=== PATIENT | male | born 1945 | race Caucasian/White ===

== ENCOUNTER 2019-10-12 13:04 | Outpatient (CLI) | payer OTHER, SELFPAY ==
--- NOTE | 2019-10-12 13:30 | USCV_ITS ---
Gary Nichols Age: 73 Gender: M : 1945 Exam Date: 10/12/2019 13:23 Ordering Phys: Arie Garcia MD ([email or web address]) Technologist: Chemo Farfan [place] [facility] [place]: KNOWN CAROTID DISEASE FOR SURVEILLANCE Risk Factors: Previous Vascular Surgery: Right Brachial BP: / Left Brachial BP: / Right Left Velocity (cm/s) Spectral Plaque Velocity (cm/s) Spectral Plaque Syst/Diast Broadening Syst/Diast Broadening 108.10/16.50 Prox CCA 76.50 / 13.40 79.40/ 19.80 Mid CCA 79.00 / 18.20 58.50/ 11.80 Distal CCA 63.50 / 17.30 87.10/ 27.60 Prox ICA 59.20 / 17.70 87.60/ 28.90 Mid ICA 104.90/ 30.30 97.20/ 22.80 Distal ICA 88.70 / 25.60 93.70 ECA 130.60 1.10 ICA/CCA 1.33 Antegrade Vertebral Antegrade 67.30/ 16.50 cm/s 50.40/ 14.50 cm/s Tri Subclavian Bi 116.9 110.2 0 0 FINDINGS Comparison:. 08/19/14. No significant elevation of systolic or diastolic velocities. Mixture of calcified and noncalcified plaque in the bifurcations. CONCLUSIONS No change seen from prior study. Bilateral ICA stenosis less than 50%. Dr. Skye Denton DO (Electronically Signed) Final Date: 12 October 2019 16:16 S
== END 2019-10-12 13:05 | disposition home or self-care (01) ==
LOC: US 13:05
PROVIDERS: PCP Family Medicine; Visit Provider Internal Medicine Cardiovascular Disease
DX: I65.23 Occlusion and stenosis of bilateral carotid arteries (principal)
CPT/HCPCS: 93880

== ENCOUNTER → 2021-07-31 09:33 | Outpatient (BNVA) | payer MEDICARE, SELFPAY | PROVIDERS: PCP Family Medicine; Visit Provider Surgery | DX: R13.10 Dysphagia, unspecified (principal) | CPT/HCPCS: 99202 ==

== ENCOUNTER 2021-08-04 07:29 | Day surgery (SDC) | payer MEDICARE, SELFPAY ==
[2021-08-01 12:29] VITALS: BMI 31.5
[2021-08-04 08:38] VITALS: BP 122/69; PULSE 55; RESP 18; TEMP 36.1; O2SAT 97
[2021-08-04] MEDS: sodium chloride 0.9% 1,000 ML 30 ML IV (08:46)
--- NOTE | 2021-08-04 09:22 | ANES.PREANE2 ---
Pre-Anesthetic Assessment Height/Weight: Height 1.78 m Weight 99.79 kg Temp Pulse Resp BP Pulse Ox 97.0 F L 55 L 18 122/69 97 08/04/21 08:38 08/04/21 08:38 08/04/21 08:38 08/04/21 08:38 08/04/21 08:38 Preop Diagnosis: dysphagia Operation Date: 08/04/21 09:30 Proposed Procedures p EGD 68026,R10.13(Not Applicable) - Maldonado Morris DO Familial anesthetic complications: none Was Beta Alyx taken within 24 hours: Yes Was Clonidine taken within 24 hours: N/A Last intake: Intake Last Liquid Date 08/03/21 Last Liquid Time 21:30 Last Solid Date 08/03/21 Last Solid Time 21:30 Social No alcohol and No tobacco Exam alert, oriented x 3, clear to auscultation bilaterally and regular rate & rhythm Airway Submandibular: Other (Recessed chin, less < 2 finger breadths ) Cervical ROM: Other (Limited extension) Mallampati: Class III Comments: Comments: Missing teeth Pulmonary Chronic Obstructive Pulmonary Disease and Sleep Apnea CV/HEM Coronary Artery Disease (s/p stents ), Hypertension, Myocardial Infarction and Peripheral Vascular Disease b/l carotid stenosis METS = 4 Chronic Renal Insufficiency Hepatic None reported GI Gastroesophageal Reflux Disease dysphagia Metabolic Patient states his thyroid is enlarging causing difficulty with sleeping denies thyroid disease denies hyper hypo thyorid, Graves, myesthenia gravis diagnosis Thyroid symmetric in size, no goiter appreciated Musc/skel None reported Neuropsych None reported denies stroke or seizure Anesthetic Plan ASA status: 3 (75 year old former smoker w/ COPD, CAD s/p stenting, and carotid stenosis ) Anesthesia: Anesthesia Evaluation, General and MAC Other: I discussed with the patient risks, goals, and benefits of MAC and general anesthesia. We discussed spectrum of MAC anesthesia including conversion to general as well as possibility of recall of intraoperative stimuli including discomfort/pain. Patient agrees to proceed with MAC. Risk of > 500 ml blood loss (7ml/kg in children): No Medications/Allergies Home Medications Medication Instructions Recorded Confirmed Last Taken Type alprazolam 0.5 mg tablet 0.5 mg PO TID PRN 08/10/19 08/04/21 08/03/21 History aripiprazole 5 mg tablet (Abilify) 5 mg PO DAILY 08/10/19 08/04/21 08/04/21 History aspirin 81 mg tablet,delayed 81 mg PO DAILY 08/10/19 08/04/21 08/03/21 History release (Aspir-) atenolol 100 mg tablet 100 mg PO DAILY 08/10/19 08/04/21 08/04/21 History bupropion HCl 100 mg tablet 100 mg PO TID 08/10/19 08/04/21 08/04/21 History glipizide 5 mg tablet 2.5 mg PO BID tab 08/10/19 08/04/21 08/03/21 History ropinirole 0.25 mg tablet 0.25 mg PO DAILY 08/10/19 08/04/21 08/03/21 History tamsulosin 0.4 mg capsule (Flomax) 0.4 mg PO DAILY 08/10/19 08/04/21 08/03/21 History zolpidem 5 mg tablet 5 mg PO .HS tab 08/10/19 08/04/21 08/03/21 History amlodipine 5 mg tablet 5 mg PO DAILY 90 Days #90 tab 09/25/19 08/04/21 08/04/21 Rx atorvastatin 40 mg tablet 40 mg PO DAILY #90 tab 09/07/20 08/04/21 08/03/21 Rx doxazosin 4 mg tablet 4 mg PO .1/2 tab daily tab 07/31/21 08/04/21 08/03/21 History fluticasone propionate 50 1 spray INTRANASAL ONCE PRN g 07/31/21 08/04/21 08/03/21 History mcg/actuation nasal spray,suspension (Children's Flonase Allergy Relief) lisinopril 2.5 mg tablet 2.5 mg PO ONCE tab 07/31/21 08/04/21 08/04/21 History multivitamin 1 tab PO DAILY 07/31/21 08/04/21 08/03/21 History omega-3 fatty acids [Fish Oil] 1 cap PO DAILY 07/31/21 08/04/21 08/03/21 History Allergies Allergy/AdvReac Type Severity Reaction Status Date / Time No Known Allergies Allergy Verified 08/04/21 08:35 Current Medications Generic Name Dose Route Start Last Admin Trade Name Freq PRN Reason Stop Dose Admin Sodium Chloride 1,000 mls @ 30 mls/hr 08/04/21 08:30 08/04/21 08:46 Sodium Chloride 0.9% IV 08/05/21 08:29 30 mls/hr .Q24H EVELYN Administration PFSH Anesthesia Medical History ASHD (arteriosclerotic heart disease) Carotid stenosis, bilateral CKD (chronic kidney disease) COPD (chronic obstructive pulmonary disease) Dyslipidemia Hypertension Myocardial infarction JAKOB (obstructive sleep apnea) Surgical History S/P PTCA (percutaneous transluminal coronary angioplasty) Family History Mother , AGE 51 CAD (coronary artery disease) Myocardial infarction Social History Smoking and tobacco status: former smoker Quit status (tobacco): has quit using tobacco Alcohol intake: never Data Anesthesia Cardiac Studies: No Data to Display
--- NOTE | 2021-08-04 11:10 | W.PM.OPSUD ---
Surgery/Procedure H&P Update DATE OF PROCEDURE: August 04, 2021 DATE H&P PERFORMED: 07/31/21 CHANGES TO PREVIOUS DOCUMENTATION: none PREOP DIAGNOSIS: dysphagia PLANNED PROCEDURE: Operation Date: 08/04/21 09:30 Proposed Procedures p EGD 05979,R10.13(Not Applicable) - Maldonado Morris DO
[2021-08-04 11:33] VITALS: BP 130/60; PULSE 60; RESP 14; TEMP 36.2; O2SAT 95
[2021-08-04 11:42] VITALS: BP 103/60; PULSE 59; RESP 16; O2SAT 96
[2021-08-04 11:53] VITALS: BP 108/54; PULSE 54; RESP 16; O2SAT 96
--- NOTE | 2021-08-04 14:46 | ANE.PACU2 ---
Inpatient post-anesthesia follow up: Airway intact: Yes Vital signs: Temperature 97.1 F Pulse Rate 54 Respiratory Rate 16 Blood Pressure 108/54 Pulse Oximetry 96 Oxygen Delivery Me thod Room Air Oxygen Flow Rate 10 Fraction of Inspir ed Oxygen Hydration adequate: Yes Nausea and vomiting: Yes Pain level: 1 Mental status: Baseline
== END 2021-08-04 12:00 | disposition home or self-care (01) ==
PROVIDERS: PCP Family Medicine; Visit Provider Surgery
PROC: 0DJ08ZZ Inspection of Upper Intestinal Tract, Via Natural or Artificial Opening Endoscopic (ICD-10-PCS; CPT 43235; principal; 2021-08-04 09:30)
DX: R10.13 Epigastric pain (principal); J44.9 Chronic obstructive pulmonary disease, unspecified; G47.30 Sleep apnea, unspecified; I25.10 Atherosclerotic heart disease of native coronary artery without angina pectoris; Z95.5 Presence of coronary angioplasty implant and graft; I10 Essential (primary) hypertension; I25.2 Old myocardial infarction; K21.9 Gastro-esophageal reflux disease without esophagitis; Z87.891 Personal history of nicotine dependence; E78.5 Hyperlipidemia, unspecified; G47.33 Obstructive sleep apnea (adult) (pediatric)
CPT/HCPCS: 43235; J2704; J7030

== ENCOUNTER 2022-01-05 12:37 | Outpatient (CLI) | payer OTHER, SELFPAY ==
--- NOTE | 2022-01-05 | USCV_ITS ---
Gary Nichols Age: 76 Gender: M : 1945 Exam Date: 01/05/2022 14:07 Ordering Phys: Rosaline Pablo MD Technologist: MICHELLE Exam Location: [facility] – [place] Indication: History of Smoker HISTORY: Diameter (cm) AP x Transverse x Length Velocity (cm/s) Waveform Prox Aorta: 2.36 x 2.39 x 66.50 Mid Aorta: 1.62 x 1.42 x 81.80 Distal Aorta: 1.60 x 1.18 x 117.80 Right Iliac Prox: 1.09 x 1.15 x 94.30 Left Iliac Prox: 1.03 x 1.06 x 94.30 Stent Prox Landing x x Aneurysmal Sac Max x x Lt Lat Sac Dim Rt Lat Sac Dim Stent Dist Landing x x Right Iliac Stent x x Left Iliac Stent x x Right Renal Art Left Renal Art FINDINGS: Comparison: none available. Ectatic abdominal aorta with evidence of atherosclerotic plaque noted. Doppler flow velocites noted throught the aorta and common iliac arteries. CONCLUSIONS No evidence of abdominal aortic or bilateral iliac aneurysm. Dr. Skye Denton DO (Electronically Signed) Final Date: 05 January 2022 14:27 S
== END 2022-01-05 12:38 | disposition home or self-care (01) ==
PROVIDERS: PCP Family Medicine; Visit Provider Family Medicine
DX: I77.811 Abdominal aortic ectasia (principal)
CPT/HCPCS: 76706

== ENCOUNTER → 2022-04-19 12:37 | Outpatient (BNVA) | payer OTHER, SELFPAY | PROVIDERS: PCP Family Medicine; Visit Provider Internal Medicine | DX: I25.10 Atherosclerotic heart disease of native coronary artery without angina pectoris (principal); I65.23 Occlusion and stenosis of bilateral carotid arteries; G47.33 Obstructive sleep apnea (adult) (pediatric); E78.5 Hyperlipidemia, unspecified; I12.9 Hypertensive chronic kidney disease with stage 1 through stage 4 chronic kidney disease, or unspecified chronic kidney disease; N18.9 Chronic kidney disease, unspecified; Z87.891 Personal history of nicotine dependence; I25.2 Old myocardial infarction | CPT/HCPCS: 99214 ==

== ENCOUNTER 2022-06-06 15:28 | Emergency (ER) | payer OTHER, SELFPAY ==
[2022-06-06] VITALS (29 sets, daily range): BP systolic 113–135; BP diastolic 55–64; PULSE 58–70; RESP 10–25; TEMP 36.8; O2SAT 92–97; BMI 32.3
--- NOTE | 2022-06-06 15:51 | ECG_ITS ---
[facility] Test Date: 2022-06-06 Pat Name: Gary Nichols Department: Room: Gender: Male Conveyancer: : 1945 Requested By: Josué Ann Order Number: [id number] Jared MD: Boyd Loaiza M.D. Measurements Intervals [place] Rate: 63 P: 59 TX: 206 QRS: 5 QRSD: 114 T: 46 QT: 389 QTc: 398 Interpretive Statements SINUS RHYTHM MODERATE INTRAVENTRICULAR CONDUCTION DELAY [110+ ms QRS DURATION] No previous ECG available for comparison Electronically Signed On 06-06-2022 23:54:34 CDT by Boyd Loaiza M.D. [email or web address] - [email or web address]/[id number]
--- NOTE | 2022-06-06 16:50 | XRR_ITS ---
PROCEDURE INFORMATION: Exam: XR Chest Exam date and time: 06/06/2022 4:58 PM Age: 76 years old Clinical indication: Shortness of breath; Prior surgery; Surgery type: Stents; Additional info: SOB TECHNIQUE: Imaging protocol: Radiologic exam of the chest. Views: 1 view. COMPARISON: No relevant prior studies available. FINDINGS: Lungs: Lungs are clear bilaterally. Pleural spaces: No pleural effusion. No pneumothorax. Heart/Mediastinum: The cardiac silhouette is mildly enlarged. Mediastinal contours are unremarkable. Bones/joints: Unremarkable for age. XR/XR chest 1V portable [id number] IMPRESSION: 1. No acute cardiopulmonary process. 2. Incidental/nonacute findings are listed in the report.
[2022-06-06 17:42] LABS: Basophils # 0.1 10^3/uL (0.0-0.1); Eosinophils # 0.1 10^3/uL (0.0-0.8); Eosinophils % 1.6 %; Hematocrit 38.6 % (42.0-52.0); Hemoglobin 12.6 g/dL (11.7-16.6); Lymphocytes # 2.3 10^3/uL (0.8-4.8); Lymphocytes % 30.6 %; Mean Corpuscular HGB Conc 32.6 g/dL (30.0-36.0); Mean Corpuscular Hemoglobin 30.6 pg (28.0-34.0); Mean Corpuscular Volume 93.7 fl (80-94); Mean Platelet Volume 10.4 fL (7.4-10.4); Monocytes # 0.7 10^3/uL (0.2-0.9); Monocytes % 9.7 %; Neutrophils # 4.35 10^3/uL (1.8-7.7); Neutrophils % 56.8 %; Nucleated Red Blood Cells % 0 %; Platelet Count 160 10^3/cmm (130-400); Red Blood Count 4.12 10^6/uL (4.1-5.3); Red Cell Distribution Width 13.6 % (12.1-15.1); White Blood Count 7.7 10^3/uL (4.0-10.0)
[2022-06-06 18:09] LABS: Troponin(5th) Baseline 8 ng/L (0-15)
[2022-06-06 18:18] LABS: Alanine Aminotransferase 20 U/L (0-41); Albumin Level 4.2 g/dL (3.5-5.2); Alkaline Phosphatase 81 U/L (40-130); Anion Gap 14.2 (5-19); Aspartate Amino Transferase 23 U/L (0-40); Blood Urea Nitrogen 20 mg/dL (8-23); Calcium 8.3 mg/dL (8.5-10.5); Carbon Dioxide 26 mmol/L (22-29); Chloride 103 mmol/L (98-107); Globulin 2.8 g/dL (1.3-4.6); Glucose 76 mg/dL (65-115); NT Pro B Type Natriuretic Pept 470 pg/mL (0-125); Osmolality Calculated 289 mOsm/kg (285-295); Potassium 4.2 mmol/L (3.5-5.1); Sodium 139 mmol/L (136-145); Total Bilirubin 0.4 mg/dL (0.15-1.2)
--- NOTE | 2022-06-06 18:50 | ECG_ITS ---
[facility] Test Date: 2022-06-06 Pat Name: Gayr Nichols Department: Room: Gender: Male Drafter Detail: : 1945 Requested By: Ranjit Frausto Order Number: [id number] Coleman MD: Gwyn Mariano M.D. Measurements Intervals [place] Rate: 61 P: 59 NM: 202 QRS: 15 QRSD: 102 T: 49 QT: 400 QTc: 406 Interpretive Statements SINUS RHYTHM Compared to ECG 06/06/2022 15:57:12 Intraventricular conduction delay no longer present Electronically Signed On 06-07-2022 18:47:37 CDT by Gwyn Mariano M.D. [email or web address] hospitalCatherine's Health Centermemorial health system marietta memorial hospitalEfficient Drivetrains/store/OM/[id number]
[2022-06-06 19:55] LABS: Troponin 5 2HR 8.71 ng/L (0-15)
[2022-06-06 20:03] LABS: Troponin 5 2HR Delta 0.71 ABS# (0-10)
--- NOTE | 2022-06-06 21:04 | ED_ITS ---
HPI - SOB/Dyspnea General: Chief Complaint: Shortness of Breath/Dyspnea Stated Complaint: sob/rib pain Time Seen by Provider: 06/06/22 20:16 Source: patient and family Mode of arrival: ambulatory History of Present Illness: HPI Narrative: This patient was convinced by his spouse to present to the emergency part today because of concerns about feeling fatigue and shortness of breath with exertion. He states the symptoms been present for some time perhaps over a year. He states today his finally convinced him to come to the emergency department and be checked out. He denies any associated chest pain, leg swelling or other symptoms such as recent illness cough fever etc. He has had a prior SD many years ago with stents placed but has not had any ongoing chest pain since that episode perhaps 20 years ago. He does admit to approximately 40 pound weight gain over the past year or so which he relates to being lazy. He has had no recent illness. No personal history of thromboembolic events. He has not smoked for many many years and is faithful to all his usual prescribed medications. Onset (ago): year(s) Exacerbating factors: exertion Associated symptoms: Deny chest pain, extremity pain, fever(s), nausea, palpitations, polydipsia, polyuria or vomiting Review of Systems Const: Reports: change in weight (Weight gain); Denies: fever(s) or chills Eyes: Denies: change in vision ENMT: Denies: throat pain, odynophagia, nasal discharge or nasal congestion Card: Reports: dyspnea on exertion; Denies: chest pain, palpitations, irregular heart rhythm, edema or swelling of feet/ankles Resp: Reports: dyspnea; Denies: productive cough, non-productive cough or wheezing GI: Denies: nausea, vomiting or diarrhea : Denies: flank pain, difficulty urinating, dysuria or urinary frequency Musc: Denies: neck pain, back pain, extremity pain or extremity swelling Skin/Breast: Denies: rash Neuro: Denies: headache(s), numbness in extremities or weakness in extremities Endo: Denies: polyuria or polydipsia [facility] PFSH: Medical History ASHD (arteriosclerotic heart disease) Carotid stenosis, bilateral CKD (chronic kidney disease) COPD (chronic obstructive pulmonary disease) Dyslipidemia Hypertension Myocardial infarction JAKOB (obstructive sleep apnea) Surgical History S/P PTCA (percutaneous transluminal coronary angioplasty) Family History Mother , AGE 51 CAD (coronary artery disease) Myocardial infarction Social History Smoking and tobacco status: former smoker Quit status (tobacco): has quit using tobacco Alcohol intake: never Physical Exam Narrative: EXAM NARRATIVE: The patient is very pleasant alert talks in complete sentences without conversational dyspnea. Const: COMMON NORMALS: no acute distress, average body habitus and patient oriented x3 GENERAL APPEARANCE: cooperative and comfortable HENMT: COMMON NORMALS: normocephalic, moist oral mucous membranes and oropharynx normal HEAD & SCALP: normocephalic FACE & SINUS: normal facial exam Eye: COMMON NORMALS: Equal, round and reactive pupils present, EOMs intact bilaterally and conjunctivae normal CONJUNCTIVA: Yes conjunctivae normal PUPIL: Yes Equal, round and reactive pupils present Neck/C-Spine: COMMON NORMALS: full ROM, no lymphadenopathy, no JVD and No carotid bruits Chest: COMMONS NORMALS: normal inspection of the chest Resp: COMMON NORMALS: normal respiratory effort, No retractions, No use of accessory muscles and clear to auscultation bilaterally AUSCULTATION: clear to auscultation bilaterally Cardio: COMMON NORMALS: no JVD, regular rate, regular rhythm, No murmurs present (Cardio) and Peripheral pulses 2+ throughout RATE: regular rate RHYTHM: regular rhythm PERIPHERAL PULSES: Peripheral pulses 2+ throughout GI: COMMON NORMALS: Normal to inspection, nondistended, normoactive bowel sounds present, Soft to palpation, non-tender and no masses PALPATION: Yes Soft to palpation Back/Pelvis: COMMON NORMALS: thoracic and lumbar spine normal to inspection, no thoracic nor lumbar tenderness, thoraco-lumbar ROM normal and straight leg raise negative bilaterally Extremity: COMMON NORMALS: normal to inspection, full ROM, capillary refill normal, no joint enlargement, no clubbing, cyanosis or edema, no calf tenderness and no pedal edema Neuro: COMMON NORMALS: patient oriented x3, moves all extremities and no focal motor deficits CRANIAL NERVES: Yes CN normal except as noted Psych: COMMON NORMALS: mental status grossly normal Skin: COMMON NORMALS: no rashes or lesions noted and turgor normal GENERAL SKIN EXAM: no rashes or lesions noted and turgor normal Course Reevaluation(s): Reevaluation #1: Patient remains clinically stable. Revealed he does have some right paramedian tenderness with voluntary guarding. No evidence of hernia, mass or other obvious physical exam findings but he does have this abdominal tenderness which he states has been going on for couple months. It may be an incidental finding but while we are here we will go ahead and do a noncontrast CT scan to ensure that there is no obvious pathology. Time: 21:35 Vital Signs: Vital signs: Vital Signs Temperature 98.3 F 06/06/22 15:45 Pulse Rate 60 06/06/22 22:25 Respiratory Rate 22 H 06/06/22 22:25 Blood Pressure 126/58 06/06/22 22:25 Pulse Oximetry 96 06/06/22 22:25 Oxygen Delivery Me thod 06/06/22 20:00 MDM - SOB/Dyspnea Medical Decision Making This patient made his way to the emergency department today for evaluation of his symptoms of dyspnea on exertion that have been present approximately 1 year. The primary reason that he came today is because his decided that she wanted to talk him into being seen. He had no associated chest pain with the symptoms and there was no other associated symptoms with his exertional symptoms. He states they have been steady and reproducible over the past year with greater than normal activity. He does have a known history of coronary artery disease has had stents placed many years ago. At any provocative testing by his history for several years. Differential is rather broad for this presentation but likely represents stable angina however work-up ensued to ensure that there was no evidence of active ACS etc. at this time. Clinical exam did reveal some abdominal tenderness and right lower chest tenderness to palpation which seems to be isolated to his abdominal wall musculature and not deep within the abdomen. He had no associated abdominal symptoms to include diarrhea blood in his stools obstipation history of dysuria flank pain etc. EKG and serial bariatric biomarkers were very reassuring without any evidence of suggesting ACS at this time. Chest x-ray was unremarkable and a noncontrast CT was obtained which did not reveal any evidence of acute intra-abdominal pathology at this time. Given his stable symptoms and lack of any findings that suggest any acute condition at this time that require acute intervention patient is deemed to be stable for discharge. We have placed a consultation in for cardiology for provocative testing. He is a patient of cardiology clinic here so this should be easily facilitated. Also notable that he had a borderline TSH which I do not feel is related to his symptoms but certainly bears watching. He is being discharged in stable condition with return precautions. Medical Records I reviewed the patient's medical records. Review of past records and problems reveal he has a history of right kidney disease, COPD, obstructive sleep apnea as reviewed in his prior records. Lab Data I reviewed the patient's lab results. 06/06/22 17:35 06/06/22 17:35 Labs/Radiology: Radiology Impressions Chest X-Ray 06/06/22 16:50 IMPRESSION: 1. No acute cardiopulmonary process. 2. Incidental/nonacute findings are listed in the report. Abdomen/Pelvis CT 06/06/22 21:35 IMPRESSION: 1. Sigmoid diverticulosis. No evidence for diverticulitis. 2. Increased fecal content in the colon. 3. Incidental/nonacute findings are listed in the report. Laboratory Results WBC 7.7 10^3/uL (4.0-10.0) 06/06/22 17:35 RBC 4.12 10^6/uL (4.1-5.3) 06/06/22 17:35 Hgb 12.6 g/dL (11.7-16.6) 06/06/22 17:35 Hct 38.6 % (42.0-52.0) L 06/06/22 17:35 MCV 93.7 fl (80-94) 06/06/22 17:35 MCH 30.6 pg (28.0-34.0) 06/06/22 17:35 MCHC 32.6 g/dL (30.0-36.0) 06/06/22 17:35 RDW 13.6 % (12.1-15.1) 06/06/22 17:35 Plt Count 160 10^3/cmm (130-400) 06/06/22 17:35 MPV 10.4 fL (7.4-10.4) 06/06/22 17:35 Neut % (Auto) 56.8 % 06/06/22 17:35 Lymph % (Auto) 30.6 % 06/06/22 17:35 Pershing % (Auto) 9.7 % 06/06/22 17:35 Eos % (Auto) 1.6 % 06/06/22 17:35 Baso % (Auto) 1.0 % 06/06/22 17:35 Neut # (Auto) 4.35 10^3/uL (1.8-7.7) 06/06/22 17:35 Lymph # (Auto) 2.3 10^3/uL (0.8-4.8) 06/06/22 17:35 Pershing # (Auto) 0.7 10^3/uL (0.2-0.9) 06/06/22 17:35 Eos # (Auto) 0.1 10^3/uL (0.0-0.8) 06/06/22 17:35 Baso # (Auto) 0.1 10^3/uL (0.0-0.1) 06/06/22 17:35 Nucleated RBC % (auto) 0 % 06/06/22 17:35 Nucleated RBCs # 0.0 /100WBC 06/06/22 17:35 Sodium 139 mmol/L (136-145) 06/06/22 17:35 Potassium 4.2 mmol/L (3.5-5.1) 06/06/22 17:35 Chloride 103 mmol/L (98-107) 06/06/22 17:35 Carbon Dioxide 26 mmol/L (22-29) 06/06/22 17:35 Anion Gap 14.2 (5-19) 06/06/22 17:35 BUN 20 mg/dL (8-23) 06/06/22 17:35 Creatinine 1.7 mg/dL (0.7-1.2) H 06/06/22 17:35 GFR Calculation Not Reportable 06/06/22 17:35 Glucose 76 mg/dL (65-115) 06/06/22 17:35 Calculated Osmolality 289 mOsm/kg (285-295) 06/06/22 17:35 Calcium 8.3 mg/dL (8.5-10.5) L 06/06/22 17:35 Total Bilirubin 0.4 mg/dL (0.15-1.2) 06/06/22 17:35 AST 23 U/L (0-40) 06/06/22 17:35 ALT 20 U/L (0-41) 06/06/22 17:35 Alkaline Phosphatase 81 U/L (40-130) 06/06/22 17:35 Troponin T Baseline 8 ng/L (0-15) 06/06/22 17:35 Troponin T 120 Minute 8.71 ng/L (0-15) 06/06/22 19:22 Delta Troponin T 0.71 ABS# (0-10) 06/06/22 19:22 NT-Pro-B Natriuret Pep 470 pg/mL (0-125) H 06/06/22 17:35 Total Protein 7.0 g/dL (6.6-8.7) 06/06/22 17:35 Albumin 4.2 g/dL (3.5-5.2) 06/06/22 17:35 Globulin 2.8 g/dL (1.3-4.6) 06/06/22 17:35 TSH 5.83 uIU/mL (0.27-4.20) H 06/06/22 16:53 EKG Data EKG 1: I personally reviewed and interpreted this EKG as follows: Interpretation: Resting EKG contemporaneously reviewed by me reveals a normal sinus rhythm with a ventricular rate of 61 bpm. Normal MN interval, QRS duration, corrected QT interval. Normal axis. No acute ST-T wave changes noted at this time. Discharge Plan Discharge Patient Disposition: Home Clinical Impression: Coronary artery disease, MILLER (dyspnea on exertion) Condition: Stable Prescriptions: No Action amlodipine 5 mg tablet 5 mg PO DAILY 90 Days Qty: 90 3RF tamsulosin [Flomax] 0.4 mg capsule 0.4 mg PO DAILY zolpidem 5 mg tablet 5 mg PO .HS aripiprazole [Abilify] 5 mg tablet 5 mg PO DAILY ropinirole 0.25 mg tablet 0.25 mg PO DAILY atenolol 100 mg tablet 100 mg PO DAILY bupropion HCl 100 mg tablet 100 mg PO TID Rx Instructions: administer 6 hours apart glipizide 5 mg tablet 2.5 mg PO BID alprazolam 0.5 mg tablet 0.5 mg PO TID PRN (Reason: anxiety) aspirin [Aspir-81] 81 mg tablet,delayed release (DR/EC) 81 mg PO DAILY doxazosin 4 mg tablet 4 mg PO .1/2 tab daily lisinopril 2.5 mg tablet 2.5 mg PO ONCE multivitamin Tablet 1 tab PO DAILY omega-3 fatty acids [Fish Oil] 1 cap PO DAILY fluticasone propionate [Children's Flonase Allergy Rlf] 50 mcg/actuation spray,suspension 1 spray intranasal ONCE PRN (Reason: Allergy Symptoms) Rx Instructions: administer into each nostril atorvastatin 40 mg tablet 40 mg PO DAILY Qty: 90 3RF Discharge Orders: Discharge ED (Routine); Ordered 06/06/22 Ordered By: Josué Ann Referrals: Meliza Cantor DO [Primary Care Provider] - Discharge Diet: Usual diet Discharge Activity: Increase activity as tolerated Patient Instructions: Opioid Safety, Pain Management Activity Restrictions/Additional Instructions: As we discussed during your evaluation this evening we did not find any evidence of acute heart attack, other concerning findings at this time however additional evaluation needs to occur to determine the cause of your symptoms over the past year. You should continue all usual medications. We have placed a consult with case management to get a stress test arranged for you. Should you develop worsening of your symptoms, chest pain, or other concerning symptoms at any time return to this or the nearest emergency department for reevaluation. Coding Level of Care Code ED Day Light Relief Operator for Michael Hirsch
--- NOTE | 2022-06-06 21:35 | CTR_ITS ---
PROCEDURE INFORMATION: Exam: CT Abdomen And Pelvis Without Contrast Exam date and time: 06/06/2022 10:01 PM Age: 76 years old Clinical indication: Abdominal pain; Right; Prior surgery; Surgery type: Coronary angioplasty; Patient HX: C/O RT flank pain; Additional info: Right side and flank pain TECHNIQUE: Imaging protocol: Computed tomography of the abdomen and pelvis without contrast. Sagittal and coronal reformatted images were created and reviewed. Radiation optimization: All CT scans at this facility use at least one of these dose optimization techniques: automated exposure control; mA and/or kV adjustment per patient size (includes targeted exams where dose is matched to clinical indication); or iterative reconstruction. REPORTING DATA: Count of CT and Cardiac NM exams in prior 12 months: This patient has received 0 known CTs and 0 known cardiac nuclear medicine studies in the 12 months prior to the current study. COMPARISON: [place] [id number] 01/05/2022 2:07 PM RADIATION DOSE METRICS: Total DLP (mGy-cm): 855.42 FINDINGS: Lungs: Visualized lungs are clear. Pleural spaces: No pleural effusion. Heart: Visualized portions of the heart are mildly enlarged. Coronary arteries: Mild atherosclerotic calcification in the visualized coronary arteries. Liver: The liver is unremarkable. Gallbladder and bile ducts: The gallbladder is unremarkable. No biliary ductal dilatation. Pancreas: The pancreas is unremarkable. No pancreatic ductal dilatation. Spleen: The spleen is unremarkable. Adrenal glands: The right and left adrenal glands are unremarkable. Kidneys and ureters: The right and left kidneys are unremarkable. The right and left ureters are unremarkable. Stomach and bowel: Numerous diverticula in the sigmoid colon. No evidence for diverticulitis. Increased fecal content in the colon. No acute abnormality in the small bowel. No acute abnormality in the stomach. Appendix: The appendix is visualized and is unremarkable. No findings to suggest acute appendicitis. Intraperitoneal space: No free intraperitoneal air. No ascites. No loculated fluid collections to suggest an abscess. Vasculature: Moderate atherosclerotic changes in the visualized arteries. No evidence for aortic aneurysm. Lymph nodes: No lymphadenopathy. Urinary bladder: The bladder is unremarkable. Reproductive: The prostate gland is unremarkable. Bones/joints: Degenerative changes in the spine, sacroiliac joints, and hips. Mild spinal canal stenosis at L2-L3, L3-L4, and L4-L5. Multilevel foraminal stenosis of varying severity in the lumbar spine. Soft tissues: No acute abnormality in the extra-abdominal soft tissues. CT/CT abdomen pelvis wo con [id number] IMPRESSION: 1. Sigmoid diverticulosis. No evidence for diverticulitis. 2. Increased fecal content in the colon. 3. Incidental/nonacute findings are listed in the report.
[2022-06-06 21:43] LABS: Thyroid Stimulating Hormone 5.83 uIU/mL (0.27-4.20)
--- NOTE | 2022-06-08 11:04 | DCPLANNER ---
Addendum entered by Natividad Bonilla 06/22/22 10:57: Patient had a follow up appointment scheduled with heart care - patient did attend appointment Addendum entered by Natividad Bonilla 06/13/22 08:22: Patient has a follow up appointment scheduled for June at 11:00 with [facility]. 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 Patient has [employer] insurance, patient was referred to cardiology. Patients information will be printed and reviewed. Clinic will call patient with appointment information.
== END 2022-06-06 23:11 | disposition home or self-care (01) ==
PROVIDERS: Physician Assistant; Emergency Provider Emergency Medicine; PCP Family Medicine
DX: I25.10 Atherosclerotic heart disease of native coronary artery without angina pectoris (principal); R06.00 Dyspnea, unspecified; Z79.82 Long term (current) use of aspirin; Z79.84 Long term (current) use of oral hypoglycemic drugs; K57.30 Diverticulosis of large intestine without perforation or abscess without bleeding; I12.9 Hypertensive chronic kidney disease with stage 1 through stage 4 chronic kidney disease, or unspecified chronic kidney disease; N18.9 Chronic kidney disease, unspecified; J44.9 Chronic obstructive pulmonary disease, unspecified; E78.5 Hyperlipidemia, unspecified; I25.2 Old myocardial infarction; Z87.891 Personal history of nicotine dependence
CPT/HCPCS: 36415; 71045; 74176; 80048; 80053; 83880; 84443; 84484; 85025; 93005; 99285

== ENCOUNTER → 2022-06-21 10:01 | Outpatient (BNVA) | payer OTHER, SELFPAY | PROVIDERS: PCP Family Medicine; Visit Provider Nurse Practitioner Family | DX: I25.10 Atherosclerotic heart disease of native coronary artery without angina pectoris (principal); Z87.891 Personal history of nicotine dependence; I25.2 Old myocardial infarction; Z79.82 Long term (current) use of aspirin; I12.9 Hypertensive chronic kidney disease with stage 1 through stage 4 chronic kidney disease, or unspecified chronic kidney disease; N18.9 Chronic kidney disease, unspecified | CPT/HCPCS: 99214 ==

== ENCOUNTER 2022-07-20 09:51 | Outpatient (CLI) | payer OTHER, SELFPAY ==
[2022-07-20 09:59] VITALS: BMI 32.5
--- NOTE | 2022-07-20 10:01 | NMCV_ITS ---
NM sakshi perf SPECT r/s* [id number] Gary Nichols Age: 76 Gender: M : 1945 Exam Date: 07/20/2022 10:55 Ordering Phys: Rosalba Schafer Technologist: KAR Bill Exam Location: [facility] [place] Indications: ATHEROSCLEROTIC HEART DISEASE CORONARY ANGIOPLASTY STATUS STRESS TEST Please see separate stress test report in [facility] for full findings IMAGE PROTOCOL Rest/Stress 1 Exercise Day Radiopharmaceutical Dose (mCi) Administration Site Administered by Rest: Tc-99m 10.9 IV Yari Bridges SPECIAL LIBRARY LIBRARIAN Sestamibi Stress:Tc-99m 33.0 IV Yari Bridges, SPECIAL LIBRARY LIBRARIAN Sestamibi Rest: 20-Jul-2022 60 Discovery 630 Stress: 20-Jul-2022 15 Discovery 630 Radiopharmaceutical was injected at 85 % maximum heart rate. Images obtained in supine and prone position. SPECT RESULTS Technical Quality: Excellent Raw Data Analysis: Normal Image Corrections: No attenuation or motion correction applied Summed Stress Score: 2 Summed Rest Score: 10 Summed Difference Score: 1 PERFUSION FINDINGS Small area of moderately decreased tracer uptake was noted in the mid inferior wall region with a slight reversibility with the supine imaging. However the prone imaging, no significant reversibility was noted. FUNCTIONAL RESULTS (calculated via Gated SPECT) Stress Image LV EF (%): 75 Stress EDV (mL):77 TID: 0.59 Stress ESV (mL):19 FUNCTIONAL FINDINGS: Segmental wall motion analysis revealing no gross wall motion abnormalities IMPRESSIONS 1. Myocardial perfusion imaging revealing a small area of moderately decreased tracer uptake in the mid inferior wall region with a subtle area of reversibility suggesting myocardial scarring in the distribution of the right coronary artery with a very small area of ischemia. However in view of the inconsistency with the prone imaging, this could be artifactual. 2. Normal LV ejection fraction 75%. 3. LV wall motion analysis revealing no gross wall motion abnormalities. 4. Normal LV volume. No similar previous studies are available for comparison Dr Boyd Loaiza MD [facility] (Electronically Signed) Final Date: 20 Jul 2022 14:47 S
--- NOTE | 2022-07-20 10:01 | ECG_ITS ---
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 Interpretive Statements NAME OF STUDY: EXERCISE SESTAMIBI STRESS TEST INDICATION: Chest Pain, PROCEDURE: The baseline electrocardiogram showed normal sinus rhythm with normal ST-Ts. Minimal left axis deviation. At the baseline, the patient's blood pressure was 131/74 mm Hg with a heart rate of 78. The patient exercised for 4 minutes and 58 seconds on a standard Wale protocol. Patient attained a maximum heart rate of 127 beats per minute(86% of the maximum predicted heart rate) with a blood pressure at the peak exercise of 152/85 mm Hg. The EKG at the peak exercise revealed no significant changes. Patient did not have any chest pain or any significant arrhythmis with the exercise Sestamibi was injected 1 minute prior to the peak exercise During the recovery phase, there were no new changes. Blood pressure at the end of the recovery phase was 120/60 mm Hg with a heart rate of 91 per minute. CONCLUSION: 1. Normal EKG response to treadmill exercise 2. No exercise-induced chest pain or cardiac arrhythmia 3. Impaired exercise tolerance, attained a maximum of 7.0 METs 4. Sestamibi/Sestamibi perfusion results pending; see separate report. Electronically Signed On 07-27-2022 20:07:08 CDT by Boyd Loaiza M.D. [id number]
[2022-07-20 11:53] VITALS: BP 120/60; PULSE 91
== END 2022-07-20 09:52 | disposition home or self-care (01) ==
LOC: CDL 09:53
PROVIDERS: PCP Family Medicine; Visit Provider Nurse Practitioner Family
DX: R06.00 Dyspnea, unspecified (principal); R07.9 Chest pain, unspecified
CPT/HCPCS: 36415; 78452; 93017; A9500

== ENCOUNTER → 2022-08-30 12:21 | Outpatient (BNVA) | payer OTHER, SELFPAY | PROVIDERS: PCP Family Medicine; Visit Provider Internal Medicine | DX: I25.10 Atherosclerotic heart disease of native coronary artery without angina pectoris (principal); I65.23 Occlusion and stenosis of bilateral carotid arteries; J44.9 Chronic obstructive pulmonary disease, unspecified; I12.9 Hypertensive chronic kidney disease with stage 1 through stage 4 chronic kidney disease, or unspecified chronic kidney disease; N18.9 Chronic kidney disease, unspecified; G47.33 Obstructive sleep apnea (adult) (pediatric); E78.5 Hyperlipidemia, unspecified; I25.2 Old myocardial infarction; Z87.891 Personal history of nicotine dependence | CPT/HCPCS: 36415; 80048; 83880; 99214 ==

== ENCOUNTER 2022-09-14 12:31 | Outpatient (CLI) | payer OTHER, SELFPAY ==
[2022-09-14 13:46] LABS: Anion Gap 11.8 (5-19); Blood Urea Nitrogen 13 mg/dL (8-23); Calcium 8.5 mg/dL (8.5-10.5); Carbon Dioxide 25 mmol/L (22-29); Chloride 108 mmol/L (98-107); Glucose 78 mg/dL (65-115); NT Pro B Type Natriuretic Pept 415 pg/mL (0-125); Osmolality Calculated 291 mOsm/kg (285-295); Potassium 3.8 mmol/L (3.5-5.1); Sodium 141 mmol/L (136-145)
== END 2022-09-14 12:32 | disposition home or self-care (01) ==
LOC: LAB 12:34
PROVIDERS: PCP Family Medicine; Visit Provider Internal Medicine
DX: I12.9 Hypertensive chronic kidney disease with stage 1 through stage 4 chronic kidney disease, or unspecified chronic kidney disease (principal); N18.9 Chronic kidney disease, unspecified; J44.9 Chronic obstructive pulmonary disease, unspecified
CPT/HCPCS: 36415; 80048; 83880

== ENCOUNTER 2022-09-17 11:48 | Outpatient (CLI) | payer OTHER, SELFPAY ==
--- NOTE | 2022-09-17 12:45 | USCV_ITS ---
NicholsGary mendieta Age: 76 Gender: M : 1945 Exam Date: 09/17/2022 12:23 Ordering Phys: Gwyn Mariano M.D ([email or web address]) Technologist: Chemo Farfan [place] [facility] [place]ication: sob BP: 108 / 62 HR: 64 Rhythm: Sinus Technical Quality: Adequate MEASUREMENTS (Male / Female) Normal Values 2D ECHO LVOT Diameter 2.0 cm LV Ejection Fraction MOD 2C 63.5 % LV Ejection Fraction 2C AL 63.6 % LA Diameter 3.6 cm LA Width 3.4 cm LA Height 5.8 cm RA Width 3.5 cm RA Height 6.2 cm Aorta at Sinotubular Diameter 2.0 cm IVC Diameter 2.0 cm M-MODE Aortic Annulus Diameter 2.8 cm LA Ao Ratio MM 1.4 MV E Point Septal Separation 0.7 cm DOPPLER AV Peak Velocity 143.3 cm/s LVOT Peak Velocity 96.0 cm/s AV Area Cont Eq vti 2.8 cm squared AV Area Cont Eq pk 2.2 cm squared MV Peak Velocity 95.0 cm/s MV Area PHT 4.2 cm squared Mitral E to A Ratio 1.0 MV E' Velocity 42.5 cm/s Mitral E to MV E' Ratio 10.7 Mitral E to LV E' Lateral Ratio 10.0 Mitral E to LV E' Septal Ratio 11.6 TR Peak Velocity 357.3 cm/s TR Peak Gradient 51.1 mmHg TR Mean Velocity 280.8 cm/s TR Mean Gradient 33.8 mmHg TR Velocity Time Integral 100.1 cm Right Atrial Pressure 3.0 mmHg Pulmonary Artery Systolic Pressu 54.1 mmHg PV Peak Velocity 112.3 cm/s RV Acceleration Time 0.1 s RV Ejection Time 0.3 s RV AcT/ET 0.2 FINDINGS Left Ventricle Left ventricle is normal in size. LV systolic function is normal with EF of 60 to 65%. No regional wall motion abnormalities are seen. Grade 1 diastolic dysfunction Right Ventricle Normal in size and function Right Atrium Normal in size Left Atrium Normal in size Mitral Valve Structurally normal mitral valve. Mild mitral regurgitation. Aortic Valve Structurally normal aortic valve. No significant stenosis or regurgitation. Tricuspid Valve Mild tricuspid regurgitation. Insufficient TR jet to calculate RVSP. Pulmonic Valve Not well-visualized Pericardium Normal Aorta Normal in size IVC Appears to be normal CONCLUSIONS LV systolic function is normal with EF of 60 to 65%. Grade 1 diastolic dysfunction. Mild mitral regurgitation Compared to prior echocardiogram from 2010, no significant changes are seen Gwyn Mariano MD (Electronically Signed) Final Date: 01 October 2022 09:01 S
--- NOTE | 2022-09-17 13:30 | USCV_ITS ---
Gary Nichols Age: 76 Gender: M : 1945 Exam Date: 09/17/2022 12:44 Ordering Phys: Gwyn Mariano M.D ([email or web address]) Technologist: Chemo Farfan Exam Location[place] [facility] [place] Indication: carotid stenosis Risk Factors: Previous Vascular Surgery: Right Brachial BP: / Left Brachial BP: / Right Left Velocity (cm/s) Spectral Plaque Velocity (cm/s) Spectral Plaque Syst/Diast Broadening Syst/Diast Broadening 112.50/13.20 Prox CCA 80.50 / 14.30 81.60/ 14.00 Mid CCA 82.70 / 17.60 63.70/ 21.00 Distal CCA 79.40 / 16.50 81.60/ 16.30 Prox ICA 97.40 / 24.80 94.80/ 25.60 Mid ICA 133.60/ 32.60 84.60/ 17.80 Distal ICA 97.90 / 26.40 103.30 ECA 161.60 1.16 ICA/CCA 1.62 Antegrade Vertebral Antegrade 59.00/ 8.50 cm/s 25.60/ 7.00 cm/s Tri Subclavian Tri 149.9 89.30 0 FINDINGS Mild to moderate plaques at the right bifurcation and proximal ICA. Moderate heterogenous plaques in the left ICA at the mid segment with some flow turbulence. Intimal thickening and minimal plaques in the common carotid arteries bilaterally Antegrade flow in the vertebral arteries bilaterally Normal/near normal Doppler flow velocities in the subclavian arteries bilaterally CONCLUSIONS Mild to moderate plaques at the right bifurcation and proximal ICA with the Doppler features suggesting less than 50% stenosis Moderate heterogenous plaques in the left ICA at the mid segment with some flow turbulence suggesting greater than 50% stenosis Consider CTA to better evaluate the left mid and distal ICA, if clinically indicated Dr Boyd Loaiza MD [facility] (Electronically Signed) Final Date: 05 October 2022 09:38 S
== END 2022-09-17 11:49 | disposition home or self-care (01) ==
LOC: RAD 11:48
PROVIDERS: PCP Family Medicine; Visit Provider Internal Medicine
DX: I65.23 Occlusion and stenosis of bilateral carotid arteries (principal); R06.02 Shortness of breath
CPT/HCPCS: 93306; 93880

== ENCOUNTER 2022-11-02 09:22 | Outpatient (CLI) | payer OTHER, SELFPAY ==
[2022-11-02 10:58] LABS: Anion Gap 12.6 (5-19); Blood Urea Nitrogen 23 mg/dL (8-23); Calcium 8.6 mg/dL (8.5-10.5); Carbon Dioxide 28 mmol/L (22-29); Chloride 103 mmol/L (98-107); Glucose 59 mg/dL (65-115); NT Pro B Type Natriuretic Pept 301 pg/mL (0-125); Osmolality Calculated 289 mOsm/kg (285-295); Potassium 4.6 mmol/L (3.5-5.1); Sodium 139 mmol/L (136-145)
== END 2022-11-02 09:23 | disposition home or self-care (01) ==
PROVIDERS: PCP Family Medicine; Visit Provider Internal Medicine
DX: I10 Essential (primary) hypertension (principal); I25.10 Atherosclerotic heart disease of native coronary artery without angina pectoris
CPT/HCPCS: 36415; 80048; 83880

== ENCOUNTER 2023-05-10 10:48 | Outpatient (CLI) | payer OTHER, SELFPAY ==
--- NOTE | 2023-05-10 11:45 | USCV_ITS ---
Gary Nichols Age: 77 Gender: M : 1945 Exam Date: 05/10/2023 11:29 Ordering Phys: Gwyn Mariano M.D ([email or web address]) Technologist: ROSEANN [place] [facility] [place]ication: EVAL FOR CAROTID STENOSIS Risk Factors: Previous Vascular Surgery: Right Brachial BP: / Left Brachial BP: / Right Left Velocity (cm/s) Spectral Plaque Velocity (cm/s) Spectral Plaque Syst/Diast Broadening Syst/Diast Broadening 86.20/ 18.60 Prox CCA 98.50 / 22.70 76.20/ 17.40 Mid CCA 87.40 / 22.70 59.60/ 13.60 Distal CCA 84.30 / 22.30 132.60/34.60 Prox ICA 62.40 / 18.60 84.40/ 24.40 Mid ICA 87.30 / 22.00 78.70/ 21.80 Distal ICA 85.20 / 25.00 89.80 ECA 128.10 2.20 ICA/CCA 1.00 Antegrade Vertebral Antegrade 40.30/ 12.10 cm/s 38.70/ 15.60 cm/s Tri Subclavian Tri 168.3 144.4 0 0 FINDINGS Comparison:. 09/17/22 Diffuse bilateral scattered calcified plaque and intimal thickening throughout the common carotid arteries and extending through the bifurcation. Mild right ICA velocity elevation. Progressed since the prior exam. Antegrade vertebral arteries. CONCLUSIONS Right ICA stenosis 50-69%. Mild progression since the prior exam. Left ICA stenosis < 50%. Dr. Skye Denton DO (Electronically Signed) Final Date: 10 May 2023 12:39 S
== END 2023-05-10 10:49 | disposition home or self-care (01) ==
LOC: RAD 10:50
PROVIDERS: PCP Family Medicine; Visit Provider Internal Medicine
DX: I65.23 Occlusion and stenosis of bilateral carotid arteries (principal)
CPT/HCPCS: 93880

== ENCOUNTER 2023-06-12 11:17 | Outpatient (CLI) | payer OTHER, SELFPAY ==
--- NOTE | 2023-06-12 12:00 | CT_ITS ---
WS: [id number] CTA NECK TECHNIQUE: Contrast enhanced CTA of the neck with coronal and sagittal reformatted images and maximum intensity projection (MIP) images. NASCET criteria utilized. CLINICAL INFORMATION: bilat carotid stenosis COMPARISON: Carotid ultrasound 05/10/2023 DLP: 280.[address] scans at [facility] use at least one of these dose optimization techniques: automated e xposure control; mA and/or kV adjustment per patient size (includes targeted exams where dose is matc hed to clinical indication); or iterative reconstruction. FINDINGS: RIGHT: RIGHT common carotid artery is patent. Moderate calcified atheromatous plaque RIGHT carotid bu lb extending into the ICA. RIGHT ICA stenosis measures 52%. RIGHT ICA is patent to the skull base. LEFT: LEFT common carotid artery is patent. Moderate calcified atheromatous plaque LEFT carotid bulb extending into the ICA with stenosis measuring 34% Codominant patent vertebral arteries bilaterally. Proximal basilar artery is patent. Mild cavernous c arotid calcification. Paranasal sinuses are well aerated. Mastoid air cells are well aerated. Advance d emphysematous changes in the lung apices. Straightening of the normal cervical lordosis. Anterior h ypertrophic changes cervical spine. Mild stenosis at the LEFT subclavian artery origin which remains patent. RIGHT subclavian artery is patent. IMPRESSION: 1. RIGHT ICA stenosis 52% 2. LEFT ICA stenosis 34% 3. Codominant patent vertebral arteries bilaterally. Proximal basilar artery is patent.
[2023-06-12 12:20] LABS: Blood Urea Nitrogen 5 mg/dL (8-23)
== END 2023-06-12 11:18 | disposition home or self-care (01) ==
LOC: RAD 11:17
PROVIDERS: PCP Family Medicine; Visit Provider Internal Medicine
DX: I65.23 Occlusion and stenosis of bilateral carotid arteries (principal)
CPT/HCPCS: 70498; 82565; 84520

== ENCOUNTER → 2023-08-29 12:16 | Outpatient (BNVA) | payer OTHER, SELFPAY | PROVIDERS: PCP Family Medicine; Visit Provider Internal Medicine Cardiovascular Disease | DX: I12.9 Hypertensive chronic kidney disease with stage 1 through stage 4 chronic kidney disease, or unspecified chronic kidney disease (principal); N18.9 Chronic kidney disease, unspecified; Z98.61 Coronary angioplasty status; J44.9 Chronic obstructive pulmonary disease, unspecified; E78.5 Hyperlipidemia, unspecified | CPT/HCPCS: 99214 ==

== ENCOUNTER 2024-01-07 20:00 | Outpatient (CLI) | payer OTHER, SELFPAY | END 2024-01-07 20:01 | disposition home or self-care (01) | LOC: SLEEP 21:20 | PROVIDERS: PCP Family Medicine; Visit Provider Family Medicine | DX: G47.33 Obstructive sleep apnea (adult) (pediatric) (principal); G47.36 Sleep related hypoventilation in conditions classified elsewhere; G47.61 Periodic limb movement disorder | CPT/HCPCS: 95810 ==

== ENCOUNTER 2024-03-21 12:06 | Emergency (ER) | payer OTHER, MEDICARE, SELFPAY ==
[2024-03-21 12:07] VITALS: BP 148/74; PULSE 68; RESP 17; TEMP 36.9; O2SAT 92; BMI 34.4
--- NOTE | 2024-03-21 12:11 | XRR_ITS ---
PROCEDURE INFORMATION: Exam: XR Left Ankle Exam date and time: 03/21/2024 12:14 PM Age: 78 years old Clinical indication: Pain; Left; Patient HX: Lt ankle deformity post fall TECHNIQUE: Imaging protocol: Radiologic exam of the left ankle. Views: 3 or more views. COMPARISON: No relevant prior studies available. FINDINGS: Bones/joints: Marked fracture dislocation of the distal tibia and fibula. There is marked posterior and lateral displacement of the talus related to the distal tibia. Small comminuted bone fragments are present. Soft tissues: Normal. XR/XR ankle LT min 3V* [id number] IMPRESSION: Fracture dislocation.
[2024-03-21] MEDS: etomidate 2 mg/mL INJ SDV 10 mL 10 MG IVP (12:36)
--- NOTE | 2024-03-21 12:36 | XRR_ITS ---
PROCEDURE INFORMATION: Exam: XR Left Ankle Exam date and time: 03/21/2024 12:37 PM Age: 78 years old Clinical indication: Pain; Left; Patient HX: Post reduction lt ankle TECHNIQUE: Imaging protocol: Radiologic exam of the left ankle. Views: 1 or 2 views. COMPARISON: CR (LOW EXM, ) 03/21/2024 12:14 PM FINDINGS: Bones/joints: Fracture of the distal fibula. No definite tibial fracture is visible on these images. Anatomical location of the tibiotalar joint with only minimal widening anteriorly. Soft tissues: Normal. XR/XR ankle LT 2V [id number] IMPRESSION: Ankle fracture with reduced dislocation.
[2024-03-21] MEDS: ondansetron 2 mg/ML SDV 2 mL 4 MG IVP (12:42)
[2024-03-21 12:44] VITALS: BP 130/62; PULSE 64; RESP 18; O2SAT 92
--- NOTE | 2024-03-21 12:59 | ED_ITS ---
HPI - Extremity Problem General: Chief complaint: Extremity Injury, Lower Stated complaint: left ankle deformity Time Seen by Provider: 03/21/24 12:09 History of Present Illness: 78-year-old male was walking outside sli pped on the ice presents to the emergency room via EMS with an obvious deformity of the left ankle. Not previously injured the ankle in the past. Associated symptoms: Deny chest pain, fever(s) or rash Related Data Home Medications Medication Instructions Recorded Confirmed alprazolam 0.5 mg tablet 0.5 mg PO TID PRN anxiety 08/10/19 08/29/23 aripiprazole 5 mg tablet (Abilify) 5 mg PO DAILY 08/10/19 08/29/23 aspirin 81 mg tablet,delayed 81 mg PO DAILY 08/10/19 08/29/23 release (Aspir-) atenolol 100 mg tablet 100 mg PO DAILY 08/10/19 08/29/23 bupropion HCl 100 mg tablet 100 mg PO TID 08/10/19 08/29/23 glipizide 5 mg tablet 2.5 mg PO BID 08/10/19 08/29/23 ropinirole 0.25 mg tablet 0.25 mg PO DAILY 08/10/19 08/29/23 tamsulosin 0.4 mg capsule (Flomax) 0.4 mg PO DAILY 08/10/19 08/29/23 zolpidem 5 mg tablet 5 mg PO .HS 08/10/19 08/29/23 doxazosin 4 mg tablet 4 mg PO .1/2 tab daily 07/31/21 08/29/23 fluticasone propionate 50 1 spray intranasal ONCE PRN 07/31/21 08/29/23 mcg/actuation nasal Allergy Symptoms spray,suspension (Children's Flonase Allergy Relief) lisinopril 2.5 mg tablet 2.5 mg PO ONCE 07/31/21 08/29/23 multivitamin 1 tab PO DAILY 07/31/21 08/29/23 omega-3 fatty acids [Fish Oil] 1 cap PO DAILY 07/31/21 08/29/23 levothyroxine 50 mcg capsule 50 mcg PO DAILY 08/29/23 08/29/23 Previous Rx's Medication Instructions Recorded atorvastatin 40 mg tablet 40 mg PO DAILY #90 tabs 09/07/20 furosemide 20 mg tablet (Lasix) 20 mg PO BID #180 tabs 10/03/22 hydrocodone 5 mg-acetaminophen 325 1 tab PO Q6H PRN pain #25 tabs 03/21/24 mg tablet Allergies Allergy/AdvReac Type Severity Reaction Status Date / Time No Known Allergies Allergy Verified 08/29/23 13:22 Review of Systems Const: Denies: fever(s) or chills Card: Denies: chest pain Resp: Denies: dyspnea GI: Denies: abdominal pain : Denies: dysuria, urinary frequency or urinary urgency Musc: Denies: neck pain or back pain Skin/Breast: Denies: rash PFSH ED PFSH: Medical History Hypertension CKD (chronic kidney disease) JAKOB (obstructive sleep apnea) ASHD (arteriosclerotic heart disease) Myocardial infarction COPD (chronic obstructive pulmonary disease) Carotid stenosis, bilateral Dyslipidemia Surgical History S/P PTCA (percutaneous transluminal coronary angioplasty) Family History Mother , AGE 51 CAD (coronary artery disease) Myocardial infarction Social History Smoking and tobacco/nicotine status: former use of tobacco/nicotine Quit status (tobacco/nicotine): has quit using Alcohol intake: never Substance/Drug Use: never Physical Exam Const: COMMON NORMALS: no acute distress GENERAL APPEARANCE: cooperative and comfortable ORIENTATION/CONSCIOUSNESS: Yes awake, Yes oriented to person, Yes oriented to place and Yes oriented to time HENMT: COMMON NORMALS: normocephalic, atraumatic and hearing grossly normal bilaterally HEAD & SCALP: normocephalic and atraumatic Resp: COMMON NORMALS: normal respiratory effort, No retractions, No use of accessory muscles and clear to auscultation bilaterally AUSCULTATION: clear to auscultation bilaterally Cardio: COMMON NORMALS: regular rate, regular rhythm and No murmurs present (Cardio) RATE: regular rate RHYTHM: regular rhythm GI: COMMON NORMALS: Soft to palpation and No hepatosplenomegaly present AUSCULTATION: Yes normoactive bowel sounds PALPATION: Yes Soft to palpation, No Tenderness to palpation present (GI), No Guarding due to palpation present (GI) and Yes No hepatosplenomegaly present Extremity: COMMON NORMALS: normal to inspection, capillary refill normal, no clubbing, cyanosis or edema, no calf tenderness and no pedal edema Neuro: SENSORIUM/ORIENTATION: Yes oriented to person, Yes oriented to place and Yes oriented to time Skin: COMMON NORMALS: no rashes or lesions noted GENERAL SKIN EXAM: no rashes or lesions noted Procedures Orthopedic Fracture Reduction Fracture #1: Time Out Performed: Yes Side: left Fracture Reduction Location: other (Ankle) Analgesia: procedural sedation Technique: direct manipulation Post Reduction X-rays Demonstrate: anatomical reduction Post-reduction neuro exam: intact Post-reduction vascular exam: intact Splint Applied: Yes Patient Tolerated Procedure: well Procedural Sedation Indication: fracture/dislocation reduction ASA Class: I Time of Last PO Intake: 08:00 Preparation: radiation monitor applied, pulse oximeter and supplemental O2 applied IV Etomidate dose (mg): 10 Patient Tolerated Procedure: well Complications: none Course Vital Signs: Vital signs: Vital Signs Temperature 98.4 F 03/21/24 12:07 Pulse Rate 61 03/21/24 13:39 Respiratory Rate 18 03/21/24 13:46 Blood Pressure 145/68 03/21/24 13:39 Pulse Oximetry 92 03/21/24 13:46 Oxygen Delivery Me thod Room Air 03/21/24 13:39 MDM - Extremity (Nontraumatic) Medical Decision Making Procedural sedation with reduction reviewed films with Dr. Benitez. Discharge patient home on crutches and a posterior splint to follow-up with Dr. Dinh next week for review and reevaluation. Medical Records I reviewed the patient's medical records. Lab Data I reviewed the patient's lab results. Radiology Impressions Ankle X-Ray 03/21/24 12:36 IMPRESSION: Ankle fracture with reduced dislocation. All radiology interpretation(s) finalized by discharge Discharge Plan Discharge Patient Disposition: Home Clinical Impression: Ankle fracture, left Condition: Stable Prescriptions: New hydrocodone-acetaminophen 5-325 mg tablet 1 tab PO Q6H PRN (Reason: pain) Qty: 25 0RF No Action tamsulosin [Flomax] 0.4 mg capsule 0.4 mg PO DAILY zolpidem 5 mg tablet 5 mg PO .HS aripiprazole [Abilify] 5 mg tablet 5 mg PO DAILY ropinirole 0.25 mg tablet 0.25 mg PO DAILY atenolol 100 mg tablet 100 mg PO DAILY bupropion HCl 100 mg tablet 100 mg PO TID Rx Instructions: administer 6 hours apart glipizide 5 mg tablet 2.5 mg PO BID alprazolam 0.5 mg tablet 0.5 mg PO TID PRN (Reason: anxiety) aspirin [Aspir-81] 81 mg tablet,delayed release (DR/EC) 81 mg PO DAILY doxazosin 4 mg tablet 4 mg PO .1/2 tab daily lisinopril 2.5 mg tablet 2.5 mg PO ONCE multivitamin Tablet 1 tab PO DAILY omega-3 fatty acids [Fish Oil] 1 cap PO DAILY fluticasone propionate [Children's Flonase Allergy Rlf] 50 mcg/actuation spray,suspension 1 spray intranasal ONCE PRN (Reason: Allergy Symptoms) Rx Instructions: administer into each nostril levothyroxine 50 mcg capsule 50 mcg PO DAILY atorvastatin 40 mg tablet 40 mg PO DAILY Qty: 90 3RF furosemide [Lasix] 20 mg tablet 20 mg PO BID Qty: 180 3RF Discharge Orders: Discharge ED (Routine); Ordered 03/21/24 Ordered By: Robson Cabrera Referrals: Madi Dinh DPM [Physician] - (Dr. Dinh's office will call you to make an a follow-up appointment) Meliza Cantor DO [Primary Care Provider] - Patient Instructions: Opioid Safety, Pain Management Activity Restrictions/Additional Instructions: Thank you for choosing [facility] for your healthcare needs today. It is very important that you follow up as instructed or that you return to the Emergency Department should you have concerns or if your condition changes or worsens in any way. You were seen today after a fall that resulted in a left ankle fracture. Fracture was reduced and splinted in the emergency room and discussed your case with the on-call community chest officer. They will contact you to make a follow-up appointment for definitive care for the fracture next week. You should not bear weight on the fracture you are given pain medications to use as needed elevate the foot and apply ice as needed for comfort Coding Level of Care Code ED Commercial Green Building Designer for Michael Hirsch
[2024-03-21 13:39] VITALS: BP 145/68; PULSE 61; O2SAT 92
[2024-03-21 13:46] VITALS: RESP 18; O2SAT 92
[2024-03-21] MEDS: morphine 4 mg/mL SDV 1 mL 2 MG IVP (13:46)
[2024-03-21 14:22] VITALS: BP 131/79; PULSE 62; O2SAT 91
== END 2024-03-21 14:26 | disposition home or self-care (01) ==
PROVIDERS: Emergency Provider Family Medicine; PCP Family Medicine
DX: S82.832A Other fracture of upper and lower end of left fibula, initial encounter for closed fracture (principal); W00.0XXA Fall on same level due to ice and snow, initial encounter; E78.5 Hyperlipidemia, unspecified; J44.9 Chronic obstructive pulmonary disease, unspecified; I12.9 Hypertensive chronic kidney disease with stage 1 through stage 4 chronic kidney disease, or unspecified chronic kidney disease; N18.9 Chronic kidney disease, unspecified
CPT/HCPCS: 27788; 73600; 73610; 96374; 96375; 99152; 99285; J2270; J2405; J3490

== ENCOUNTER → 2024-03-23 15:41 | Outpatient (BNVA) | payer OTHER, MEDICARE, SELFPAY | PROVIDERS: PCP Family Medicine; Visit Provider Podiatrist Foot & Ankle Surgery | DX: S82.852A Displaced trimalleolar fracture of left lower leg, initial encounter for closed fracture; W00.0XXA Fall on same level due to ice and snow, initial encounter | CPT/HCPCS: 29515; 99204 ==

== ENCOUNTER 2024-03-30 05:42 | Day surgery (SDC) | payer OTHER, SELFPAY ==
--- NOTE | 2024-03-28 08:36 | P.ANESASSM_ITS ---
Pre-Anesthetic Assessment Height/Weight: Height 5 ft 10 in Operation Date: 03/30/24 07:00 Proposed Procedures p ORIF Ankle ORIF Trimalleolar Fracture(Left) - Madi Dinh DPM s Ankle Arthroscopy(Left) - Madi Dinh DPM Anesthetic Plan Other: No prior issues with anesthesia NPO since yesterday History of hypothyroidism on Synthroid Hypertension on lisinopril and atenolol Type 2 diabetes CKD S/p coronary stent placement Carotid artery stenosis? Will obtain labs Plan for general anesthesia with peripheral nerve block Medications/Allergies Home Medications Medication Instructions Recorded Confirmed Last Taken Type alprazolam 0.5 mg tablet 0.5 mg PO TID PRN anxiety 08/10/19 03/26/24 03/26/24 History aripiprazole 5 mg tablet (Abilify) 5 mg PO DAILY 08/10/19 03/26/24 03/26/24 History aspirin 81 mg tablet,delayed 81 mg PO DAILY 08/10/19 03/26/24 03/26/24 History release (Aspir-) atenolol 100 mg tablet 100 mg PO DAILY 08/10/19 03/26/24 03/26/24 History bupropion HCl 100 mg tablet 100 mg PO TID 08/10/19 03/26/24 03/26/24 History glipizide 5 mg tablet 2.5 mg PO BID 08/10/19 03/26/24 03/26/24 History ropinirole 0.25 mg tablet 0.25 mg PO DAILY 08/10/19 03/26/24 03/26/24 History tamsulosin 0.4 mg capsule (Flomax) 0.4 mg PO DAILY 08/10/19 03/26/24 03/26/24 History zolpidem 5 mg tablet 5 mg PO .HS 08/10/19 03/26/24 03/26/24 History atorvastatin 40 mg tablet 40 mg PO DAILY #90 tabs 09/07/20 03/26/24 03/26/24 Rx doxazosin 4 mg tablet 2 mg PO .1/2 tab daily 07/31/21 03/26/24 03/26/24 History fluticasone propionate 50 1 spray intranasal ONCE PRN 07/31/21 03/26/24 03/26/24 History mcg/actuation nasal Allergy Symptoms spray,suspension (Children's Flonase Allergy Relief) lisinopril 2.5 mg tablet 2.5 mg PO ONCE 07/31/21 03/26/24 03/26/24 History multivitamin 1 tab PO DAILY 07/31/21 03/26/24 03/26/24 History omega-3 fatty acids [Fish Oil] 1 cap PO DAILY 07/31/21 03/26/24 03/26/24 History furosemide 20 mg tablet (Lasix) 20 mg PO BID #180 tabs 10/03/22 03/26/24 03/26/24 Rx levothyroxine 50 mcg capsule 50 mcg PO DAILY 08/29/23 03/26/24 03/26/24 History hydrocodone 5 mg-acetaminophen 325 1 tab PO Q6H PRN pain #25 tabs 03/21/24 03/26/24 03/26/24 Rx mg tablet Bed Side Urinal #1 ea 03/23/24 03/23/24 Unknown Rx Wheelchair #1 ea 03/23/24 03/23/24 Unknown Rx Allergies Allergy/AdvReac Type Severity Reaction Status Date / Time No Known Allergies Allergy Verified 08/29/23 13:22 [facility] Anesthesia Medical History Hypertension CKD (chronic kidney disease) JAKOB (obstructive sleep apnea) ASHD (arteriosclerotic heart disease) Myocardial infarction COPD (chronic obstructive pulmonary disease) Carotid stenosis, bilateral Dyslipidemia Surgical History S/P PTCA (percutaneous transluminal coronary angioplasty) Family History Mother , AGE 51 CAD (coronary artery disease) Myocardial infarction Social History Smoking and tobacco/nicotine status: former use of tobacco/nicotine Quit status (tobacco/nicotine): has quit using Alcohol intake: never Substance/Drug Use: never Data Anesthesia Cardiac Studies: Echocardiogram 09/17/22 Sestamibi Stress Test (Cardiology) 07/20
[2024-03-30] VITALS (10 sets, daily range): BP systolic 112–139; BP diastolic 59–79; PULSE 73–83; RESP 12–23; TEMP 36.3–36.9; O2SAT 93–96; BMI 34.4
--- NOTE | 2024-03-30 05:47 | ECG_ITS ---
[facility] Date: 2024-03-30 Pat Name: Gary Nichols Department: Room: Gender: Male Records Analysis Manager: : 1945 Requested By: Arturo Chase Order Number: [id number] Reading MD: CARLEY BIANCHI Measurements Intervals [place] Rate: 79 P: 33 WA: 164 QRS: -10 QRSD: 97 T: 60 QT: 366 QTc: 422 Interpretive Statements SINUS RHYTHM Compared to ECG 06/06/2022 20:40:51 No significant changes Electronically Signed On 03-30-2024 23:20:48 RANCH HAND by CARLEY BIANCHI [email or web address]
[2024-03-30 06:19] LABS: Basophils # 0.1 10^3/uL (0.0-0.1); Basophils % 1.3 %; Eosinophils # 0.3 10^3/uL (0.0-0.8); Eosinophils % 3.4 %; Hematocrit 40.2 % (37-53); Lymphocytes # 1.9 10^3/uL (0.8-4.8); Lymphocytes % 23.2 %; Mean Corpuscular HGB Conc 32.6 g/dL (30-55); Mean Corpuscular Hemoglobin 31.3 pg (27-33); Mean Corpuscular Volume 96.2 fl (82-101); Mean Platelet Volume 9.7 fL (7.4-10.4); Monocytes # 0.6 10^3/uL (0.2-0.9); Monocytes % 7.5 %; Neutrophils # 5.12 10^3/uL (1.8-7.7); Neutrophils % 64.3 %; Nucleated Red Blood Cells % 0 %; Platelet Count 243 10^3/cmm (157-399); Red Blood Count 4.18 10^6/uL (3.85-5.65); Red Cell Distribution Width 14.3 % (12.1-15.1); White Blood Count 7.96 10^3/uL (3.29-11.43)
[2024-03-30] MEDS: sodium chloride 0.9% 1,000 ML 30 ML IV (06:28)
[2024-03-30] MEDS: acetaminophen 1,000 MG/100 ML PIGGYBACK 400 MG IV (06:28)
--- NOTE | 2024-03-30 06:28 | P.HPUD_ITS ---
Surgery/Procedure H&P Update DATE OF PROCEDURE: March 30, 2024 DATE H&P PERFORMED: 03/23/24 H&P UPDATE INFORMATION: I have reviewed H&P completed within last 30 days, I have examined patient prior to procedure, No changes to prior documentation and H&P is in [facility] EMR on date indicated PREOP DIAGNOSIS: Left trimalleolar ankle fracture PLANNED PROCEDURE: Operation Date: 03/30/24 07:00 Proposed Procedures p ORIF Ankle ORIF Trimalleolar Fracture(Left) - Madi Dinh DPM s Ankle Arthroscopy(Left) - Madi Dinh DPM
[2024-03-30] MEDS: gabapentin 300 mg Capsule PO (06:29)
[2024-03-30 06:36] LABS: Anion Gap 15.4 (5-19); Blood Urea Nitrogen 17 mg/dL (8-23); Carbon Dioxide 26 mmol/L (22-29); Chloride 101 mmol/L (98-107); Creatinine Clr Calc Pharmacy 38.8199; Glucose 140 mg/dL (65-115); Osmolality Calculated 290 mOsm/kg (285-295); Potassium 4.4 mmol/L (3.5-5.1); Sodium 138 mmol/L (136-145)
[2024-03-30] MEDS: ceFAZolin 2,000 mg SDV 2000 MG IVP (07:00)
--- NOTE | 2024-03-30 07:20 | ANES.PROC ---
Anesthesia Procedures Procedure/Date: 03/30/24 Nerve Block ^: Nerve Block 1: Main Anesthesia: general anesthesia Time Out Performed: Yes Consent: requested by attending/covering physician and from patient Nerve block location: popliteal Anesthesia monitors applied: pulse oximetry, EKG, BP cuff and oxygen Nerve block position: supine Anesthetic Used: ropivicaine 0.5% Amount of anesthesia used (mL): 30 Ultrasound used to: recognize landmarks Nerve Stimulator Used?: Yes Interscalene/Femoral BLK: other needle (pjunk 4inch) Injection: neg aspiration of heme Patient Tolerated Procedure: well Complications: none
[2024-03-30 08:08] LABS: Glucose Point of Care 134 mg/dL (70-110)
--- NOTE | 2024-03-30 08:14 | SUR.PREOP ---
0555 patient states that he has fallen this am, abrasions noted to left hand, no other c/o from patient 0630 Dr. Dinh notified per patient of fall this am, no new orders, anesthesia and or nurse notified
--- NOTE | 2024-03-30 08:35 | W.PM.BPON ---
Date of procedure: 03/30/2024 Surgeon name: Dr. Madi Dinh D.P.M. Direct Care Supervisor(s) name(s): Watson Procedure(s) performed: 1. Open reduction internal fixation left bimalleolar fracture 2. Left ankle arthroscopy with microfracture of OCD Description of findings: Large osteochondral defect to medial talar dome Estimated blood loss: 5 cc Tourniquet time: 59 minutes Specimen(s) removed: None Post-operative diagnosis: Left bimalleolar ankle fracture, osteochondral defect
--- NOTE | 2024-03-30 08:37 | PM.OP ---
Operative Report Date of procedure: March 30, 2024 Surgeon: Madi Dinh DPM Procedure: Date of procedure: 03/30/2024 Pre-op diagnosis: Left ankle bimalleolar ankle fracture Post-op diagnosis: Left ankle bimalleolar ankle fracture with left osteochondral defect Post-op findings: Large osteochondral defect medial talar dome Procedure done: 1. ORIF left bimalleolar ankle fracture CPT 57841 2. Left ankle arthroscopy with OCD repair CPT 08635 Implants: Anatomic fibular plate [employer] with 2.7 locking and 3.5 locking and nonlocking screws, [employer] tight rope Specimens removed: None Surgeon: Dr. Madi Dinh DPM Airport [employer] Driver: Watosn Estimated blood loss: 5 cc Tourniquet time: 59 minutes Complications: None Patient is a 78-year-old male that has a history of left bimalleolar ankle fracture. The extent of the injury necessitates ORIF. A lengthy discussion regarding the procedure, including risks and complications has been had with the patient and is noted in the recent clinic note. Written and verbal consent have been obtained. All patient questions have been answered to the patient?s satisfaction. No written or verbal guarantees have been given or implied. The patient has been NPO since midnight. The history has been reviewed and the history and physical is current. The signed consent was confirmed and placed in the patient chart. Patient imaging has been reviewed and is consistent with the diagnosis. Under mild sedation, the patient was brought into the operating room and placed on the table in the supine position. IV antibiotics were given by the anesthesia team as preoperative surgical prophylaxis. General sedation was then performed by the anesthesiateam. A pneumatic tourniquet was then placed about the left thigh. Patient received a popliteal block from the anesthesia department. The operative extremity was then prepped and draped in the usual fashion. The extremity was then elevated and exsanguinated before the tourniquet was inflated to 325mmHg. After inflation, the following procedure was then performed. Attention was directed to the anterior surface of the left ankle. Anteromedial portal was established using a #15 blade. Dissection was carried down through subcutaneous and superficial fascia with mosquito hemostat. The ankle joint had been prior to this, insufflated with 10 cc of sterile saline. Mosquito hemostat was used to mitchell the ankle joint capsule. Trocar and cannula were inserted into the anteromedial portal arthroscopy was then inserted to evaluate the ankle joint. Significant amount of synovitis within the ankle joint with hematoma formation. Anterolateral portal was established and 2.0 shaver was inserted into the ankle joint. Ankle joint underwent debridement to remove synovitis and hematoma formation. There was noted to be a large osteochondral defect to the medial talar dome measuring approximately 1.0 x 0.7 cm. Under direct visualization microfracture tool was inserted into the anterolateral portal and the osteochondral defect underwent microfracture. Trocar and cannula, camera and shaver as well as microfracture tool were all removed from the ankle joint. Portals were closed using 4-0 nylon in horizontal mattress fashion. Attention was directed to the lateral aspect of the left ankle. A 10 cm incision was made using a #15 blade. Dissection was carried down through subcutaneous and superficial fascia to the level of the fibular fracture. Periosteum was incised to expose the entirety of the fracture. Hematoma was removed using a combination of rongeur and curette. Next, lobster-claw reduction clamp was used to reduce the fibular fracture. Upon reducing the fracture, an anatomic fibular plate from [employer] was applied to the lateral aspect of the fibula. Distal holes of the plate were filled with 2.7 locking screws followed by proximal screws consisting of a combination of 3.5 locking and nonlocking. Syndesmosis was evaluated and was noted to be compromised. Tight rope syndesmotic repair was then performed per the manufacture protocol. Good position of all hardware was noted on C-arm imaging as well as clinically. The site was irrigated with copious amounts of sterile saline before attention was directed to closure. Deep tissue was closed with 2-0 Vicryl followed by subcuticular closure with 3-0 Vicryl and skin closure with 3-0 nylon in horizontal mattress fashion. The tourniquet was let down and good hyperemic response was noted to all digits of the left foot. The incision site was dressed with Xeroform, 4 x 4 gauze, Kerlix, Danilo. The patient tolerated the procedure and anesthesia well and without complication. The patient was transported from the operating room to the recovery room with vital signs stable and vascular status intact to all digits of the left foot. Thepatient was given both written and verbal instructions to remain nonweightbearing to the operative extremity, to keep dressings/splint clean, dry and intact and to take pain medication as directed. The patient will follow-up in the outpatient setting at their scheduledappointment. The patient was discharged with my personal number and was instructed to call if any questions or issues should arise. They were discharged home once anesthesia criteria was met.
[2024-03-30] MEDS: HYDROcodone-acetaminophen 5-325 mg Tablet 1 TAB PO (09:19)
--- NOTE | 2024-03-30 09:55 | ANE.PACU2 ---
Inpatient post-anesthesia follow up: Airway intact: Yes Vital signs: Temperature 97.8 F Pulse Rate 76 Respiratory Rate 17 Blood Pressure 139/71 Pulse Oximetry 95 Oxygen Delivery Me thod Room Air Oxygen Flow Rate Fraction of Inspir ed Oxygen Hydration adequate: Yes Nausea and vomiting: No Pain level: 1 Mental status: Baseline
--- NOTE | 2024-03-30 10:10 | SUR.PHASEII ---
0938 pt's significant other stated that they have one crutch that is bent and need another pair,order for crutches put in and then pt and significant other changed their mind on crutches and decided to keep the ones they had
--- NOTE | 2024-03-30 16:32 | XR_ITS ---
WS: [id number] C-ARM RADIOGRAPHS LEFT ANKLE; 3 IMAGES HISTORY: OR PICS COMPARISON: 03/21/2024 Plate and screw fixation of the distal fibular fracture in good alignment. Syndesmosis fixation with button noted. XR/XR ankle LT min 3V* [id number] IMPRESSION: Status post fixation, ORIF distal fibular fracture and syndesmosis stabilizatio n.
== END 2024-03-30 09:55 | disposition home or self-care (01) ==
PROVIDERS: Student in an Organized Health Care Education/Training Program; PCP Family Medicine; Visit Provider Podiatrist Foot & Ankle Surgery
PROC: (CPT 27814; principal; 2024-03-30 07:00)
PROC: (CPT 27814; 2024-03-30 07:00)
DX: S82.842A Displaced bimalleolar fracture of left lower leg, initial encounter for closed fracture (principal); X58.XXXA Exposure to other specified factors, initial encounter; M21.6X2 Other acquired deformities of left foot; E03.9 Hypothyroidism, unspecified; E11.22 Type 2 diabetes mellitus with diabetic chronic kidney disease; I12.9 Hypertensive chronic kidney disease with stage 1 through stage 4 chronic kidney disease, or unspecified chronic kidney disease; N18.9 Chronic kidney disease, unspecified; Z95.5 Presence of coronary angioplasty implant and graft; I25.10 Atherosclerotic heart disease of native coronary artery without angina pectoris; I25.2 Old myocardial infarction; J44.9 Chronic obstructive pulmonary disease, unspecified; E78.5 Hyperlipidemia, unspecified; Z87.891 Personal history of nicotine dependence
CPT/HCPCS: 27814; 29891; 36415; 36416; 73610; 76000; 80048; 82962; 85025; 93005; C1713; J0131; J0690; J1100; J2371; J2405; J2704; J3010; J7030

== ENCOUNTER → 2024-04-06 16:16 | Outpatient (BNVA) | payer OTHER, SELFPAY | PROVIDERS: PCP Family Medicine; Visit Provider Podiatrist Foot & Ankle Surgery | DX: S82.852D Displaced trimalleolar fracture of left lower leg, subsequent encounter for closed fracture with routine healing; Z98.890 Other specified postprocedural states; X58.XXXD Exposure to other specified factors, subsequent encounter | CPT/HCPCS: 73610; 99024 ==

== ENCOUNTER → 2024-04-20 15:42 | Outpatient (BNVA) | payer OTHER, SELFPAY | PROVIDERS: PCP Family Medicine; Visit Provider Podiatrist Foot & Ankle Surgery | DX: S82.852D Displaced trimalleolar fracture of left lower leg, subsequent encounter for closed fracture with routine healing (principal); Z98.890 Other specified postprocedural states; X58.XXXD Exposure to other specified factors, subsequent encounter | CPT/HCPCS: 73610; 99024 ==

== ENCOUNTER → 2024-05-04 16:05 | Outpatient (BNVA) | payer OTHER, SELFPAY | PROVIDERS: PCP Family Medicine; Visit Provider Podiatrist Foot & Ankle Surgery | DX: S82.852D Displaced trimalleolar fracture of left lower leg, subsequent encounter for closed fracture with routine healing (principal); Z98.890 Other specified postprocedural states; X58.XXXD Exposure to other specified factors, subsequent encounter | CPT/HCPCS: 73610; 99024 ==

== ENCOUNTER → 2024-05-19 15:00 | Outpatient (BNVA) | payer OTHER, SELFPAY | PROVIDERS: PCP Family Medicine; Visit Provider Podiatrist Foot & Ankle Surgery | DX: S82.852D Displaced trimalleolar fracture of left lower leg, subsequent encounter for closed fracture with routine healing (principal); Z98.890 Other specified postprocedural states; X58.XXXD Exposure to other specified factors, subsequent encounter | CPT/HCPCS: 73610; 99024 ==

== ENCOUNTER → 2024-06-02 15:37 | Outpatient (BNVA) | payer OTHER, SELFPAY | PROVIDERS: PCP Family Medicine; Visit Provider Podiatrist Foot & Ankle Surgery | DX: Z98.890 Other specified postprocedural states (principal); S82.852D Displaced trimalleolar fracture of left lower leg, subsequent encounter for closed fracture with routine healing; X58.XXXD Exposure to other specified factors, subsequent encounter | CPT/HCPCS: 73610; 99024 ==

== ENCOUNTER 2024-06-03 11:14 | Outpatient (CLI) | payer OTHER, SELFPAY | END 2024-06-03 11:15 | disposition home or self-care (01) | LOC: SPT 11:15 | PROVIDERS: PCP Family Medicine; Visit Provider Podiatrist Foot & Ankle Surgery | DX: Z47.89 Encounter for other orthopedic aftercare (principal); Z98.890 Other specified postprocedural states; S82.852D Displaced trimalleolar fracture of left lower leg, subsequent encounter for closed fracture with routine healing; X58.XXXD Exposure to other specified factors, subsequent encounter | CPT/HCPCS: L1902 ==

== ENCOUNTER → 2024-06-30 13:09 | Outpatient (BNVA) | payer OTHER, SELFPAY | PROVIDERS: PCP Family Medicine; Visit Provider Podiatrist Foot & Ankle Surgery | DX: S82.852D Displaced trimalleolar fracture of left lower leg, subsequent encounter for closed fracture with routine healing (principal); X58.XXXD Exposure to other specified factors, subsequent encounter; Z98.890 Other specified postprocedural states; G62.9 Polyneuropathy, unspecified | CPT/HCPCS: 73610; 99214 ==

== ENCOUNTER 2024-07-06 12:01 | Emergency (ER) | payer OTHER, MEDICARE, SELFPAY ==
[2024-07-06 12:49] VITALS: BP 101/53; PULSE 67; RESP 18; TEMP 36.7; O2SAT 94; BMI 36.1
--- NOTE | 2024-07-06 14:52 | CTR_ITS ---
PROCEDURE INFORMATION: Exam: CT Lumbar Spine Without Contrast Exam date and time: 07/06/2024 3:48 PM Age: 78 years old Clinical indication: Low back pain; Additional info: Back pain/injury TECHNIQUE: Imaging protocol: Computed tomography of the lumbar spine without contrast. Radiation optimization: All CT scans at this facility use at least one of these dose optimization techniques: automated exposure control; mA and/or kV adjustment per patient size (includes targeted exams where dose is matched to clinical indication); or iterative reconstruction. COMPARISON: CT abdomen pelvis wo con [id number] 06/06/2022 10:01 PM RADIATION DOSE METRICS: Total DLP (mGy-cm): 1043.39 FINDINGS: Bones/joints: Probable acute L1 superior endplate compression fracture with a proximally 25% height loss anteriorly. No retropulsion. No other fracture. Lumbar segments are normally aligned. Intervertebral disc spaces are preserved. Anterior marginal spurring is seen at all levels. Multilevel facet arthropathy. Cxmv-uh-gxepcjtf degenerative spinal stenosis L4-L5 secondary to disc bulge and bilateral facet and ligamentum flavum hypertrophy. No evidence of significant foraminal compromise. Vasculature: Aortoiliac atherosclerotic disease is seen without evidence of aneurysm. Soft tissues: Unremarkable. CT/CT lumbar spine wo con* [id number] IMPRESSION: 1. Probable acute L1 superior endplate compression fracture with a proximally 25% height loss anteriorly. No retropulsion. 2. Itnl-sj-cggenrfc degenerative spinal stenosis L4-L5 secondary to disc bulge and bilateral facet and ligamentum flavum hypertrophy.
--- NOTE | 2024-07-06 14:52 | W.ED.BACK ---
HPI - Back Pain/Injury General: Chief Complaint: Back Pain/Injury Stated Complaint: low back pain Time Seen by Provider: 07/06/24 14:14 Source: patient Mode of arrival: ambulatory Limitations: no limitations History of Present Illness: Patient is a nice 78-year-old male who presents to ED today with a complaint of lower back pain. He states symptoms started following a fall 2 days ago. Patient states he had a riding lawnmower fall from the back of a pickup truck onto him. He states the impact of the mower striking his legs forced him backwards where he landed flat on my back . States he has had discomfort since. He has been ambulatory without difficulty or assistance since the incident. He is not complaining of pain to his lower legs. He did sustain a small abrasion to his right anterior lower leg. He is not complaining of any abdominal pain or hip/pelvic pain. Reporting midline lower lumbar tenderness. He denies numbness, tingling, loss of sensation to his lower extremities. Pain seems to be worse with movement and palpation. States he did mildly strike his head with small abrasion. Has not had a headache since incident. Not on anticoagulation. MD elicited complaint: back pain Pertinent past history: recent trauma Onset (ago): day(s) Timing: constant Severity: moderate Similar Symptoms Previously: No Location: lumbar spine Radiation: none Exacerbating factors: movement and walking Relieving factors: none Context: fall Associated symptoms: Reports no associated symptoms; Deny difficulty walking Work related injury: No Related Data Home Medications ?Medication ?Instructions ?Recorded ?Confirmed alprazolam 0.5 mg tablet 0.5 mg PO TID PRN anxiety 08/10/19 06/30/24 aripiprazole 5 mg tablet (Abilify) 5 mg PO DAILY 08/10/19 06/30/24 aspirin 81 mg tablet,delayed 81 mg PO DAILY 08/10/19 06/30/24 release (Aspir-) atenolol 100 mg tablet 100 mg PO DAILY 08/10/19 06/30/24 bupropion HCl 100 mg tablet 100 mg PO TID 08/10/19 06/30/24 glipizide 5 mg tablet 2.5 mg PO BID 08/10/19 06/30/24 ropinirole 0.25 mg tablet 0.25 mg PO DAILY 08/10/19 06/30/24 tamsulosin 0.4 mg capsule (Flomax) 0.4 mg PO DAILY 08/10/19 06/30/24 zolpidem 5 mg tablet 5 mg PO .HS 08/10/19 06/30/24 doxazosin 4 mg tablet 2 mg PO .1/2 tab daily 07/31/21 06/30/24 fluticasone propionate 50 1 spray intranasal ONCE PRN 07/31/21 06/30/24 mcg/actuation nasal Allergy Symptoms spray,suspension (Children's Flonase Allergy Relief) lisinopril 2.5 mg tablet 2.5 mg PO ONCE 07/31/21 06/30/24 multivitamin 1 tab PO DAILY 07/31/21 06/30/24 omega-3 fatty acids [Fish Oil] 1 cap PO DAILY 07/31/21 06/30/24 levothyroxine 50 mcg capsule 50 mcg PO DAILY 08/29/23 06/30/24 Previous Rx's ?Medication ?Instructions ?Recorded atorvastatin 40 mg tablet 40 mg PO DAILY #90 tabs 09/07/20 furosemide 20 mg tablet (Lasix) 20 mg PO BID #180 tabs 10/03/22 hydrocodone 5 mg-acetaminophen 325 1 tab PO Q6H PRN pain #25 tabs 03/21/24 mg tablet Bed Side Urinal #1 ea 03/23/24 Wheelchair #1 ea 03/23/24 hydrocodone 5 mg-acetaminophen 325 1 tab PO Q6H PRN pain #28 tabs 03/30/24 mg tablet hydrocodone 10 mg-acetaminophen 1 tab PO Q6H 7 days #28 tabs 04/02/24 325 mg tablet ASO to left #1 ea 06/02/24 gabapentin 100 mg capsule 100 mg PO DAILY #30 caps 06/30/24 hydrocodone 5 mg-acetaminophen 325 1 tab PO .q 4-6 PRN pain #20 tabs 07/06/24 mg tablet Allergies Allergy/AdvReac Type Severity Reaction Status Date / Time No Known Allergies Allergy Verified 07/06/24 12:58 Review of Systems Card: Denies: chest pain Resp: Denies: dyspnea Musc: Reports: back pain and extremity swelling (chronic); Denies: neck pain or extremity pain Neuro: Denies: headache(s), numbness in extremities, weakness in extremities, sensory changes or difficulty walking PFSH ED PFSH: Medical History Hypertension CKD (chronic kidney disease) JAKOB (obstructive sleep apnea) ASHD (arteriosclerotic heart disease) Myocardial infarction COPD (chronic obstructive pulmonary disease) Carotid stenosis, bilateral Dyslipidemia Surgical History S/P PTCA (percutaneous transluminal coronary angioplasty) Family History Mother , AGE 51 CAD (coronary artery disease) Myocardial infarction Social History Smoking and tobacco/nicotine status: former use of tobacco/nicotine Quit status (tobacco/nicotine): has quit using Alcohol intake: never Substance/Drug Use: never Physical Exam Const: COMMON NORMALS: no acute distress, patient oriented x3, no limitations, alert and well nourished GENERAL APPEARANCE: cooperative NUTRITIONAL APPEARANCE: overweight ORIENTATION/CONSCIOUSNESS: Yes awake, Yes oriented to person, Yes oriented to place and Yes oriented to time HENMT: COMMON NORMALS: normocephalic and atraumatic HEAD & SCALP: normal to inspection, normocephalic and atraumatic Chest: COMMONS NORMALS: normal inspection of the chest and normal palpation of entire chest wall OTHER: no signs of trauma Resp: COMMON NORMALS: normal respiratory effort and clear to auscultation bilaterally AUSCULTATION: clear to auscultation bilaterally Cardio: COMMON NORMALS: regular rate and regular rhythm RATE: regular rate RHYTHM: regular rhythm GI: COMMON NORMALS: Normal to inspection, nondistended, normoactive bowel sounds present, Soft to palpation, non-tender, No hepatosplenomegaly present and no masses PALPATION: Yes Soft to palpation and Yes No hepatosplenomegaly present : COMMON NORMALS: Yes no CVA tenderness BLADDER/KIDNEY EXAM: Yes no CVA tenderness Back/Pelvis: COMMON NORMALS: no CVA tenderness and straight leg raise negative bilaterally THORACIC SPINE/UPPER BACK: No thoracic spinal tenderness LUMBAR SPINE/LOWER BACK: Yes lumbar spinal tenderness PELVIS: Yes buttocks normal and No sciatic notch tenderness SACROILIAC JOINTS: Yes SI joints normal SACRUM: no tenderness COCCYX: no tenderness Extremity: NARRATIVE EXTREMITY EXAM: chronic LE symmetrical edema; abrasion R anterior lower leg GENERAL: Yes normal exam except as noted OTHER: L ankle in brace from previous ORIF by Dr. Dinh several weeks ago Neuro: COMMON NORMALS: patient oriented x3, moves all extremities, no focal motor deficits, no sensory deficits noted and gait normal SENSORIUM/ORIENTATION: Yes alert, Yes oriented to person, Yes oriented to place and Yes oriented to time Skin: TRAUMA: abrasion Course Vital Signs: Vital signs: Vital Signs Temperature 98.1 F 07/06/24 12:49 Pulse Rate 67 07/06/24 12:49 Respiratory Rate 18 07/06/24 12:49 Blood Pressure 101/53 07/06/24 12:49 Pulse Oximetry 94 07/06/24 12:49 Oxygen Delivery Me thod Room Air 07/06/24 12:49 MDM - Back Pain/Injury Medical Decision Making Patient is a very nice 78-year-old male here for lower back pain following a fall that occurred 2 to 3 days ago. He has no other injuries or complaints other than the lower back pain. CT scan showing an L1 compression fracture with approximately 25% height loss. No retropulsion. He has no neurologic deficits by history or physical examination. Patient will be allowed discharge with pain control and follow-up with Dr. Iraheta to discuss potential kyphoplasty. Return to ED precautions discussed. Medical Records I reviewed the patient's medical records. Labs Radiology Impressions Lumbar Spine CT 07/06/24 14:52 IMPRESSION: 1. Probable acute L1 superior endplate compression fracture with a proximally 25% height loss anteriorly. No retropulsion. 2. Tjyd-gi-wougveon degenerative spinal stenosis L4-L5 secondary to disc bulge and bilateral facet and ligamentum flavum hypertrophy. All radiology interpretation(s) finalized by discharge Discharge Plan Discharge Patient Disposition: Home Clinical Impression: Closed compression fracture of L1 vertebra Qualifiers: Encounter type: initial encounter Qualified Code(s): S32.010A - Wedge compression fracture of first lumbar vertebra, initial encounter for closed fracture Condition: Stable Prescriptions: New hydrocodone-acetaminophen 5-325 mg tablet 1 tab PO .q 4-6 PRN (Reason: pain) Qty: 20 0RF No Action tamsulosin [Flomax] 0.4 mg capsule 0.4 mg PO DAILY zolpidem 5 mg tablet 5 mg PO .HS aripiprazole [Abilify] 5 mg tablet 5 mg PO DAILY ropinirole 0.25 mg tablet 0.25 mg PO DAILY atenolol 100 mg tablet 100 mg PO DAILY bupropion HCl 100 mg tablet 100 mg PO TID Rx Instructions: administer 6 hours apart glipizide 5 mg tablet 2.5 mg PO BID alprazolam 0.5 mg tablet 0.5 mg PO TID PRN (Reason: anxiety) aspirin [Aspir-81] 81 mg tablet,delayed release (DR/EC) 81 mg PO DAILY doxazosin 4 mg tablet 2 mg PO .1/2 tab daily lisinopril 2.5 mg tablet 2.5 mg PO ONCE multivitamin Tablet 1 tab PO DAILY omega-3 fatty acids [Fish Oil] 1 cap PO DAILY fluticasone propionate [Children's Flonase Allergy Rlf] 50 mcg/actuation spray,suspension 1 spray intranasal ONCE PRN (Reason: Allergy Symptoms) Rx Instructions: administer into each nostril levothyroxine 50 mcg capsule 50 mcg PO DAILY (DME) Wheelchair See Rx Instructions .Route .MEDSUPPLY Qty: 1 0RF Rx Instructions: As directed (DME) Bed Side Urinal See Rx Instructions .Route .MEDSUPPLY Qty: 1 0RF Rx Instructions: As directed (DME) ASO to left See Rx Instructions .Route .MEDSUPPLY Qty: 1 0RF Rx Instructions: As directed gabapentin 100 mg capsule 100 mg PO DAILY Qty: 30 0RF atorvastatin 40 mg tablet 40 mg PO DAILY Qty: 90 3RF furosemide [Lasix] 20 mg tablet 20 mg PO BID Qty: 180 3RF hydrocodone-acetaminophen 10-325 mg tablet 1 tab PO Q6H 7 Days Qty: 28 0RF hydrocodone-acetaminophen 5-325 mg tablet 1 tab PO Q6H PRN (Reason: pain) Qty: 25 0RF hydrocodone-acetaminophen 5-325 mg tablet 1 tab PO Q6H PRN (Reason: pain) Qty: 28 0RF Discharge Orders: Discharge ED (Routine); Ordered 07/06/24 Ordered By: Gabbie Gutierrez Referrals: Meliza Cantor DO [Primary Care Provider] - Patient Instructions: Vertebral Compression Fracture (ED), Opioid Safety, Pain Management Activity Restrictions/Additional Instructions: As we discussed, visit set you up with an appointment to see Dr. Iraheta for further evaluation of your L1 compression fracture and to go over risk versus benefits of potential kyphoplasty for treatment. You may use the pain medications provided to you today for significant discomfort. Print Language: Syriac Coding Level of Care Code ED Blower Installer for Michael Hirsch
--- NOTE | 2024-07-06 16:34 | DCPLANNER ---
messaged ortho for er f/u
== END 2024-07-06 16:33 | disposition home or self-care (01) ==
PROVIDERS: Emergency Provider Physician Assistant; PCP Family Medicine
DX: S32.010A Wedge compression fracture of first lumbar vertebra, initial encounter for closed fracture (principal); Z87.891 Personal history of nicotine dependence; N18.9 Chronic kidney disease, unspecified; E78.5 Hyperlipidemia, unspecified; J44.9 Chronic obstructive pulmonary disease, unspecified; W19.XXXA Unspecified fall, initial encounter
CPT/HCPCS: 72131; 99284

== ENCOUNTER → 2024-07-09 14:52 | Outpatient (BNVA) | payer OTHER, SELFPAY | PROVIDERS: PCP Family Medicine; Visit Provider Orthopaedic Surgery | DX: S32.010A Wedge compression fracture of first lumbar vertebra, initial encounter for closed fracture (principal); X58.XXXA Exposure to other specified factors, initial encounter | CPT/HCPCS: 72100; 99203 ==

== ENCOUNTER → 2024-07-21 12:28 | Outpatient (BNVA) | payer OTHER, SELFPAY | PROVIDERS: PCP Family Medicine; Visit Provider Podiatrist Foot & Ankle Surgery | DX: Z98.890 Other specified postprocedural states (principal); G62.9 Polyneuropathy, unspecified; S82.852D Displaced trimalleolar fracture of left lower leg, subsequent encounter for closed fracture with routine healing; X58.XXXD Exposure to other specified factors, subsequent encounter | CPT/HCPCS: 99213 ==

== ENCOUNTER → 2024-07-30 10:21 | Outpatient (BNVA) | payer OTHER, SELFPAY | PROVIDERS: PCP Family Medicine; Visit Provider Orthopaedic Surgery | DX: M54.9 Dorsalgia, unspecified (principal); M48.062 Spinal stenosis, lumbar region with neurogenic claudication | CPT/HCPCS: 72100; 99213 ==

== ENCOUNTER 2024-08-13 12:48 | Outpatient (CLI) | payer OTHER, SELFPAY ==
--- NOTE | 2024-08-13 13:45 | MR_ITS ---
WS: [id number] MRI LUMBAR SPINE NONCONTRAST HISTORY: back pain COMPARISON: Radiograph 07/30/2024 and prior MRI 04/27/2015. TECHNIQUE: Sagittal and axial multisequence imaging is submitted. L4 anterolisthesis by 3.8 mm. Acute to subacute L1 compression fracture. Marrow edema throughout a large portion of the L1 vertebral body. There is mild extension of edema into the LEFT pedicle. There is also a very small amount of corner edema in the posterior inferior RIGHT lateral T12 vertebral body. Mild disc base desiccation throughout the lumbar spine. Conus terminates normally at L1-2 disc level. L1-L2: Mild facet arthritis. No stenosis. L2-L3: Mild annular disc bulging. Moderate ligamentum flavum and facet arthritis. Mild narrowing of the subarticular recesses. Mild bilateral foraminal stenosis. L3-L4: Diffuse annular disc bulge with a very shallow central disc protrusion. Moderate ligamentum flavum hypertrophy and facet arthritis. Mild disc encroachment upon the subarticular recesses and traversing L4 nerve roots. Mild RIGHT foraminal narrowing. L4-L5: Diffuse annular disc bulging with severe ligamentum flavum hypertrophy and facet arthritis. Fluid in the facet joints. Disc osteophyte contacting the ventral thecal sac. Significant progression of stenosis since the study from 2015. Severe central and bilateral subarticular recess and mild bilateral foraminal stenosis. There is significant contact on the traversing L5 nerve roots. L5-S1: Diffuse disc bulging and facet arthritis. No stenosis. MR/MR lumbar spine wo con* [id number] IMPRESSION: 1. Acute to subacute L1 compression fracture, 20% loss of height. No retropuls ion. 2. Significant progression of degenerative changes at L4-5. 3. L4-5 anterolisthesis 3.8 mm. 4. L4-5: Severe central and bilateral subarticular recess and mild foraminal s tenosis which has progressed since the prior study. 5. Subarticular recess encroachment at L2-3 and L3-4 with disc contacting the traversing L3 and L4 nerve roots.
== END 2024-08-13 12:49 | disposition home or self-care (01) ==
PROVIDERS: PCP Family Medicine; Visit Provider Orthopaedic Surgery
DX: M54.9 Dorsalgia, unspecified (principal)
CPT/HCPCS: 72148

== ENCOUNTER → 2024-08-18 14:04 | Outpatient (BNVA) | payer OTHER, SELFPAY | PROVIDERS: PCP Family Medicine; Visit Provider Orthopaedic Surgery | DX: M43.16 Spondylolisthesis, lumbar region (principal) | CPT/HCPCS: 99214 ==

== ENCOUNTER → 2024-09-09 10:30 | Outpatient (BNVA) | payer OTHER, SELFPAY | PROVIDERS: PCP Family Medicine; Visit Provider Internal Medicine | DX: I65.23 Occlusion and stenosis of bilateral carotid arteries (principal); I25.10 Atherosclerotic heart disease of native coronary artery without angina pectoris; I12.9 Hypertensive chronic kidney disease with stage 1 through stage 4 chronic kidney disease, or unspecified chronic kidney disease; N18.9 Chronic kidney disease, unspecified; G47.33 Obstructive sleep apnea (adult) (pediatric); E78.5 Hyperlipidemia, unspecified; Z98.61 Coronary angioplasty status; Z79.82 Long term (current) use of aspirin; I25.2 Old myocardial infarction; I65.29 Occlusion and stenosis of unspecified carotid artery | CPT/HCPCS: 99214 ==

== ENCOUNTER 2024-09-21 12:59 | Outpatient (CLI) | payer OTHER, SELFPAY ==
--- NOTE | 2024-09-21 13:30 | USCV_ITS ---
Gary Nichols Age: 78 Gender: M : 1945 Exam Date: 09/21/2024 13:13 Ordering Phys: Gwyn Mariano M.D ([email or web address]) Technologist: TERE [place] [facility] [place]: [place] Risk Factors: Previous Vascular Surgery: Right Brachial BP: / Left Brachial BP: / Right Left Velocity (cm/s) Spectral Plaque Velocity (cm/s) Spectral Plaque Syst/Diast Broadening Syst/Diast Broadening 77.60/ 12.80 Prox CCA 73.80 / 15.00 71.80/ 14.00 Mid CCA 68.50 / 6.00 56.80/ 6.20 Distal CCA 73.80 / 13.20 36.50/ 9.40 Prox ICA 71.70 / 18.10 70.60/ 16.70 Mid ICA 55.60 / 14.60 67.30/ 12.30 Distal ICA 55.60 / 15.70 99.30 ECA 122.60 1.20 ICA/CCA 1.00 Antegrade Vertebral Antegrade 39.50/ 7.00 cm/s 23.90/ 7.90 cm/s Tri Subclavian Tri 101.0 123.2 0 0 CONCLUSIONS Right ICA stenosis <50%. Moderate atheromatous plaque right carotid bulb/ICA. Left ICA stenosis <50%. Moderate atheromatous plaque left carotid bulb/ICA. Normal antegrade Doppler flow noted in the right vertebral artery. Normal antegrade Doppler flow noted in the left vertebral artery. Herbert Fraser MD (Electronically Signed) Final Date: 21 September 2024 15:29 S
== END 2024-09-21 13:00 | disposition home or self-care (01) ==
LOC: RAD 12:59
PROVIDERS: PCP Family Medicine; Visit Provider Internal Medicine
DX: I65.23 Occlusion and stenosis of bilateral carotid arteries (principal)
CPT/HCPCS: 93880

== ENCOUNTER → 2024-09-22 15:07 | Outpatient (BNVA) | payer OTHER, SELFPAY | PROVIDERS: PCP Family Medicine; Visit Provider Orthopaedic Surgery | DX: M54.2 Cervicalgia (principal); Z01.818 Encounter for other preprocedural examination; M48.062 Spinal stenosis, lumbar region with neurogenic claudication; M48.02 Spinal stenosis, cervical region; Z79.899 Other long term (current) drug therapy | CPT/HCPCS: 72050; 80053; 81001; 83036; 85025; 99214 ==

== ENCOUNTER 2024-10-15 13:47 | Outpatient (CLI) | payer OTHER, SELFPAY ==
--- NOTE | 2024-10-15 13:55 | MR_ITS ---
WS: [id number] MRI CERVICAL SPINE NONCONTRAST TECHNIQUE: Sagittal T1, T2 and STIR imaging. Axial T2, gradient, and fiesta imaging. CLINICAL INFORMATION: Neck Pain COMPARISON: None. FINDINGS: Straightening of the normal cervical lordosis. Ankylosis cervical spine with anterior hypertrophic changes. Cord signal is normal. No high-grade central canal narrowing. C2-C3: Mild facet arthropathy. C3-C4: Moderate facet arthropathy. Uncovertebral joint hypertrophy. C4-C5: Endplate ridging with uncovertebral joint hypertrophy. Mild bilateral bony foraminal narrowing. Moderate facet arthropathy. C5-C6: Disc osteophyte complex eccentric to the RIGHT. Moderate to severe RIGHT bony foraminal narrowing. Mild facet arthropathy. Spinal canal is patent. Mild LEFT foraminal narrowing. C6-C7: Tiny central disc osteophyte protrusion. Moderate bilateral bony foraminal narrowing. C7-T1: Spinal canal and foramen are patent. Visualized brain stem structures: Normal. Prevertebral soft tissues: Normal. MR/MR cervical spin wo con* [id number] IMPRESSION: 1. Straightening of the normal cervical lordosis with prominent anterior hyper trophic changes. No high-grade central canal narrowing. 2. Tiny shallow disc osteophyte protrusion C6-7. Spinal canal remains patent. 3. Moderate to severe RIGHT C5-6 bony foraminal narrowing. 4. Moderate LEFT greater than RIGHT bony foraminal narrowing C6-7.
== END 2024-10-15 13:48 | disposition home or self-care (01) ==
LOC: RAD 13:48
PROVIDERS: PCP Family Medicine; Visit Provider Family Medicine
DX: M47.812 Spondylosis without myelopathy or radiculopathy, cervical region (principal); M25.78 Osteophyte, vertebrae; M43.22 Fusion of spine, cervical region
CPT/HCPCS: 72141

== ENCOUNTER 2024-11-11 14:06 | Observation (INO) | payer OTHER, MEDICARE, SELFPAY ==
--- OUTSIDE RECORDS SUMMARY | 2024-11-06 10:20 | XMS_ITS | Encounter Summary ---
Author Organization [facility] Address [address] [place] [address] Care Team Providers Care Clinical Microbiologist Name Role Phone Meliza Cantor Primary Care Provider [phone] Reason for Visit * Reason Comments Follow Up Pt states spot under tongue possible thrush Encounter Details Date Type Department Care Team ([facility] st Contact Info) Description 11/06/2024 10:20 AM CDT Office Visit [facility] [address] [place] [address] [facility] [address] [place] [address] 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 (Primary Dx) Social History Tobacco Use Types Packs/Day Years Used Date Smoking Tobacco: Former Cigarettes Q uit: 03/11/2008 Smokeless Tobacco: Former Alcohol Use Standard Drinks/Week Comments No 0 (1 standard drink = 0.6 oz pur e alcohol) Financial Resource Strain Answer Date R ecorded How hard is it for you to pa y for the very basics like food, housing, medical care, and heating? Patient declined 08/23/2022 Food Insecurity Answer Date Recorded In the past 12 months, have you worried that your food would run out before you had money to buy more? Patient declined 2022 In the past 12 months, did y ou run out of food and didn't have money to buy more? Patient declined 08/23/2022 Transportation Needs Answer Date Record ed In the past 12 months, has l ack of transportation kept you from medical appointments or from getting medications? 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 Gender Identity Not on file Sexual Orientation Not on file documented as of this encounter Last Filed Vital Signs Vital Sign Reading Time Taken Comments Blood Pressure 122/68 11/06/2024 10:20 AM CDT Pulse 69 11/06/2024 10:20 AM CDT Temperature 36.8 C (98.3 F) 11/06/2024 10:20 AM CDT Respiratory Rate 18 11/06/2024 10:2 0 AM CDT Oxygen Saturation 95% 11/06/2024 10: 20 AM CDT Inhaled Oxygen Concentration - - Weight 110.9 kg (244 lb 9.6 oz) 025 10:20 AM CDT Height 177.8 cm (5' 10 ) 11/06/2024 10: 20 AM CDT Body Mass Index 35.1 11/06/2024 10:20 AM CDT documented in this encounter Progress Notes * Sorin Hope FNP - 11/06/2024 10:31 AM CDT Images from the original note were not included. Chief Complaint Patient presents with Follow Up Pt states spot under tongue possible thrush Patient Active Problem List Diagnosis Code Type 2 diabetes mellitus with stage 3 chronic kidney disease, without long-term current use of insulin E11.22, N18.30 Chronic bilateral low back pain with right-sided sciatica G89.29, M54.41 Essential hypertension I10 Coronary artery disease involving tanacross coronary artery of tanacross heart without angina pectoris I25.10 Mixed simple and mucopurulent chronic bronchitis (CMS/HCC) J41.8 Hypogonadism male E29.1 Chronic kidney disease, stage 3 (moderate) N18.30 Mixed hyperlipidemia E78.2 Generalized anxiety disorder F41.1 Recurrent major depressive disorder, in full remission F33.42 Gastroesophageal reflux disease without esophagitis K21.9 Obstructive sleep apnea syndrome G47.33 Primary insomnia F51.01 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 Diplopia H53.2 Hypertensive retinopathy of both eyes H35.033 PTSD (post-traumatic stress disorder) F43.10 Dry eyes, bilateral H04.123 Pseudophakia of left eye Z96.1 Pseudophakia of right eye Z96.1 ERM OS (epiretinal membrane, left eye) H35.372 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 He reports a persistent white spot behind his dental implants under his tongue, which is causing discomfort. The condition isimproving. He has had the implants for over a year, but one was recently removed due to suspected infection. He is seeking a new dentist and is concerned that the potential infection could delay his scheduled back surgery next Saturday. He was recently treated for oral thrush with antifungal medication and report tongue pain has improved. 10 point review of systems is otherwise negative except as mentioned above. Past Medical History: Diagnosis Date Arthritis CAD (coronary artery disease) NM 1999, s/p stenting COPD (chronic obstructive pulmonary disease) ([facility]) CRI (chronic renal insufficiency) CVD (cerebrovascular disease) 2012 mini stroke Diabetes mellitus ([facility]) borderline Dyspnea Dyspnea on exertion HTN (hypertension) Hyperlipidemia Obstructive sleep apnea Obstructive sleep apnea (adult) (pediatric) cpap Current Outpatient Medications Medication Instructions albuterol sulfate HFA 90 mcg/actuation aerosol inhaler 2 Puffs, Inhalation, EVERY 6 HOURS PRN ALPRAZolam (XANAX) 1 mg, Oral, TWO TIMES DAILY PRN amLODIPine (NORVASC) 5 mg tablet TK 1 T PO D. aspirin (ECOTRIN EC) 81 mg, DAILY atenoloL (TENORMIN) 100 mg tablet 1 Tablet atorvastatin (LIPITOR) 40 mg, DAILY WITH SUPPER Breztri Aerosphere 160 mcg-9mcg-4.8mcg/actuation HFA aerosol inhaler 2 Puffs, Inhalation, TWO TIMESDAILY buPROPion HCL (WELLBUTRIN SR) 200 mg cetirizine (ZYRTEC) 10 mg, Oral, DAILY clobetasoL (TEMOVATE) 0.05 % Cream Topical, TWO TIMES DAILY doxazosin (CARDURA) 2 mg fluconazole (DIFLUCAN) 100 mg, Oral, DAILY fluticasone propionate (FLONASE) 50 mcg/spray [place], Suspension nasal inhaler INSTILL 2 SPRAYS IN EACH NOSTRIL ONCE A DAY FOR ALLERGIES (MUST BE USED DIRECTED FOR MINIMUM OF 21 DAYS TO PROVIDE ADEQUATE BENEFITS) furosemide (LASIX) 20 mg, DAILY glipiZIDE (GLUCOTROL) 2.5 mg hydroCHLOROthiazide (MICROZIDE) 12.5 mg, Oral, DAILY lactulose (ENULOSE) 10 gram/15 mL oral solution 30 mL, Oral, TWO TIMES DAILY PRN levothyroxine 50 mcg tablet TAKE 1 TABLET(50 MCG) BY MOUTH DAILY IN THE MORNING lidocaine (lidocaine viscous 2%) 2 % Solution 5 mL, Mouth/Throat, EVERY 4 HOURS PRN lisinopriL (PRINIVIL) 10 mg tablet 1 Tablet, DAILY losartan (COZAAR) 50 mg, Oral, DAILY methocarbamoL (ROBAXIN) 500 mg, THREE TIMES DAILY olopatadine (PATADAY) 0.2 % solution 1 Drop, DAILY pantoprazole (PROTONIX) 40 mg, Oral, DAILY polyvinyl alcohol (LIQUIFILM TEARS) 1.4 % solution 2 Drops, SEE ADMIN INSTRUCTIONS pramipexole (MIRAPEX) 0.125 mg Tablet TAKE ONE TABLET BY MOUTH DAILY AT BEDTIME tamsulosin (FLOMAX) 0.4 mg capsule TAKE 1 CAPSULE BY MOUTH AT BEDTIME tiZANidine (ZANAFLEX) 2 mg, Oral, EVERY 8 HOURS PRN zolpidem (AMBIEN CR) 12.5 mg, Oral, NIGHTLY PRN Past Surgical History: Procedure Laterality Date HX ANKLE SURGERY Left 03/21/[address] [facility] HX CATARACT EXTRACTION W/ INTRAOCULAR LENS IMPLANT Left 06/26/2016 [id number]+25.5 @ 90, Dr. Pj Wakefield HX CATARACT EXTRACTION W/ INTRAOCULAR LENS IMPLANT Right 07/10/2016 [id number], Dr. Pj Wakefield HX HERNIA REPAIR HX PTCA stents MD COLONOSCOPY FLX DX W/COLLJ SPEC WHEN PFRMD 06/02/2013 COLONOSCOPY performed by Alessandro Dale MD at [facility] ENDOSCOPY ADDISON MD ESOPHAGOGASTRODUODENOSCOPY TRANSORAL DIAGNOSTIC N/A 01/19/2014 ESOPHAGOGASTRODUODENOSCOPY performed by Alessandro Dale MD at [facility] ENDOSCOPY ADDISON MD XCAPSL CTRC RMVL INSJ IO LENS PROSTH W/O ECP Left 06/26/2016 CATARACT EXTRACTION IOL INSERTION FEMTO LASER ASSISTED performed by Pj Wakefield MD at [facility] SURGERY [employer] MD XCAPSL CTRC RMVL INSJ IO LENS PROSTH W/O ECP Right 07/10/2016 CATARACT EXTRACTION IOL INSERTION FEMTO LASER ASSISTED performed by Pj Wakefield MD at [facility] SURGERY [facility] Past social, family, and medical history reviewed. BP 122/68 Pulse 69 Temp 98.3 ??F (36.8 ??C) Resp 18 Ht 5' 10 (1.778 m) Wt 110.9 kg (244 lb 9.6 oz) SpO2 95% BMI 35.10 kg/m?? Physical Exam Constitutional: General: He is not in acute distress. Appearance: Normal appearance. He is not ill-appearing. HENT: Head: Normocephalic. Right Ear: External ear normal. Left Ear: External ear normal. Nose: Nose normal. Mouth/Throat: Dentition: Gum lesions (Lower central gumline where dental implant is, there is a white discoloration skin spot with a small ulcer behind one of the dental implant metal.) present. Eyes: Conjunctiva/sclera: Conjunctivae normal. Cardiovascular: Rate and Rhythm: Normal rate and regular rhythm. Pulses: Normal pulses. Heart sounds: Normal heart sounds. No murmur heard. Pulmonary: Effort: Pulmonary effort is normal. No respiratory distress. Breath sounds: Normal breath sounds. Musculoskeletal: Right lower leg: No edema. Left lower leg: No edema. Skin: General: Skin is warm and dry. Neurological: Mental Status: He is alert and oriented to person, place, and time. Psychiatric: Mood and Affect: Mood normal. Behavior: Behavior normal. ICD-10-CM ICD-9-CM 1. 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 T85.79XA 996.69 lidocaine (lidocaine viscous 2%) 2 % Solution Assessment & Plan - Reports white spot behind implants under tongue causing soreness. - Exam reveals white, irritated tissue and small sore likely from implant irritation. - Issue appears to be irritation and skin injury from implant, not likely infection. - Skin spot could possibly be leukoplakia as well. He will need an ENT referral if skin condition does not heal in a few weeks - Advised to consult his current about this for follow-up - Viscous lidocaine sent in for temporarily pain relief - Follow-up as needed LUIS ARMANDO Elder-C The author of this note, patient (or authorized sales service representative), and all other persons present consent to the audio recording of this visit for charting documentation purposes. This note was automatically generated, edited by a Quality Corporate Attorney, and finalized by LUIS ARMANDO Wiley. 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
[2024-11-11] VITALS (21 sets, daily range): BP systolic 112–142; BP diastolic 45–72; PULSE 65–87; RESP 13–19; TEMP 36.3–37.1; O2SAT 90–100; BMI 34.2
--- NOTE | 2024-11-11 06:31 | W.PM.OPSFHP ---
Same Day Surgery H&P Indication for Procedure/HPI DATE OF PROCEDURE: November 11, 2024 CHIEF COMPLAINT/INDICATIONFOR SURGICAL PROCEDURE: Back and leg pain PREOP DIAGNOSIS: L4/5 spondylolisthesis; lumbar stenosis with neurogenic claudication PLANNED PROCEDURE: Operation Date: 11/11/24 07:00 Proposed Procedures p Posterior Lumbar Interbody Fusion PLIF(Not Applicable) - Rolando Iraheta, DO Medications/Allergies* Home Medications ?Medication ?Instructions ?Recorded ?Confirmed ?Type alprazolam 0.5 mg tablet 0.5 mg PO TID PRN anxiety 08/10/19 11/11/24 History aripiprazole 5 mg tablet (Abilify) 5 mg PO DAILY 08/10/19 11/11/24 History aspirin 81 mg tablet,delayed 81 mg PO DAILY 08/10/19 11/10/24 History release (Aspir-) atenolol 100 mg tablet 100 mg PO DAILY 08/10/19 11/11/24 History bupropion HCl 100 mg tablet 100 mg PO TID 08/10/19 11/11/24 History glipizide 5 mg tablet 2.5 mg PO BID 08/10/19 11/10/24 History ropinirole 0.25 mg tablet 0.25 mg PO DAILY 08/10/19 11/11/24 History tamsulosin 0.4 mg capsule (Flomax) 0.4 mg PO DAILY 08/10/19 11/11/24 History zolpidem 5 mg tablet 5 mg PO .HS 08/10/19 11/10/24 History doxazosin 4 mg tablet 2 mg PO .1/2 tab daily 07/31/21 11/10/24 History fluticasone propionate 50 1 spray intranasal ONCE PRN 07/31/21 11/10/24 History mcg/actuation nasal Allergy Symptoms spray,suspension (Children's Flonase Allergy Relief) lisinopril 2.5 mg tablet 2.5 mg PO ONCE 07/31/21 11/10/24 History multivitamin 1 tab PO DAILY 07/31/21 11/10/24 History omega-3 fatty acids [Fish Oil] 1 cap PO DAILY 07/31/21 11/10/24 History levothyroxine 50 mcg capsule 50 mcg PO DAILY 08/29/23 11/11/24 History budesonide 160 mcg-glycopyr 9 2 inh inhalation BID 09/09/24 11/10/24 History mcg-formot 4.8 mcg/actuation HFA inhaler (Breztri Aerosphere) amlodipine 5 mg tablet 5 mg PO DAILY 09/28/24 11/11/24 History Allergies/Adverse Reactions Allergy/AdvReac Type Severity Reaction Status Date / Time No Known Allergies Allergy Verified 09/25/24 10:58 Pertinent History/Comorbid Conditions* Medical History (Updated 09/22/24 @ 15:35 by Rolando Iraheta DO) Hypertension CKD (chronic kidney disease) JAKOB (obstructive sleep apnea) ASHD (arteriosclerotic heart disease) Myocardial infarction COPD (chronic obstructive pulmonary disease) Carotid stenosis, bilateral Dyslipidemia Surgical History (Updated 09/25/19 @ 10:25 by Arie Garcia MD) S/P PTCA (percutaneous transluminal coronary angioplasty) Family History (Updated 08/10/19 @ 16:23 by Nadia Canas RN) Mother, AGE 51 CAD (coronary artery disease) Mother Myocardial infarction Mother Social History Smoking and tobacco/nicotine status: never used tobacco/nicotine Quit status (tobacco/nicotine): has quit using Alcohol intake: never Substance/Drug Use: never Pertinent Exam Findings alert, oriented x 3 and procedure specific exam findings Recommendations Risks and benefits of procedure reviewed Surgery/Procedure today Coding Level of Care Code Acute Code for Chg Fwniall
--- NOTE | 2024-11-11 06:46 | ANES.PREANE2 ---
Pre-Anesthetic Assessment Height/Weight: Height 1.78 m Weight 108.409 kg Temp Pulse Resp BP Pulse Ox O2 Del Method 97.8 F 66 17 131/64 93 Room Air 11/11/24 06:07 11/11/24 06:07 11/11/24 06:07 11/11/24 06:07 11/11/24 06:07 11/11/24 06:07 Preop Diagnosis: L4/5 spondylolisthesis; lumbar stenosis with neurogenic claudication Operation Date: 11/11/24 07:00 Proposed Procedures p Posterior Lumbar Interbody Fusion PLIF(Not Applicable) - Rolando Iraheta, DO Familial anesthetic complications: None Was Beta Alyx taken within 24 hours: N/A Was Clonidine taken within 24 hours: N/A Last intake: Intake Last Liquid Date 11/10/24 Last Liquid Time 21:00 Last Solid Date 11/10/24 Last Solid Time 20:00 Social No alcohol and No tobacco Exam alert, oriented x 3, clear to auscultation bilaterally and regular rate & rhythm Airway Mallampati: Class III Dentition: false Pulmonary Chronic Obstructive Pulmonary Disease and Sleep Apnea CV/HEM Coronary Artery Disease, Hypertension and Myocardial Infarction Metabolic Diabetes Mellitus, Hyperlipidemia and Thyroid Disease Neuropsych b/L TROY Anesthetic Plan ASA status: 4 Anesthesia: General Risk of > 500 ml blood loss (7ml/kg in children): No Medications/Allergies Home Medications ?Medication ?Instructions ?Recorded ?Confirmed ?Last Taken ?Type alprazolam 0.5 mg tablet 0.5 mg PO TID PRN anxiety 08/10/19 11/11/24 11/11/24 History aripiprazole 5 mg tablet (Abilify) 5 mg PO DAILY 08/10/19 11/11/24 11/11/24 History aspirin 81 mg tablet,delayed 81 mg PO DAILY 08/10/19 11/10/24 11/04/24 History release (Aspir-) atenolol 100 mg tablet 100 mg PO DAILY 08/10/19 11/11/24 11/11/24 History bupropion HCl 100 mg tablet 100 mg PO TID 08/10/19 11/11/24 11/11/24 History glipizide 5 mg tablet 2.5 mg PO BID 08/10/19 11/10/24 11/10/24 History ropinirole 0.25 mg tablet 0.25 mg PO DAILY 08/10/19 11/11/24 11/11/24 History tamsulosin 0.4 mg capsule (Flomax) 0.4 mg PO DAILY 08/10/19 11/11/24 11/11/24 History zolpidem 5 mg tablet 5 mg PO .HS 08/10/19 11/10/24 11/09/24 History atorvastatin 40 mg tablet 40 mg PO DAILY #90 tabs 09/07/20 11/10/24 11/09/24 Rx doxazosin 4 mg tablet 2 mg PO .1/2 tab daily 07/31/21 11/10/24 11/09/24 History fluticasone propionate 50 1 spray intranasal ONCE PRN 07/31/21 11/10/24 11/08/24 History mcg/actuation nasal Allergy Symptoms spray,suspension (Children's Flonase Allergy Relief) lisinopril 2.5 mg tablet 2.5 mg PO ONCE 07/31/21 11/10/24 11/09/24 History multivitamin 1 tab PO DAILY 07/31/21 11/10/24 11/09/24 History omega-3 fatty acids [Fish Oil] 1 cap PO DAILY 07/31/21 11/10/24 03/29/24 History furosemide 20 mg tablet (Lasix) 20 mg PO BID #180 tabs 10/03/22 11/11/24 11/11/24 Rx levothyroxine 50 mcg capsule 50 mcg PO DAILY 08/29/23 11/11/24 11/11/24 History Bed Side Urinal #1 ea 03/23/24 09/22/24 Unknown Rx Wheelchair #1 ea 03/23/24 09/22/24 Unknown Rx ASO to left #1 ea 06/02/24 09/22/24 Unknown Rx budesonide 160 mcg-glycopyr 9 2 inh inhalation BID 09/09/24 11/10/24 Unknown History mcg-formot 4.8 mcg/actuation HFA inhaler (Breztri Aerosphere) amlodipine 5 mg tablet 5 mg PO DAILY 09/28/24 11/11/24 11/11/24 History Bone Growth Stimulator #1 ea 10/07/24 Unknown Rx Allergies Allergy/AdvReac Type Severity Reaction Status Date / Time No Known Allergies Allergy Verified 09/25/24 10:58 [facility] Anesthesia Medical History Hypertension CKD (chronic kidney disease) JAKOB (obstructive sleep apnea) ASHD (arteriosclerotic heart disease) Myocardial infarction COPD (chronic obstructive pulmonary disease) Carotid stenosis, bilateral Dyslipidemia Surgical History S/P PTCA (percutaneous transluminal coronary angioplasty) Family History Mother , AGE 51 CAD (coronary artery disease) Myocardial infarction Social History Smoking and tobacco/nicotine status: never used tobacco/nicotine Quit status (tobacco/nicotine): has quit using Alcohol intake: never Substance/Drug Use: never Data Anesthesia Cardiac Studies: Echocardiogram 09/17/22 Sestamibi Stress Test (Cardiology) 07/20/22
[2024-11-11 06:48] LABS: Hematocrit 35.6 % (37-53); Hemoglobin 11.70 g/dL (11.27-16.99); Mean Corpuscular HGB Conc 32.9 g/dL (30-55); Mean Corpuscular Hemoglobin 30.1 pg (27-33); Mean Corpuscular Volume 91.5 fl (82-101); Nucleated Red Blood Cells % 0 %; Platelet Count 188 10^3/cmm (157-399); Red Blood Count 3.89 10^6/uL (3.85-5.65); White Blood Count 6.71 10^3/uL (3.29-11.43)
[2024-11-11] MEDS: ceFAZolin 2,000 mg SDV 2000 MG IVP ×3 (07:00→23:33)
[2024-11-11 07:08] LABS: Anion Gap 16.5 (5-19); Blood Urea Nitrogen 16 mg/dL (8-23); Calcium 8.8 mg/dL (8.5-10.5); Carbon Dioxide 26 mmol/L (22-29); Chloride 103 mmol/L (98-107); Creatinine Clr Calc Pharmacy 50.8454; Glucose 127 mg/dL (65-115); Osmolality Calculated 295 mOsm/kg (285-295); Potassium 4.5 mmol/L (3.5-5.1); Sodium 141 mmol/L (136-145)
[2024-11-11] MEDS: tobramycin 40 mg/mL SDV 2mL 120 MG XX (08:37)
[2024-11-11] MEDS: heparin, porcine 1,000 unit/mL INJ 10 mL 10000 UNIT IRRIGATION (08:39)
[2024-11-11] MEDS: lidocaine-epi 1% 20 mL INJ 10 ML INJECTION (08:39)
--- NOTE | 2024-11-11 08:45 | PC.NURSE ---
called and updated pt family, Quynh, at 0833.
--- NOTE | 2024-11-11 10:10 | P.OP_ITS ---
Operative Report Date of procedure: November 11, 2024 Pre-op diagnosis: Lumbar stenosis with neurogenic claudication L4/5 spondylolisthesis Post-op diagnosis: same Procedure done: 1. L4/5 Interbody fusion with posterolateral fusion 2. Instrumentation L4-L5 3. Cage at L4-L5 4. Use of computer navigation stereotactic for spine 5. use of autograft from same incision 6. allograft 7. Bone marrow aspirate from right iliac crest Surgeon: Rolando Iraheta DO Estimated blood loss (mL): 50 Procedure: 1. L4/5 Interbody fusion with posterolateral fusion 2. Instrumentation L4-L5 3. Cage at L4-L5 4. Use of computer navigation stereotactic for spine 5. use of autograft from same incision 6. allograft 7. Bone marrow aspirate from right iliac crest Patient is brought to the operative suite after undergoing anesthesia was placed in the prone position. All areas of impingement were well-padded. Patient's prepped and draped in normal sterile fashion. Skin incision was made over the regular crest. 2 pins were placed into the right iliac crest and fiducial was attached. C-arm was then brought in and spun around the patient in order to facilitate using computer navigation and placed screws. Once navigation was complete using the Jamshidi to determine where the skin incisions were made the L4 and L5 pedicles are found skin incision was made and dissection was made down to the facet joints of L4 and L5. The L5 screw was placed first this was done by using the Jamshidi attached to the navigation. Wire was placed into the pedicle. And then a screw was placed over the wire into the pedicle. This was done at L4 and L5 bilaterally. Next attention was brought to placing the cage. The retractor was hooked up to the pedicle screws. And spread. The lamina and facet joint were identified on the left side. The laminectomy was performed using high-speed drill as well as the facetectomy. Curved curette and Kerrisons were used to take down the facet and the lamina. Ligamentum flavum was taken down. The disc space was then identified. Osteotome was used to take off a osteophyte posteriorly. And then the chastity were used up to 11. Size 11 trial was tried felt to be good and then a size 11 cage from [employer] was inserted. It was checked with AP and lateral fluoroscopy to ensure it is in good position. Next attention was brought to the facet joint on the right side. This was exposed through the tube and muscle was cleared off of it. Then high-speed bur was used to bur up the facet joint. And then bone graft was packed into the facet joint. Along the lateral gutter. Extension was brought to placing the rods. Rods were placed into the towers the hermelinda and screws. The L5 was locked into position. And then L4 was then reduced in order to facilitate reducing the L4/L5 spondylolisthesis. This was done bilaterally. Screws were torqued into position. Towers were broken up AP and lateral fluoroscopy ensured that the hardware was in good position. Wounds were irrigated and then closed in layered fashion with Vicryl and Monocryl suture. Sterile dressings were applied and patient is transferred to the PACU in stable condition.
[2024-11-11] MEDS: fentaNYL 50 mcg/mL INJ 2mL IVP (10:40)
--- NOTE | 2024-11-11 11:00 | ANE.PACU2 ---
Inpatient post-anesthesia follow up: Airway intact: Yes Vital signs: Temperature 97.5 F Pulse Rate 67 Respiratory Rate 17 Blood Pressure 135/71 Pulse Oximetry 97 Oxygen Delivery Me thod Nasal Cannula Oxygen Flow Rate 3 Fraction of Inspir ed Oxygen Hydration adequate: Yes Nausea and vomiting: No Pain level: 1 Mental status: Baseline
[2024-11-11] MEDS: HYDROcodone-acetaminophen 5-325 mg Tablet PO ×3 (11:55→20:29)
[2024-11-12] MEDS: HYDROcodone-acetaminophen 5-325 mg Tablet PO ×2 (03:32→08:09)
[2024-11-12 05:22] VITALS: BP 122/67; PULSE 82; RESP 16; TEMP 37.7; O2SAT 90
[2024-11-12] MEDS: ceFAZolin 2,000 mg SDV 2000 MG IVP (06:21)
[2024-11-12 07:32] VITALS: BP 124/66; PULSE 79; RESP 16; TEMP 36.9; O2SAT 91
--- NOTE | 2024-11-12 07:41 | XR_ITS ---
WS: [id number] Lumbar spine, C-arm fluoroscopy views, 11/11/2024 Clinical Data: or pic, spinal fusion Comparison: Lumbar spine, 07/30/2024 Findings: Dr. Iraheta performed a posterior lumbar fusion. XR/XR lumbar spine 2-3V* [id number] Impression: Posterior lumbar fusion.
[2024-11-12 07:45] VITALS: PULSE 73; RESP 16; O2SAT 93
--- NOTE | 2024-11-12 08:11 | PM.DCS ---
Discharge Providers Date of Admission: 11/11/24 14:06 Date of Discharge: November 12, 2024 Attending Provider at Admission: Rolando Iraheta DO Attending Provider at Discharge: Rolando Iraheta DO Primary Care Provider: Meliza Cantor DO Reason for Visit Reason for Visit: M48.062 Physical Exam Narrative: Patient is up ambulating pain significant improved from before surgery. Some surgical pain. Urinary Catheter Management: Aguirre: Cath Placed During This Visit: yes, but has since been removed by the nurse Reason for Continuing Indwelling Catheter: Decision to DC Catheter Urinary Catheter Date of Insertion: 11/11/24 Urinary Catheter Time of Insertion: 07:15 Date Urinary Catheter Removed: 11/11/24 Time Urinary Catheter Discontinued: 10:00 Discharge Data Studies Completed and Pending Pending at discharge Category Date Time Status C-arm Fluoroscopy [id number] Routine Exams 11/11/24 05:51 Taken XR lumbar spine 2-3V* [id number] Routine Exams 11/12/24 07:41 Taken Laboratory Results WBC 6.71 10^3/uL (3.29-11.43) 11/11/24 06:35 RBC 3.89 10^6/uL (3.85-5.65) 11/11/24 06:35 Hgb 11.70 g/dL (11.27-16.99) 11/11/24 06:35 Hct 35.6 % (37-53) L 11/11/24 06:35 MCV 91.5 fl (82-101) 11/11/24 06:35 MCH 30.1 pg (27-33) 11/11/24 06:35 MCHC 32.9 g/dL (30-55) 11/11/24 06:35 RDW 13.4 % (12.1-15.1) 11/11/24 06:35 Plt Count 188 10^3/cmm (157-399) 11/11/24 06:35 MPV 10.2 fL (7.4-10.4) 11/11/24 06:35 Neut % (Auto) 57.7 % 11/11/24 06:35 Lymph % (Auto) 26.2 % 11/11/24 06:35 [place] % (Auto) 11.6 % 11/11/24 06:35 Eos % (Auto) 3.0 % 11/11/24 06:35 Baso % (Auto) 1.2 % 11/11/24 06:35 Neut # (Auto) 3.87 10^3/uL (1.8-7.7) 11/11/24 06:35 Lymph # (Auto) 1.8 10^3/uL (0.8-4.8) 11/11/24 06:35 [place] # (Auto) 0.8 10^3/uL (0.2-0.9) 11/11/24 06:35 Eos # (Auto) 0.2 10^3/uL (0.0-0.8) 11/11/24 06:35 Baso # (Auto) 0.1 10^3/uL (0.0-0.1) 11/11/24 06:35 Nucleated RBC % (auto) 0 % 11/11/24 06:35 Nucleated RBCs # 0.0 /100WBC 11/11/24 06:35 Sodium 141 mmol/L (136-145) 11/11/24 06:35 Potassium 4.5 mmol/L (3.5-5.1) 11/11/24 06:35 Chloride 103 mmol/L (98-107) 11/11/24 06:35 Carbon Dioxide 26 mmol/L (22-29) 11/11/24 06:35 Anion Gap 16.5 (5-19) 11/11/24 06:35 BUN 16 mg/dL (8-23) 11/11/24 06:35 Creatinine 1.5 mg/dL (0.7-1.2) H 11/11/24 06:35 GFR Calculation Not Reportable 11/11/24 06:35 Glucose 127 mg/dL (65-115) H 11/11/24 06:35 POC Glucose 134 mg/dL (70-110) H 11/12/24 06:06 Calculated Osmolality 295 mOsm/kg (285-295) 11/11/24 06:35 Calcium 8.8 mg/dL (8.5-10.5) 11/11/24 06:35 Blood Type O Positive 11/11/24 06:35 Rho(D) Type Rh positive 11/11/24 06:35 Antibody Screen Negative 11/11/24 06:35 Vitals Last Vital Signs Temp 98.4 F 11/12/24 07:32 Pulse 73 11/12/24 07:45 Resp 16 11/12/24 07:45 BP 124/66 11/12/24 07:32 Pulse Ox 93 11/12/24 07:45 O2 Del Method Room Air 11/12/24 07:45 O2 Flow Rate 2 11/11/24 15:07 Discharge Plan Discharge Patient Disposition: Home Condition: Stable Prescriptions: New hydrocodone-acetaminophen 5-325 mg tablet 1 - 2 tab PO .Q4-6H Qty: 40 0RF Continued tamsulosin [Flomax] 0.4 mg capsule 0.4 mg PO DAILY zolpidem 5 mg tablet 5 mg PO .HS aripiprazole [Abilify] 5 mg tablet 5 mg PO DAILY ropinirole 0.25 mg tablet 0.25 mg PO DAILY atenolol 100 mg tablet 100 mg PO DAILY bupropion HCl 100 mg tablet 100 mg PO TID Rx Instructions: administer 6 hours apart glipizide 5 mg tablet 2.5 mg PO BID aspirin [Aspir-81] 81 mg tablet,delayed release (DR/EC) 81 mg PO DAILY doxazosin 4 mg tablet 2 mg PO .1/2 tab daily lisinopril 2.5 mg tablet 2.5 mg PO ONCE multivitamin Tablet 1 tab PO DAILY omega-3 fatty acids [Fish Oil] 1 cap PO DAILY fluticasone propionate [Children's Flonase Allergy Rlf] 50 mcg/actuation spray,suspension 1 spray intranasal ONCE PRN (Reason: Allergy Symptoms) Rx Instructions: administer into each nostril levothyroxine 50 mcg capsule 50 mcg PO DAILY Breztri Aerosphere 160-9-4.8 mcg/actuation HFA aerosol inhaler 2 inh inhalation BID (DME) Wheelchair See Rx Instructions .Route .MEDSUPPLY Qty: 1 0RF Rx Instructions: As directed (DME) Bed Side Urinal See Rx Instructions .Route .MEDSUPPLY Qty: 1 0RF Rx Instructions: As directed (DME) ASO to left See Rx Instructions .Route .MEDSUPPLY Qty: 1 0RF Rx Instructions: As directed atorvastatin 40 mg tablet 40 mg PO DAILY Qty: 90 3RF furosemide [Lasix] 20 mg tablet 20 mg PO BID Qty: 180 3RF amlodipine 5 mg tablet 5 mg PO DAILY (DME) Bone Growth Stimulator See Rx Instructions .Route .MEDSUPPLY Qty: 1 0RF Rx Instructions: As directed Discontinued alprazolam 0.5 mg tablet 0.5 mg PO TID PRN (Reason: anxiety) Discharge Order = DC NOW: Discharge Order (Routine); Ordered 11/12/24 Ordered By: Rolando Iraheta Discharge Diet: Advance as tolerated Discharge Activity: Limit activity as instructed Patient Instructions: Acute Wound Care (DC), Opioid Safety, Post Anesthesia Care, Patient Portal & Yazmin Instructions Activity Restrictions/Additional Instructions: Okay to restart alprazolam when you get home Thank you for choosing [facility] for your care! The following is a list of instructions, from your provider, to follow upon your discharge to ensure you have the optimal recovery from your recent injury or surgery. Follow-up care is a shanks part of your treatment and safety. Be sure to make and go to all appointments, and call your doctor if you are having problems. If you do not already have a follow-up appointment made, call Dr. Iraheta's office in the next 1-3 days to make follow up appointment for 2 weeks at [phone]. It is also a good idea to know your test results and keep a list of the medicines you take. Medications will be prescribed for you at your provider?s discretion. These medications are to be used as instructed;if they are taken more often that prescribed they will not be refilled early and in most cases will not be refilled at all. > When a refill is needed,you should contact our office 2-3 business days beforeyour prescription runs out. Medications will NOTbe refilled by engine monitor providers after hours! > Many pain medications contain Tylenol (Acetaminophen). Do not consume more than 4,000 mg of Tylenol per day in total with any combination of medications. > Pain medications can cause constipation. Please use an over the counter stool softener as directed, while taking pain medications. Consult your local pharmacist with questions or recommendations on stool softeners. If constipation persists, contact our office or your primary care provider. > While under our care,you are not to receive pain medications or other controlled substances from any other provider unless our office is notified and approves. Any attempts to do so will result in refusal to prescribe any further pain medications and possible dismissal from our practice. ? Your wound and/or dressing should remain clean and dry for 2 days after surgery. On postoperative day 2 (48 hours after your surgery) the dressing (if present) should be removed and it is okay to shower and get the incision wet. Pat dry afterwards. No further dressing should be required from that point on. Do not put any creams or ointments on the incision > It is normal for there to be a small amount of discharge (bloody or blood tinged) present from a surgical wound for the first 1-3days. > The wound should be examined twice a day for signs of infection. Mild redness or bruising is to be expected but indications that an infection maybe starting would include;An increase in redness, swelling, or discharge, a foul odor present around the incision, and/or a fever greater than 101 ?F ? Showering is permitted, however we ask that you do not take a bath, sit in a whirlpool / Jacuzzi, or go swimming for 1 month. For only the first 2 days after surgery, lt wilt be necessary for you to cover your wound/dressing with plastic and tape to keep it dry. ? Walking is essential for the healing process after surgery. We would like you to slowly advance your walking. This should be done on relatively flat clear ground (inside or out) or can be done on a treadmill. Remember this goal does not have to happen all at once, slowly increase your distance and duration. This can be broken into more more than one walk per day as tolerated. Patients who walk as directed after surgery rarely require Physical Therapy. In the unlikely event this issue arises your provider will direct hospital staff to make the appropriate arrangements. ? No lifting over 5 pounds {a gallon of milk) or bending/twisting until further notice. Each of these activities places an unnecessary amount of stress onto the body and can impede the delicate healing process. > Instead of bending at the waist, keep your back straight and bend at the knees. > Instead of twisting your torso, keep your back straight and turn your entire body with your feet. ? You may sleep in any position which makes you comfortable.Many patients find comfort sleeping in a reclining chair. It is not abnormal to have difficulty sleeping for the first several weeks following your surgery. We recommend trying Benadryl or Tylenol PM as directed to help with your sleeping difficulties. Both medications are over the counter and available without prescription. ? NO SMOKING!!!Smoking dramatically increases the probability of developing postoperative wound infections. ? Common complaints after lumbar and/or thoracic spine surgery include, but are not limited to: numbness and/or tingling in the legs, pain around the incision and surrounding tissues, muscle spasms, or stiffness of the middle to low back. Contact our office if these symptoms persist or if an acute change occurs. ? No driving for the first 3-5 days, and not while taking narcotics until seen at your follow-up appointment and cleared.There are no restrictions for riding on short trips, however if you take a longer trip, arrangements should be made to make regular stops to get out of the vehicle and stretch . ? Swelling is an unfortunate event that will take place with any surgery and is the primary source of your postoperative discomfort. While walking and regular approved activities helps control inflammation, there are additional steps you can take to minimize swelling. > Place ice over the surgical site and surrounding tissue for twenty minutes, followed by applying a low/medium heat (heating pad) for an additional twenty minutes every 1-2 hours as needed for pain relief. > You may use of over the counter anti-inflammatory medications (Ibuprofen, Motrin, Aleve, Advil, etc) as directed on the package label. These types of medicines will significantly reduce the amount of discomfort you experience after surgery from swelling. It should be noted that if you have an allergy to any of these medications, or a history of ulcers or kidney disease you should consult your primary care provider prior to starting these medications. Discharge Attestations Time Spent in Discharge Care*: other Quality Metrics Clinical Quality Measures [ No reported AMI, CVA or VTE this stay] Coding Level of Care Code Acute Code for Chg Fwd
[2024-11-12 10:46] VITALS: BP 124/66; PULSE 87; RESP 18; TEMP 36.9; O2SAT 93
--- OUTSIDE RECORDS SUMMARY | 2024-11-13 05:23 | XMS_ITS | Encounter Summary ---
Author Organization [facility], [facility] Address [address] [address] Phone Care Team Providers Care Data Conversion Developer Name Role Phone Meliza Cantor DO Primary Care Provider [phone] Encounter Details Date Type Department Care Team (Late Contact Info) Description 11/15/2018 Orders Only [facility], [address] [address] Lane Ariza MD [address] [address] Chronic kidney disease stage 3 Social History Tobacco Use Types Packs/Day Years Used Date Smoking Tobacco: Former Smokeless Tobacco: Former Alcohol Use Standard Drinks/Week Comments No 0 (1 standard drink = 0.6 oz pur e alcohol) Sex and Gender Information Value Date Recorded Sex Assigned at Not on file Legal Sex Male 12:41 PM EST Gender Identity Not on file Sexual Orientation Not on file documented as of this encounter Plan of Treatment Upcoming Encounters Date Type Department Care Team (Late st Contact Info) Description 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 Office Visit [facility], [facility] [place] [address] Oanh Abrams NP [address] [address] documented as of this encounter Procedures Procedure Name Priority Date/Time Associated Diagnosis Comments VITAMIN D 25 HYDROXY Routine 11/12/2018 12:00 PM CDT Chronic kidney disease stage 3 PTH, INTACT Routine 11/12/2018 12:00 PM CDT Chronic kidney disease stage 3 RENAL FUNCTION PANEL Routine 11/12/2018 12:00 PM CDT Chronic kidney disease stage 3 documented in this encounter Results * Vit D 25 hydroxy (11/12/2018 12:00 PM CDT) Pathologist [facility] Vitamin D, 25-OH, Total 44 ng/mL Blood specimen (specimen) 11/12/2018 12:00 PM CDT Lilly Jaida Naranjo - 11/13/2018 12:21 PM CDT [facility], [place] # [id number] [facility] [place] [address] DIRECTOR: TAMIKA WEATHERS MD [facility] [phone] Lane Ariza MD LAB BLOOD ORDERABLES Ed ited Result - Final * PTH, intact (CKD3a) (11/12/2018 12:00 PM CDT) Pathologist [facility] Parathyroid Hormone, Intact 63.7 pg/mL Blood specimen (specimen) 11/12/2018 12:00 PM CDT Lilly Dannielle Mckeon MA - 11/13/2018 8:03 AM CDT [facility], [place] # [id number] [address] [place], [place] [id number] DIRECTOR: TAMIKA WEATHERS MD [facility] [phone] Lane Ariza MD LAB BLOOD ORDERABLES Fi nal Result * (ABNORMAL) RFP (CKD3a) (11/12/2018 12:00 PM CDT) Pathologist [facility] Albumin 4.0 3.5 - 5.0 g/dL BUN 19 4 - 21 mg/dL Calcium 8.5(A) 8.7 - 10.7 mg/dL Chloride 101 99 - 108 Bicarbonate (CO2) 26 22 - 30 mmol/L Creatinine 1.81(A) 0.60 - 1.30 mg/dL eGFR 45.0 mL/min/1.7 3m*2 eGFR Non- 37.0 mL/min/1.7 3m*2 Glucose 191 Phosphorus, Serum 2.5 Potassium 4.6 3.4 - 5.5 Sodium 139 137 - 147 Anion Gap 12 <=30 MMOL/L Blood specimen (specimen) 11/12/2018 12:00 PM CDT Dannielle Gonzalez MA - 11/13/2018 8:01 AM CDT [facility] # [id number] [address] [place] [id number] DIRECTOR: TAMIKA WEATHERS MD [facility] [phone] Lane Ariza MD LAB BLOOD ORDERABLES Fi nal Result documented in this encounter Visit Diagnoses Diagnosis Chronic kidney disease stage 3 (HCC) documented in this encounter Care Teams Data Conversion Developer Relationship Specialty Start Date End Date Meliza Cantor DO [address] [place] [address] PCP - General Family Medicine 05/15/18 documented as of this encounter
--- OUTSIDE RECORDS SUMMARY | 2024-11-13 05:23 | XMS_ITS | Encounter Summary ---
Author Organization [facility] Address [address] [facility] Attn: Epic [place] [address] Care Team Providers Care Transmitter Chief Name Role Phone Meliza Cantor DO Primary Care Provider [phone] Encounter Details Date Type Department Care Team (Late st Contact Info) Description 11/27/1999 Inpatient Historical Basilio Walton MD [address] [facility] [address] [place] [id number] Social History Tobacco Use Types Packs/Day Years Used Date Smoking Tobacco: Never Assessed Sex and Gender Information Value Date Recorded Sex Assigned at Not on file 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
--- OUTSIDE RECORDS SUMMARY | 2024-11-13 05:23 | XMS_ITS | Clinical Summary ---
Author Organization [facility] Address [address] [place] [address] Care Team Providers Care Warehouse Worker Name Role Phone Meliza Cantor Primary Care Provider Allergies No known active allergies Medications tamsulosin (FLOMAX) 0.4 mg capsule TAKE 1 CAPSULE BY MOUTH AT BEDTIME 90 Capsule 4 Active amLODIPine (NORVASC) 5 mg tablet TK 1 T PO D. 90 Tablet 4 Active hydroCHLOROthia zide (MICROZIDE) 12.5 mg capsuleIndicati ons:Essential hypertension Take 1 Capsule (12.5 mg) by mouth daily. 90 Capsule 4 020 Active losartan (COZAAR) 50 mg tabletIndicatio ns:Essential hypertension Take 1 Tablet (50 mg) by mouth daily. 90 Tablet 4 Active atenoloL (TENORMIN) 100 mg tablet Take 1 Tablet by mouth. Active buPROPion HCL (WELLBUTRIN SR) 200 mg Sustained Release 12 hour tablet 200 mg. Active doxazosin (CARDURA) 4 mg tablet 2 mg. Active fluticasone propionate (FLONASE) 50 mcg/spray [place], Suspension nasal inhaler INSTILL 2 SPRAYS IN EACH NOSTRIL ONCE A DAY FOR ALLERGIES (MUST BE USED DIRECTED FOR MINIMUM OF 21 DAYS TO PROVIDE ADEQUATE BENEFITS) Active glipiZIDE (GLUCOTROL) 5 mg tablet 2.5 mg. Active pantoprazole (PROTONIX) 40 mg Tablet, Delayed Release (E.C.) Take 1 Tablet (40 mg) by mouth daily. 90 Tablet 4 023 Active albuterol sulfate HFA 90 mcg/actuation aerosol inhaler Take 2 Puffs by inhalation every 6 hours as needed for Shortness of Breath. 8.5 Gram 023 Active aspirin (ECOTRIN EC) 81 mg Tablet, Delayed Release (E.C.) Take 81 mg by mouth daily. Active furosemide (LASIX) 20 mg tablet Take 20 mg by mouth daily. Active cetirizine (ZyrTEC) 10 mg tablet Take 1 Tablet (10 mg) by mouth daily. 30 Tablet 2 024 Active levothyroxine 50 mcg tablet TAKE 1 TABLET(50 MCG) BY MOUTH DAILY IN THE MORNING 90 Tablet 4 024 Active atorvastatin (LIPITOR) 80 mg tablet Take 40 mg by mouth daily with supper. Active methocarbamoL (ROBAXIN) 500 mg tablet Take 500 mg by mouth 3 times daily. Active polyvinyl alcohol (LIQUIFILM TEARS) 1.4 % solution Administer 2 Drops in both eyes see administration instructions. Active olopatadine (PATADAY) 0.2 % solution Administer 1 Drop in both eyes daily. Active pramipexole (MIRAPEX) 0.125 mg TabletIndicatio ns:Restless leg syndrome TAKE ONE TABLET BY MOUTH DAILY AT BEDTIME 90 Tablet 3 025 Active lactulose (ENULOSE) 10 gram/15 mL oral solutionIndicat ions:Chronic constipation Take 30 mL by mouth 2 times daily as needed for Constipation. 300 mL 6 025 Active Breztri Aerosphere 160 mcg-9mcg-4.8mcg /actuation HFA aerosol inhalerIndicati ons:Mixed simple and mucopurulent chronic bronchitis (CMS/HCC) Take 2 Puffs by inhalation 2 times daily. 1 Each 11 Active lisinopriL (PRINIVIL) 10 mg tablet Take 1 Tablet by mouth daily. Active clobetasoL (TEMOVATE) 0.05 % CreamIndication s:Poison thea dermatitis Apply to affected area 2 times daily. 30 Gram 3 025 Active lidocaine (lidocaine viscous 2%) 2 % SolutionIndicat ions:Inflammati on of gingival and periodontal tissues surrounding dental implant due to dental biofilm 5 mL by Mouth/Throat route every 4 hours as needed for Pain. 200 mL 2 Active zolpidem (AMBIEN CR) 12.5 mg Controlled Release tabletIndicatio ns:Primary insomnia TAKE ONE TABLET BY MOUTH nightly needed FOR insomnia 30 Tablet 2 Active ALPRAZolam (XANAX) 1 mg tabletIndicatio ns:Generalized anxiety disorder TAKE ONE TABLET BY MOUTH TWICE DAILY NEEDED FOR ANXIETY. 60 Tablet 2 Active tiZANidine (ZANAFLEX) 2 mg Tablet TAKE ONE TABLET BY MOUTH EVERY EIGHT hours NEEDED FOR pain 30 Tablet 1 Active ALPRAZolam (XANAX) 1 mg tabletIndicatio ns:Generalized anxiety disorder Take 1 Tablet (1 mg) by mouth 2 times daily as needed for Anxiety. 60 Tablet 2 025 2024 Discontinued zolpidem (Ambien CR) 12.5 mg Controlled Release tabletIndicatio ns:Primary insomnia Take 1 Tablet (12.5 mg) by mouth nightly as needed for Insomnia. 30 Tablet 2 025 2024 Discontinued tiZANidine (ZANAFLEX) 2 mg Tablet TAKE ONE TABLET BY MOUTH EVERY EIGHT hours NEEDED FOR pain 30 Tablet 1 025 2024 Discontinued nystatin (MYCOSTATIN) 100,000 unit/mL suspensionIndic ations:Thrush, oral Take 5 mL (500,000 Units) by mouth 4 times daily. 473 mL 6 025 2024 Discontinued(A lternate therapy prescribed) Clotrimazole (MYCELEX) 10 mg TrocheIndicatio ns:Thrush, oral Take 1 Tablet (10 mg) by mouth 5 times daily for 10 days. 50 Tablet 025 2024 fluconazole (DIFLUCAN) 100 mg tabletIndicatio ns:Thrush, oral Take 1 Tablet (100 mg) by mouth daily for 7 days. 7 Tablet 025 2024 Active Problems Patient Care Coordination No te Formatting of this note migh t be different from the original. 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 17 ERM OS (epiretinal membrane, left eye) 7 Vitreomacular adhesion of both eyes 09/06/2016 Pseudophakia of right eye 07/10/2016 Pseudophakia of left eye 06/26/2016 Dry eyes, bilateral 05/28/2016 PTSD (post-traumatic stress disorder) 10/13/2014 Sixth nerve palsy of left eye 04/21/2014 Diplopia 04/21/2014 Hypertensive retinopathy of both eyes 04/21/2014 Primary insomnia 09/08/2013 Generalized anxiety disorder 04/18/2013 Recurrent major depressive disorder, in full rem ission 04/18/2013 Gastroesophageal reflux disease without esophagi tis 04/18/2013 Obstructive sleep apnea syndrome 04/18/2013 Hypogonadism male 04/09/2013 Type 2 diabetes mellitus wit h stage 3 chronic kidney disease, without long-term current use of insulin 04/08/2013 Chronic bilateral low back pain with right-sided sciatica 04/08/2013 Essential hypertension 04/08/2013 Coronary artery disease invo lving venetie ira coronary artery of venetie ira heart without angina pectoris 04/08/2013 Mixed simple and mucopurulent chronic bronchitis 04/08/2013 Chronic kidney disease, stage 3 (moderate) 04/08 Mixed hyperlipidemia 04/08/2013 Resolved Problems Problem Noted Date Diagnosed Date Resolved Date Need for shingles vaccine 04/08/2013 Encounters Date Type Department Care Team Description 11/10/2024 [facility] [address] [place] [phone] Meliza Cantor, DO Generalized anxiety disorder 2024 Refill [facility] [address] [place] [address] Meliza Cantor, DO Primary insomnia 11/06/2024 10:20 AM CDT Office Visit [facility] [address] [place] [address] Sorin Hope, MEDICAL IMAGING TECHNOLOGIST 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 (Primary Dx) 10/29/2024 Orders Only [facility] [address] [place] [address] Pace, June, MEDICAL IMAGING TECHNOLOGIST Thrush, oral (Primary Dx) 10/29/2024 Telephone [facility] [address] [place] [address] Meliza Cantor, DO Medication Assistance 10/25/2024 Refill [facility] [address] [place] [address] Meliza Cantor, DO Generalized anxiety disorder 10/22/2024 4:40 PM CDT Office Visit [facility] [address] [place] [address] PaceJune, MEDICAL IMAGING TECHNOLOGIST Thrush, oral (Primary Dx) 10/22/2024 Telephone [facility] [address] [place] [address] Meliza Cantor, DO Clinical Consult Before Scheduling 10/20/2024 External Device Data STL ABSTRACTION Provider, Abstract 10/20/2024 External Device Data STL ABSTRACTION Provider, Abstract 10/20/2024 External Device Data STL ABSTRACTION Provider, Abstract 10/16/2024 10:00 AM CDT Office Visit [facility] [address] [place] [address] Hope, Xuanbo Stone, MEDICAL IMAGING TECHNOLOGIST Thrush, oral (Primary Dx); Poison thea dermatitis 10/15/2024 Nurse Triage [facility] [address] [facility] [place] [address] Meliza Cantor, DO 10/14/2024 External Device Data STL ABSTRACTION Provider, Abstract 10/12/2024 Refill [facility] [address] [place] [address] Meliza Cantor, DO 09/23/2024 External Device Data STL ABSTRACTION Provider, Abstract 09/22/2024 External Device Data STL ABSTRACTION Provider, Abstract 09/08/2024 External Device Data STL ABSTRACTION Provider, Abstract 09/07/2024 Refill [facility] [address] [place] [address] Meliza Cantor, DO 08/26/2024 External Device Data STL ABSTRACTION Provider, Abstract 08/25/2024 External Device Data STL ABSTRACTION Provider, Abstract 08/19/2024 1:00 PM CDT Office Visit [facility] [address] [place] [address] Meliza Cantor, DO Type 2 diabetes mellitus with stage 3b chronic kidney disease, without long-term current use of insulin ([facility]) (Primary Dx); Primary insomnia; Traumatic compression fracture of L1 lumbar vertebra with delayed healing, subsequent encounter; Coronary artery disease involving venetie ira coronary artery of venetie ira heart without angina pectoris; Essential hypertension; Generalized anxiety disorder; Mixed hyperlipidemia; PTSD (post-traumatic stress disorder); Recurrent major depressive disorder, in full remission; Chronic constipation; Gastroesophageal reflux disease without esophagitis; Hypogonadism male; IgA nephropathy; Chronic bilateral low back pain with right-sided sciatica; RLS (restless legs syndrome); Obstructive sleep apnea syndrome; Anemia of chronic disease from Last 3 Months Immunizations Immunization Administration Dates Next Due (ADACEL/BOOSTRIX)(10 YR UP) TDAP VACCINE, 0.5ML, IM 01/10/2012 (COMIRNATY)(12 YR UP) COVID- 19 VACCINE, MRNA, SPIKE PROTEIN, LNP, ARASELI(PF) 30 MCG/0.3 ML IM SUSP 12/24/2023 (PFIZER)(12 YR UP) COVID-19 VACCINE - EMERGENCY USE AUTHORIZATION, MRNA, [id number](PF) 30 MCG/0.3 ML IM SUSP 12/07/2020 (PNEUMOVAX 23)(50 YRS UP) PN EUMOCOCCAL POLYSACCHARIDE (PPV23) 0.5 ML, IM 02/20/2021 (PREVNAR 13)(6 WKS UP) PNEUM OCOCCAL CONJUGATE (PCV13) 0.5 ML, IM 02/23/2020 (Pfizer Bivalent)(12 Yr Up) COVID-19 Vaccine - Emergency Use Authorization, MRNA, Lnp-S(Pf) 30 Mcg/0.3 Ml Susp 12/18/2021 (SHINGRIX)(50 YRS UP) ZOSTER VACCINE RECOMBINANT, 0.5 ML, IM 10/22/2019,02/16/2019 INFLUENZA VACCINE INACTIVATE D ADJUV, (65 YR UP), 0.5ML (PF), IM 12/24/2023 Influenza Seasonal Unspecifi ed Formulation IM 12/13/2021,12/16/2020 Influenza, Unspecified Formulation 03/11,01/06/2007,03/06/2006,12/23 Td(adult) Unspecified Formulation 07/13/2002 Zoster Vaccine Live SQ 01/09/2014,04/07/2013 Family History Medical History Relation Name Comments High Cholesterol Father Heart Disease Mother of heart attack Hypertension Mother Lung Cancer Sister Colon Cancer Neg Hx Relation Name Status Comments Father Mother Sister Social History Tobacco Use Types Packs/Day Years Used Date Smoking Tobacco: Former Cigarettes Q uit: 03/11/2008 Smokeless Tobacco: Former Tobacco Cessation:Counseling Given: No Alcohol Use Standard Drinks/Week Comments No 0 [...] on file Legal Sex Male 3:58 AM 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 Gender Identity Not on file Sexual Orientation Not on file Last Filed Vital Signs Vital Sign Reading [...] Mass Index 35.1 11/06/2024 10:20 AM CDT Plan of Treatment Upcoming Encounters Date Type Department Care Team (Late st Contact Info) Description 11/20/2024 12:00 PM CDT Office Visit [facility] [address] [place] [phone] Sorin Hope, MEDICAL IMAGING TECHNOLOGIST [address] [place] [phone] 01/21/2025 2:40 PM 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 Office Visit [facility] [address] [place] [address] Meliza Cantor, DO [address] [place] [phone] Health Maintenance Due Date Last Done Comments DIABETES ANNUAL FOOT EXAM 06/23/2021 06/23/2020, 09/2017 RSV VACCINE (60+ or ) (1 - 1-dose 75+ series) 11/07/2022 [facility] uACR (Auto Order) 03/11/2024 03/10/2024 , 01/13/2024, 11/18/2019, Additional history exists INFLUENZA VACCINE (#1) 2024 , 12/20/2022, 12/13/2021, Additional history exists COVID-19 Vaccine (2023-2 5 season) 2024 12/24/2023, 12/13/2023, 01/02/2023, Additional history exists DIABETES MICROALBUMIN ANNUAL SCREEN 01/12/2025 01/13/2024, 11/18/2019, 05/13/2019, Additional history exists DIABETES HBA1C Q 6 MONTHS 01/22/20252024, 01/13/2024, 06/03/2023, Additional history exists DIABETES: A1C (Auto Order) 07/22/202507/22, 01/13/2024, 06/03/2023, Additional history exists LDL CHOLESTEROL ANNUAL 07/22/2025 , 01/13/2024, 06/03/2023, Additional history exists DIABETES ANNUAL RETINAL EXAM 08/05/2025, 11/07/2023, 09/24/2016, Additional history exists DTAP/TDAP/TD VACCINES (3 - T d or Tdap) 11/16/2031 11/15/2021, 01/10/2012, 07/13/2002 COLORECTAL SCREENING Discontinued 06/02/2013, 06/02/2013, 10/20/2008 ZOSTER VACCINE Completed 10/22/2019, 1211/2018, 01/09/2014, Additional history exists PNEUMOCOCCAL VACCINE 50+ YEARS Completed 02/20/2021 , 02/23/2020 [facility] eGFR (Auto Order) Completed 07/22/2024 , 01/13/2024, 09/05/2023, Additional history exists [place] Ad[place]age ([place]) Preventative Visit/Annual Wellness Visit Completed 07/22/2024, 09/05/2023, 08/23/2022, Additional history exists Colorectal Cancer Screening Discontinued FIT/FOBT Q 1 year Discontinued 07/30/2024 FIT-DNA Q 3 years Discontinued Flex Sig/CT Colonography Q 5 years Discontinued Medical Devices Implanted Type Area Furnace Combustion Analyst Device Identifier Shelf Expiration Date Model / Serial / Lot Lens Io Tecnis 4.5cyl [id number] 25.5 - [id number] Implanted:Qty: 1 on 06/26/2016 by Pj Wakefield MD Eye Left: Eye [employer] 03/14/2019 [id number] 25.5 / [id number] / Lens Io Tecnis 1pc 27.0 [id number] - [id number] Implanted:Qty: 1 on 07/10/2016 by Pj Wakefield MD Eye Right: Eye [employer] 05/19/2020 [id number] / [id number] / N/A Procedures Procedure Name Priority Date/Time Associated Diagnosis Comments DIABETES EYE EXAM Routine 08/05/2024 11:13 AM CDT POC OCCULT BLOOD UP TO 3 CARDS Routine 07/30/2024 4:27 PM CDT Anemia of chronic disease COMPREHENSIVE METABOLIC PANEL Routine 07/22/2024 11:42 AM CDT Type 2 diabetes mellitus with stage 3a chronic kidney disease, without long-term current use of insulin ([facility]) Essential hypertension Mixed hyperlipidemia LIPID PANEL Routine 07/22/2024 11:42 AM CDT Type 2 diabetes mellitus with stage 3a chronic kidney disease, without long-term current use of insulin ([facility]) Essential hypertension Mixed hyperlipidemia HEMOGLOBIN A1C Routine 07/22/2024 11:42 AM CDT Type 2 diabetes mellitus with stage 3a chronic kidney disease, without long-term current use of insulin ([facility]/HCC) MICROALBUMIN/CREATINI NE RATIO, RANDOM UR Routine 01/13/2024 9:28 AM 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 Type 2 diabetes mellitus with stage 3a chronic kidney disease, without long-term current use of insulin from Last 3 Months or Most Recently Relevant to Health Maintenance Results * DIABETES EYE EXAM (08/05/2024 11:13 AM CDT) us Abstract Provider HEALTH MAINTENANCE Edited Resu lt - Final * POC OCCULT BLOOD UP TO 3 CARDS (07/30/2024 4:27 PM CDT) OCCULT BLOOD 1 CARD POC Negative Negative [facility] OCCULT BLOOD 2 CARD POC Negative Negative, Indeterminate [facility] OCCULT BLOOD 3 CARD POC Negative Negative, Indeterminate [facility] INTERNAL KIT QC POC Pass Pass [facility] CARD LOT NUMBER POC [id number] [facility] CARD EXPIRATION DATE POC [phone] [facility] DEVELOPER LOT NUMBER POC 50,322 [facility] DEVELOPER EXPIRATION DATE POC [phone] [facility] Stool STOOL SPECIMEN / Unknown 07/30/2024 4:27 PM CDT Sorin Hope MEDICAL IMAGING TECHNOLOGIST POINT OF CARE TESTING Mary l Result [facility] CLIA# [id number] [address] [place] [address] * (ABNORMAL) HEMOGLOBIN A1C (07/22/2024 11:42 AM CDT) HEMOGLOBIN A1C 6.1(H) <5.7 % [facility] Comment: For someone without known diabetes, a hemoglobin A1c value between 5.7% and 6.4% is consistent with prediabetes and should be confirmed with a follow-up test. For someone with known diabetes, a value <7% indicates that their diabetes is well controlled. A1c targets should be individualized based on duration of diabetes, age, comorbid conditions, and other considerations. This assay result is consistent with an increased risk of diabetes. Currently, no consensus exists regarding use of hemoglobin A1c for diagnosis of diabetes for children. ESTIMATED AVERAGE GLUCOSE (MG/DL) 128 mg/dL [facility] ESTIMATED AVERAGE GLUCOSE (MMOL/L) 7.1 mmol/L [facility] Comment: FASTING:NO FASTING: NO Test Performed at: [facility] [address] Nata Wright MD Blood 07/22/2024 11:4 2 AM CDT 07/22/2024 11:43 AM CDT Sorin Hope MEDICAL IMAGING TECHNOLOGIST CHEMISTRY ORDERABLES Final Result [facility] [phone] [facility] [employer] [address] * (ABNORMAL) LIPID PANEL (07/22/2024 11:42 AM CDT) CHOLESTEROL 122 <200 mg/dL [facility] HDL 34(L) > OR = 40 mg/dL [facility] TRIGLYCERIDE 184(H) <150 mg/dL [facility] LDL CALCULATED 62 mg/dL (calc) [facility] Comment: Reference range: <100 Desirable range <100 mg/dL for primary prevention; <70 mg/dL for patients with CHD or diabetic patients with > or = 2 CHD risk factors. LDL-C is now calculated using the Merlin-Jeana calculation, which is a validated novel method providing better accuracy than the Friedewald equation in the estimation of LDL-C. Merlin SS et al. NAZ. 2013;310(19): 5981-1098 (http://education.[employer]/faq/VNI011) CHOL/HDL RATIO 3.6 <5.0 (calc) [facility] NON-HDL CHOLESTEROL 88 <130 mg/dL (calc) [facility] Comment: For patients with diabetes plus 1 major ASCVD risk factor, treating to a non-HDL-C goal of <100 mg/dL (LDL-C of <70 mg/dL) is considered a therapeutic option. Test Performed at: [facility] [place] [address] Nata Wright MD Blood 07/22/2024 11:4 2 AM CDT 07/22/2024 11:43 AM CDT Sorin Hope MEDICAL IMAGING TECHNOLOGIST CHEMISTRY ORDERABLES Final Result [facility] [phone] [facility] [address] [facility] [place] [place] [address] * (ABNORMAL) COMPREHENSIVE METABOLIC PANEL (07/22/2024 11:42 AM CDT) GLUCOSE 96 65 - 139 mg/dL [facility] Comment: Non-fasting reference interval BUN 21 7 - 25 mg/dL [facility] CREATININE 1.74(H) 0.70 - 1.28 mg/dL [facility] GFR 40(L) > OR = 60 mL/min/1.7 3m2 [facility] BUN/CREAT RATIO 12 6 - 22 (calc) [facility] SODIUM 137 135 - 146 mmol/L [facility] POTASSIUM 4.5 3.5 - 5.3 mmol/L [facility] CHLORIDE 103 98 - 110 mmol/L [facility] CO2 24 20 - 32 mmol/L [facility] CALCIUM 8.9 8.6 - 10.3 mg/dL [facility] TOTAL PROTEIN 7.2 6.1 - 8.1 g/dL [facility] ALBUMIN 4.2 3.6 - 5.1 g/dL [facility] GLOBULIN 3.0 1.9 - 3.7 g/dL (calc) [facility] ALBUMIN/GLOBULIN RATIO 1.4 1.0 - 2.5 (calc) [facility] BILIRUBIN TOTAL 0.4 0.2 - 1.2 mg/dL [facility] ALKALINE PHOSPHATASE 116 35 - 144 U/L [facility] AST 24 10 - 35 U/L [facility] ALT 18 9 - 46 U/L [facility] Comment: Test Performed at: [facility] [address] [facility] [place] [place] [address] Nata Wright MD Blood 07/22/2024 11:4 2 AM CDT 07/22/2024 11:43 AM CDT Sorin Hope MEDICAL IMAGING TECHNOLOGIST CHEMISTRY ORDERABLES Final Result Performing Organization Address City/[facility]/ZIP Co de Phone Number [facility] [phone] [facility] [address] * (ABNORMAL) MICROALBUMIN/CREATININE RATIO, RANDOM UR (01/13/2024 9:28 AM 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) Creatinine, Urine 43 20 - 320 mg/dL [facility] MICROALBUMIN, URINE 16.9 See Note: mg/dL [facility] Comment: Reference Range: Reference Range Not established MICROALBUMIN/CREAT RATIO, UR 393(H) <30 mg/g creat [facility] Comment: The ADA defines abnormalities in albumin excretion as follows: Albuminuria Category Result (mg/g creatinine) Normal to Mildly increased <30 Moderately increased 30-299 Severely increased > OR = 300 The ADA recommends that at least two of three specimens collected within a 3-6 month period be abnormal before considering a patient to be within a diagnostic category. Test Performed at: [facility] [address] [place] [address] Nata Wright MD Urine URINE SPECIMEN OBTAINED BY CLEAN CATCH PROCEDURE / Unknown 01/13/2024 9:28 AM 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 01/14/2024 4:59 AM 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 Meliza Cantor DO URINE ORDERABLES Final Resu lt [facility] [phone] [facility] [place] [address] from Last 3 Months or Most Recently Relevant to Health Maintenance Insurance [employer] G[employer] CHOICE [facility] MCR [place] CCN [employer] Care Teams Warehouse Worker Relationship Specialty Start Date End Date Meliza Cantor DO [address] [place] [address] PCP - General Family Practice 04/09/13
--- OUTSIDE RECORDS SUMMARY | 2024-11-13 05:23 | XMS_ITS | Encounter Summary ---
Author Organization [facility] Address [address] [place] [address] Care Team Providers Care Signwriter Name Role Phone Meliza Cantor DO Primary Care Provider [phone] Encounter Details Date Type Department Care Team (Latest Contact Info) Description 03/19/2000 Outpatient Historical [facility] Cardiology- [place] [address] [place] [address] Basilio Walton MD [address] [facility] [address] [place] [address] Old myocardial infarct (Primary Dx); Other specified forms of chronic ischemic heart disease; Coronary atherosclerosis of pauma coronary artery; Mixed hyperlipidemia Social History Tobacco Use Types Packs/Day Years Used Date Smoking Tobacco: Never Assessed Sex and Gender Information Value Date Recorded Sex Assigned at Not on file Legal Sex Male 6:11 AM CLINICAL DOCUMENT IMPROVEMENT 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
--- OUTSIDE RECORDS SUMMARY | 2024-11-13 05:23 | XMS_ITS | Encounter Summary ---
Author Organization [facility] Address [address] [place] [address] Care Team Providers Care Business Ethics Professor Name Role Phone Meliza Cantor DO Primary Care Provider [phone] Encounter Details Date Type Department Care Team (Latest Contact Info) Description 01/10/2006 Outpatient Historical [facility] Cardiology- [place] [address] [place] [address] Basilio Walton MD [address] [facility] [address] [place] [address] Coronary Atherosclerosis of [place] Coronary Artery (Primary Dx); Other Malaise and Fatigue Social History Tobacco Use Types Packs/Day Years Used Date Smoking Tobacco: Never Assessed Sex and Gender Information Value Date Recorded Sex Assigned at Not on file Legal Sex Male 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
--- OUTSIDE RECORDS SUMMARY | 2024-11-13 05:23 | XMS_ITS | Encounter Summary ---
Author Organization [facility] Address [address] [place] [address] Care Team Providers Care Airplane Dispatcher Name Role Phone Meliza Cantor DO Primary Care Provider [phone] Encounter Details Date Type Department Care Team (Latest Contact Info) Description 12/20/1999 Outpatient Historical [facility] Cardiology- [place] [address] [place] [address] Basilio Walton MD [address] [facility] [address] [place] [address] Acute myocardial infarction, subendocardial infarction, subsequent episode of care (CMS/HCC) (Primary Dx); Other specified forms of chronic ischemic heart disease; Coronary atherosclerosis of [place] coronary artery; Mixed hyperlipidemia Social History Tobacco Use Types Packs/Day Years Used Date Smoking Tobacco: Never Assessed Sex and Gender Information Value Date Recorded Sex Assigned at Not on file 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 Gender Identity Not on file Sexual Orientation Not on file documented as of this encounter Plan of Treatment Not on file documented as of this encounter Visit Diagnoses Diagnosis Acute myocardial infarction, subendocardial infarction, subsequent episode of care (CMS/HCC)- Primary Acute myocardial infarction, subendocardial infarction, subsequent episode of care Other specified forms of chronic ischemic heart disease Coronary atherosclerosis of [place] coronary artery Mixed hyperlipidemia documented in this encounter Care Teams Airplane Dispatcher Relationship Specialty Start Date End Date Meliza Cantor DO [address] [place] [id number] PCP - General Family Practice 04/09/13 documented as of this encounter
--- OUTSIDE RECORDS SUMMARY | 2024-11-13 05:23 | XMS_ITS | Encounter Summary ---
Author Organization [facility] Address [address] [address] [place] [address] Phone Care Team Providers Care Vending Enterprises Supervisor Name Role Phone Meliza Cantor DO Primary Care Provider [phone] Encounter Details Date Type Department Care Team (Late st Contact Info) Description 11/20/2019 Orders Only [facility] [address] [address] Chronic kidney disease stage 3 (HCC) Social History Tobacco Use Types Packs/Day Years Used Date Smoking Tobacco: Former Cigarettes Smokeless Tobacco: Former Alcohol Use Standard Drinks/Week [...] st Contact Info) Description 03/23/2025 1:00 PM RADIOLOGY SCHEDULER Office [facility] [address] [address] Oanh Abrams, MARCK [address] [facility] [address] [place] [address] documented as of this encounter Procedures Procedure Name Priority Date/Time Associated Diagnosis Comments URINE ALBUMIN / CREATININE RATIO Routine 11/18/2019 9:51 AM CDT Chronic kidney disease stage 3 (HCC) URINALYSIS Routine 11/18/2019 9:51 AM CDT Chronic kidney disease stage 3 (HCC) CBC Routine 11/18/2019 9:51 AM CDT Chronic kidney disease stage 3 (HCC) PTH, INTACT Routine 11/18/2019 9:51 AM CDT Chronic kidney disease stage 3 (HCC) RENAL FUNCTION PANEL Routine 11/18/2019 9:51 AM CDT Chronic kidney disease stage 3 (HCC) documented in this encounter Results * (ABNORMAL) Urinalysis (11/18/2019 9:51 AM CDT) Color, Urine Yellow Pale to dark yellow [facility] Clarity, Urine Clear Clear [facility] Specific [place] 1.003 1.003 - 1.035 [facility] PH Urine 7.0 5.0 - 8.0 [facility] WBC Esterase Urine Negative Negative [facility] Nitrite, Urine Negative Negative [facility] Protein, Urine Negative Negative [facility] Glucose, Ur Negative Negative [facility] Ketones, Urine Negative Negative [facility] Urobilinogen Urine <2.0 <2.0 mg/dL [facility] Bilirubin Urine Negative Negative [facility] Blood, Urine 1+(A) Negative [facility] Comment: Specimen Source: Urine, unspecified source Performed at: [facility] [address] [place] [address] Dietitian Assistant: Chris Prajapati MD [facility] # [id number] Urine specimen (specimen) 11/18/2019 9:51 AM CDT 11/18/2019 9:[address] Ariza MD LAB URINE ORDERABLES Fi nal Result [facility] * PTH, intact (11/18/2019 9:51 AM CDT) PTH 39.9 15.0 - 65.0 pg/mL [facility] Comment: Performed at: [facility] [address] [place] [address] Dietitian Assistant: Chris Prajapati MD CLIA # [id number] Blood specimen (specimen) 11/18/2019 9:51 AM CDT 11/18/2019 9:[address] Ariza MD LAB BLOOD ORDERABLES Fi nal Result Performing Organization Address City/[facility]/ZIP Co de Phone Number [facility] * (ABNORMAL) Urine albumin / creatinine ratio (11/18/2019 9:51 AM CDT) Albumin, Urine 59.5 mg/L [facility] Comment: ADDITIONAL INFORMATION This test has been modified from the physical education professor's instructions. Its performance characteristics were determined by [facility] in a manner consistent with CLIA requirements. This test has not been cleared or approved by the U.S. Food and Drug Administration. Creatinine, Urine 26 mg/dL [facility] Alb/Creat Ratio, Ur 229(H) <17 mg/g [facility] Comment: Test Performed by: [place] [address] Dietitian Assistant: Zach Keenan M.D. Ph.D.; CLIA# [id number] Specimen Source: Urine, unspecified source Urine specimen (specimen) 11/18/2019 9:51 AM CDT 11/18/2019 9:[address] Ariza MD LAB URINE ORDERABLES Fi nal Result Performing Organization Address City/[facility]/ZIP Co de Phone Number [facility] * (ABNORMAL) CBC (11/18/2019 9:51 AM CDT) WBC 5.8 4.8 - 10.8 K/uL [facility] Red Blood Cells 4.55(L) 4.60 - 6.20 M/uL [facility] Hgb 13.7(L) 14.0 - 18.0 g/dL [facility] Hematocrit 43.2 41.0 - 53.0 % [facility] MCV 94.9 84.0 - 103.0 fL [facility] MCH 30.1 27.0 - 34.0 pg [facility] MCHC 31.7 30.0 - 35.0 g/dL [facility] Platelets 159 140 - 440 K/uL [facility] MPV 11.5 8.9 - 12.8 fL [facility] RDW 13.4 11.0 - 14.5 % [facility] RDW-SD 46.7 37.0 - 54.0 fL [facility] Comment: Performed at: [facility] [address] Dietitian Assistant: Chris Prajapati MD [facility] # [id number] Blood specimen (specimen) 11/18/2019 9:51 AM CDT 11/18/2019 9:[address] Ariza MD LAB BLOOD ORDERABLES Fi nal Result [facility] * (ABNORMAL) Renal function panel (11/18/2019 9:51 AM CDT) Sodium 141 136 - 145 mmol/L [facility] Potassium 4.4 3.5 - 5.1 mmol/L [facility] Chloride 105 98 - 107 mmol/L [facility] Carbon Dioxide (CO2) 25 22 - 29 mmol/L [facility] Calcium 8.6(L) 8.8 - 10.2 mg/dL [facility] BUN 13 8 - 23 mg/dL [facility] Creatinine 1.65(H) 0.67 - 1.17 mg/dL [facility] Comment:The GFR result is no t clinically significant on patients <18 or >70 years of age. Glucose 119(H) 74 - 99 mg/dL [facility] Albumin 4.2 3.5 - 5.2 g/dL [facility] Phosphorus, Serum 2.0(L) 2.5 - 4.5 mg/dL [facility] eGFR Non- 41 mL/min/1.7 3 sq meter [facility] Comment: eGFR has not been validated for use in the elderly (> 70 years of age), women, patients with serious co-morbid conditions, or persons with extremes of body size or muscle mass and should also be interpreted with caution in patients with acute kidney failure, dialysis dependent patients, patients reporting exceptional dietary intake (e.g. vegetarian diet, high protein diets, creatine supplementation), and patients with severe liver disease. Based on National Kidney Disease Education Program If patient is , please refer to the GFR result. eGFR 50 mL/min/1.7 3 sq meter [facility] Anion Gap 11 9 - 20 mmol/L [facility] Comment: TEST COMMENT: Fasting?->Yes Performed at: [facility] [address] [place] [address] Dietitian Assistant: Chris Prajapati MD CLIA # [id number] Blood specimen (specimen) 11/18/2019 9:51 AM CDT 11/18/2019 9:[address] Ariza MD LAB BLOOD ORDERABLES Fi nal Result [facility] documented in this encounter Visit Diagnoses Diagnosis Chronic kidney disease stage 3 (HCC) documented in this encounter Care Teams [employer] Supervisor Relationship Specialty Start Date End Date Meliza Cantor DO [address] [place] [address] PCP - General Family Medicine 05/15/18 documented as of this encounter
--- OUTSIDE RECORDS SUMMARY | 2024-11-13 05:23 | XMS_ITS | Encounter Summary ---
Author Organization [facility] Address [address] [place] [address] Care Team Providers Care Furnace Repair Mechanic Name Role Phone Meliza Cantor Primary Care Provider [phone] Reason for Referral * Outpatient Services (Routine) - Closed Specialty Diagnoses / Procedures Referred By Contac t Referred To Contact Radiology Diagnoses Proteinuria Hematuria, unspecified Acute kidney failure, unspecified Procedures US BIOPSY ABDOMEN Sharita Stanley DO [address] [address] Phone: tel: fax: [facility] Ultrasound [address] [place] [address] Phone: tel: fax: Referral ID Status Reason Start Date Expiration Date Visits Re quested Visits Authorized [id number] Closed 01/12/2014 02/12/2015 1 1 GEMENT LEAD Encounter Details Date Type Department Care Team (Late st Contact Info) Description 01/12/2014 Ancillary Orders [facility] Ultrasound [address] [place] [address] Sharita Stanley DO [address] [address] Proteinuria (Primary Dx); Hematuria, unspecified; Acute kidney failure, unspecified Social History Tobacco Use Types Packs/Day Years Used Date Smoking Tobacco: Former Cigarettes 2 40 0 03/11/1968 - 03/11/2008 Smokeless Tobacco: Current Chew Alcohol Use Standard Drinks/Week Comments No 0 (1 standard drink = 0.6 oz pur e alcohol) Sex and Gender Information Value Date Recorded Sex Assigned at Not on file Legal Sex Male 6:11 AM MANAGEMENT LEAD Gender Identity Not on file Sexual Orientation Not on file Occupation Industry Job Start Date Job End Date Not on file Not on file Not on file Not on file documented as of this encounter Plan of Treatment Not on file documented as of this encounter Results * US BIOPSY ABDOMEN (01/15/2014 10:41 AM MANAGEMENT LEAD) Anatomical Region Laterality Modality Abdomen Ultrasound 01/15/2014 9:46 AM MANAGEMENT LEAD Impressions 01/15/2014 4:36 PM MANAGEMENT LEAD Impression: Left renal biopsy. Sharla - uploaded from [employer] - Narrative 01/15/2014 4:36 PM MANAGEMENT LEAD Ultrasound guided left renal biopsy for glomeruli 01/15/2014. History: This is a 68-year-old male with renal insufficiency and proteinuria. The procedure and its risks and complications were explained to the patient and written consent was obtained. Monitored IV conscious sedation was performed. The patient was placed prone on the ultrasound gurney and limited localizer scanning was performed over both kidneys. The lower pole of the left kidney was chosen for biopsy. Following sterile preparation, drape, and adequate local anesthesia, real-time ultrasound guidance was utilized to direct a 17-gauge introducer needle to the lower pole cortex of the left kidney. Through this an 18-gauge Max core biopsy gun was advanced and several core biopsy samples were obtained and submitted to pathology in saline. Microscopic evaluation indicated sufficient numbers of glomeruli for electron microscopy. The needle was removed. Postbiopsy scanning demonstrated no evidence of active bleeding. The patient was returned to the holding area for post procedure observation. Procedure Note Selma Euceda MD - 01/15/2014 Ultrasound guided left renal biopsy for glomeruli 01/15/2014. History: This is a 68-year-old male with renal insufficiency and proteinuria. The procedure and its risks and complications were explained to the patient and written consent was obtained. Monitored IV conscious sedation was performed. The patient was placed prone on the ultrasound gurney and limited localizer scanning was performed over both kidneys. The lower pole of the left kidney was chosen for biopsy. Following sterile preparation, drape, and adequate local anesthesia, real-time ultrasound guidance was utilized to direct a 17-gauge introducer needle to the lower pole cortex of the left kidney. Through this an 18-gauge Max core biopsy gun was advanced and several core biopsy samples were obtained and submitted to pathology in saline. Microscopic evaluation indicated sufficient numbers of glomeruli for electron microscopy. The needle was removed. Postbiopsy scanning demonstrated no evidence of active bleeding. The patient was returned to the holding area for post procedure observation. IMPRESSION Impression: Left renal biopsy. Sharla - uploaded from [employer] - Sharita Stanley DO US ORDERABLES Final Result documented in this encounter Visit Diagnoses Diagnosis Proteinuria- Primary Hematuria, unspecified Acute kidney failure, unspecified Proteinuria Hematuria, unspecified Acute kidney failure, unspecified documented in this encounter Care Teams Furnace Repair Mechanic Relationship Specialty Start Date End Date Meliza Cantor DO [address] [place] [address] PCP - General Family Practice 04/09/13 documented as of this encounter
--- OUTSIDE RECORDS SUMMARY | 2024-11-13 05:23 | XMS_ITS | Encounter Summary ---
Author Organization [facility] Address [address] [place] [address] Care Team Providers Care Call Out Operator Name Role Phone Meliza Cantor DO Primary Care Provider Encounter Details Date Type Department Care Team (Late st Contact Info) Description 09/21/2002 Outpatient Historical [facility] Cardiology- [place] [address] [place] [address] Basilio Walton MD [address] [facility] [address] [place] [address] BENIGN HYP HRT DIS W/O HRT FAIL (Primary Dx); Old myocardial infarct; MIXED HYPERLIPIDEMIA; CHRONIC AIRWAY OBSTRUCTION NEC (CMS/HCC) Social History Tobacco Use Types Packs/Day Years Used Date Smoking Tobacco: Never Assessed Sex and Gender Information Value Date Recorded Sex Assigned at Not on file 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 Gender Identity Not on file Sexual Orientation Not on file documented as of this encounter Plan of Treatment Not on file documented as of this encounter Visit Diagnoses Diagnosis 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
--- OUTSIDE RECORDS SUMMARY | 2024-11-13 05:23 | XMS_ITS | Encounter Summary ---
Author Organization [facility] Address [address] [place] [address] Care Team Providers Care Inspector Scales Name Role Phone Meliza Cantor DO Primary Care Provider [phone] Encounter Details Date Type Department Care Team (Latest Contact Info) Description 04/27/1998 Outpatient Historical [facility] Medicine [place] [address] [facility] [address] [place] [address] Jose Carlos Farfan DO NO ADDRESS ON FILE Impotence of organic origin (Primary Dx) Social History Tobacco Use Types Packs/Day Years Used Date Smoking Tobacco: Never Assessed Sex and Gender Information Value Date Recorded Sex Assigned at Not on file 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
--- OUTSIDE RECORDS SUMMARY | 2024-11-13 05:23 | XMS_ITS | Encounter Summary ---
Author Organization [facility] Address [address] [place] [address] Care Team Providers Care Proposal Consultant Name Role Phone Meliza Cantor DO Primary Care Provider [phone] Reason for Visit * Reason Comments Med Refill Encounter Details Date Type Department Care Team (Late st Contact Info) Description 11/10/2024 Refill [facility] Family Medicine [place] [address] [place] [address] Meliza Cantor DO [address] [place] [address] Generalized anxiety disorder Social History Tobacco Use Types Packs/Day Years [...] on file Legal Sex Male 3:58 AM GRAIN WEIGHER Gender Identity Not on file Sexual Orientation Not on file documented as of this encounter Miscellaneous Notes * Telephone Encounter - Monica Momin LPN - 11/10/2024 3:54 PM CDT 3:54 PM 11/10/2024 Date of last visit addressing condition(s) being treated: 08/19/24 LFD Xanax 10/05/24 Tizanidine 10/12/24 #30 with 1 RF Date of next visit in this department: 11/20/2024 Correct Pharmacy: Yes Recent Visits Date Type Provider Dept 11/06/24 Office Visit Sorin Hope [facility] 10/22/24 Office Visit Katelynn June, [facility] 10/16/24 Office Visit Sorin Hope, [facility] 08/19/24 Office Visit Meliza Cantor DO [facility] 07/22/24 Office Visit Sorin Hope, [facility] 01/30/24 Office Visit Meliza Cantor DO [facility] Showing recent visits within past 400 days with a meds authorizing provider and meeting all other requirements Future Appointments Date Type Provider Dept 11/20/24 Appointment Sorin Hope, [facility] 01/21/25 Appointment Meliza Cantor DO [facility] Showing future appointments within next 400 days with a meds authorizing provider and meeting all other requirements Check and review of the [place] PDMP performed on 11/10/2024 at 3:56 PM.. No suspicious activity found. Monica GREEN documented in this encounter Plan of Treatment Upcoming Encounters Date Type Department Care Team (Late st Contact Info) Description 11/20/2024 12:00 PM CDT Office Visit [facility] [address] [place] [address] Sorin Hope, [facility] [address] [place] [facility] [address] 01/21/2025 2:40 PM GRAIN WEIGHER Office Visit [facility] [address] [facility] [place] [address] Meliza Cantor DO [address] [place] [address] documented as of this encounter Visit Diagnoses Diagnosis Generalized anxiety disorder documented in this encounter Care Teams Proposal Consultant Relationship Specialty Start Date End Date Meliza Cantor DO [address] [place] [address] PCP - General Family Practice 04/09/13 documented as of this encounter
--- OUTSIDE RECORDS SUMMARY | 2024-11-13 05:23 | XMS_ITS | Clinical Summary ---
Author Organization [facility] Address [address] [place] [address] Care Team Providers Care Print Room Worker Name Role Phone Meliza Cantor Primary Care Provider Allergies Active Allergy Reactions Criticality Noted Date Comments Flu Vaccine 2010-(9 Yr+)(Pf) Anaphylaxis High 03/12 Medications ipratropium-albute rol (COMBIVENT RESPIMAT) 20-100 mcg/actuation Aerosol Take by inhalation 4 times daily. Active budesonide-formote rol (SYMBICORT) 80-4.5 mcg/actuation HFA Aerosol Inhaler Take 2 Puffs by inhalation 2 times daily. Active buPROPion (WELLBUTRIN) 100 mg tablet Take 100 mg by mouth 3 times daily. Active doxazosin (CARDURA) 4 mg tablet Take 4 mg by mouth daily. Active glipiZIDE (GLUCOTROL) 5 mg tablet Take 2.5 mg by mouth 2 times daily. Active MULTIVITAMIN WITH MINERALS (MEN'S ONE DAILY ORAL)Indications:H ematuria Take by mouth. Activ e aspirin (ECOTRIN EC) 81 mg Tablet, Delayed Release (E.C.)Indications: Hematuria Take 81 mg by mouth daily. Active docusate sodium (STOOL SOFTENER) 100 mg capsuleIndications :Hematuria Take 100 mg by mouth 2 times daily. Active VITAMIN E ACETATE (E-400 ORAL)Indications:H ematuria Take by mouth. Activ e tamsulosin (FLOMAX) 0.4 mg capsule Take 0.4 mg by mouth daily. 3 8 Active pantoprazole (PROTONIX) 40 mg Tablet, Delayed Release (E.C.) Take 1 Tablet (40 mg) by mouth daily. 90 Tablet 4 0 Active tamsulosin (FLOMAX) 0.4 mg capsule TAKE 1 CAPSULE BY MOUTH AT BEDTIME 90 Capsule 4 0 Active amLODIPine (NORVASC) 5 mg tablet TK 1 T PO D. 90 Tablet 0 Active hydroCHLOROthiazid e (MICROZIDE) 12.5 mg capsuleIndications :Essential hypertension Take 1 Capsule (12.5 mg) by mouth daily. 90 Capsule 4 0 Active losartan (COZAAR) 50 mg tabletIndications: Essential hypertension Take 1 Tablet (50 mg) by mouth daily. 90 Tablet 4 0 Active lisinopriL (PRINIVIL) 2.5 mg tablet Take 1 Tablet (2.5 mg) by mouth daily. 90 Tablet 4 0 Active rOPINIRole (Requip) 0.25 mg tabletIndications: RLS (restless legs syndrome) Take 1 Tablet (0.25 mg) by mouth daily. 90 Tablet 4 0 Active albuterol HFA 90 mcg inhaler Take by inhalation. Active atenoloL (TENORMIN) 100 mg tablet Take 1 Tablet by mouth. Active omega-3 acid ethyl esters (LOVAZA) 1 gram Capsule 1 (one) time each day Active atorvastatin (LIPITOR) 40 mg tabletIndications: Mixed hyperlipidemia Take 40 mg by mouth daily. Dr. Vincent [facility] Active zolpidem (AMBIEN) 10 mg tabletIndications: Primary insomnia Take 1 Tablet (10 mg) by mouth daily at bedtime. NEEDED FOR INSOMNIA 30 Tablet 5 1 Active ALPRAZolam (XANAX) 0.5 mg tabletIndications: Primary insomnia,Generaliz ed anxiety disorder TAKE 1 TABLET BY MOUTH EVERY DAY NEEDED FOR ANXIETY 30 Tablet 5 1 Active levothyroxine 50 mcg tablet Take 1 Tablet (50 mcg) by mouth daily in the morning. 30 Tablet 3 1 Active Active Problems Patient Care Coordination No te Formatting of this note migh t be different from the original. 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 Hypertensive retinopathy of both eyes 04/21/2014 Primary insomnia 09/08/2013 Gastroesophageal reflux disease without esophagi tis 04/18/2013 Generalized anxiety disorder 04/18/2013 Obstructive sleep apnea syndrome 04/18/2013 Recurrent major depressive disorder, in full rem ission 04/18/2013 Hypogonadism male 04/09/2013 Type 2 diabetes mellitus wit h stage 3 chronic kidney disease, without long-term current use of insulin 04/08/2013 Chronic bilateral low back pain with right-sided sciatica 04/08/2013 Chronic kidney disease, stage 3 (moderate) 04/08 Coronary artery disease invo lving [place] coronary artery of [place] heart without angina pectoris 04/08/2013 Essential hypertension 04/08/2013 Mixed hyperlipidemia 04/08/2013 Chronic obstructive pulmonary disease 04/08/2013 Resolved Problems Problem Noted Date Diagnosed Date Resolved Date Need for shingles vaccine 04/08/2013 Immunizations Immunization Administration Dates Next Due Zoster Vaccine Live SQ 01/09/2014,04/07/2013 Family History Medical History Relation Name Comments High Cholesterol Father Heart Disease Mother of heart attack Hypertension Mother Lung Cancer Sister Colon Cancer Neg Hx Relation Name Status Comments Father Mother Sister Social History Tobacco Use Types Packs/Day Years Used Date Smoking Tobacco: Former Cigarettes 2 40 0 03/11/1968 - 03/11/2008 Smokeless Tobacco: Former Chew Alcohol Use Standard Drinks/Week Comments No 0 (1 standard drink = 0.6 oz pur e alcohol) Financial Resource Strain Answer Date R ecorded How hard is it for you to pa y for the very basics like food, housing, medical care, and heating? Not hard at all 06/23/2020 Food Insecurity Answer Date Recorded In the past 12 months, have you worried that your food would run out before you had money to buy more? Never true 06/23/2020 In the past 12 months, did y ou run out of food and didn't have money to buy more? Never true 06/23/2020 Transportation Needs Answer Date Record ed In the past 12 months, has l ack of transportation kept you from medical appointments or from getting medications? 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 Gender Identity Not on file Sexual Orientation Not on file Occupation Industry Job Start Date Job End Date Not on file Not on file Not on file Not on file Last Filed Vital Signs Vital Sign Reading Time Taken Comments Blood Pressure 120/64 06/23/2020 12:31 PM CDT Pulse 51 06/23/2020 12:31 PM CDT Temperature 36.8 C (98.2 F) 06/23/2020 12:31 PM CDT Respiratory Rate 18 08/10/2019 2:37 PM CDT Oxygen Saturation 95% 06/23/2020 12:31 PM CDT Inhaled Oxygen Concentration - - Weight 101.2 kg (223 lb) 06/23/2020 12:31 PM CDT Height 177.8 cm (5' 10 ) 06/23/2020 12:31 PM CDT Body Mass Index 32 06/23/2020 12:31 PM CDT Plan of Treatment Health Maintenance Due Date Last Done Comments DTAP/TDAP/TD VACCINES (1 - Tdap) 11/07/1966 PNEUMOCOCCAL VACCINE 50+ YEA RS (1 of 2 - PCV) 11/07/1966 ZOSTER VACCINE (2 of 3) 03/06/2014 01/09/2014, 04/07 DIABETES MICROALBUMIN ANNUAL SCREEN 11/17/2020 11/18/2019, 05/13/2019, 11/12/2018, Additional history exists DIABETES HBA1C Q 6 MONTHS 12/23/20202020, 02/14/2018, 02/14/2018, Additional history exists DIABETES ANNUAL FOOT EXAM 06/23/20212020, 02/14/2018, 02/14/2018 LDL CHOLESTEROL ANNUAL 06/23/2021 , 02/14/2018, 02/14/2018, Additional history exists RSV VACCINE (60+ or ) (1 - 1-dose 75+ series) 11/07/2022 Medicare Advantage (PR) Preventative Visit/Annual Wellness Visit 03/11/2024 06/23/2020, 06/25/2017, 09/08/2013 INFLUENZA VACCINE (#1) 2024 DIABETES ANNUAL RETINAL EXAM 08/05/2025, 09/24/2016, 09/24/2016, Additional history exists COLORECTAL SCREENING Discontinued 06/02/2013, 06/02/2013, 10/20/2008 Colorectal Cancer Screening Discontinued FIT-DNA Q 3 years Discontinued FIT/FOBT Q 1 year Discontinued Flex Sig/CT Colonography Q 5 years Discontinued Medical Devices Implanted Type Area Nps Device Identifier Shelf Expiration Date Model / Serial / Lot Lens Io Tecnis 4.5cyl [id number] 25.5 - [id number] Implanted:Qty: 1 on 06/26/2016 by Pj Wakefield MD at [facility] Left: Eye [employer] 03/14/2019 [id number] 25.5 / [id number] / Lens Io Tecnis 1pc 27.0 [id number] - [id number] Implanted:Qty: 1 on 07/10/2016 by Pj Wakefield MD at [facility] Right: Eye [employer] 05/19/2020 [id number] / [id number] / N/A Procedures Procedure Name Priority Date/Time Associated Diagnosis Comments LIPID PANEL Routine 06/23/2020 1:01 PM CDT Type 2 diabetes mellitus with stage 3a chronic kidney disease, without long-term current use of insulin ([facility]) HEMOGLOBIN A1C Routine 06/23/2020 1:01 PM CDT Type 2 diabetes mellitus with stage 3a chronic kidney disease, without long-term current use of insulin ([facility]/HCC) MICROALBUMIN/CREATIN INE RATIO, RANDOM UR Routine 11/18/2019 9:51 AM CDT Chronic kidney disease, stage 3 (moderate) (CMS/HCC) ENDOSCOPY, COLON, SCREENING Routine 06/02/2013 1:51 PM CDT Special screening for malignant neoplasms, colon HM DIABETES EYE EXAM Routine 11/05/2012 from Last 3 Months or Most Recently Relevant to Health Maintenance Results * (ABNORMAL) HEMOGLOBIN A1C (06/23/2020 1:01 PM CDT) HEMOGLOBIN A1C 5.7(H) See Comment % 06/23/2020 8:42 PM CDT [facility] EST. AVG GLUCOSE, A1C 117 mg/dL 06/23/2020 8:42 PM CDT [facility] Blood Venipuncture / Unknown 06/23/2020 1:01 PM CDT 06/23/2020 8:[address] [facility] - 06/23/2020 8:42 PM CDT HGB A1C INTERPRETATION NORMAL: <5.7% PRE-DIABETES: 5.7 - 6.4% DIABETES: 6.5% OR GREATER Falsely low A1C measurements can occur when: 1. Anemia and/or hemolytic anemia is present. 2. Hemoglobin variants present. 3. Renal failure. 4. Transfusion of blood product in the last 120 days. We recommend ordering a fructosamine test([id number]) to more accurately assess glycemic status if any of the above conditions are present. us Meliza Cantor DO CHEMISTRY ORDERABLES Final Result [facility] CLIA# [id number] [address] [place] [id number] * (ABNORMAL) LIPID PANEL (06/23/2020 1:01 PM CDT) Pathologist [facility] CHOLESTEROL 101 <200 mg/dL 06/23/2020 9:13 PM CDT [facility] TRIGLYCERIDE 80 <150 mg/dL 06/23/2020 9:13 PM CDT [facility] HDL 36(L) 40 - 59 mg/dL 06/23/2020 9:13 PM CDT [facility] LDL CALCULATED 49 <100 mg/dL 06/23/2020 9:13 PM CDT [facility] NON-HDL CHOLESTEROL 65 <130 mg/dL 06/23/2020 9:13 PM CDT [facility] Blood Venipuncture / Unknown 06/23/2020 1:01 PM CDT 06/23/2020 8:14 PM CDT Narrative [facility] - 06/23/2020 9:13 PM CDT TOTAL CHOLESTEROL mg/dL Desirable <200 Borderline high 200-239 High >=240 TRIGLYCERIDES mg/dL Normal <150 Borderline high 150-199 High 200-499 Very high >=500 HDL CHOLESTEROL mg/dL Low <40 Normal 40-59 Desirable >=60 NON HDL CHOLESTEROL mg/dL Optimal <130 Near Optimal 130-159 Borderline High 160-189 Very High >=190 CALCULATED LDL mg/dL LDL <70, OPTIMAL if have Atherosclerotic cardiovascular disease (ASCVD) or intermediate or higher (>7.5%) 10 year risk of ASCVD including most adults with diabetes. LDL <100, Optimal in adult patients with low (<7.5%) 10 year ASCVD risk LDL 100-160, Suboptimal LDL >160, High LDL >190, Very high ATPIII Guidelines Reference Ranges for Lipid Panels (NCEP/AMA) . us Meliza Cantor DO CHEMISTRY ORDERABLES Final Result [facility] CLIA# [id number] [address] [place] [id number] * (ABNORMAL) MICROALBUMIN/CREATININE RATIO, RANDOM UR (11/18/2019 9:51 AM CDT) ALBUMIN, URINE 59.5 mg/L 11/20/2019 4:47 PM CDT [facility] Comment: ADDITIONAL INFORMATION This test has been modified from the videotape operator's instructions. Its performance characteristics were determined by [facility] in a manner consistent with CLIA requirements. This test has not been cleared or approved by the U.S. Food and Drug Administration. CREATININE, URINE 26 mg/dL 020 4:47 PM CDT [facility] ALBUMIN/CREATININE RATIO 229(H) <17 mg/g 11/20/2019 4:47 PM CDT [facility] Comment: Test Performed by: [place] [address] Water Manager: Zach Keenan M.D. Ph.D.; CLIA# [id number] Urine URINE SPECIMEN / Unknown Collection / Unknown 11/18/2019 9:51 AM CDT 11/18/2019 7:[address] Ariza MD URINE ORDERABLES Final Resul t [facility] * DIABETES EYE EXAM (11/05/2012) us Abstract Spg Provider HEALTH MAINTENANCE Final R esult * ENDOSCOPY, COLON, SCREENING (10/20/2008) us Abstract Spg Provider GI PROCEDURE ORDERABLES Fi nal Result from Last 3 Months or Most Recently Relevant to Health Maintenance Insurance [address] [place] [address] [employer] PLUS [id number] HMO Advance Directives For more information, please contact: [phone] * Full Code (Latest Code Status on File) Date Activated Date Inactivated Comments 07/10/2016 9:35 AM 07/10/2016 4:13 PM * Full Code Date Activated Date Inactivated Comments 06/26/2016 10:15 AM 06/26/2016 2:22 PM * Full Code Date Activated Date Inactivated Comments 01/19/2014 1:06 PM 01/19/2014 4:33 PM * Full Code Date Activated Date Inactivated Comments 01/15/2014 10:30 AM 01/16/2014 2:33 AM * Full Code Date Activated Date Inactivated Comments 06/02/2013 1:51 PM 06/02/2013 6:12 PM Care Teams Print Room Worker Relationship Specialty Start Date End Date Meliza Cantor DO [address] [place] [address] PCP - General Family Practice 04/09/13
--- OUTSIDE RECORDS SUMMARY | 2024-11-13 05:23 | XMS_ITS | Encounter Summary ---
Author Organization [facility] Address [address] [place] [address] Care Team Providers Care Assistant Laboratory Director Name Role Phone Meliza Cantor DO Primary Care Provider [phone] Encounter Details Date Type Department Care Team (Latest Contact Info) Description 06/16/2003 Outpatient Historical [facility] Cardiology Ancillary Services[facility] [address] [place] [address] Zbigniew Pinedo MD NO ADDRESS ON FILE PRECORDIAL PAIN (Primary Dx) Social History Tobacco Use Types Packs/Day Years Used Date Smoking Tobacco: Never Assessed Sex and Gender Information Value Date Recorded Sex Assigned at Not on file 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
--- OUTSIDE RECORDS SUMMARY | 2024-11-13 05:23 | XMS_ITS | Encounter Summary ---
Author Organization [facility] Address [address] [place] [address] Care Team Providers Care Experimental Worker Name Role Phone Meliza Cantor DO Primary Care Provider [phone] Encounter Details Date Type Department Care Team (Latest Contact Info) Description 09/18/2001 Outpatient Historical [facility]- [place] [address] [place] [address] Basilio Walton MD [address] [facility] [address] [place] [address] CHR ISCHEMIC HRT DIS NEC (Primary Dx); CORON ATHEROSCL [place] CORON VESSEL; Pure hypercholesterolem Social History Tobacco Use Types Packs/Day Years Used Date Smoking Tobacco: Never Assessed Sex and Gender Information Value Date Recorded Sex Assigned at Not on file 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
--- OUTSIDE RECORDS SUMMARY | 2024-11-13 05:23 | XMS_ITS | Encounter Summary ---
Author Organization [facility] Address [address] [place] [address] Care Team Providers Care Account Manager Name Role Phone Meliza Cantor DO Primary Care Provider [phone] Encounter Details Date Type Department Care Team (Latest Contact Info) Description 07/29/2006 Outpatient Historical [facility] Cardiac Head Of Housekeeping [address] [place] [address] Basilio Walton MD [address] [facility] [address] [place] [address] Coronary Atherosclerosis of [place] Coronary Artery (Primary Dx) Social History Tobacco Use Types Packs/Day Years Used Date Smoking Tobacco: Never Assessed Sex and Gender Information Value Date Recorded Sex Assigned at Not on file Legal Sex Male 6:[address]ER Gender Identity Not on file Sexual Orientation Not on file documented as of this encounter Plan of Treatment Not on file documented as of this encounter Procedures Procedure Name Priority Date/Time Associated Diagnosis Comments PT AND APTT Routine 07/29/2006 7:25 AM CDT CBC WITHOUT DIFFERENTIAL Routine 07/29/2006 7:25 AM CDT BASIC METABOLIC PANEL Routine 07/29/2006 7:25 AM CDT documented in this encounter Results * PT AND APTT (07/29/2006 7:25 AM CDT) PROTIME 15.4 13.0 - 15.7 Secs INTERFACE SYSTEM Comment: As of 05 note change in normal range. INR 1.1 INTERFACE SYSTEM Comment: Expected Values for INR: DVT/PE Goal INR 2.5; range 2.0 - 3.0 Valve Replacement Tissue Goal INR 2.5; range 2.0 - 3.0 Mechanical Goal INR 3.0; range 2.5 - 3.5 POST-CO Goal INR 2.5; range 2.0 - 3.0 or Goal 3.0; range 2.5 - 3.5 Atrial Fibrillation Goal INR 2.5; range 2.0 - 3.0 Ischemic Stroke Goal INR 2.5; range 2.0 - 3.0 For additional information see Guidelines for Anticoagulation available from the pharmacy Betito Holguin PTT 33.4 21.6 - 35.6 Secs INTERFACE SYSTEM Comment: Therapeutic Range: Hi-level PE/DVT heparin protocol 80.1 -95.0 sec Lo-level PE/DVT heparin protocol 67.1 - 80.0 sec Cardiac Heparin Protocol 67.1 - 85.0 sec Neuro Heparin Protocol 67.1 - 80.0 sec As of 02/14/2006 note change in APTT Normal Range. 07/29/2006 7:25 AM CDT Basilio Walton MD HEMATOLOGY ORDERABLES Edited INTERFACE SYSTEM Refer to clinic/hospital department * (ABNORMAL) CBC WITHOUT DIFFERENTIAL (07/29/2006 7:25 AM CDT) WBC 6.4 4.8 - 10.8 K/ul INTERFACE SYSTEM RBC 4.60 4.60 - 6.20 Mil/ul INTERFACE SYSTEM HEMOGLOBIN 14.4 14.0 - 18.0 g/dL INTERFACE SYSTEM HEMATOCRIT 41.4 41.0 - 53.0 % INTERFACE SYSTEM MCV 90.0 84.0 - 103.0 Fl INTERFACE SYSTEM MCH 31.3 27.0 - 34.0 pg INTERFACE SYSTEM MCHC 34.8 30.0 - 35.0 g/dL INTERFACE SYSTEM RDW 14.0 11.0 - 14.5 % INTERFACE SYSTEM PLATELETS 216 140 - 440 K/ul INTERFACE SYSTEM MPV 11.6 8.9 - 12.8 Fl INTERFACE SYSTEM NEUTROPHILS 38.3(L) 42.2 - 75.2 % INTERFACE SYSTEM LYMPHOCYTES 44.4(H) 24.0 - 44.0 % INTERFACE SYSTEM MONOCYTES 11.5(H) 2.0 - 10.0 % INTERFACE SYSTEM EOSINOPHILS 4.1 0.0 - 7.0 % INTERFACE SYSTEM BASOPHILS 1.7(H) 0.0 - 1.0 % INTERFACE SYSTEM NEUTROPHIL ABSOLUTE 2.4 2.0 - 8.0 K/ul INTERFACE SYSTEM LYMPHOCYTE ABSOLUTE 2.8 1.2 - 4.0 K/ul INTERFACE SYSTEM MONOCYTE ABSOLUTE 0.7(H) 0.1 - 0.6 K/ul INTERFACE SYSTEM EOSINOPHIL ABSOLUTE 0.3 0.0 - 0.7 K/ul INTERFACE SYSTEM BASOPHILS ABSOLUTE 0.1 0.0 - 0.2 K/ul INTERFACE SYSTEM 07/29/2006 7:25 AM CDT Basilio Walton MD HEMATOLOGY ORDERABLES Edited Performing Organization Address [facility] Phone Number INTERFACE SYSTEM Refer to clinic/hospital department * (ABNORMAL) BASIC METABOLIC PANEL (07/29/2006 7:25 AM CDT) GLUCOSE 117(H) 70 - 110 mg/dL INTERFACE SYSTEM BUN 17 9 - 20 mg/dL INTERFACE SYSTEM CREATININE 1.0 0.7 - 1.5 mg/dL INTERFACE SYSTEM SODIUM 142 136 - 145 mEq/L INTERFACE SYSTEM POTASSIUM 4.2 3.5 - 5.0 mEq/L INTERFACE SYSTEM CHLORIDE 105 95 - 110 mEq/L INTERFACE SYSTEM CO2 28 22 - 32 mmol/l INTERFACE SYSTEM CALCIUM 9.8 8.4 - 10.5 mg/dL INTERFACE SYSTEM ANION GAP 13 9 - 20 mEq/L INTERFACE SYSTEM OSMOLALITY, CALCULATED 295 275 - 295 mOsm/Kg INTERFACE SYSTEM 07/29/2006 7:25 AM CDT Basilio Walton MD CHEMISTRY ORDERABLES Edited Performing Organization Address [facility] de Phone Number INTERFACE SYSTEM Refer to clinic/hospital department documented in this encounter Visit Diagnoses Diagnosis Coronary atherosclerosis of [place] coronary artery- Primary documented in this encounter Care Teams Account Manager Relationship Specialty Start Date End Date Meliza Cantor DO [address] [place] [address] PCP - General Family Practice 04/09/13 documented as of this encounter
--- OUTSIDE RECORDS SUMMARY | 2024-11-13 05:23 | XMS_ITS | Encounter Summary ---
Author Organization [facility] Address 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 Gender Identity Not on file Sexual Orientation Not on file documented as of this encounter Plan of Treatment Upcoming Encounters Date Type Department Care Team (Late st Contact Info) Description 11/20/2024 12:00 PM CDT Office Visit [facility] [address] [place] [address] Sorin Hope, MEDICAL ASSEMBLER [address] [place] [address] 01/21/2025 2:40 PM STOVE TENDER Office Visit [facility] [address] [place] [address] Meliza Cantor DO [address] [place] [address] documented as of this encounter Visit Diagnoses Diagnosis Primary insomnia Persistent disorder of initiating or maintaining sleep documented in this encounter Care Teams Carport Erector Relationship Specialty Start Date End Date Meliza Cantor DO [address] [place] [address] PCP - General Family Practice 04/09/13 documented as of this encounter
--- OUTSIDE RECORDS SUMMARY | 2024-11-13 05:23 | XMS_ITS | Clinical Summary ---
Author Organization [facility] Facility Address [address] [place] [address] Care Team Providers Care Diffuser Operator Name Role Phone Meliza Cantor DO Primary Care Provider [phone] Allergies Active Allergy Reactions Criticality Noted Date Comments Influenza Vaccines Other (see comments) 019 Medications * This document contains information received from the source organization and may not represent a complete record from that organization. aspirin 81 MG tablet Take 1 tablet by mouth 1 (one) time each day Active omega-3 (FISH OIL) 1000 MG capsule 1 (one) time each day Active buPROPion (WELLBUTRIN) 100 MG tablet Take 2 tablets by mouth daily Active docusate sodium (COLACE) 100 MG capsule 1 (one) time each day Active albuterol HFA (PROVENTIL HFA;VENTOLIN HFA) 108 (90 Base) MCG/ACT inhaler Inhale 2 (two) times a day if needed Active ALPRAZolam (XANAX) 0.5 MG tablet Take 1 tablet by mouth at bed time Active atenolol (TENORMIN) 100 MG tablet Take 1 tablet by mouth 1 (one) time each day Active glipiZIDE (GLUCOTROL) 5 MG tablet Take 5 mg by mouth 1 (one) time each day Active tamsulosin (FLOMAX) 0.4 MG 24 hr capsule TAKE 1 CAPSULE BY MOUTH AT BEDTIME 90 capsule 1 0 Active zolpidem (AMBIEN) 10 MG tablet Take 10 mg by mouth at night if needed for sleep Active doxazosin (CARDURA) 4 MG tablet 4 mg Take 1/2 tablet by mouth daily Active rOPINIRole (REQUIP) 0.25 MG tablet Take 0.5 mg by mouth 1 (one) time each day Active ARIPiprazole (ABILIFY) 5 MG tablet Take 5 mg by mouth 1 (one) time each day Active amLODIPine (NORVASC) 5 MG tablet Take by mouth 1 (one) time each day 0 Active atorvastatin (LIPITOR) 40 MG tablet Take 80 mg by mouth in the morning. 1 Active pantoprazole (PROTONIX) 40 MG EC tablet Take 40 mg by mouth in the morning. 0 Active hydroCHLOROthia zide (MICROZIDE) 12.5 MG capsule Take 12.5 mg by mouth in the morning. 0 Active furosemide (LASIX) 20 MG tablet Take 20 mg by mouth in the morning. 3 Active pramipexole (MIRAPEX) 0.125 MG tablet Take 0.125 mg by mouth every night 4 Active polyvinyl alcohol (LIQUIFILM TEARS) 1.4 % ophthalmic solution Administer 1 drop into both eyes if needed 4 Active olopatadine (PATADAY) 0.2 % ophthalmic solution Administer 1 drop into both eyes 1 (one) time each day 4 Active methocarbamol (ROBAXIN) 500 MG tablet Take 500 mg by mouth in the morning and 500 mg in the evening and 500 mg before bedtime. 4 Active levothyroxine (Synthroid) 50 MCG tablet Take 50 mcg by mouth 1 (one) time each day 4 Active Fluticasone-Stephen meterol 250-50 MCG/ACT aerosol powder Inhale 1 puff 2 (two) times a day if needed (SOB) 4 Active fluticasone (FLONASE) 50 MCG/ACT nasal spray Administer 1 spray into each nostril 1 (one) time each day 4 Active lisinopril 10 MG tablet take 1 tablet by mouth once daily 90 tablet 1 5 Active Active Problems Problem Noted Date Diagnosed Date Type 2 diabetes mellitus wit h diabetic chronic kidney disease 03/18/2024 Patient post percutaneous transluminal coronary angioplasty 02/27/2023 02/27/2023 Dyslipidemia 02/27/2023 02/27/2023 Bilateral stenosis of carotid arteries 3 02/27/2023 Restless legs 08/10/2019 Acute nontraumatic kidney injury 05/13/2018 Blood in urine 05/13/2018 Stage 3b chronic kidney disease 05/13/2018 Diabetes mellitus 05/13/2018 Essential hypertension 05/13/2018 IgA nephropathy 05/13/2018 Proteinuria 05/13/2018 Lumbosacral spondylosis without myelopathy 11/04 Posttraumatic stress disorder 10/13/2014 Hypertensive retinopathy 04/21/2014 Obstructive sleep apnea syndrome 04/18/2013 Chronic obstructive pulmonary disease 04/08/2013 Coronary atherosclerosis 04/08/2013 Mixed hyperlipidemia 04/08/2013 Encounters Date Type Department Care Team Description 10/12/2024 Refill [facility] [address] [place] [id number] Daisy Menendez MD 09/10/2024 Telephone [facility] [address] [place] [phone] Daisy Menendez MD from Last 3 Months Immunizations Immunization Administration Dates Next Due Zoster 01/09/2014,04/07/2013 Family History Medical History Relation Comments Cancer Brother Heart disease Mother Cancer Sister Heart disease Sister Relation Status Comments Brother Father Mother Sister Social History Tobacco Use Types Packs/Day Years Used Date Smoking Tobacco: Former Cigarettes Smokeless Tobacco: Former Tobacco Cessation:Counseling Given: Not Answered Alcohol Use Standard Drinks/Week Comments No 0 (1 standard drink = 0.6 oz pur e alcohol) Sex and Gender Information Value Date Recorded Sex Assigned at Not on file Legal Sex Male 12:41 PM EST Gender Identity Not on file Sexual Orientation Not on file Last Filed Vital Signs Vital Sign Reading Time Taken Comments Blood Pressure 138/80 03/18/2024 9:56 AM NEEDLE LEADER Pulse 61 03/18/2024 9:56 AM NEEDLE LEADER Temperature 36.6 C (97.8 F) 11/24/2019 11:31 AM CDT Respiratory Rate - - Oxygen Saturation 96% 03/18/2024 9:56 AM NEEDLE LEADER Inhaled Oxygen Concentration - - Weight 113 kg (249 lb 3.2 oz) 03/18/2024 9:56 AM NEEDLE LEADER Height 180.3 cm (5' 11 ) 03/18/2024 9:56 AM NEEDLE LEADER Body Mass Index 34.76 03/18/2024 9:56 AM NEEDLE LEADER Plan of Treatment Upcoming Encounters Date Type Department Care Team (Late st Contact Info) Description 03/23/2025 1:00 PM NEEDLE LEADER Office Visit [facility] [address] [place] [address] Oanh Abrams NP [address] [place] [address] Health Maintenance Due Date Last Done Comments Diabetes: Ophthalmology Exam 05/13/2018 09/24/2016, 05/28/2016, 08/23/2014, Additional history exists Diabetes: Pedal Pulse Checked 05/13/2018 Diabetes: Sensory Foot Exam 05/13/2018 Diabetes: Visual Foot Exam 05/13/2018 Diabetes: Hemoglobin A1C 09/22/2020 021, 02/14/2018, 02/14/2018 Pneumococcal Vaccine: 50+ Years Completed 02/20/2021, 02/23/2020 Pneumococcal Vaccine: Peds (0 to 5 Years) and At-Risk Patients (6 to 49 Years) Discontinued 02/20/2021, 02/23/2020 Hepatitis B Vaccine Aged Out No longe r eligible based on patient's age to complete this topic Procedures Procedure Name Priority Date/Time Associated Diagnosis Comments HEMOGLOBIN A1C Routine 02/14/2018 12:00 AM NEEDLE LEADER from Last 3 Months or Most Recently Relevant to Health Maintenance Results * Hemoglobin A1c (02/14/2018 12:00 AM NEEDLE LEADER) Hemoglobin A1C 5.3 4.0 - 6.0 % SNA Comment courtesy lab ms SNA 02/14/2018 us Sna Conversion LAB BLOOD ORDERABLES Final Resul t SNA from Last 3 Months or Most Recently Relevant to Health Maintenance Insurance [employer] Medicare Care Teams Diffuser Operator Relationship Specialty Start Date End Date Meliza Cantor DO [address] [address] PCP - General Family Medicine 05/15/18
--- OUTSIDE RECORDS SUMMARY | 2024-11-13 05:23 | XMS_ITS | Encounter Summary ---
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); Other specified forms of chronic ischemic heart disease; Coronary atherosclerosis of [place] coronary artery; Pure hypercholesterolem Social History Tobacco Use Types Packs/Day Years Used Date Smoking Tobacco: Never Assessed Sex and Gender Information Value Date Recorded Sex Assigned at Not on file Legal Sex Male 6:11 AM RN SUPPLEMENTAL Gender Identity Not on file Sexual Orientation Not on file documented as of this encounter Plan of Treatment Not on file documented as of this encounter Visit Diagnoses Diagnosis Old myocardial infarct- Primary Old myocardial infarction Other specified forms of chronic ischemic heart disease Coronary atherosclerosis of [place] coronary artery Pure hypercholesterolem Pure hypercholesterolemia documented in this encounter Care Teams Kerfer Machine Operator Relationship Specialty Start Date End Date Meliza Cantor DO [address] [place] [address] PCP - General Family Practice 04/09/13 documented as of this encounter
--- OUTSIDE RECORDS SUMMARY | 2024-11-13 05:23 | XMS_ITS | Encounter Summary ---
Author Organization [facility] Address [address] [address] Phone Care Team Providers Care Deputy Director Of Nursing Name Role Phone Meliza Cantor DO Primary Care Provider [phone] Reason for Visit * Reason Comments Med Refill Encounter Details Date Type Department Care Team (Late Contact Info) Description 07/26/2019 Refill [facility] [address] [address] Lane Ariza MD [address] [facility] [address] [address] Social History Tobacco Use Types Packs/Day Years [...] Encounters Date Type Department Care Team (Late Contact Info) Description 03/23/2025 1:00 PM SILK SCREEN OPERATOR Office Visit [facility] [address] [place] [address] Oanh Abrams NP [address] [facility] [address] [address] documented as of this encounter Visit Diagnoses Not on filedocumented in this encounter Care Teams Deputy Director Of Nursing Relationship Specialty Start Date End Date Meliza Cantor DO [address] [place] [phone] PCP - General Family Medicine 05/15/18 documented as of this encounter
--- OUTSIDE RECORDS SUMMARY | 2024-11-13 05:23 | XMS_ITS | Encounter Summary ---
Author Organization [facility] Address [address] [facility] [address] [place] [address] Phone Care Team Providers Care Yard Spotter Name Role Phone Meliza Cantor DO Primary Care Provider [phone] Encounter Details Date Type Department Care Team (Late st Contact Info) Description 05/20/2019 Orders Only [facility], [address] [address] Denzel Schofield NP Chronic kidney disease stage 3 (HCC) Social [...] st Contact Info) Description 03/23/2025 1:00 PM NURSE INTERN [facility], [facility] [place] [address] Oanh Abrams NP [address] [facility] [address] [place] [address] documented as of this encounter Procedures Procedure Name Priority Date/Time Associated Diagnosis Comments RENAL FUNCTION PANEL Routine 05/14/2019 10:50 AM NURSE INTERN Chronic kidney disease stage 3 (HCC) CBC Routine 05/14/2019 10:36 AM NURSE INTERN Chronic kidney disease stage 3 (HCC) URINE ALBUMIN / CREATININE RATIO Routine 05/13/2019 10:03 AM NURSE INTERN Chronic kidney disease stage 3 (HCC) VITAMIN D 25 HYDROXY Routine 05/13/2019 10:03 AM NURSE INTERN Chronic kidney disease stage 3 (HCC) PTH, INTACT Routine 05/13/2019 10:03 AM NURSE INTERN Chronic kidney disease stage 3 (HCC) documented in this encounter Results * (ABNORMAL) Renal function panel (05/14/2019 10:50 AM NURSE INTERN) Albumin 3.9 3.5 - 5.0 g/dL BUN 13 4 - 21 mg/dL Calcium 9.1 8.7 - 10.7 mg/dL Chloride 101 99 - 108 Bicarbonate (CO2) 24 22 - 30 mmol/L Creatinine 1.71(A) 0.60 - 1.30 mg/dL eGFR 48.0 mL/min/1.7 3m*2 eGFR Non- 40.0 mL/min/1.7 3m*2 Glucose 157 Phosphorus, Serum 2.1 Potassium 4.4 3.4 - 5.5 Sodium 139 137 - 147 Blood specimen (specimen) Venous blood / Unknown 05/14/2019 10:50 AM NURSE INTERN Narrative Ginger Colin MA - 05/18/2019 1:49 PM CDT motorized squad captain [facility] # [id number] [address] [place] [address] DIRECTOR: TAMIKA WEATHERS MD [facility] [phone] Denzel Schofield AIRLINE PILOT/FIRST OFFICER LAB BLOOD ORDERABLES Final Result * CBC (05/14/2019 10:36 AM NURSE INTERN) WBC 5.6 K/uL Red Blood Cell Count 4.64 Hemoglobin 14.4 g/dL Hematocrit 43.9 % MCV 94.6 MCH 31.0 MCHC 32.8 RDW 13.3 Platelet Count 171 MPV 12.6 Absolute Neutrophils 3.21 Absolute Lymphocytes 1.52 Absolute Monocytes 0.52 Absolute Eosinophils 0.18 Absolute Basophils 0.11 Neutrophils 58 K/uL Lymphocytes 27 Monocytes 9 Eosinophils 3 Basophils 2 Blood specimen (specimen) Venous blood / Unknown 05/14/2019 10:36 AM NURSE INTERN Lilly Ginger Colin MA - 05/18/2019 1:57 PM CDT motorized squad captain lab [facility], [place] # [id number] [address] [place] [address] DIRECTOR: TAMIKA WEATHERS MD [facility] [phone] [facility] Vera[place] NP LAB BLOOD ORDERABLES Final Result * Vit D 25 hydroxy (05/13/2019 10:03 AM NURSE INTERN) Vitamin D, 25-OH, Total 44 ng/mL Blood specimen (specimen) Venous blood / Unknown 05/13/2019 10:03 AM NURSE INTERN Donna Norris LPN - 05/14/2019 1:19 PM NURSE INTERN SIMULATION ENGINEER lab [facility], [place] # [id number] [facility] [place] [address] DIRECTOR: TAMIKA WEATHERS MD [facility] [phone] [facility] [place] [facility] Vera[place] NP LAB BLOOD ORDERABLES Final Result * PTH, intact (05/13/2019 10:03 AM NURSE INTERN) Parathyroid Hormone, Intact 36.3 pg/mL Blood specimen (specimen) Venous blood / Unknown 05/13/2019 10:03 AM NURSE INTERN Ginger Stack MA - 05/18/2019 1:59 PM CDT motorized squad captain lab [facility] [place] # [id number] [facility] [place] [address] DIRECTOR: TAMIKA WEATHERS MD [facility] [phone] [facility] [place] [facility] Vera[place] NP LAB BLOOD ORDERABLES Final Result * Urine albumin / creatinine ratio (05/13/2019 10:03 AM NURSE INTERN) Albumin, Urine 103.2 mg/dL Creatinine, Urine Random 43 mg/dL Alb/Creat Ratio, Ur 240.00 mg/g Creat Urine specimen (specimen) Urine specimen obtained by clean catch procedure / Unknown 05/13/2019 10:03 AM NURSE INTERN Narrative Donna Hinkle LPN - 05/15/2019 1:43 PM NURSE INTERN SIMULATION ENGINEER lab [facility] [address] [place], [place] [id number] Denzel Schofield AIRLINE PILOT/FIRST OFFICER LAB URINE ORDERABLES Final Result documented in this encounter Visit Diagnoses Diagnosis Chronic kidney disease stage 3 (HCC) documented in this encounter Care Teams Yard Spotter Relationship Specialty Start Date End Date Meliza Cantor DO [address] [place] [address] PCP - General Family Medicine 05/15/18 documented as of this encounter
--- OUTSIDE RECORDS SUMMARY | 2024-11-13 05:23 | XMS_ITS | Encounter Summary ---
Author Organization [facility] Address [address] [place] [address] Care Team Providers Care Central Office Installer Name Role Phone Meliza Cantor DO Primary Care Provider [phone] Encounter Details Date Type Department Care Team (Latest Contact Info) Description 12/27/2003 Outpatient Historical [facility] Cardiology- [place] [address] [place] [address] Stanislaw Hall, UNIT DIRECTOR [address] [place] [address] CORON ATHEROSCL BARROW CORON VESSEL (Primary Dx); MIXED HYPERLIPIDEMIA Social History Tobacco Use Types Packs/Day Years Used Date Smoking Tobacco: Never Assessed Sex and Gender Information Value Date Recorded Sex Assigned at Not on file Legal Sex Male 6:11 AM FLIGHT ATTENDANT [employer] Gender Identity Not on file Sexual Orientation Not on file documented as of this encounter Plan of Treatment Not on file documented as of this encounter Visit Diagnoses Diagnosis Coronary atherosclerosis of [place] coronary artery- Primary Mixed hyperlipidemia documented in this encounter Care Teams Central Office Installer Relationship Specialty Start Date End Date Meliza Cantor DO [address] [place] [phone] PCP - General Family Practice 04/09/13 documented as of this encounter
--- OUTSIDE RECORDS SUMMARY | 2024-11-13 05:23 | XMS_ITS | Encounter Summary ---
Author Organization [facility] Address [address] [place] [address] Care Team Providers Care Ux Developer Designer Name Role Phone Meliza Cantor DO Primary Care Provider Reason for Visit * Reason Comments Medication Refill Encounter Details Date Type Department Care Team (Late st Contact Info) Description 04/29/2019 Refill [facility] [place] [id number] [facility] [address] [place] [address] Meliza Cantor DO [address] [place] [address] Social History Tobacco Use Types Packs/Day Years Used Date Smoking Tobacco: Former Cigarettes 2 40 0 03/11/1968 - 03/11/2008 Smokeless Tobacco: Former Chew Alcohol Use Standard Drinks/Week Comments No 0 (1 standard drink = 0.6 oz pur e alcohol) Sex and Gender Information Value Date Recorded Sex Assigned at Not on file Legal Sex Male 6:11 AM CAREER ORIENTATION TEACHER Gender Identity Not on file Sexual Orientation Not on file Occupation Industry Job Start Date Job End Date Not on file Not on file Not on file Not on file documented as of this encounter Plan of Treatment Not on file documented as of this encounter Visit Diagnoses Not on filedocumented in this encounter Care Teams Ux Developer Designer Relationship Specialty Start Date End Date Meliza Cantor DO [address] [place] [address] PCP - General Family Practice 04/09/13 documented as of this encounter
== END 2024-11-12 10:23 | disposition home or self-care (01) ==
LOC: MEDSURG 20:12
PROVIDERS: Anesthesiology; Admitting Provider Orthopaedic Surgery; PCP Family Medicine; Visit Provider Orthopaedic Surgery
PROC: (CPT 22612; principal; 2024-11-11 07:00)
DX: M48.062 Spinal stenosis, lumbar region with neurogenic claudication (principal); M43.16 Spondylolisthesis, lumbar region; Z79.82 Long term (current) use of aspirin; J44.9 Chronic obstructive pulmonary disease, unspecified; G47.33 Obstructive sleep apnea (adult) (pediatric); I12.9 Hypertensive chronic kidney disease with stage 1 through stage 4 chronic kidney disease, or unspecified chronic kidney disease; N18.9 Chronic kidney disease, unspecified; I25.10 Atherosclerotic heart disease of native coronary artery without angina pectoris; I25.2 Old myocardial infarction; I65.23 Occlusion and stenosis of bilateral carotid arteries; E78.5 Hyperlipidemia, unspecified
CPT/HCPCS: 20939; 22633; 22853; 61783; 20930; 20936; 22840; 36415; 36416; 51702; 72100; 76000; 80048; 82962; 85025; 86850; 86900; 94640; 97116; 97161; 97530; C1713; C1776; C9359; G0378; J0131; J0690; J1100; J1644; J1885; J2371; J2405; J2704; J3010; J3260; J3373; J3490; J7030; J7120; J7613; J9999

== ENCOUNTER → 2024-11-26 12:21 | Outpatient (BNVA) | payer OTHER, SELFPAY | PROVIDERS: PCP Family Medicine; Visit Provider Orthopaedic Surgery | DX: Z98.890 Other specified postprocedural states (principal); Z98.1 Arthrodesis status | CPT/HCPCS: 99024 ==

== ENCOUNTER → 2024-12-24 13:31 | Outpatient (BNVA) | payer OTHER, SELFPAY | PROVIDERS: PCP Family Medicine; Visit Provider Orthopaedic Surgery | DX: Z98.890 Other specified postprocedural states (principal); Z98.1 Arthrodesis status | CPT/HCPCS: 72100; 99024 ==

== ENCOUNTER 2025-01-09 14:26 | Observation (INO) | payer OTHER, SELFPAY ==
--- OUTSIDE RECORDS SUMMARY | 2025-01-01 06:30 | XMS_ITS | Encounter Summary ---
Author Name [facility] Address [address] [place] [address] Care Team Providers Care Braiding Machine Tender Name Role Phone YOLANDA ABRAHAM Primary Care Provider Unavailabl e Insurance Providers: All historical and current Section Date Range: From patient's date of to the date document was created. This section includes the names of all active insurance providers for the patient. Insurance Provider Type of Coverage Plan Name Start of Policy Coverage End of Policy Coverage Group Number Member ID Insurance Provider's Telephone Number Policy Doshi's Name Patient's Relationship to Policy Doshi [facility] (WNR) MEDICARE ADVANTAGE [facility] ([facility]) Mar 11, 2018 [id number] [phone] KLARISSA DANA PATIENT [facility]NA [facility] (WNR) MEDICARE ADVANTAGE [facility] (R) Mar 11, 2018 [id number] NICHOLSDANA SANTOS PATIENT [facility]NA [facility] (WNR) MEDICARE ADVANTAGE [facility] (WNR) Mar 11, 2018 [id number] KLARISSADANA PATIENT [facility] (WNR) MEDICARE ADVANTAGE [facility] A [employer] H PLAN, Mar 11, 2015 [id number] KLARISSADNAA PATIENT [facility]MANA [facility] (WNR) MEDICARE ADVANTAGE [facility] Mar 11, 2015 [id number] [phone] DANA NICHOLS PATIENT Selected Encounter This section includes the information on record at NH for the Encounter. Date/Time Encounter Type Encounter Description Reason Provider Source Jan 01, 2025 11:30 AM OFFICE O/P EST MOD 30 MIN PRIMARY CARE/MEDICINE ICD-10-CM Z00.01 Encounter for general adult medical exam w abnormal findings YOLANDA ABRAHAM IHLuna Encounter Template Text not used by [facility] Assessments - Encounter Diagnoses This section includes the primary and secondary diagnoses documented for the Encounter. Date/Time Primary/Secondary Diagnosis Diagnosis Name Provider Source Jan 01, 2025 12:52 PM PRIMARY Encounter for general adult medical exam w abnormal findings YOLANDA ABRAHAM [facility] Jan 01, 2025 12:52 PM SECONDARY Cervicalgia YOLANDA ABRAHAM [facility] Jan 01, 2025 12:52 PM SECONDARY Chronic obstructive pulmonary disease, unspecified YOLANDA ABRAHAM [facility] Jan 01, 2025 12:52 PM SECONDARY Essential (primary) hypertension YOLANDA ABRAHAM [facility] Jan 01, 2025 12:52 PM SECONDARY Hypothyroidism, unspecified YOLANDA ABRAHAM [facility] Jan 01, 2025 12:52 PM SECONDARY Insomnia, unspecified YOLANDA ABRAHAM [facility] Jan 01, 2025 12:52 PM SECONDARY Low back pain, unspecified YOLANDA ABRAHAM [facility] Jan 01, 2025 12:52 PM SECONDARY Mixed hyperlipidemia YOLANDA ABRAHAM [facility] Jan 01, 2025 12:52 PM SECONDARY Restless legs syndrome YOLANDA ABRAHAM [facility] Jan 01, 2025 12:52 PM SECONDARY Type 2 diabetes mellitus without complications YOLANDA ABRAHAM [facility] Jan 01, 2025 12:52 PM SECONDARY Unspecified epiphora, unspecified side YOLANDA ABRAHAM [facility] Jan 01, 2025 12:52 PM SECONDARY Unspecified kidney failure YOLANDA ABRAHAM [facility] Plan of Treatment: Future Appointments (+ 6 months) and Future Tests (+/- 45 days) The Plan of Treatment section includes future care activities for the patient from all VA treatmentfacilities. This section includes future appointments and future orders which are active, pending or scheduled. Future Appointments This section includes appointments that were scheduled to occur 6 months from the date of the Encounter, up to a maximum of 20 appointments. The data comes from all [facility]. Appointment Date/Time Appointment Type Appointme nt Facility Name Jan 05, 2025 11:00 AM [facility] Jan 18, 2025 01:00 PM [facility] Feb 09, 2025 08:00 AM [facility] Active, Pending, and Scheduled Orders This section includes a listing of several types of active, pending, and scheduled orders, including clinic medications orders, diagnostic test orders, procedure orders and consult orders; where the start date of the order is 45 days before the date of the Encounter or 45 days after the date of theEncounter. The data comes from all [facility]. Test Date/Time Test Type Test Details Facility Name Dec 29, 2024 03:23 PM Consult Order [facility]-ORTHOPEDICS [id number] [facility] [employer] [facility] Jan 01, 2025 12:45 PM Consult Order COMMUNITY CARE-OPHTH DIS MGMT [id number] [facility] [employer] [facility] Jan 01, 2025 12:45 PM Consult Order COMMUNITY CARE-OPTOMETRY ROUTINE [id number] [facility] [employer] [facility] Jan 01, 2025 12:45 PM Consult Order COMM[facility]ITY CARE-PAIN [id number] [facility] [employer] [facility] Lab Results: +/- 30 days of the encounter This section includes the Chemistry and Hematology Lab Results on record with NH for the patient. Radiology Reports and Pathology Reports are provided separately, in subsequent sections. Lab Results This section contains the Chemistry/Hematology Results that were resulted 30 days before or 30 daysafter the date of the Encounter. Date/Time Source Result Type Result - Unit Interpretation Reference Range Specimen Type Comment Jan 01, 2025 11:59 AM [facility] URINE ALBUMIN PROFILE-ih (PB) URINE Specimen Type: URINE No comment entered. Ordering Provider: YOLANDA ABRAHAM Report Released Date/Time: Jan 01, 2025 11:58 AM Reporting Lab: [facility] [address] [place] [address] Performing Lab: [facility] [address] [place] [address] URINE ALBUMIN (PB-STL) 136.36 mg/L uACR (PB-MA) 766.50 mg/g H 0-30 CREATININE URINE/OTHERS 17.79 mg/dL Jan 01, 2025 11:51 AM [facility] TSH (MA-PB) SERUM Specimen Ty pe: SERUM No comment entered. Ordering Provider: NOE WU Report Released Date/Time: Dec 30, 2024 11:11 AM Reporting Lab: [place] [facility] [address] [place] [address] Performing Lab: [place] [facility] [address] [place] [address] TSH 2.832 u[IU]/mL 0.47-5 Jan 01, 2025 11:51 AM [facility] HGA1C BLOO D Specimen Type: BLOOD No comment entered. Ordering Provider: NOE WU Report Released Date/Time: Dec 30, 2024 11:11 AM Reporting Lab: [facility] [address] [place] [address] Performing Lab: [place] [facility] [address] [place] [address] HGA1C 5.9 4.0-6.0 Jan 01, 2025 11:51 AM [facility] CHOLESTEROL PANEL (PB) PLASMA Specimen Type: P LASMA No comment entered. Ordering Provider: NOE WU Report Released Date/Time: Dec 30, 2024 11:11 AM Reporting Lab: [facility] [address] [place] [address] Performing Lab: [place] [facility] [address] [place] [address] CHOLESTEROL 111 mg/dL 0-200 TRIGLYCERIDE 140 mg/dL 0-150 CALCULATED LDL 52.5 mg/dL HDL(New) 30.5 mg/dL L >40 HDL % OF TOTAL CHOLESTEROL (PB) 27.5 >25 Jan 01, 2025 11:51 AM [facility] COMPREHENSIVE METABOLIC PANEL PLASMA Specimen Type: PLASMA No comment entered. Ordering Provider: NOE WU Report Released Date/Time: Dec 30, 2024 11:11 AM Reporting Lab: [facility] [address] [place] [address] Performing Lab: [facility] [address] [place] [address] CREATININE 1.33 mg/dL H 0.7-1.3 UREA NITROGEN 16 mg/dL 9-25 GLUCOSE 131 mg/dL H 72-99 SODIUM 144 meq/L 136-145 POTASSIUM 3.8 meq/L 3.5-5 CHLORIDE 109 meq/L H 98-107 CARBON DIOXIDE 26 meq/L 22-31 CALCIUM 8.7 mg/dL 8.4-10.4 PROTEIN 7.3 g/dL 6-8.6 ALBUMIN 4.2 g/dL 3.4-5 TOTAL BILIRUBIN 0.3 mg/dL 0.2-1.2 ALKALINE PHOSPHATASE 80 U/L 40-150 AST/SGOT 26 U/L 5-34 ALT/SGPT 24 U/L 8-40 EGFR (CKD-EPI 2020) 55 Jan 01, 2025 11:51 AM [facility] CBC BLOO D Specimen Type: BLOOD No comment entered. Ordering Provider: NOE WU Report Released Date/Time: Dec 30, 2024 11:11 AM Reporting Lab: [facility] [address] [place] [address] Performing Lab: [facility] [address] [place] [address] WBC 7.0 10*3/uL 3.6-11.2 RBC 3.62 10*6/uL L 4.10-5.70 HGB 11.0 g/dL L 13.1-16.8 HCT 34.0 L 38.2-48.4 MCV 93.9 fL 80.0-100.0 MCH 30.4 pg 27.0-34.0 MCHC 32.4 g/dL L 33.0-36.0 PLT 232 10*3/uL 150-400 MPV 11.1 fL 7.5-11.2 RDW 14.2 11.8-15.1 LYMPHOCYTES, AUTO % 24.3 MONOCYTES, AUTO % 10.6 NEUTROPHILS, AUTO % 60.6 EOSINOPHILS, AUTO % 2.9 BASOPHILS, AUTO % 1.3 LYMPHOCYTES, ABSOLUTE 1.70 10*3/uL 0.77- 4.50 MONOCYTES, ABSOLUTE 0.74 10*3/uL 0.19-0. 8 NEUTROPHILS, ABSOLUTE 4.25 10*3/uL 2.10- 8.00 EOSINOPHILS, ABSOLUTE 0.20 10*3/uL 0.00- 0.60 BASOPHILS, ABSOLUTE 0.09 10*3/uL 0.00-0. 20 IMMATURE GRANS, AUTO % 0.3 IMMATURE GRANS, AUTO ABS 0.02 10*3/uL 0. 00-0.05 Jan 01, 2025 11:51 AM [facility] MAGNESIUM PLASMA Specimen Typ e: PLASMA No comment entered. Ordering Provider: YOLANDA ABRAHAM Report Released Date/Time: Jan 01, 2025 11:49 AM Reporting Lab: [place] [facility] [address] [place] [address] Performing Lab: [place] [facility] [address] [place] [address] MAGNESIUM 2.14 mg/dL 1.6-2.6 Jan 01, 2025 11:51 AM [facility] B12 SERUM Specimen Type: SERUM No comment entered. Ordering Provider: YOLANDA ABRAHAM Report Released Date/Time: Jan 01, 2025 11:49 AM Reporting Lab: [place] [facility] [address] [place] [address] Performing Lab: [place] [facility] [address] [place] [address] B12 388 pg/mL 213-816 Jan 01, 2025 11:51 AM [facility] VITAMIN D, 25-HYDROXY SERUM Specimen Type: SE RUM No comment entered. Ordering Provider: YOLANDA ABRAHAM Report Released Date/Time: Jan 01, 2025 11:49 AM Reporting Lab: [place] [facility] [address] [place] [address] Performing Lab: [place] [facility] [address] [place] [address] VITAMIN D, 25-HYDROXY 45.1 ng/mL 30-96 Vital Signs: All taken on the encounter date This section contains inpatient and outpatient Vital Signs collected on the date of the Encounter. Date/Time Temperature Pulse Blood Pressure Respiratory Rate SP02 Pain Height Weight Body Mass Index Source Jan 01, 2025 12:58 PM 138/80 mm[Hg] [facility] Jan 01, 2025 11:05 AM 59 /min 145/68 mm[Hg] 96 % [place] Jan 01, 2025 11:02 AM 57 /min 150/72 mm[Hg] 94 % 249.2 lb 36 [facility] Social History: Smoking Status (Most current) and Tobacco Use (All prior to encounter date) This section includes the most current, and the historical, smoking and tobacco- related health factors from the NH facility where the Encounter took place. Current Smoking Status This section includes the most current smoking, or tobacco-related health factor, from the NH facility where the Encounter took place. Date/Time Current Smoking Status Comment Facil ity Jan 01, 2025 11:30 AM VA-TOBACCO USE FORMER CIGARETTES [facility] Tobacco Use History This section includes a history of the smoking, or tobacco-related health factors, that were collected on or before the date of the Encounter. The data comes from the NH facility where the Encounter took place. Date/Time Smoking Status/Tobacco Use Comment F acility Jan 01, 2025 11:30 AM VA-TOBACCO SCREEN FOLLOW-UP [facility] Jan 01, 2025 11:30 AM VA-TOBACCO USE ADVICE [facility] Jan 01, 2025 11:30 AM VA-TOBACCO USE SCANNING COORDINATOR NO [facility] Jan 01, 2025 11:30 AM VA-TOBACCO USE FOR ALCIDES CIGARETTES [facility] Jan 01, 2025 11:30 AM VA-TOBACCO USE MED NO [facility] Nov 07, 2023 01:00 PM VA-TOBACCO FORMER USER [facility] Nov 07, 2023 01:00 PM VA-TOBACCO QUIT 15 YRS OR MORE [facility] Nov 13, 2022 01:00 PM VA-TOBACCO FORMER USER [facility] Nov 13, 2022 01:00 PM VA-TOBACCO QUIT 15 YRS OR MORE [facility] Nov 15, 2021 01:00 PM FORMER SMOKER - <1 00 LIFETIME CIGARETTES [facility] Feb 20, 2021 01:00 PM VA-TOBACCO NEVER USED [facility] Feb 23, 2020 01:00 PM VA-TOBACCO FORMER USER [facility] Feb 23, 2020 01:00 PM VA-TOBACCO QUIT 5 TO < 15 YRS [facility] Feb 17, 2018 01:42 PM VA-TOBACCO FORMER USER [facility] Feb 17, 2018 01:42 PM VA-TOBACCO QUIT 1 TO < 5 YRS [facility] Aug 21, 2017 12:34 PM CURRENT TOBACCO USER [facility] Aug 21, 2017 12:34 PM CURRENT TOBACCO US ER (NOT READY TO QUIT) [facility] Aug 21, 2017 12:34 PM SMOKELESS TOBACCO AMOUNT/LENGTH V15 1/2 can q2days, 10 yrs [facility] Aug 21, 2017 12:34 PM TOBACCO CESSATION REFERRAL DECLINED [facility] Aug 21, 2017 12:34 PM TOBACCO MEDS OFFER ED BUT DECLINED [facility] Aug 21, 2017 12:34 PM TOBACCO USER OFFERED MEDS [facility] Feb 20, 2017 01:16 PM CURRENT TOBACCO USER [facility] Feb 20, 2017 01:16 PM CURRENT TOBACCO US ER (READY TO QUIT) [facility] Feb 20, 2017 01:16 PM SMOKELESS TOBACCO AMOUNT/LENGTH V15 1can 3 Days 15 yrs [facility] Feb 20, 2017 01:16 PM TOBACCO CESSATION REFERRAL DECLINED [facility] Feb 20, 2017 01:16 PM TOBACCO USER OFFERED MEDS [facility] Feb 08, 2016 01:36 PM CURRENT TOBACCO USER [facility] Feb 08, 2016 01:[address] [facility] Mar 10, 2015 10:22 AM TOBACCO MEDS OFFER ED BUT DECLINED [facility] Mar 10, 2015 10:22 AM TOBACCO OFFERED PT MEDS (PROVIDER) [facility] Mar 10, 2015 10:[address] [facility] [place] Dec 14, 2014 09:23 AM CURRENT TOBACCO USER [facility] Jun 05, 2013 10:30 AM CURRENT TOBACCO USER [facility] Mar 18, 2012 09:43 AM CURRENT TOBACCO USER [facility] Feb 21, 2011 09:00 AM CURRENT TOBACCO USER [facility] Feb 21, 2011 09:00 AM TOBACCO MEDS OFFER ED BUT DECLINED [facility] Feb 21, 2011 09:00 AM TOBACCO OFFERED PT MEDS (PROVIDER) declined [facility] Feb 21, 2011 09:[address] [facility] declined [facility] Mar 06, 2010 08:36 AM CURRENT TOBACCO USER [facility] Sep 03, 2009 01:36 PM TOBACCO MEDS OFFER ED BUT DECLINED [facility] Sep 03, 2009 01:36 PM TOBACCO OFFERED PT MEDS (PROVIDER) [facility] Sep 03, 2009 01:[address] [facility]IN[facility] Feb 28, 2009 09:49 AM CURRENT TOBACCO USER [facility] Feb 28, 2009 09:[address] [facility]IN[facility] Jan 07, 2008 01:26 PM QUIT TOBACCO >7 YEARS AGO [facility] Jan 07, 2008 01:26 PM TOBACCO MEDS OFFER ED BUT DECLINED [facility] Nov 25, 2007 02:10 PM TOBACCO MEDS OFFER ED BUT DECLINED [facility] Sep 01, 2007 01:28 PM TOBACCO MEDS OFFER ED BUT DECLINED [facility] Apr 29, 2007 09:24 AM QUIT TOBACCO IN TH E LAST 12 MONTHS [facility] Apr 22, 2006 10:22 AM QUIT TOBACCO IN TH E LAST 12 MONTHS [facility] Apr 03, 2005 08:08 AM CURRENT NON-TOBACC O USER-HX OF USE [facility] Oct 11, 2004 09:22 AM CURRENT TOBACCO USER [facility] Apr 10, 2004 01:41 PM CURRENT TOBACCO USER [facility] Jun 14, 2003 10:41 AM CURRENT TOBACCO USER [facility] Advance Directives: All historical and current Section Date Range: From patient's date of to the date document was created. This section includes ALL of a patient's completed or amended [place] Advance and Rescinded Directives. The entries below indicate that a directive exists for the patient, but an actual copy is not included with this document. The data comes from all NH facilities. Date Advance Directives Provider Source Jun 22, 2020 ADVANCE DIRECTIVE [facility] Encounter Notes: All associated encounter notes This section contains the clinical notes associated to the Encounter. Date/Time Encounter Note(s) Provider Source Jan 06, 2025 08:50 AM PHYSICIAN LETTERS: LOCAL TITLE: TEST RESULT GENERAL LETTER STL STANDARD TITLE: PHYSICIAN LETTERS DATE OF NOTE: JAN 06, 2025@08:50 ENTRY DATE: JAN 06, 2025@08:51:37 AUTHOR: YOLANDA ABRAHAMIGNER: URGENCY: STATUS: COMPLETED [facility] [address] [place] [address] JAN 06, 2025 DANA NICHOLS [id number] [place], [place] [address] Dear Dana Nichols, I would like to update you on your recent test results. LIPID PROFILE - High cholesterol and triglycerides (lipids) are risk factors for heart disease. Your cholesterol should fall between 140 and 200, and your triglycerides levels should be less than or equal to 150. HDL is the good cholesterol and should ideally be greater than 40. LDL is the bad cholesterol and optimal levels should be less than 100 (near optimal is between 100 and 129). TRIGLYCERIDE 140 mg/dL 01/01/2025 11:51 CHOLESTEROL 111 mg/dL 01/01/2025 11:51 HDL(New) 30.5 L mg/dL 01/01/2025 11:51 CALCULATED LDL 52.5 mg/dL 01/01/2025 11:51 HDL % OF TOTAL CHOLESTEROL (PB) 27.5 % 01/01/2025 11:51 No DIRECT LDL EO data found These results are abnormal. Your HDL on your cholesterol is a little low we like it to be above 40 GLUCOSE - Your blood sugar or glucose level result GLUCOSE GLUCOSE 131 H mg/dL 01/01/2025 11:51 These results are abnormal. Your sugar is just a little high at 131 we like it to be below 120 HEMOGLOBIN A1C - Gives us information about your diabetes (sugar or glucose) control over the past 3 months. Your target is to keep your A1C below 6 %. HGA1C 5.9 % 01/01/2025 11:51 These readings are within normal limits. But your hemoglobin A1c is 5.9 we wanted to be below 6 so that is perfect CBC - A complete blood count (CBC) gives important information about the kinds and numbers of cells in the blood, especially red blood cells, white blood cells, and platelets. HGB 11.0 L g/dL 01/01/2025 11:51 HEMATOCRIT 34.0 % L (01/01/25 11:51) PLT 232 10*3/uL 01/01/2025 11:51 WHITE BLOOD COUNT 7.0 10*3/uL (01/01/25 11:51) These results are abnormal. You are just a little anemic Continue taking your iron supplement B12 - Helps maintain healthy nerve cells, red blood cells, and is also needed to make DNA. B12 388 pg/mL 01/01/2025 11:51 These readings are within normal limits. CHEM 7 - This is important information about the current status of your kidneys, liver, and electrolyte and acid/base balance as well as of your blood sugar and blood proteins. SODIUM 144 mEq/L 01/01/2025 11:51 POTASSIUM 3.8 mEq/L 01/01/2025 11:51 CHLORIDE 109 H mEq/L 01/01/2025 11:51 UREA NITROGEN 16 mg/dL 01/01/2025 11:51 CREATININE 1.33 H mg/dL 01/01/2025 11:51 CALCIUM 8.7 mg/dL 01/01/2025 11:51 CARBON DIOXIDE 26 mEq/L 01/01/2025 11:51 GLUCOSE 131 H mg/dL 01/01/2025 11:51 EGFR (CKD-EPI 2020) 55 01/01/2025 11:51 These results are abnormal. Your creatinine is just a little high uACR (PB-MA) 766.50 H mg/g 0 - 30 CREATININE URINE/OTHERS 17.79 mg/dL URINE ALBUMIN (PB-STL) 136.36 mg/L LIVER FUNCTION PANEL - These are tests for liver function: PROTEIN 7.3 g/dL 01/01/2025 11:51 ALBUMIN 4.2 g/dL 01/01/2025 11:51 TOTAL BILIRUBIN 0.3 mg/dL 01/01/2025 11:51 ALKALINE PHOSPHATASE 80 U/L 01/01/2025 11:51 AST/SGOT 26 U/L 01/01/2025 11:51 ALT/SGPT 24 U/L 01/01/2025 11:51 These readings are within normal limits. TSH - Thyroid-stimulating hormone (also known as TSH or thyrotropin) is a peptide hormone synthesized and secreted by thyrotrope cells in the anterior pituitary gland, which regulates the endocrine function of the thyroid gland. TSH TSH 2.832 uIU/mL 01/01/2025 11:51 These readings are within normal limits. VITAMIN D - Helps promote the proper utilization of calcium and phosphorus, thereby producing proper bone maintenance. VITAMIN D, 25-HYDROXY 45.1 ng/mL 01/01/2025 11:51 These readings are within normal limits. MAGNESIUM 2.14 mg/dL 1.6 - 2.6 PLAN Please continue your treatment as we discussed during your visit. If you have any questions please call your casey saw operator. I look forward to seeing you at your next clinic appointment. Thank you for choosing the [facility] for your healthcare. FUTURE APPOINTMENTS: 02/09/2025 08:00 [facility] 657A 12/28/2025 11:00 [facility] ( 01/04/2026 13:00 [facility] PACT ECHO PCP Sachin Nichols I got all your labs back your HDL was slightly low at 30.5 we like it to be above 40 you are still a little anemic and your provider in the community put you on an iron supplement so you need to continue to take that your blood sugar was a little high when you were in and had your labs done at 130 but your hemoglobin A1c was 5.9 so that was pretty good everything else looked pretty good your kidney function and your creatinine was 1.33 which is slightly elevated and then one of your urine test was slightly out of it elevated which has to do with your kidney function as well I know that you seen a peer counselor in the past I do not know if you are continuing to see 1 let the nurses know if you are so if not I can send you to 1 if you want to or we can go ahead and recheck your labs in 6 months or if your other provider checks your labs in 6 months just let me know what they are so if I need to do any consults for you or anything I can if you have any questions let the nurses know when they give you a call Sincerely, Yolanda Abraham, LUIS ARMANDO, MSN, Ranjit Mata [facility] DANA NICHOLS KRISTEL G [facility] Jan 01, 2025 04:23 PM ORTHOTICS PROSTHET ICS EDUCATION NOTE: LOCAL TITLE: NURSING PROSTHETIC ITEM PATIENT EDUCATION NOTE PB STANDARD TITLE: ORTHOTICS PROSTHETICS EDUCATION NOTE DATE OF NOTE: JAN 01, 2025@16:23 ENTRY DATE: JAN 01, 2025@16:23:48 AUTHOR: SANDRA RAMIREZ COSIGNER: URGENCY: STATUS: COMPLETED Prosthetic Patient Education Learner: Patient Method: Individual Evaluation of Learning: Able to Perform/Verbalize Items: Hot/Cool Pack Hot/Cold Therapy Wrap Cold Wrap: Store in the freezer for a minimum of 2 hours. Store in plastic bag while the wraps in the freezer. Place the gel wrap with the cover on the site for up to 20 minutes. Can use 1 an hour as needed for pain or swelling. Monitor the skin. Do not add water to the gel pad. After use place back in the plastic bag and place back in the freezer. Hot Wrap: Use microwave for heating therapy wrap following instructions on the package. A barrier, such as a towel, between the wrap and skin is recommended. The wrap should feel warm and not hot to touch. Recommend 20 minutes durations with 1 hour rest between each use. Warnings: Do not use while sleeping. Do not use on any area that has decreased sensation. Do not use on any skin with open wounds or abrasions. A copy of this document was provided to the patient. /alejandra/ Sandra Ramirez, RN,BSN [place], CB Signed: 01/01/2025 16:24 SANDRA RAMIREZ [facility] Jan 01, 2025 11:41 AM ORTHOTICS PROSTHET ICS EDUCATION NOTE: LOCAL TITLE: NURSING PROSTHETIC ITEM PATIENT EDUCATION NOTE PB STANDARD TITLE: ORTHOTICS PROSTHETICS EDUCATION NOTE DATE OF NOTE: JAN 01, 2025@11:41 ENTRY DATE: JAN 01, 2025@11:41:49 AUTHOR: SANDRA RAMIREZ EXP COSIGNER: URGENCY: STATUS: COMPLETED Prosthetic Patient Education Learner: Patient Method: Individual Evaluation of Learning: Able to Perform/Verbalize Items: Compression Stockings (15-20) Knee High Washing Instructions: It is best to wash stockings after each day of use. DO NOT USE WOOLITE, fabric softener or bleach. Most stocking can be machined washed in cold or warm water; however, your provider will inform you if hand washing is needed. Do not put in the dryer unless instructed by your provider. How to Put on Compression Stockings: 1. Turn the stocking so that the heel faces you. 2. Roll your stockings down and inside out stopping when you see the heel. This can be done by reaching inside the stocking and pinching the heel with your first figure and thumb pulling the stocking inside out holding on to the heel between the two fingers. 3. Put toes inside the end of the stocking and pull onto midfoot. 4. Then slowly pull the top of the stocking over the foot and to ankle area. 5. Grab and pull the stocking with both hands staying low around the ankle area. Continue pulling with both hands up toward the calf. 6. The top band of the stocking should come up to just below the bend of your knee leaving 1-2 fingers width at the top of stocking and the bend in the back of your knee. 7. Next, run your hands up and down the stocking making sure you don't feel any wrinkle or folds. If you do find wrinkle or folds, rub or pull to smooth it out. Never fold or tuck top band over nor under. Safety: -Compressions stockings are for everyday use and should NEVER be worn to bed. -If you experience any complication while wearing your stockings such as increased pain or discoloration in the leg or you notice swelling in the thigh, knee or toes, take them off and call your PC Provider. If you are unable to reach and you feel you have an emergency please go to the nearest emergency room and take the stockings with you so the Doctor can see them. A copy of this document was provided to the patient. /alejandra/ Sandra Ramirez RN,BSN RICHELLE Bright Signed: 01/01/2025 11:46 SANDRA RAMIREZ Jan 01, 2025 11:33 AM PRIMARY CARE PROGR ESS NOTE: LOCAL TITLE: PRIMARY CARE CLINIC PROGRESS NOTE PB STANDARD TITLE: PRIMARY CARE PROGRESS NOTE DATE OF NOTE: JAN 01, 2025@11:33 ENTRY DATE: JAN 01, 2025@11:33:42 AUTHOR: YOLANDA ABRAHAM COSIGNER: URGENCY: STATUS: COMPLETED This is a 79 year old MALE DS - Disabilities Eligibility: SC LESS THAN 50% VERIFIED Total S/C %: 0 INGUINAL HERNIA 0% S/C Chief Complaint (Reason for today's visit): annual appointment History of Present Illness (Subjective): Hensley presented today for a scheduled annual appointment also sees a provider in the community who has already made some changes to his medications will update his medication reconciliation as well as make changes accordingly is agreeable to do what ever that I ask him to do but a lot of things already changed is very difficult when 2 different providers are managing patient and understands that agrees with what has been changed by his provider in the community soulmate will make those changes is complaining of lower back pain and neck pain will refer over to the pain clinic as well we reviewed the MRI from October we will do additional labs today fidel has complaints of excessive tearing and feeling of sandpaper in his eyes we will also place optometry and ophthalmology consult for him to get his eyes checked will make changes to his other medication per his request instructed that the clinic does not do alprazolam nor will they feel Ambien instructed that if he wants to continue both of those medications he would have to get them from his primary care provider in the community has already discontinued Ambien we will send trazodone for him to try first insomnia instructed on Breztri needs to be prior authorized and he has not been on any very many inhalers they would have to try some other inhalers first states that he is av continue to use his Breztri at this point medication reconciliation updated health maintenance addressed agrees with plan of care consults placed addressed agrees with plan of care denies any other additional concerns at this time, and has no other questions at this time Surgical History: back surgery 11/11/24 surgery left ankle in march 2024 Allergies: INFLUENZA, PRAVASTATIN REVIEW OF SYSTEMS: HEENT: No visual or auditory symptoms. RESPIRATORY: No shortness of breath, cough or sputum. CARDIOVASCULAR: No chest pain or palpitation. GI: No abdominal pain, nausea, vomiting or bowel changes. MUSCULOSKELETAL: Back pain SKIN: No new rashes, no unhealing lesions, no moles. : No urinary symptoms. PSYCH: Denies being depressed or anxious. VITALS: Temperature: 98.0 F [36.7 C] (11/07/2023 13:16) Respiratory Rate: 20 (11/07/2023 13:16) Pulse Rate: 59 (01/01/2025 11:05) Blood Pressure: 145/68 (01/01/2025 11:05) HT: 70.0 in [177.8 cm] (11/07/2023 13:16) WT: 249.2 lb [113.04 kg] (01/01/2025 11:02) BMI: 35.8 96% (01/01/2025 11:05) PHYSICAL EXAM: General: NAD noted, A&Ox3, pleasant, appears stated age HEENT: NCAT, TM's clear, nares and oropharynx clear Neck: Supple with normal active ROM, without any lymphadenopathy Heart: RRR, no murmur, clicks, or rub Resp: Lungs CTA bilaterally, respirations even and unlabored Abdomen: Soft, non-distended, non-tender Ext: No clubbing, cyanosis, edema or obvious deformity Neuro: Grossly intact Psych: Affect normal, answers questions appropriately throughout visit DIAGNOSTIC STUDIES: Labs Performed/Reviewed at Today's Visit: labs reviewed from 12/23/24 outside the [facility] Radiology/Imaging Performed/Reviewed at Today's Visit: Reason for studies: On the following Active Medications: Active Outpatient Medications (including Supplies): Active Outpatient Medications Status 1) AMLODIPINE BESYLATE 5MG TAB TAKE ONE TABLET BY MOUTH ONCE A ACTIVE DAY FOR HEART/BLOOD PRESSURE 2) ATENOLOL 100MG TAB TAKE ONE TABLET BY MOUTH ONCE A DAY FOR ACTIVE HEART AND FOR BLOOD PRESSURE 3) ATORVASTATIN CALCIUM 80MG TAB TAKE ONE-HALF TABLET BY MOUTH ACTIVE EVERY EVENING TO LOWER CHOLESTEROL 4) BUPROPION HCL 200MG 12HR SA TAB TAKE ONE TABLET BY MOUTH ACTIVE TWICE A DAY WITH BREAKFAST AND LUNCH 5) DOXAZOSIN MESYLATE 4MG TAB TAKE ONE-HALF TABLET BY MOUTH AT ACTIVE BEDTIME THIS TABLET IS TO BE CUT IN HALF FOR YOUR DOSE 6) FUROSEMIDE 20MG TAB TAKE ONE TABLET BY MOUTH EVERY MORNING ACTIVE Indication: FOR FLUID RETENTION (EDEMA) 7) GLIPIZIDE 5MG TAB TAKE ONE-HALF TABLET BY MOUTH TWO TIMES A ACTIVE DAY BEFORE MEALS TO LOWER BLOOD SUGAR 8) LEVOTHYROXINE NA 50MCG TAB TAKE ONE TABLET BY MOUTH EVERY ACTIVE MORNING BEFORE A MEAL TAKE 30 MINUTES BEFORE FOOD. TAKE SEPARATELY FROM ALL OTHER MEDICATIONS. Indication: FOR HYPOTHYROIDISM 9) LISINOPRIL 5MG TAB TAKE ONE-HALF TABLET BY MOUTH ONCE A DAY ACTIVE FOR HEART OR BLOOD PRESSURE 10) METHOCARBAMOL 500MG TAB TAKE 1 TABLET BY MOUTH THREE TIMES A ACTIVE DAY NEEDED Indication: FOR MUSCLE SPASM 11) OLOPATADINE HCL 0.2% OPH SOLN INSTILL 1 DROP IN BOTH EYES ACTIVE ONCE A DAY Indication: FOR ALLERGIC CONJUNCTIVITIS 12) PANTOPRAZOLE NA 40MG EC TAB TAKE ONE TABLET BY MOUTH EVERY ACTIVE MORNING BEFORE A MEAL TAKE 30 MINUTES BEFORE MEAL(S) Indication: FOR GASTROESOPHAGEAL REFLUX DISEASE 13) ROPINIROLE HCL 0.5MG TAB TAKE ONE AND ONE-HALF TABLETS BY ACTIVE MOUTH AT BEDTIME Indication: FOR RESTLESS LEG SYNDROME 14) TAMSULOSIN HCL 0.4MG CAP TAKE ONE CAPSULE BY MOUTH EVERY ACTIVE EVENING APPROXIMATELY 30 MINUTES AFTER THE SAME MEAL EACH DAY (FOR PROSTATE) Active Non-VA Medications Status 1) Non-VA ALPRAZOLAM 0.5MG TAB 0.5MG BY MOUTH NEEDED SLEEP ACTIVE 2) Non-VA ZOLPIDEM TAB BY MOUTH ACTIVE 16 Total Medications 1) CAD - Coronary artery disease (SNOMED CT 73635086) 2) HTN - Hypertension (SNOMED CT 74913436) 3) HLD - Hyperlipidemia (SNOMED CT 75958631) 4) Gastroesophageal reflux disease (SNOMED CT 919697248) 5) Anxiety (SNOMED CT 21787636) 6) Depression (SNOMED CT 49821135) 7) Diabetes mellitus type 2 (SNOMED CT 93764116) 8) Chronic progressive renal failure (SNOMED CT 558365034) 9) JAKOB - Obstructive sleep apnea 10) Chronic obstructive lung disease 11) Back pain 12) Pain in lower limb 13) Insomnia 14) Chronic post-traumatic stress disorder following combat 15) Diabetic neuropathy 16) Restless legs syndrome 17) Hypothyroidism (SCT 14668722) 18) Benign Prostatic Hypertrophy without Outflow Obstruction (SCT 205713527) 19) Allergic Rhinitis (SCT 58953932) 20) Carotid artery stenosis 21) History of operative procedure on lumbar spinal structure ===== MEDICATION RECONCILIATION: ACTIVE/ OUTPATIENT MEDICATIONS: MRT1 - Med Reconciliation INCLUDED IN THIS LIST: Alphabetical list of active outpatient prescriptions dispensed from this [facility] (local) and dispensed from another VA or [facility] facility (remote) as well as inpatient orders (local pending and active), local clinic medications, locally documented non-VA medications, and local prescriptions that have or been discontinued in the past 90 days. Non-VA Meds Last Documented On: Nov 13, 2022 NOTE The display of VA prescriptions dispensed from another NH or [facility] facility (remote) is limited to active outpatient prescription entries matched to National Drug File at the originating site and may not include some items such as investigational drugs, compounds, etc. NOT INCLUDED IN THIS LIST: Medications self-entered by the patient into personal health records (i.e. [employer]) are NOT included in this list. Non-VA medications documented outside this NH, remote inpatient orders (regardless of status) and remote clinic medications are NOT included in this list. The patient and provider must always discuss medications the patient is taking, regardless of where the medication was dispensed or obtained. OUTPT ALBUTEROL 90MCG (CFC-F) 200D ORAL INHL (Status = ) INHALE 2 PUFFS ORAL INHALATION FOUR TIMES A DAY FOR COPD SHAKE WELL. RINSE MOUTHPIECE FREQUENTLY TO PREVENT CLOGGING. Rx# [id number] Last Released: 01/21/24 Qty/Days Supply: Rx Expiration Date: 11/07/24 Refills Remainin Indication: FOR COPD Non-VA ALPRAZOLAM 0.5MG TAB TAKE ONE TABLET BY MOUTH NEEDED SLEEP Non-VA medication not recommended by VA provider. Patient wants to buy from Non-VA pharmacy. Medication prescribed by Non-VA provider. OUTPT AMLODIPINE BESYLATE 5MG TAB (Status = Active) TAKE ONE TABLET BY MOUTH ONCE A DAY FOR HEART/BLOOD PRESSURE Rx# [id number] Last Released: 01/01/25 Qty/Days Supply: Rx Expiration Date: 04/01/25 Refills Remainin OUTPT ARTIFICIAL TEARS POLYVINYL ALCOHOL (Status = ) INSTILL 2 DROPS IN BOTH EYES FOUR TIMES A DAY NEEDED FOR DRY EYE(S) Rx# [id number] Last Released: 11/12/23 Qty/Days Supply: Rx Expiration Date: 11/07/24 Refills Remainin Indication: FOR DRY EYE(S) OUTPT ATENOLOL 100MG TAB (Status = Active) TAKE ONE TABLET BY MOUTH ONCE A DAY FOR HEART AND FOR BLOOD PRESSURE Rx# [id number] Last Released: 11/04/24 Qty/Days Supply: Rx Expiration Date: 08/18/25 Refills Remainin OUTPT ATORVASTATIN CALCIUM 80MG TAB (Status = Active) TAKE ONE-HALF TABLET BY MOUTH EVERY EVENING TO LOWER CHOLESTEROL Rx# [id number] Last Released: 10/16/24 Qty/Days Supply: Rx Expiration Date: 08/11/25 Refills Remainin OUTPT BUPROPION HCL 200MG 12HR SA TAB (Status = Active) TAKE ONE TABLET BY MOUTH TWICE A DAY WITH BREAKFAST AND LUNCH Rx# [id number] Last Released: 10/20/24 Qty/Days Supply: Rx Expiration Date: 05/12/25 Refills Remainin OUTPT DOXAZOSIN MESYLATE 4MG TAB (Status = Active) TAKE ONE-HALF TABLET BY MOUTH AT BEDTIME THIS TABLET IS TO BE CUT IN HALF FOR YOUR DOSE Rx# [id number] Last Released: 12/10/24 Qty/Days Supply: Rx Expiration Date: 09/15/25 Refills Remainin OUTPT FLUTICAS 250/SALMETEROL 50 INHL DISK 60 (Status = ) INHALE 1 INHALATION ORAL INHALATION TWICE A DAY FOR COPD (OPEN DISKUS; CLICK ONLY ONCE; MAY INHALE TWICE TO COMPLETE DOSE; CLOSE WHEN FINISHED) RINSE MOUTH AND SPIT AFTER EACH USE. Rx# [id number] Last Released: 11/12/23 Qty/Days Supply: Rx Expiration Date: 11/07/24 Refills Remainin Indication: FOR COPD OUTPT FLUTICASONE PROP 50MCG 120D NASAL INHL (Status = ) INSTILL 2 SPRAYS IN EACH NOSTRIL ONCE A DAY FOR ALLERGIES (MUST BE USED DIRECTED FOR MINIMUM OF 21 DAYS TO PROVIDE ADEQUATE BENEFITS) Rx# [id number] Last Released: 11/19/23 Qty/Days Supply: Rx Expiration Date: 11/07/24 Refills Remainin OUTPT FUROSEMIDE 20MG TAB (Status = Discontinued) TAKE ONE TABLET BY MOUTH EVERY MORNING FOR FLUID RETENTION (EDEMA) Rx# [id number] Last Released: 10/14/24 Qty/Days Supply: Rx Expiration Date: 11/07/24 Refills Remainin Indication: FOR FLUID RETENTION (EDEMA) OUTPT FUROSEMIDE 20MG TAB (Status = Active) TAKE ONE TABLET BY MOUTH EVERY MORNING FOR FLUID RETENTION (EDEMA) Rx# [id number] Last Released: 12/23/24 Qty/Days Supply: Rx Expiration Date: 10/21/25 Refills Remainin Indication: FOR FLUID RETENTION (EDEMA) OUTPT GLIPIZIDE 5MG TAB (Status = Active) TAKE ONE-HALF TABLET BY MOUTH TWO TIMES A DAY BEFORE MEALS TO LOWER BLOOD SUGAR Rx# [id number] Last Released: 12/02/24 Qty/Days Supply: 90 Rx Expiration Date: 09/15/25 Refills Remainin OUTPT LEVOTHYROXINE NA 50MCG TAB (Status = Active) TAKE ONE TABLET BY MOUTH EVERY MORNING BEFORE A MEAL FOR HYPOTHYROIDISM TAKE 30 MINUTES BEFORE FOOD. TAKE SEPARATELY FROM ALL OTHER MEDICATIONS. Rx# [id number] Last Released: 10/27/24 Qty/Days Supply: Rx Expiration Date: 08/26/25 Refills Remainin Indication: FOR HYPOTHYROIDISM OUTPT LISINOPRIL 5MG TAB (Status = Active) TAKE ONE-HALF TABLET BY MOUTH ONCE A DAY FOR HEART OR BLOOD PRESSURE Rx# [id number] Last Released: 02/26/24 Qty/Days Supply: 45 Rx Expiration Date: 02/24/25 Refills Remainin OUTPT METHOCARBAMOL 500MG TAB (Status = Active) TAKE 1 TABLET BY MOUTH THREE TIMES A DAY NEEDED FOR MUSCLE SPASM Rx# [id number] Last Released: 09/22/24 Qty/Days Supply: Rx Expiration Date: 09/15/25 Refills Remainin Indication: FOR MUSCLE SPASM OUTPT OLOPATADINE HCL 0.2% OPH SOLN (Status = Active) INSTILL 1 DROP IN BOTH EYES ONCE A DAY FOR ALLERGIC CONJUNCTIVITIS Rx# [id number] Last Released: 01/24/24 Qty/Days Supply: 2.5 Rx Expiration Date: 01/21/25 Refills Remainin Indication: FOR ALLERGIC CONJUNCTIVITIS OUTPT PANTOPRAZOLE NA 40MG EC TAB (Status = Active) TAKE ONE TABLET BY MOUTH EVERY MORNING BEFORE A MEAL FOR GASTROESOPHAGEAL REFLUX DISEASE TAKE 30 MINUTES BEFORE MEAL(S) Rx# [id number] Last Released: 11/24/24 Qty/Days Supply: Rx Expiration Date: 04/29/25 Refills Remainin Indication: FOR GASTROESOPHAGEAL REFLUX DISEASE OUTPT ROPINIROLE HCL 0.5MG TAB (Status = Discontinued) TAKE ONE AND ONE-HALF TABLETS BY MOUTH AT BEDTIME FOR RESTLESS LEG SYNDROME Rx# [id number] Last Released: 06/08/24 Qty/Days Supply: 13590 Rx Expiration Date: 11/07/24 Refills Remainin Indication: FOR RESTLESS LEG SYNDROME OUTPT ROPINIROLE HCL 0.5MG TAB (Status = Active) TAKE ONE AND ONE-HALF TABLETS BY MOUTH AT BEDTIME FOR RESTLESS LEG SYNDROME Rx# [id number] Last Released: 12/25/24 Qty/Days Supply: Rx Expiration Date: 12/24/25 Refills Remainin Indication: FOR RESTLESS LEG SYNDROME OUTPT TAMSULOSIN HCL 0.4MG CAP (Status = Active) TAKE ONE CAPSULE BY MOUTH EVERY EVENING APPROXIMATELY 30 MINUTES AFTER THE SAME MEAL EACH DAY (FOR PROSTATE) Rx# [id number] Last Released: 10/14/24 Qty/Days Supply: Rx Expiration Date: 01/01/25 Refills Remainin Non-VA ZOLPIDEM TAB TAKE BY MOUTH AT BEDTIME NEEDED Medication prescribed by Non-VA provider SUPPLIES OUTPT ALCOHOL PREP PAD (Status = ) USE/APPLY PAD TO AFFECTED AREA(S) ONCE A DAY NEEDED FOR SKIN CLEANSING Rx# [id number] Last Released: 11/13/23 Qty/Days Supply: 200/90 Rx Expiration Date: 11/07/24 Refills Remainin Indication: FOR SKIN CLEANSING PHARMACY TERMS AND POSSIBLE PATIENT ACTIONS INPT = [place] inpatient order IV = VA intravenous medication OUTPT = NH outpatient prescription PHARMACY POSSIBLE PATIENT TERMS EXPLANATION ACTIONS -------- ---- ACTIVE A prescription that can be If you have refills, filled at the local [place] pharmacy. you may request a refill of this prescription from your VA pharmacy. CLINIC A medication you received during If you have questions a visit to a NH clinic or about this medication emergency department. contact your [place] healthcare team. DISCONTINUED A prescription your provider has Contact your VA stopped. It is no longer healthcare team if you available to be sent to you or need more of this picked up at the [place] pharmacy medication. window. A prescription which is too old Contact your VA to fill. This does not refer to healthcare team if you the expiration date of the need more of this medication in the container. medication. NON-VA A medication that came from If this medication someplace other than a VA information is pharmacy. This may be a incorrect or out of prescription from either the VA date, please tell your or non VA providers that was VA healthcare team. filled outside the VA. Or, it may be an mjar-cou-rxlznry (OTC), herbal, dietary supplements or sample medication. ON HOLD An active prescription that will Contact your VA not be filled until pharmacy pharmacy when you need resolves the issue. more of this medication. PARKED An active prescription that will Contact your VA not be filled until the patient pharmacy when you need requests it. this medication. PENDING This prescription order has been If you have been sent to the pharmacy for review instructed to start and is not ready yet. this medication now, contact your VA pharmacy. SUSPENDED An active prescription that is Contact your VA not scheduled to be filled yet. pharmacy if you need You should receive it before this medication now. you run out. DISCONTINUED: NONE ADDED/CHANGES: NONE NON-VA MEDICATIONS NOT LISTED ABOVE (List, including Herbals and OTC): NONE Reviewed with patient/family members. Copy given to patient. Patient verbalized understanding? Yes ===== ASSESSMENT/IMPRESSION: Annual adult well exam -current Cervicalgia -current Lower back pain -current Hypertension -current Hyperlipidemia -current Diabetes type 2 -current Chronic obstructive pulmonary disease -current Chronic kidney disease -current Insomnia -current Restless leg syndrome -current Hypothyroidism -current Epiphora -current PLAN OF CARE: Annual adult well exam brought in labs that were drawn on 12/23/2024 and an outside provider's clinic we did review those labs we will also repeat labs today because wants to go to the pain clinic for his neck pain and lower back pain. So plan labs today Cervicalgia plan review of MRI of CPAP spine since October discussed options plan to go to pain clinic for pain intervention in agreement with plan at this time we will also give heat pack from clinic instructed on use verbalized understanding Lower back pain plan to place consult to pain clinic will also use heat pack will also do labs for pain clinic other labs for pain clinic or from 1014 will be scanned into the computer Hypertension plan to continue current plan of care which is to continue lisinopril 10 mg veterans blood pressure today is 138/80 Hyperlipidemia plan to continue current plan of care plan atorvastatin Diabetes type 2 plan to continue current plan of care current hemoglobin A1c is 5.9 Chronic obstructive pulmonary disease sees a primary care provider in the community plan to continue albuterol and Breztri inhaler wants to continue to get it from primary care provider outside of the VA since it is covered Chronic kidney disease plan to continue current plan of care consider continue seeing peer counselor Insomnia plan to discontinue Ambien and will send trazodone will let this provider know if it is effective follow-up if needed Restless leg syndrome primary care provider in the community has already change medication so the plan is to discontinue propranolol and start pramipexole will send [facility] the [facility] his request hypothyroidism plan to continue current dosing current level is within normal limits plan level again today Epiphora plan to place consult for ophthalmology and optometry to get veterans eyes checked and to evaluate excessive tearing and the feeling of sandpaper in his eyes Follow-up: _12_ months and/or as needed and keep regularly scheduled appointment. Discussed diet and exercise as relevant to patient conditions. Patient is advised this primary care clinic has open access and he can make a same day appointment anytime a problem/concern arises. Patient further advised he can be seen on a walk-in basis as needed. Patient is provided clinic contact information. Treatment plan as noted above and the After Visit Summary was reviewed with Hensley; opportunity provided to report concerns and ask question regarding aspects of care or treatment or services; concurrence reached and verbalized understanding. Discussed with patient that in the event of community imaging/testing being ordered in the future, once the imaging testing has been completed, please notify PACT of within 1 week by a VA PACT member; this is due to intermittent lapses in notification of imaging completion within [facility]. All questions answered; agrees to plan of care. Follow up as listed above, annually, and as needed. Keep all completion at outside facility if not called with results appointments. Medications Reconciled. Time spent 30 minutes. Yolanda [facility] APR Float HTN Assess for Elevated BP>=140/90 - N,P,PH: Repeat blood pressure: 138/80 Follow Up Colonoscopy - L,N,P,PH: Colonoscopy is due based on information available to this reminder. Defer reminder for 4 months Reason for deferral: wants to wait /alejandra/ LUIS ARMANDO Bello, MSN, Ranjit Mata [facility] Signed: 01/01/2025 13:04 YOLANDA ABRAHAM [facility] Jan 01, 2025 10:40 AM PRIMARY CARE NURSI CASPER NOTE: LOCAL TITLE: PRIMARY CARE NURSING PROGRESS NOTE (TEXT) NURSING P STANDARD TITLE: PRIMARY CARE NURSING NOTE DATE OF NOTE: JAN 01, 2025@10:40 ENTRY DATE: JAN 01, 2025@10:40:23 AUTHOR: SANDRA RAMIREZIGNER: URGENCY: STATUS: COMPLETED PRIMARY CARE NURSING PROGRESS NOTE (TEXT) NURSING PB Has ADDENDA Established Patient DANA NICHOLS IS A 79 YEAR OLD MALE BEING SEEN IN CLINIC JAN 01, 2025. = = REASON FOR VISIT: is here for his annual visit and to go over recent MRI results. Back surgery, broke left ankle in March and had surgery The ambulated to the exam room with assistance of a cane, gait is steady. Are you receiving care any where other than the [facility]? Yes, List: [facility] [place] [facility] last seen a few days ago HEALTH AND SURGICAL HISTORY: Does patient report using home oxygen? No CURRENT ACTIVE MEDICATIONS FOR REVIEW: If the list for review does not include a component, then it was not applicable to this patient. Allergies/ADRs (Tool #5) FACILITY ALLERGY/ADR -------- No Remote Allergy/ADR Data available for this patient [facility] INFLUENZA [facility] PRAVASTATIN Med. Reconciliation (Tool #1) INCLUDED IN THIS LIST: Alphabetical list of active outpatient prescriptions dispensed from this VA (local) and dispensed from another VA or [facility] facility (remote) as well as inpatient orders (local pending and active), local clinic medications, locally documented non-VA medications, and local prescriptions that have or been discontinued in the past 90 days. Non-VA Meds Last Documented On: Nov 13, 2022 NOTE The display of VA prescriptions dispensed from another NH or [facility] facility (remote) is limited to active outpatient prescription entries matched to National Drug File at the originating site and may not include some items such as investigational drugs, compounds, etc. NOT INCLUDED IN THIS LIST: Medications self-entered by the patient into personal health records (i.e. [employer]) are NOT included in this list. Non-VA medications documented outside this VA, remote inpatient orders (regardless of status) and remote clinic medications are NOT included in this list. The patient and provider must always discuss medications the patient is taking, regardless of where the medication was dispensed or obtained. OUTPT ALBUTEROL 90MCG (CFC-F) 200D ORAL INHL (Status = ) INHALE 2 PUFFS ORAL INHALATION FOUR TIMES A DAY FOR COPD SHAKE WELL. RINSE MOUTHPIECE FREQUENTLY TO PREVENT CLOGGING. Rx# [id number] Last Released: 01/21/24 Qty/Days Supply: Rx Expiration Date: 11/07/24 Refills Remainin Indication: FOR COPD Non-VA ALPRAZOLAM 0.5MG TAB TAKE ONE TABLET BY MOUTH NEEDED SLEEP Non-VA medication not recommended by VA provider. Patient wants to buy from Non-VA pharmacy. Medication prescribed by Non-VA provider. OUTPT AMLODIPINE BESYLATE 5MG TAB (Status = Active) TAKE ONE TABLET BY MOUTH ONCE A DAY FOR HEART/BLOOD PRESSURE Rx# [id number] Last Released: 01/01/25 Qty/Days Supply: Rx Expiration Date: 04/01/25 Refills Remainin OUTPT ARTIFICIAL TEARS POLYVINYL ALCOHOL (Status = ) INSTILL 2 DROPS IN BOTH EYES FOUR TIMES A DAY NEEDED FOR DRY EYE(S) Rx# [id number] Last Released: 11/12/23 Qty/Days Supply: Rx Expiration Date: 11/07/24 Refills Remainin Indication: FOR DRY EYE(S) OUTPT ATENOLOL 100MG TAB (Status = Active) TAKE ONE TABLET BY MOUTH ONCE A DAY FOR HEART AND FOR BLOOD PRESSURE Rx# [id number] Last Released: 11/04/24 Qty/Days Supply: Rx Expiration Date: 08/18/25 Refills Remainin OUTPT ATORVASTATIN CALCIUM 80MG TAB (Status = Active) TAKE ONE-HALF TABLET BY MOUTH EVERY EVENING TO LOWER CHOLESTEROL Rx# [id number] Last Released: 10/16/24 Qty/Days Supply: Rx Expiration Date: 08/11/25 Refills Remainin OUTPT BUPROPION HCL 200MG 12HR SA TAB (Status = Active) TAKE ONE TABLET BY MOUTH TWICE A DAY WITH BREAKFAST AND LUNCH Rx# [id number] Last Released: 10/20/24 Qty/Days Supply: Rx Expiration Date: 05/12/25 Refills Remainin OUTPT DOXAZOSIN MESYLATE 4MG TAB (Status = Active) TAKE ONE-HALF TABLET BY MOUTH AT BEDTIME THIS TABLET IS TO BE CUT IN HALF FOR YOUR DOSE Rx# [id number] Last Released: 12/10/24 Qty/Days Supply: Rx Expiration Date: 09/15/25 Refills Remainin OUTPT FLUTICAS 250/SALMETEROL 50 INHL DISK 60 (Status = ) INHALE 1 INHALATION ORAL INHALATION TWICE A DAY FOR COPD (OPEN DISKUS; CLICK ONLY ONCE; MAY INHALE TWICE TO COMPLETE DOSE; CLOSE WHEN FINISHED) RINSE MOUTH AND SPIT AFTER EACH USE. Rx# [id number] Last Released: 11/12/23 Qty/Days Supply: Rx Expiration Date: 11/07/24 Refills Remainin Indication: FOR COPD OUTPT FLUTICASONE PROP 50MCG 120D NASAL INHL (Status = ) INSTILL 2 SPRAYS IN EACH NOSTRIL ONCE A DAY FOR ALLERGIES (MUST BE USED DIRECTED FOR MINIMUM OF 21 DAYS TO PROVIDE ADEQUATE BENEFITS) Rx# [id number] Last Released: 11/19/23 Qty/Days Supply: Rx Expiration Date: 11/07/24 Refills Remainin OUTPT FUROSEMIDE 20MG TAB (Status = Discontinued) TAKE ONE TABLET BY MOUTH EVERY MORNING FOR FLUID RETENTION (EDEMA) Rx# [id number] Last Released: 10/14/24 Qty/Days Supply: Rx Expiration Date: 11/07/24 Refills Remainin Indication: FOR FLUID RETENTION (EDEMA) OUTPT FUROSEMIDE 20MG TAB (Status = Active) TAKE ONE TABLET BY MOUTH EVERY MORNING FOR FLUID RETENTION (EDEMA) Rx# [id number] Last Released: 12/23/24 Qty/Days Supply: 90 Rx Expiration Date: 10/21/25 Refills Remainin Indication: FOR FLUID RETENTION (EDEMA) OUTPT GLIPIZIDE 5MG TAB (Status = Active) TAKE ONE-HALF TABLET BY MOUTH TWO TIMES A DAY BEFORE MEALS TO LOWER BLOOD SUGAR Rx# [id number] Last Released: 12/02/24 Qty/Days Supply: Rx Expiration Date: 09/15/25 Refills Remainin OUTPT LEVOTHYROXINE NA 50MCG TAB (Status = Active) TAKE ONE TABLET BY MOUTH EVERY MORNING BEFORE A MEAL FOR HYPOTHYROIDISM TAKE 30 MINUTES BEFORE FOOD. TAKE SEPARATELY FROM ALL OTHER MEDICATIONS. Rx# [id number] Last Released: 10/27/24 Qty/Days Supply: Rx Expiration Date: 08/26/25 Refills Remainin Indication: FOR HYPOTHYROIDISM OUTPT LISINOPRIL 5MG TAB (Status = Active) TAKE ONE-HALF TABLET BY MOUTH ONCE A DAY FOR HEART OR BLOOD PRESSURE Rx# [id number] Last Released: 02/26/24 Qty/Days Supply: 45 Rx Expiration Date: 02/24/25 Refills Remainin OUTPT METHOCARBAMOL 500MG TAB (Status = Active) TAKE 1 TABLET BY MOUTH THREE TIMES A DAY NEEDED FOR MUSCLE SPASM Rx# [id number] Last Released: 09/22/24 Qty/Days Supply: Rx Expiration Date: 09/15/25 Refills Remainin Indication: FOR MUSCLE SPASM OUTPT OLOPATADINE HCL 0.2% OPH SOLN (Status = Active) INSTILL 1 DROP IN BOTH EYES ONCE A DAY FOR ALLERGIC CONJUNCTIVITIS Rx# [id number] Last Released: 01/24/24 Qty/Days Supply: 2.08/07 Rx Expiration Date: 01/21/25 Refills Remainin Indication: FOR ALLERGIC CONJUNCTIVITIS OUTPT PANTOPRAZOLE NA 40MG EC TAB (Status = Active) TAKE ONE TABLET BY MOUTH EVERY MORNING BEFORE A MEAL FOR GASTROESOPHAGEAL REFLUX DISEASE TAKE 30 MINUTES BEFORE MEAL(S) Rx# [id number] Last Released: 11/24/24 Qty/Days Supply: Rx Expiration Date: 04/29/25 Refills Remainin Indication: FOR GASTROESOPHAGEAL REFLUX DISEASE OUTPT ROPINIROLE HCL 0.5MG TAB (Status = Discontinued) TAKE ONE AND ONE-HALF TABLETS BY MOUTH AT BEDTIME FOR RESTLESS LEG SYNDROME Rx# [id number] Last Released: 06/08/24 Qty/Days Supply: 13590 Rx Expiration Date: 11/07/24 Refills Remainin Indication: FOR RESTLESS LEG SYNDROME OUTPT ROPINIROLE HCL 0.5MG TAB (Status = Active) TAKE ONE AND ONE-HALF TABLETS BY MOUTH AT BEDTIME FOR RESTLESS LEG SYNDROME Rx# [id number] Last Released: 12/25/24 Qty/Days Supply: /90 Rx Expiration Date: 12/24/25 Refills Remainin Indication: FOR RESTLESS LEG SYNDROME OUTPT TAMSULOSIN HCL 0.4MG CAP (Status = Active) TAKE ONE CAPSULE BY MOUTH EVERY EVENING APPROXIMATELY 30 MINUTES AFTER THE SAME MEAL EACH DAY (FOR PROSTATE) Rx# [id number] Last Released: 10/14/24 Qty/Days Supply: Rx Expiration Date: 01/01/25 Refills Remainin Non-VA ZOLPIDEM TAB TAKE BY MOUTH AT BEDTIME NEEDED Medication prescribed by Non-VA provider SUPPLIES OUTPT ALCOHOL PREP PAD (Status = ) USE/APPLY PAD TO AFFECTED AREA(S) ONCE A DAY NEEDED FOR SKIN CLEANSING Rx# [id number] Last Released: 11/13/23 Qty/Days Supply: 200/90 Rx Expiration Date: 11/07/24 Refills Remainin Indication: FOR SKIN CLEANSING PHARMACY TERMS AND POSSIBLE PATIENT ACTIONS INPT = [place] inpatient order IV = [facility] intravenous medication OUTPT = [place] outpatient prescription PHARMACY POSSIBLE PATIENT TERMS EXPLANATION ACTIONS -------- ---- ACTIVE A prescription that can be If you have refills, filled at the local [place] pharmacy. you may request a refill of this prescription from your VA pharmacy. CLINIC A medication you received during If you have questions a visit to a [place] clinic or about this medication emergency department. contact your [place] healthcare team. DISCONTINUED A prescription your provider has Contact your VA stopped. It is no longer healthcare team if you available to be sent to you or need more of this picked up at the [place] pharmacy medication. window. A prescription which is too old Contact your VA to fill. This does not refer to healthcare team if you the expiration date of the need more of this medication in the container. medication. NON-VA A medication that came from If this medication someplace other than a VA information is pharmacy. This may be a incorrect or out of prescription from either the VA date, please tell your or non VA providers that was VA healthcare team. filled outside the VA. Or, it may be an [id number] (OTC), herbal, dietary supplements or sample medication. ON HOLD An active prescription that will Contact your VA not be filled until pharmacy pharmacy when you need resolves the issue. more of this medication. PARKED An active prescription that will Contact your VA not be filled until the patient pharmacy when you need requests it. this medication. PENDING This prescription order has been If you have been sent to the pharmacy for review instructed to start and is not ready yet. this medication now, contact your VA pharmacy. SUSPENDED An active prescription that is Contact your VA not scheduled to be filled yet. pharmacy if you need You should receive it before this medication now. you run out. Medication list reviewed with Patient Patient/Caregiver reports taking medications as ordered. IS PATIENT TAKING ANY OVER THE COUNTER MEDICATIONS, SUCH VITAMINS OR HERBAL SUPPLEMENTS, INCLUDING ANY MEDICATIONS PRESCRIBED BY ANOTHER PHYSICIAN? Yes, List: Does patient have any new allergies to report since last visit? NO VITALS: TEMPERATURE: 98.0 F [36.7 C] (11/07/2023 13:16) BP: 142/70 (11/07/2023 17:17) RESP: 20 (11/07/2023 13:16) PULSE: 63 (11/07/2023 13:16) HT: 70.0 in [177.8 cm] (11/07/2023 13:16) WT: 238.4 lb [108.14 kg] (11/07/2023 13:16) BMI: 34.3 PAIN ASSESSMENT: (Most Recent Pain Score in Vitals Package: 3 (11/07/2023 13:16) ) The patient indicated that they and their close contacts have not traveled outside of the [place] in the past 21 days. The patient reports the following symptoms: No symptoms present The patient is not immunocompromised. 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 The patient does not report having been exposed to measles, chickenpox, or zoster in last 30 days. STRESS: Thank you for your service. Now let us serve you. At the [facility], we strive to provide you with exceptional health care that improves your health and well-being. Are you feeling sad, empty, or depressed? No Do you need to talk about things in your life that worry you or cause you stress? No Do you need to talk about personal problems, family problems, alcohol use, drug use, or mental or emotional illness? No SUICIDE SCREENING: The patient was asked, Over the past two weeks, how often have you been bothered by thoughts that you would be better off or of hurting yourself in some way? Not At All SPIRITUAL ASSESSMENT: Are there episcopal practices or spiritual concerns you want the medical records receptionist, your physician, and other health care team members to immediately know about? No Patient advised to call the clinic for any concerns, questions, or symptoms. Patient and/or caregiver verbalized understanding of plan of care. PTSD Screening - V: PC-PTSD-5 A PTSD screening test (PC-PTSD-5) was negative (score=3). Sometimes things happen to people that are unusually or especially frightening, horrible or traumatic. For example: A serious accident or fire a physical or sexual assault or abuse An earthquake or flood A war Seeing someone be killed or seriously injured Having a loved one through homicide or suicide 1. Have you ever experienced this kind of event? YES 2. Had nightmares about the event(s) or thought about the event(s) when you did not want to? NO 3. Tried hard not to think about the event(s) or went out of your way to avoid situations that reminded you of the event(s)? YES 4. Been constantly on guard, watchful, or easily startled? YES 5. [place] numb or detached from people, activities, or your surroundings? YES 6. [place] guilty or unable to stop blaming yourself or others for the event(s) or any problems the event(s) may have caused? NO Suicide Screen - V: C-SSRS Screening [place] Suicide Severity Rating Scale (C-SSRS) screener 1. Over the past month, have you wished you were or wished you could go to sleep and not wake up? No 2. Over the past month, have you had any actual thoughts of killing yourself? No 3. Over the past month, have you been thinking about how you might do this? Response not required due to responses to other questions. 4. Over the past month, have you had these thoughts and had some intention of acting on them? Response not required due to responses to other questions. 5. Over the past month, have you started to work out or worked out the details of how to kill yourself? Response not required due to responses to other questions. 6. If yes, at any time in the past month did you intend to carry out this plan? Response not required due to responses to other questions. 7. In your lifetime, have you ever done anything, started to do anything, or prepared to do anything to end your life (for example, collected pills, obtained a gun, gave away valuables, went to the roof but didn't jump)? No 8. If YES, was this within the past 3 months? Response not required due to responses to other questions. Tobacco Use Screening - AT,DE,L,M,N,P,PH,PS,RT,S,U: The patient is a former cigarette smoker. The patient has never used other types of tobacco. Patient was advised to stop smoking and/or using other tobacco products. Advised patient that a combination of behavioral counseling and FDA-approved cessation medications is the most effective way to ensure their success in stopping to smoke and/or using other tobacco products. The patient was not interested in additional information about behavioral counseling and other support strategies discussed. Informed patient that medications can help with cravings and withdrawal symptoms, and they greatly increase the chances of successfully stopping your tobacco use. The patient was not interested in a prescription for tobacco cessation medications. FALL RISK OP PB: MAN FALL RISK ASSESSMENT Have you experienced any falls within the last 12 months: 0 = No Secondary Dx: 0 = No Ambulatory Aid: 5 = Crutches/Walker/Cane Gait/Transferrin = Normal/Bedrest/Immobile Mental status: 0 = Oriented to own ability Medications: 5 = High risk meds TOTAL SCORE: 10 Score <30 - patient IS NOT at risk for falls. No action at this time. Reassess annually or if needed. Fall Documentation No - Patient did not experience a fall within the last year RHS Screen - VS: RHS Screen Session Format: Face to Face Environmental Check Screening was not completed at this time due to: Another adult present Alcohol Use Screen (AUDIT-C) - V: Alcohol Screen: SCREEN FOR ALCOHOL (AUDIT-C) An alcohol screening test (AUDIT-C) was negative (score=0). 1. How often did you have a drink containing alcohol in the past year? Consider a drink to be a 12 ounce can or bottle of regular beer, 8 ounces of malt liquor, a 5 ounce glass of table wine, or a 1.5 ounce shot of liquor (like scotch, gin, or vodka). Never 2. How many drinks containing alcohol did you have on a typical day when you were drinking in the past year? Response not required due to responses to other questions. 3. How often did you have six or more drinks on one occasion in the past year? Response not required due to responses to other questions. Depression Screening - V: Perform PHQ-2 A PHQ-2 screen was performed. The score was 0 which is a negative screen for depression. Over the past two weeks, how often have you been bothered by the following problems? 1. Little interest or pleasure in doing things Not at all 2. Feeling down, depressed, or hopeless Not at all Homelessness/Food Insecurity Screen - DI,L,N,P,PH,PS,S,U: In the past 2 months, have you been living in stable housing that you own, rent, or stay in as part of a household? Yes - Living in stable housing. Are you worried or concerned that in the next 2 months you may NOT have stable housing that you own, rent, or stay in as part of a household? No - Not worried about housing near future The reports the following: Within the past 12 months, you worried whether your food would run out before you got money to buy more. Never true Within the past 12 months, the food you bought just didn't last and you didn't have money to get more. Never true PAVE Foot Check - L,N,P,PH,PO,PT,U: A complete foot check was completed at this encounter. VISUAL INSPECTION: Includes inspection for skin breaks, deformity, erythema, trauma, pallor on elevation, dependent rubor, nail deformities, extensive callus and pitting edema. Visual exam results: Normal PEDAL PULSES: Includes palpation of dorsalis and posterior tibial pulses and signs/symptoms of vascular compromise like pain, pallor, paresthesia or paralysis. Present (even if diminished) SENSORY CHECK: Includes 10 gram Monofilament (Centuria-Indira) test of sensation. Intact (Greater than or equal to 80% of sites checked) Abnormal (Less than 80% of sites checked): Intact LOW-RISK: LOW RISK INFORMATION PROVIDED: 1. Advised patient not to walk barefoot. 2. Explained the importance of daily foot checks for changes. 3. Stressed the importance of daily foot hygiene, including bathing and complete drying. The patient verbalized understanding and was offered a detailed handout on diabetic foot care. /alejandra/ Sandra Ramirez RN,BSWilma VeraHumbird, CBOC Signed: 01/01/2025 11:40 01/01/2025 ADDENDUM STATUS: COMPLETED Per [facility] Directive 1605.06, wristband documentation: Patient wristband was removed and destroyed by (staff name) Christiane Ramirez RN and placed in the designated [employer] bin. /alejandra/ Sandra Ramirez RN,BSN [place], CBOC Signed: 01/01/2025 11:41 SANDRA RAMIREZ
--- OUTSIDE RECORDS SUMMARY | 2025-01-03 19:00 | XMS_ITS | Clinical Summary ---
Author Organization Unknown Care Team Providers Care Emergency Veterinary Assistant Name Role Phone BRYCE MENIJVAR, NOE Unavailable Unavailable DIANE PT, SHASHI Unavailable Unavailable SWETA NAIRN, LISANDRO Unavailable Unavailable MALCOM RN, SUSANA Unavailable Unavailable EDUARDO PUBLIC WEIGHER, MYA Unavailable Unavailable Payers Payer Name Policy Type Policy Number Effective Date Expira tion Date [facility] OPTUM PROGRAM - PDGM Problems Condition Name Condition Details Condition Category Status Onset Date Resolution Date Last Treatment Date Treating Clinician Comments ENCOUNTER FOR OTHER ORTHOPEDIC AFTERCARE Active 11-13 00:00: 00 SPINAL STENOSIS, LUMBAR REGION WITH NEUROGENIC CLAUDICATION Active 03-11 00:00: 00 CHRONIC OBSTRUCTIVE PULMONARY DISEASE, UNSPECIFIED Active 03-11 00:00: 00 HYPERTENSIVE CHRONIC KIDNEY DISEASE W STG 1-4/UNSP CHR KDNY Active 03-11 00:00: 00 TYPE 2 DIABETES MELLITUS W DIABETIC CHRONIC KIDNEY DISEASE Active 03-11 00:00: 00 CHRONIC KIDNEY DISEASE, UNSPECIFIED Active 03-11 00:00: 00 GASTRO-ESOPH AGEAL REFLUX DISEASE WITHOUT ESOPHAGITIS Active 03-11 00:00: 00 OBSTRUCTIVE SLEEP APNEA (ADULT) (PEDIATRIC) Active 03-11 00:00: 00 ATHSCL HEART DISEASE OF [place] CORONARY ARTERY W/O ANG PCTRS Active 03-11 00:00: 00 OLD MYOCARDIAL INFARCTION Active 03-11 00:00: 00 OCCLUSION AND STENOSIS OF BILATERAL CAROTID ARTERIES Active 03-11 00:00: 00 HYPERLIPIDEM IA, UNSPECIFIED Active 03-11 00:00: 00 PERSONAL HISTORY OF NICOTINE DEPENDENCE Active 03-11 00:00: 00 ARTHRODESIS STATUS Active 03-11 00:00: 00 JAIL (CURRENT) USE OF ORAL HYPOGLYCEMIC DRUGS Active 03-11 00:00: 00 Allergies, Adverse Reactions, Alerts Allergy Name Allergy Type Status Severity Reaction(s) Onset Date Inactive Date Treating Clinician Comments NKA Propensity to adverse reactions Active 2024-11 12:27:5 7 Medications Ordered Medication Name Filled Medication Name Start Date Stop Date Current Medication? Ordering Clinician Indication Dosage Frequency Signature (SIG) Comments Components 24 Hour Allergy Relief 50 mcg/actuati on nasal spray,suspe nsion 11-13 00:00: 00 Yes [id number] 1 spray DAILY 1 spray DAILY (route: nasal) Med Classific ation: Respirato ry Therapy Agents bupropion HCl 100 mg tablet 11-13 00:00: 00 Yes [id number] 1 tablet 2 TIMES DAILY 1 tablet 2 TIMES DAILY (route: oral) Med Classific ation: Central Nervous System Agents docusate sodium 100 mg capsule 11-13 00:00: 00 Yes [id number] 2 capsule DAILY 2 capsule DAILY (route: oral) Med Classific ation: Gastroint estinal Therapy Agents doxazosin 4 mg tablet 11-13 00:00: 00 Yes [id number] 0.5 tablet DAILY 0.5 tablet DAILY (route: oral) Med Classific ation: Cardiovas cular Therapy Agents furosemide 20 mg tablet 11-13 00:00: 00 Yes [id number] 1 tablet DAILY 1 tablet DAILY (route: oral) Med Classific ation: Cardiovas cular Therapy Agents glipizide 5 mg tablet 11-13 00:00: 00 Yes [id number] 0.5 tablet 2 TIMES DAILY 0.5 tablet 2 TIMES DAILY (route: oral) Med Classific ation: Endocrine levothyroxi ne 50 mcg tablet 11-13 00:00: 00 Yes [id number] 1 tablet DAILY 1 tablet DAILY (route: oral) Med Classific ation: Endocrine lisinopril 2.5 mg tablet 11-13 00:00: 00 Yes [id number] 1 tablet DAILY 1 tablet DAILY (route: oral) Med Classific ation: Cardiovas cular Therapy Agents methocarbam ol 500 mg tablet 11-13 00:00: 00 Yes [id number] 1 tablet 3 TIMES DAILY 1 tablet 3 TIMES DAILY (route: oral) Med Classific ation: Locomotor System Multivitami n 50 Plus tablet 11-13 00:00: 00 Yes [id number] 1 tablet DAILY 1 tablet DAILY (route: oral) Med Classific ation: Electroly te Balance-N utritiona l Products pantoprazol e 40 mg tablet,devin yed release 11-13 00:00: 00 Yes [id number] 1 tablet DAILY 1 tablet DAILY (route: oral) Med Classific ation: Gastroint estinal Therapy Agents pramipexole 0.125 mg tablet 11-13 00:00: 00 Yes [id number] 1 tablet BEDTIME 1 tablet BEDTIME (route: oral) Med Classific ation: Central Nervous System Agents ropinirole 0.25 mg tablet 11-13 00:00: 00 Yes [id number] 1 tablet DAILY 1 tablet DAILY (route: oral) Med Classific ation: Central Nervous System Agents tamsulosin 0.4 mg capsule 11-13 00:00: 00 Yes [id number] 1 capsule DAILY 1 capsule DAILY (route: oral) Med Classific ation: Genitouri nary Therapy tizanidine 2 mg capsule 11-13 00:00: 00 Yes [id number] 1 capsule EVERY 8 HOURS 1 capsule EVERY 8 HOURS (route: oral) Med Classific ation: Locomotor System Tylenol Extra Strength 500 mg tablet 11-13 00:00: 00 Yes [id number] 1 tablet 3 TIMES DAILY 1 tablet 3 TIMES DAILY (route: oral) Med Classific ation: Analgesic , Anti-infl ammatory or Antipyret ic zolpidem 5 mg tablet 11-13 00:00: 00 Yes [id number] 1 tablet BEDTIME 1 tablet BEDTIME (route: oral) Med Classific ation: Central Nervous System Agents Vital Signs Vital Name Observation Time Observation Value Commen ts Temperature 2025-01-04 11:38:00.000 97.4 [degF] Temperature 2024-12-30 11:40:00.000 97.4 [degF] Temperature 2024-12-26 11:39:00.000 97.1 [degF] Temperature 2024-12-17 10:26:00.000 97.1 [degF] Temperature 2024-12-10 13:33:00.000 97.3 [degF] Temperature 2024-12-07 13:59:00.000 98.4 [degF] Temperature 2024-12-04 16:31:00.000 97.8 [degF] Temperature 2024-12-04 11:35:00.000 97.7 [degF] Temperature 2024-12-02 08:38:00.000 97.4 [degF] Temperature 2024-11-26 10:55:00.000 98 [degF] Temperature 2024-11-26 08:35:00.000 97.9 [degF] Temperature 2024-11-24 11:52:00.000 97.7 [degF] Temperature 2024-11-18 13:45:00.000 97.1 [degF] Temperature 2024-11-17 12:11:00.000 97.7 [degF] Temperature 2024-11-13 12:12:00.000 98.4 [degF] BMI (%) 2024-11-13 12:12:00.000 35 kg/m2 Height 2024-11-13 12:12:00.000 70 [in_us] Pulse 2025-01-04 11:38:00.000 71 /min Pulse 2024-12-30 11:40:00.000 62 /min Pulse 2024-12-26 11:39:00.000 70 /min Pulse 2024-12-17 10:26:00.000 82 /min Pulse 2024-12-10 13:33:00.000 65 /min Pulse 2024-12-07 13:59:00.000 71 /min Pulse 2024-12-04 16:31:00.000 68 /min Pulse 2024-12-04 11:35:00.000 60 /min Pulse 2024-12-02 08:38:00.000 67 /min Pulse 2024-11-26 10:55:00.000 65 /min Pulse 2024-11-26 08:35:00.000 64 /min Pulse 2024-11-24 11:52:00.000 68 /min Pulse 2024-11-18 13:45:00.000 61 /min Pulse 2024-11-17 12:11:00.000 60 /min Pulse 2024-11-13 12:12:00.000 76 /min O2 Saturation (%) 2025-01-04 11:38:00.000 93 % O2 Saturation (%) 2024-12-30 11:40:00.000 98 % O2 Saturation (%) 2024-12-26 11:39:00.000 95 % O2 Saturation (%) 2024-12-17 10:26:00.000 98 % O2 Saturation (%) 2024-12-10 13:33:00.000 97 % O2 Saturation (%) 2024-12-07 13:59:00.000 97 % O2 Saturation (%) 2024-12-04 16:31:00.000 95 % O2 Saturation (%) 2024-12-04 11:35:00.000 97 % O2 Saturation (%) 2024-12-02 08:38:00.000 94 % O2 Saturation (%) 2024-11-26 10:55:00.000 95 % O2 Saturation (%) 2024-11-26 08:35:00.000 95 % O2 Saturation (%) 2024-11-24 11:52:00.000 96 % O2 Saturation (%) 2024-11-18 13:45:00.000 95 % O2 Saturation (%) 2024-11-17 12:11:00.000 96 % O2 Saturation (%) 2024-11-13 12:12:00.000 98 % Respirations 2025-01-04 11:38:00.000 18 /min Respirations 2024-12-30 11:40:00.000 18 /min Respirations 2024-12-26 11:39:00.000 18 /min Respirations 2024-12-17 10:26:00.000 18 /min Respirations 2024-12-10 13:33:00.000 18 /min Respirations 2024-12-07 13:59:00.000 18 /min Respirations 2024-12-04 16:31:00.000 18 /min Respirations 2024-12-04 11:35:00.000 18 /min Respirations 2024-12-02 08:38:00.000 18 /min Respirations 2024-11-26 10:55:00.000 18 /min Respirations 2024-11-26 08:35:00.000 19 /min Respirations 2024-11-24 11:52:00.000 19 /min Respirations 2024-11-18 13:45:00.000 18 /min Respirations 2024-11-17 12:11:00.000 18 /min Respirations 2024-11-13 12:12:00.000 16 /min Weight (lbs) 2024-11-26 10:55:00.000 241 [lb_av] Weight (lbs) 2024-11-13 12:12:00.000 244 [lb_av] Systolic Blood Pressure 2025-01-04 11:38:00.000 148 mm [Hg] Systolic Blood Pressure 2024-12-30 11:40:00.000 140 mm [Hg] Systolic Blood Pressure 2024-12-26 11:39:00.000 132 mm [Hg] Systolic Blood Pressure 2024-12-17 10:26:00.000 120 mm [Hg] Systolic Blood Pressure 2024-12-10 13:33:00.000 132 mm [Hg] Systolic Blood Pressure 2024-12-07 13:59:00.000 154 mm [Hg] Systolic Blood Pressure 2024-12-04 16:31:00.000 140 mm [Hg] Systolic Blood Pressure 2024-12-04 11:35:00.000 148 mm [Hg] Systolic Blood Pressure 2024-12-02 08:38:00.000 101 mm [Hg] Systolic Blood Pressure 2024-11-26 10:55:00.000 134 mm [Hg] Systolic Blood Pressure 2024-11-26 08:35:00.000 115 mm [Hg] Systolic Blood Pressure 2024-11-24 11:58:00.000 121 mm [Hg] Systolic Blood Pressure 2024-11-18 13:45:00.000 110 mm [Hg] Systolic Blood Pressure 2024-11-17 12:11:00.000 119 mm [Hg] Systolic Blood Pressure 2024-11-13 12:12:00.000 132 mm [Hg] Diastolic Blood Pressure 2025-01-04 11:38:00.000 76 mm [Hg] Diastolic Blood Pressure 2024-12-30 11:40:00.000 80 mm [Hg] Diastolic Blood Pressure 2024-12-26 11:39:00.000 72 mm [Hg] Diastolic Blood Pressure 2024-12-17 10:26:00.000 70 mm [Hg] Diastolic Blood Pressure 2024-12-10 13:33:00.000 74 mm [Hg] Diastolic Blood Pressure 2024-12-07 13:59:00.000 77 mm [Hg] Diastolic Blood Pressure 2024-12-04 16:31:00.000 68 mm [Hg] Diastolic Blood Pressure 2024-12-04 11:35:00.000 72 mm [Hg] Diastolic Blood Pressure 2024-12-02 08:38:00.000 60 mm [Hg] Diastolic Blood Pressure 2024-11-26 10:55:00.000 68 mm [Hg] Diastolic Blood Pressure 2024-11-26 08:35:00.000 62 mm [Hg] Diastolic Blood Pressure 2024-11-24 11:58:00.000 60 mm [Hg] Diastolic Blood Pressure 2024-11-18 13:45:00.000 62 mm [Hg] Diastolic Blood Pressure 2024-11-17 12:11:00.000 64 mm [Hg] Diastolic Blood Pressure 2024-11-13 12:12:00.000 74 mm [Hg] Plan of Treatment Planned Activity Planned Date Details Comments Future Scheduled Test SKILLED NU RSE TO EVALUATE PATIENT, IDENTIFY PRIMARY AND CO-MORBID CONDITIONS CODED PER CODING GUIDELINES INCLUDING ENCOUNTER FOR OTHER ORTHOPEDIC AFTERCARE, SPINAL STENOSIS, LUMBAR REGION WITH NEUROGENIC CLAUDICATION, CHRONIC OBSTRUCTIVE PULMONARY DISEASE, UNSPECIFIED, HYPERTENSIVE CHRONIC KIDNEY DISEASE W STG 1-4/UNSP CHR KDNY, TYPE 2 DIABETES MELLITUS W DIABETIC CHRONIC KIDNEY DISEASE, CHRONIC KIDNEY DISEASE, UNSPECIFIED, AND DEVELOP PATIENT SPECIFIC PLAN OF CARE THAT INCLUDES PATIENT GOAL FOR HOME HEALTH. [code = SKILLED NURSE TO EVALUATE PATIENT, IDENTIFY PRIMARY AND CO-MORBID CONDITIONS CODED PER CODING GUIDELINES INCLUDING ENCOUNTER FOR OTHER ORTHOPEDIC AFTERCARE, SPINAL STENOSIS, LUMBAR REGION WITH NEUROGENIC CLAUDICATION, CHRONIC OBSTRUCTIVE PULMONARY DISEASE, UNSPECIFIED, HYPERTENSIVE CHRONIC KIDNEY DISEASE W STG 1-4/UNSP CHR KDNY, TYPE 2 DIABETES MELLITUS W DIABETIC CHRONIC KIDNEY DISEASE, CHRONIC KIDNEY DISEASE, UNSPECIFIED, AND DEVELOP PATIENT SPECIFIC PLAN OF CARE THAT INCLUDES PATIENT GOAL FOR HOME HEALTH.] Future Scheduled Test [facility] MAY ACCEPT ORDERS FROM THE FOLLOWING PHYSICIANS: ALL PROVIDERS INVOLVED IN CARE [code = HOME HEALTH AGENCY MAY ACCEPT ORDERS FROM THE FOLLOWING PHYSICIANS: ALL PROVIDERS INVOLVED IN CARE] Future Scheduled Test SKILLED NU RSE FOR O/A AND SKILLED TEACHING RELATED TO SIGNS AND SYMPTOMS OF INFECTION AND INFECTION CONTROL MEASURES. [code = SKILLED NURSE FOR O/A AND SKILLED TEACHING RELATED TO SIGNS AND SYMPTOMS OF INFECTION AND INFECTION CONTROL MEASURES.] Future Scheduled Test NO WOUND C ARE ORDERS FOR SURGICAL INCISION TO LOWER BACK. PT/CG TO MONITOR FOR S/S OF INFECTION [code = NO WOUND CARE ORDERS FOR SURGICAL INCISION TO LOWER BACK. PT/CG TO MONITOR FOR S/S OF INFECTION] Future Scheduled Test SKILLED NU RSE TO PROVIDE TEACHING ON SIGNS AND SYMPTOMS AND MANAGEMENT OF HYPERTENSION. [code = SKILLED NURSE TO PROVIDE TEACHING ON SIGNS AND SYMPTOMS AND MANAGEMENT OF HYPERTENSION.] Future Scheduled Test SKILLED NU RSE TO INSTRUCT PATIENT/CAREGIVER ON COPD TO INCLUDE TEACHING AND SELF-MANAGEMENT RELATED TO COPD DISEASE PROCESS, SIGNS AND SYMPTOMS, AND COMPLICATIONS. [code = SKILLED NURSE TO INSTRUCT PATIENT/CAREGIVER ON COPD TO INCLUDE TEACHING AND SELF-MANAGEMENT RELATED TO COPD DISEASE PROCESS, SIGNS AND SYMPTOMS, AND COMPLICATIONS.] Future Scheduled Test VIRTUAL SIT FREQUENCY: 12 PRN VIRTUAL VISITS MAY BE PERFORMED UTILIZING TELECOMMUNICATIONS SYSTEM TO OPTIMIZE SKILLED SERVICES FURNISHED ON THE PLAN OF CARE. SKILLED NURSE TO ESTABLISH SUPPORT MEASURES TO MINIMIZE RISK OF REHOSPITALIZATION, AND INSTRUCT PATIENT/CAREGIVER ON METHODS TO REDUCE AVOIDABLE HOSPITALIZATION. [code = VIRTUAL VISIT FREQUENCY: 12 PRN VIRTUAL VISITS MAY BE PERFORMED UTILIZING TELECOMMUNICATIONS SYSTEM TO OPTIMIZE SKILLED SERVICES FURNISHED ON THE PLAN OF CARE. SKILLED NURSE TO ESTABLISH SUPPORT MEASURES TO MINIMIZE RISK OF REHOSPITALIZATION, AND INSTRUCT PATIENT/CAREGIVER ON METHODS TO REDUCE AVOIDABLE HOSPITALIZATION.] Future Scheduled Test PATIENT BARROS S A RISK OF HOSPITALIZATION AND ED USE. SKILLED NURSE TO ESTABLISH SUPPORT MEASURES TO MINIMIZE RISK OF HOSPITALIZATION AND ED USE, AND INSTRUCT PATIENT/CAREGIVER ON METHODS TO REDUCE AVOIDABLE HOSPITALIZATION AND ED USE. [code = PATIENT HAS A RISK OF HOSPITALIZATION AND ED USE. SKILLED NURSE TO ESTABLISH SUPPORT MEASURES TO MINIMIZE RISK OF HOSPITALIZATION AND ED USE, AND INSTRUCT PATIENT/CAREGIVER ON METHODS TO REDUCE AVOIDABLE HOSPITALIZATION AND ED USE.] Future Scheduled Test SKILLED NU RSE TO PROVIDE INSTRUCTION TO PATIENT/CAREGIVER RELATED TO DISCHARGE PLANNING. [code = SKILLED NURSE TO PROVIDE INSTRUCTION TO PATIENT/CAREGIVER RELATED TO DISCHARGE PLANNING.] Future Scheduled Test SKILLED NU RSE TO PERFORM ENVIRONMENTAL SAFETY RISK ASSESSMENT AND FALL RISK ASSESSMENT AND PROVIDE INSTRUCTION TO IMPLEMENT ENVIRONMENTAL SAFETY AND FALL PREVENTION STRATEGIES THROUGHOUT THE CERTIFICATION PERIOD. SKILLED NURSE WILL MAINTAIN SITUATIONAL AWARENESS AND WILL NOTIFY CLINICAL HALF BACKER AND PHYSICIAN/PROVIDER WITH ANY CHANGE IN CONDITION. [code = SKILLED NURSE TO PERFORM ENVIRONMENTAL SAFETY RISK ASSESSMENT AND FALL RISK ASSESSMENT AND PROVIDE INSTRUCTION TO IMPLEMENT ENVIRONMENTAL SAFETY AND FALL PREVENTION STRATEGIES THROUGHOUT THE CERTIFICATION PERIOD. SKILLED NURSE WILL MAINTAIN SITUATIONAL AWARENESS AND WILL NOTIFY CLINICAL HALF BACKER AND PHYSICIAN/PROVIDER WITH ANY CHANGE IN CONDITION.] Future Scheduled Test SKILLED NU RSE FOR OBSERVATION AND ASSESSMENT OF PATIENT S PAIN LEVEL AND EFFECTIVENESS OF PAIN MANAGEMENT REGIMEN. SKILLED NURSE TO INSTRUCT PATIENT/CAREGIVER REGARDING PHARMACOLOGIC AND NON-PHARMACOLOGIC PAIN CONTROL MEASURES. SKILLED NURSE TO REPORT TO PHYSICIAN IF PAIN LEVEL IS OUTSIDE OF ESTABLISHED PARAMETERS. [code = SKILLED NURSE FOR OBSERVATION AND ASSESSMENT OF PATIENT S PAIN LEVEL AND EFFECTIVENESS OF PAIN MANAGEMENT REGIMEN. SKILLED NURSE TO INSTRUCT PATIENT/CAREGIVER REGARDING PHARMACOLOGIC AND NON-PHARMACOLOGIC PAIN CONTROL MEASURES. SKILLED NURSE TO REPORT TO PHYSICIAN IF PAIN LEVEL IS OUTSIDE OF ESTABLISHED PARAMETERS.] Future Scheduled Test SKILLED NU RSE TO ASSESS PATIENT'S SKIN INTEGRITY AND INSTRUCT PATIENT/CAREGIVER ON MEASURES TO PREVENT PRESSURE ULCERS. [code = SKILLED NURSE TO ASSESS PATIENT'S SKIN INTEGRITY AND INSTRUCT PATIENT/CAREGIVER ON MEASURES TO PREVENT PRESSURE ULCERS.] Future Scheduled Test SKILLED NU RSE TO REVIEW PATIENT MEDICATIONS (PRESCRIPTION/OTC). INSTRUCT PATIENT/CAREGIVER ON ALL MEDICATIONS INCLUDING PURPOSE, WHEN TO TAKE, IMPORTANCE OF MEDICATION ADHERENCE, MONITORING OF EFFECTIVENESS, ADVERSE DRUG REACTIONS, POSSIBLE SIDE EFFECTS, AND WHEN TO NOTIFY AGENCY OR PHYSICIAN/PROVIDER OF ANY CONCERNS. [code = SKILLED NURSE TO REVIEW PATIENT MEDICATIONS (PRESCRIPTION/OTC). INSTRUCT PATIENT/CAREGIVER ON ALL MEDICATIONS INCLUDING PURPOSE, WHEN TO TAKE, IMPORTANCE OF MEDICATION ADHERENCE, MONITORING OF EFFECTIVENESS, ADVERSE DRUG REACTIONS, POSSIBLE SIDE EFFECTS, AND WHEN TO NOTIFY AGENCY OR PHYSICIAN/PROVIDER OF ANY CONCERNS.] Future Scheduled Test PHYSICAL T HERAPIST TO EVALUATE PATIENT SECONDARY TO FUNCTIONAL DEFICITS/SAFETY CONCERNS. PHYSICAL THERAPY TO ESTABLISH /UPGRADE/DOWNGRADE THERAPEUTIC EXERCISE PROGRAM AND INSTRUCT PATIENT/CAREGIVER ON EXERCISE PRECAUTIONS WITH WRITTEN HOME PROGRAM. MAY INCLUDE : AAROM, AROM, RROM APPROPRIATE TO IMPROVE FUNCTIONAL STRENGTH AND RANGE OF MOTION. PHYSICAL THERAPY TO INSTRUCT PATIENT/CAREGIVER ON GAIT TRAINING TECHNIQUES USING APPROPRIATE ASSISTIVE DEVICE, PROPER BODY MECHANICS TO IMPROVE MOBILITY, AND PREVENT INJURY OF PATIENT AND/OR CAREGIVER. PHYSICAL THERAPY TO ASSESS AND RECOMMEND HOME SAFETY ADAPTATIONS AND EDUCATE PATIENT /CAREGIVER ON FALL PREVENTION STRATEGIES. [code = PHYSICAL THERAPIST TO EVALUATE PATIENT SECONDARY TO FUNCTIONAL DEFICITS/SAFETY CONCERNS. PHYSICAL THERAPY TO ESTABLISH /UPGRADE/DOWNGRADE THERAPEUTIC EXERCISE PROGRAM AND INSTRUCT PATIENT/CAREGIVER ON EXERCISE PRECAUTIONS WITH WRITTEN HOME PROGRAM. MAY INCLUDE : AAROM, AROM, RROM APPROPRIATE TO IMPROVE FUNCTIONAL STRENGTH AND RANGE OF MOTION. PHYSICAL THERAPY TO INSTRUCT PATIENT/CAREGIVER ON GAIT TRAINING TECHNIQUES USING APPROPRIATE ASSISTIVE DEVICE, PROPER BODY MECHANICS TO IMPROVE MOBILITY, AND PREVENT INJURY OF PATIENT AND/OR CAREGIVER. PHYSICAL THERAPY TO ASSESS AND RECOMMEND HOME SAFETY ADAPTATIONS AND EDUCATE PATIENT /CAREGIVER ON FALL PREVENTION STRATEGIES.] Goal 2025-01-04 Patient Goal - GET STRONGER Goal Provider Goal - A PLAN OF CARE WILL BE ESTABLISHED THAT MEETS PATIENT'S [facility] NEEDS AND INCLUDES PATIENT GOAL FOR HOME HEALTH. Goal Provider Goal - ADDITIONAL ORDERS WILL BE RECEIVED FROM ALTERNATE PHYSICIAN IN A TIMELY MANNER THROUGHOUT THE CERTIFICATION PERIOD. Goal Provider Goal - PATIENT/CAREGIVER WILL VERBALIZE/DEMONSTRATE UNDERSTANDING OF S/S OF INFECTION AND INFECTION CONTROL MEASURES. SIGNS AND SYMPTOMS OF INFECTION WILL BE IDENTIFIED AND PHYSICIAN NOTIFIED FOR PROMPT INTERVENTION THROUGHOUT THE CERTIFICATION PERIOD. Goal Provider Goal - WOUND CARE WILL BE COMPLETED AND PATIENT WILL HAVE IMPROVED WOUND STATUS EVIDENCED BY NO SIGNS AND SYMPTOMS OF INFECTION, DECREASED WOUND SIZE, AND/OR NO COMPLICATIONS BY THE END OF THE CERTIFICATION PERIOD. Goal Provider Goal - PATIENT/CAREGIVER WILL VERBALIZE SIGNS AND SYMPTOMS OF HYPERTENSION AND WILL BE ABLE TO DEMONSTRATE ABILITY TO MANAGE EXACERBATION BY END OF THE EPISODE. Goal Provider Goal - PATIENT/CAREGIVER WILL VERBALIZE/DEMONSTRATE KNOWLEDGE AND MANAGEMENT OF COPD BY END OF EPISODE. Goal Provider Goal - PATIENT/CAREGIVER WILL UTILIZE VIRTUAL VISITS TO ACHIEVE GOALS OUTLINED ON THE PLAN OF CARE. PATIENT WILL HAVE SUPPORT MEASURES ESTABLISHED TO PREVENT HOSPITALIZATION AND PATIENT/CAREGIVER WILL VERBALIZE/DEMONSTRATE METHODS TO REDUCE AVOIDABLE HOSPITALIZATION THROUGHOUT THE CERTIFICATION PERIOD. Goal Provider Goal - PATIENT WILL HAVE SUPPORT MEASURES ESTABLISHED TO PREVENT HOSPITALIZATION AND ED USE AND PATIENT/CAREGIVER WILL VERBALIZE/DEMONSTRATE METHODS TO REDUCE AVOIDABLE HOSPITALIZATION AND ED USE BY END OF EPISODE. Goal Provider Goal - PATIENT/CAREGIVER WILL VERBALIZE UNDERSTANDING OF DISCHARGE PLANNING INSTRUCTIONS BY DATE OF DISCHARGE. Goal Provider Goal - PATIENT/CAREGIVER WILL VERBALIZE/DEMONSTRATE EFFECTIVE ENVIRONMENTAL SAFETY AND FALL PREVENTION STRATEGIES, WILL REMAIN SAFE IN THE COMMUNITY, AND WILL BE FREE OF DANGER TO SELF AND OTHERS THROUGHOUT THE CERTIFICATION PERIOD. Goal Provider Goal - PATIENT/CAREGIVER WILL DEMONSTRATE UNDERSTANDING OF PHARMACOLOGIC AND NONPHARMACOLOGIC PAIN CONTROL MEASURES AND PATIENT WILL HAVE IMPROVEMENT IN PAIN INTERFERING WITH ACTIVITY EVIDENCED BY PAIN AT A LEVEL THAT IS ACCEPTABLE TO THE PATIENT AND PAIN LEVEL WITHIN ESTABLISHED PARAMETERS BY END OF CERTIFICATION PERIOD. Goal Provider Goal - PATIENT/CAREGIVER WILL VERBALIZE UNDERSTANDING OF PRESSURE ULCER PREVENTION BY END OF THE EPISODE. Goal Provider Goal - PATIENT/CAREGIVER WILL VERBALIZE UNDERSTANDING OF EDUCATION PROVIDED ON MEDICATIONS BY THE END OF THE CERTIFICATION PERIOD. Goal Provider Goal - PHYSICAL THERAPY EVALUATION TO BE COMPLETED WITH RECOMMENDATIONS AND/OR WRITTEN TREATMENT PLAN OF CARE ESTABLISHED FOR THE PHYSICIAN S SIGNATURE PATIENT/CAREGIVER WILL PERFORM THERAPEUTIC EXERCISE/S AND DEMONSTRATE PARTICIPATION IN A HOME PROGRAM. PATIENT/CAREGIVER WILL DEMONSTRATE IMPROVED GAIT TECHNIQUES TO MINIMIZE RISK OF INJURY. PATIENT/CAREGIVER WILL DEMONSTRATE/VERBALIZE UNDERSTANDING OF RECOMMENDATIONS TO INCREASE SAFETY IN THE HOME AND FALL PREVENTION. Reason for Visit INDEPENDENT IN THE COMMUNITY Encounters Start Date/Time End Date/Time Encounter Type Admission Type Attending [facility] Care Department Encounter ID Discharge Date Discharge Status Discharge Condition Discharge Reason Percent Goals Met 2024-11-13 00:00:00 2025-01-04 00:00:00 Outpatient NEW ADMISSION SHASHI CONTRERAS [facility] [id number] 2025-01-04 00:00:00 DISCHARGE TO HOME OR SELF CARE INDEPENDEN T IN THE COMMUNITY GOALS MET ( ONLY) 68.75
--- OUTSIDE RECORDS SUMMARY | 2025-01-04 09:25 | XMS_ITS | Encounter Summary ---
Author Name [place] Address [address] [place] [address] Care Team Providers Care Supervisor [employer] Name Role Phone ITZEL PARNELL Primary Care Provider Unavailabl e Insurance Providers: [...] Doshi's Name Patient's Relationship to Policy Doshi HUMANA MCR (WNR) MEDICARE ADVANTAGE [facility] (WNR) Mar 11, 2018 [id number] [phone] DANA NICHOLS PATIENT HUMANA MCR (WNR) MEDICARE ADVANTAGE [facility] (WNR) Mar 11, 2018 [id number] [place] PATIENT HUMANA MCR (WNR) MEDICARE ADVANTAGE [facility] (WNR) Mar 11, 2018 [id number] KLARISSA DANA PATIENT HUMANA MCR (WNR) MEDICARE ADVANTAGE HUMAN A HEALT H PLAN, Mar 11, 2015 [id number] KLARISSA DANA PATIENT HUMANA [facility] (WNR) MEDICARE ADVANTAGE [facility] Mar 11, 2015 [id number] [phone] DANA NICHOLS PATIENT Selected Encounter This section includes the information on record at [place] for the Encounter. Date/Time Encounter Type Encounter Description Reason Pro vider Source Jan 04, 2025 02:25 PM Outpatient Encounter COMMUNITY CARE CONSULT IHE Encounter Template Text not used by [place] Plan of Treatment: Future Appointments (+ 6 months) and Future Tests (+/- 45 days) The Plan of Treatment section includes future care activities for the patient from all [place] treatmentfacilities. This section includes future appointments and future orders which are active, pending or scheduled. Future Appointments This section includes appointments that were scheduled to occur 6 months from the date of the Encounter, up to a maximum of 20 appointments. The data comes from all [place] treatment facilities. Appointment Date/Time Appointment Type Appointme nt Facility Name Jan 05, 2025 11:00 AM AMBULATORY - MEDICINE [facility] Jan 18, 2025 01:00 PM AMBULATORY - MEDICINE [facility] Feb 09, 2025 08:00 AM AMBULATORY - MEDICINE [facility] Active, Pending, and Scheduled Orders This section includes a listing of several types of active, pending, and scheduled orders, including clinic medications orders, diagnostic test orders, procedure orders and consult orders; where the start date of the order is 45 days before the date of the Encounter or 45 days after the date of theEncounter. The data comes from all [place] treatment [facility]. Test Date/Time Test Type Test Details Facility Name Dec 29, 2024 03:23 PM Consult Order COMMUNITY CARE-ORTHOPEDICS 657A4 Cons [place] Painter[facility] Choice [facility] Jan 01, 2025 12:45 PM Consult Order COMMUNITY CARE-OPHTH DIS MGMT 657A4 Cons [place] [facility] Jan 01, 2025 12:45 PM Consult Order COMMUNITY CARE-OPTOMETRY ROUTINE 657A4 Cons [place] Painter's [facility] Jan 01, 2025 12:45 PM Consult Order COMMUNITY CARE-PAIN 657A4 [facility] [place] Painter's [facility] Lab Results: +/- 30 days of the encounter This section includes the Chemistry and Hematology Lab Results on record with [place] for the patient. Radiology Reports and Pathology Reports are provided separately, in subsequent sections. Lab Results This section contains the Chemistry/Hematology Results that were resulted 30 days before or 30 daysafter the date of the Encounter. Date/Time Source Result Type Result - Unit Interpretation Reference Range Specimen Type Comment Jan 01, 2025 11:59 AM [place] [facility] URINE ALBUMIN PROFILE-ih (PB) URINE Specimen Type: URINE No comment entered. Ordering Provider: ITZEL PARNELL Report Released Date/Time: Jan 01, 2025 11:58 AM Reporting Lab: [place] [facility] [address] [place] [address] Performing Lab: [place] [facility] [address] [place] [address] URINE ALBUMIN (PB-STL) 136.36 mg/L uACR (PB-MA) 766.50 mg/g H 0-30 CREATININE URINE/OTHERS 17.79 mg/dL Jan 01, 2025 11:51 AM [place] [facility] TSH (MA-PB) SERUM Specimen Ty pe: SERUM No comment entered. Ordering Provider: NOE WU Report Released Date/Time: Dec 30, 2024 11:11 AM Reporting Lab: [place] [facility] [address] [place] [address] Performing Lab: [place] [facility] [address] [place] [address] TSH 2.832 u[IU]/mL 0.47-5 Jan 01, 2025 11:51 AM [place] [facility] HGA1C BLOO D Specimen Type: BLOOD No comment entered. Ordering Provider: NOE WU Report Released Date/Time: Dec 30, 2024 11:11 AM Reporting Lab: [place] [facility] [address] [place] [address] Performing Lab: [place] [facility] [address] [place] [address] HGA1C 5.9 4.0-6.0 Jan 01, 2025 11:51 AM [place] [facility] CHOLESTEROL PANEL (PB) PLASMA Specimen Type: P LASMA No comment entered. Ordering Provider: NOE WU Report Released Date/Time: Dec 30, 2024 11:11 AM Reporting Lab: [place] [facility] [address] [place] [address] Performing Lab: [place] [facility] [address] [place] [address] CHOLESTEROL 111 mg/dL 0-200 TRIGLYCERIDE 140 mg/dL 0-150 CALCULATED LDL 52.5 mg/dL HDL(New) 30.5 mg/dL L >40 HDL % OF TOTAL CHOLESTEROL (PB) 27.5 >25 Jan 01, 2025 11:51 AM [facility] COMPREHENSIVE METABOLIC PANEL PLASMA Specimen Type: PLASMA No comment entered. Ordering Provider: NOE WU Report Released Date/Time: Dec 30, 2024 11:11 AM Reporting Lab: [place] [facility] [address] [place] [address] Performing Lab: [place] [facility] [address] [place] [address] CREATININE 1.33 mg/dL H 0.7-1.3 UREA NITROGEN [...] 2020) 55 Jan 01, 2025 11:51 AM [facility] CBC BLOO D Specimen Type: BLOOD No comment entered. Ordering Provider: NOE WU Report Released Date/Time: Dec 30, 2024 11:11 AM Reporting Lab: [place] [facility] [address] [place] [address] Performing Lab: [place] [facility] [address] [place] [address] WBC 7.0 10*3/uL 3.6-11.2 RBC 3.62 10*6/uL [...] 0. 00-0.05 Jan 01, 2025 11:51 AM [facility] MAGNESIUM PLASMA Specimen Typ e: PLASMA No comment entered. Ordering Provider: ITZEL PARNELL Report Released Date/Time: Jan 01, 2025 11:49 AM Reporting Lab: [place] [facility] [address] [place] [address] Performing Lab: [place] [facility] [address] [place] [id number] MAGNESIUM 2.14 mg/dL 1.6-2.6 Jan 01, 2025 11:51 AM [facility] B12 SERUM Specimen Type: SERUM No comment entered. Ordering Provider: ITZEL PARNELL Report Released Date/Time: Jan 01, 2025 11:49 AM Reporting Lab: [place] [facility] [address] [place] [facility] Performing Lab: [place] [facility] [address] [place] [id number] B12 388 pg/mL 213-816 Jan 01, 2025 11:51 AM [facility] VITAMIN D, 25-HYDROXY SERUM Specimen Type: SE RUM No comment entered. Ordering Provider: ITZEL PARNELL Report Released Date/Time: Jan 01, 2025 11:49 AM Reporting Lab: [place] [facility] [address] [place] [address] Performing Lab: [place] [facility] [address] [place] [address] VITAMIN D, 25-HYDROXY 45.1 ng/mL 30-96 Social History: Smoking Status (Most current) and Tobacco Use (All prior to encounter date) This section includes the most current, and the historical, smoking and tobacco- related health factors from the [place] facility where the Encounter took place. Current Smoking Status This section includes the most current smoking, or tobacco-related health factor, from the [place] facility where the Encounter took place. Date/Time Current Smoking Status Comment Facil ity Jan 17, 2008 09:01 AM CURRENT TOBACCO USER [facility] Tobacco Use History This section includes a history of the smoking, or tobacco-related health factors, that were collected on or before the date of the Encounter. The data comes from the [place] facility where the Encounter took place. Date/Time Smoking Status/Tobacco Use Comment F acility Jul 01, 2007 03:[address] [facility] Jul 01, 2007 03:56 [facility] Advance Directives: All historical and current Section Date Range: From patient's date of to the date document was created. This section includes ALL of a patient's completed or amended [place] Advance and Rescinded Directives. The entries below indicate that a directive exists for the patient, but an actual copy is not included with this document. The data comes from all [place] facilities. Date Advance Directives Provider Source Jun 22, 2020 ADVANCE DIRECTIVE ARIN ALVARADO SASHA [facility] Encounter Notes: All associated encounter notes This section contains the clinical notes associated to the Encounter. Date/Time Encounter Note(s) Provider Source Jan 04, 2025 02:25 PM LETTERS: LOCAL TITLE: COMMUNITY CARE-REFERRAL PB (AUTO-PRINT) STANDARD TITLE: LETTERS DATE OF NOTE: JAN 04, 2025@14:25:09 ENTRY DATE: JAN 04, 2025@14:25:09 AUTHOR: DANA NGUYENIGNER: URGENCY: STATUS: COMPLETED Dana Nichols [address] [place], [place] [address] Dear DANA NICHOLS, Your VA provider has referred you to a provider within the community for care. Your medical care for Optometry has been authorized with the Community Care Provider listed below. DO NOT REPORT TO THE [facility] Provider info: An appointment has been scheduled for you on: Jan 05, 2025 11:00 AM Constantino Loredo Eyeprema Meeks [address] [place] [address] Referral Number: [id number] Referral Issue Date: 2025-01-04 Expiration Date: 2026-01-05 If you are unable to keep this appointment or the appointment is no longer needed, please contact the community provider above for notification/rescheduling and then call the Ranjit Mata [place] Community Care Office at [phone] ext [phone]. If you need additional care/services not mentioned above, please contact your primary care provider for a new referral. Co-Payments: If you are required to pay a VA co-payment, you will be billed by the VA for each authorized visit that you attend. However, you are NOT REQUIRED to make co-payments to a Community Provider. Prescriptions: Your community provider may write a prescription related to the authorized care. If there is an immediate need for your prescriptions from your community care visit, you may be able to get up to a 14-day fill of your prescription at your own expense for the cost of the medication, and may seek reimbursement from the VA. If you require more than a 14-day supply or if the prescribed medication is not immediately needed, your community provider will send a prescription to a VA pharmacy so that the VA can provide you with your routine medication. In-network locations can be found at https://www.va.gov/find-loc ations/ Medical Devices: Your community provider may recommend that medical devices, adapted equipment, or other items be provided for the treatment or rehabilitation of your medical condition. Veterans are generally required to obtain these items through the Prosthetics and Sensory Aids Service (PSAS) in your referring facility. Emergency/Inpatient Services: You, your community provider, or your family must provide notification within 72hr or ER visit and/or admission by [phone]. Thank you for the opportunity to serve you and for your service to our great nation! Dana Mata [facility] Care in the Community [address] [facility] [place] [address] DA[address] [facility]
--- OUTSIDE RECORDS SUMMARY | 2025-01-05 09:02 | XMS_ITS | Encounter Summary ---
Author Name [place] Organization [place] Address [address] [place] [address] Care Team Providers [employer] Professional Name Role Phone ITZEL PARNELL Primary Care [...] Policy Doshi HUMANA MCR (WNR) MEDICARE ADVANTAGE [facility] (WNR) Mar 11, 2018 [id number] [phone] DANA NICHOLS PATIENT HUMANA [facility] (WNR) MEDICARE ADVANTAGE [facility] (WNR) Mar 11, 2018 [id number] KLARISSA DANA PATIENT HUMANA MCR (WNR) MEDICARE ADVANTAGE [facility] (WNR) Mar 11, 2018 [id number] KLARISSA DANA PATIENT HUMANA MCR (WNR) MEDICARE ADVANTAGE HUMAN A HEALT H PLAN, Mar 11, 2015 [id number] KLARISSA DANA PATIENT HUMANA [facility] (WNR) MEDICARE ADVANTAGE [facility] Mar 11, 2015 [id number] [phone] DANA NICHOLS PATIENT Selected Encounter This section includes the information on record at [place] for the Encounter. Date/Time Encounter Type Encounter Description Reason Pro vider Source Jan 05, 2025 02:02 PM Outpatient Encounter ADMIN PAT ACTIVTIES (MASNONCT) IHE Encounter Template Text not used by [place] Plan of Treatment: Future Appointments (+ 6 months) and Future Tests (+/- 45 days) The Plan of Treatment section includes future care activities for the patient from all [place] treatmentfacilities. This section includes future appointments and future orders which are active, pending or scheduled. Future Appointments This section includes appointments that were scheduled to occur 6 months from the date of the Encounter, up to a maximum of 20 appointments. The data comes from all [place] treatment facilities. Appointment Date/Time Appointment Type Appointme nt Facility Name Jan 18, 2025 01:00 PM AMBULATORY - MEDICINE [facility] Feb 09, 2025 08:00 AM AMBULATORY - MEDICINE [facility] Active, Pending, and Scheduled Orders This section includes a listing of several types of active, pending, and scheduled orders, including clinic medications orders, diagnostic test orders, procedure orders and consult orders; where the start date of the order is 45 days before the date of the Encounter or 45 days after the date of theEncounter. The data comes from all [place] treatment facilities. Test Date/Time Test Type Test Details Facility Name Dec 29, 2024 03:23 PM Consult Order COMMUNITY CARE-ORTHOPEDICS 657A4 Cons [facility] Jan 01, 2025 12:45 PM Consult Order COMMUNITY CARE-OPHTH DIS MGMT 657A4 Cons Cad Librarian's [facility] Jan 01, 2025 12:45 PM Consult Order COMMUNITY CARE-OPTOMETRY ROUTINE 657A4 Cons Cad Librarian's [facility] Jan 01, 2025 12:45 PM Consult Order COMMUNITY CARE-PAIN 657A4 [facility] Cad Librarian's [facility] Lab Results: +/- 30 days of the encounter This section includes the Chemistry and Hematology Lab Results on record with [place] for the patient. Radiology Reports and Pathology [...] 11:58 AM Reporting Lab: [place] [facility] [address] [place] [address] Performing Lab: [place] [facility] [address] [place] [address] URINE ALBUMIN (PB-STL) 136.36 mg/L uACR (PB-MA) 766.50 mg/g H 0-30 CREATININE URINE/OTHERS 17.79 mg/dL Jan 01, 2025 11:51 AM [place] [facility] TSH (MA-PB) SERUM Specimen Ty pe: SERUM No comment entered. Ordering Provider: NOE WU Report Released Date/Time: Dec 30, 2024 11:11 AM Reporting Lab: [place] [facility] [address] [place] [address] Performing Lab: [place] [facility] [address] [place] [address] TSH 2.832 u[IU]/mL 0.47-5 Jan 01, 2025 11:51 AM [place] [facility] HGA1C BLOO D Specimen Type: BLOOD No comment entered. Ordering Provider: NOE WU Report Released Date/Time: Dec 30, 2024 11:11 AM Reporting Lab: [place] [facility] [address] [place] [address] Performing Lab: [place] [facility] [address] [place] [address] HGA1C 5.9 4.0-6.0 Jan 01, 2025 11:51 AM [place] [facility] CHOLESTEROL PANEL (PB) PLASMA Specimen Type: P LASMA No comment entered. Ordering Provider: NOE WU Report Released Date/Time: Dec 30, 2024 11:11 AM Reporting Lab: [place] [facility] [address] [place] [address] Performing Lab: [place] [facility] [address] [place] [address] CHOLESTEROL 111 mg/dL 0-200 TRIGLYCERIDE 140 mg/dL 0-150 CALCULATED LDL 52.5 mg/dL HDL(New) 30.5 mg/dL L >40 HDL % OF TOTAL CHOLESTEROL (PB) 27.5 >25 Jan 01, 2025 11:51 AM [facility] COMPREHENSIVE METABOLIC PANEL PLASMA Specimen Type: PLASMA No comment entered. Ordering Provider: NOE WU Report Released Date/Time: Dec 30, 2024 11:11 AM Reporting Lab: [place] [facility] [address] [place] [address] Performing Lab: [place] [facility] [address] [place] [address] CREATININE 1.33 mg/dL H 0.7-1.3 UREA NITROGEN [...] 2020) 55 Jan 01, 2025 11:51 AM [facility] CBC BLOO D Specimen Type: BLOOD No comment entered. Ordering Provider: NOE WU Report Released Date/Time: Dec 30, 2024 11:11 AM Reporting Lab: [place] [facility] [address] [place] [address] Performing Lab: [place] [facility] [address] [place] [address] WBC 7.0 10*3/uL 3.6-11.2 RBC 3.62 10*6/uL [...] 0. 00-0.05 Jan 01, 2025 11:51 AM [facility] MAGNESIUM PLASMA Specimen Typ e: PLASMA No comment entered. Ordering Provider: ITZEL PARNELL Report Released Date/Time: Jan 01, 2025 11:49 AM Reporting Lab: [place] [facility] [address] [place] [address] Performing Lab: [place] [facility] [address] [place] [address] MAGNESIUM 2.14 mg/dL 1.6-2.6 Jan 01, 2025 11:51 AM [facility] B12 SERUM Specimen Type: SERUM No comment entered. Ordering Provider: ITZEL PARNELL Report Released Date/Time: Jan 01, 2025 11:49 AM Reporting Lab: [place] [facility] [address] [place] [address] Performing Lab: [place] [facility] [address] [place] [address] B12 388 pg/mL 213-816 Jan 01, 2025 11:51 AM [facility] VITAMIN D, 25-HYDROXY SERUM Specimen Type: SE RUM No comment entered. Ordering Provider: ITZEL PARNELL Report Released Date/Time: Jan 01, 2025 11:49 AM Reporting Lab: [place] [facility] [address] [place] [address] Performing Lab: [place] [facility] [address] [place] [address] VITAMIN D, 25-HYDROXY 45.1 ng/mL 30-96 Social History: Smoking Status (Most current) and Tobacco Use (All prior to encounter date) This section includes the most current, and the historical, smoking and tobacco- related health factors from the [place] facility where the Encounter took place. Current Smoking Status This section includes the most current smoking, or tobacco-related health factor, from the [place] facility where the Encounter took place. Date/Time Current Smoking Status Comment Facil ity Jan 17, 2008 09:01 AM CURRENT TOBACCO USER [facility] Tobacco Use History This section includes a history of the smoking, or tobacco-related health factors, that were collected on or before the date of the Encounter. The data comes from the [place] facility where the Encounter took place. Date/Time Smoking Status/Tobacco Use Comment F acility Jul 01, 2007 03:56 PM CURRENT [facility]ACCO [facility] Jul 01, 2007 03:56 [facility] Advance Directives: All historical and current Section Date Range: From patient's date of to the date document was created. This section includes ALL of a patient's completed or amended [place] Advance and Rescinded Directives. The entries below indicate that a directive exists for the patient, but an actual copy is not included with this document. The data comes from all [facility]. Date Advance Directives Provider Source Jun 22, 2020 ADVANCE DIRECTIVE ARIN ALVARADOU [facility] Encounter Notes: All associated encounter notes This section contains the clinical notes associated to the Encounter. Date/Time Encounter Note(s) Provider Source Jan 05, 2025 02:02 PM LETTERS: LOCAL TITLE: NO CONTACT LETTER STANDARD TITLE: LETTERS DATE OF NOTE: JAN 05, 2025@14:02 ENTRY DATE: JAN 05, 2025@14:02:12 AUTHOR: ZACH DELA CRUZ COSIGNER: URGENCY: STATUS: COMPLETED JAN 05, 2025 DANA NICHOLS [address] [place], [place] [address] Dear Dana Nichols, Thank you for choosing the [facility] as your primary choice for health care. As a partner in your health care, we are attempting to contact you because we have been unsuccessful in reaching you by phone to schedule your clinic appointment. Please call us at ext [phone] ,to speak to us regarding making an appointment in the [facility]. Your good health is important to us. Please contact us within 2 weeks from the date of this letter. Please call to scheduled 2025 Annual Appointment, on or near January 04, 2026. Sincerely, [facility] ZACH DELA CRUZ [facility]
--- OUTSIDE RECORDS SUMMARY | 2025-01-06 04:22 | XMS_ITS | Encounter Summary ---
Author Name [facility] [place] [facility] [place] Address [address] [facility] [place] [address] Care Team Providers Care Art Gilder Name Role Phone ITZEL PARNELL Primary Care [...] Policy Doshi [employer] [facility] (WNR) MEDICARE ADVANTAGE [facility] (WNR) Mar 11, 2018 [id number] [phone] DANA NICHOLS PATIENT [employer] [facility] (WNR) MEDICARE ADVANTAGE [facility] (WNR) Mar 11, 2018 [id number] KLARISSADANA PATIENT [employer] MCR (WNR) MEDICARE ADVANTAGE [facility] (WNR) Mar 11, 2018 [id number] KLARISSA DANA PATIENT [employer] [facility] (WNR) MEDICARE ADVANTAGE HUMAN A HEALT H PLAN, Mar 11, 2015 [id number] KLARISSA DANA PATIENT HUMANA [facility] (WNR) MEDICARE ADVANTAGE [facility] Mar 11, 2015 [id number] [phone] DANA NICHOLS PATIENT Selected Encounter This section includes the information on record at [place] for the Encounter. Date/Time Encounter Type Encounter Description Reason Pro vider Source Jan 06, 2025 09:22 AM Outpatient Encounter COMMUNITY CARE CONSULT IHE Encounter Template Text not used by [place] Plan of Treatment: Future Appointments (+ 6 months) and Future Tests (+/- 45 days) The Plan of Treatment section includes future care activities for the patient from all [place] treatmentfacilities. This section includes future appointments and future orders which are active, pending or scheduled. Future Appointments This section includes appointments that were scheduled to occur 6 months from the date of the Encounter, up to a maximum of 20 appointments. The data comes from all [place] treatment facilities. Appointment Date/Time Appointment Type Appointme nt Facility Name Jan 18, 2025 01:00 PM AMBULATORY - MEDICINE [facility] Feb 09, 2025 08:00 AM AMBULATORY - MEDICINE [facility] Active, Pending, and Scheduled Orders This section includes a listing of several types of active, pending, and scheduled orders, including clinic medications orders, diagnostic test orders, procedure orders and consult orders; where the start date of the order is 45 days before the date of the Encounter or 45 days after the date of theEncounter. The data comes from all [place] treatment facilities. Test Date/Time Test Type Test Details Facility Name Dec 29, 2024 03:23 PM Consult Order COMMUNITY CARE-ORTHOPEDICS 657A4 [facility] [place] Department [facility] Jan 01, 2025 12:45 PM Consult Order COMMUNITY CARE-OPHTH DIS MGMT [id number] Cons [place] Department Supervisor's [facility] Jan 01, 2025 12:45 PM Consult Order COMMUNITY CARE-OPTOMETRY ROUTINE [id number] Cons [place] Department Supervisor's [facility] Jan 01, 2025 12:45 PM Consult Order COMMUNITY CARE-PAIN [id number] [place] Department Supervisor's [facility] Lab Results: +/- 30 days of the encounter This section includes the Chemistry and Hematology Lab Results on record with [place] for the patient. Radiology Reports and Pathology [...] 11:58 AM Reporting Lab: [place] [facility] [address] [place] [address] Performing Lab: [place] [facility] [address] [place] [address] URINE ALBUMIN (PB-STL) 136.36 mg/L uACR (PB-MA) 766.50 mg/g H 0-30 CREATININE URINE/OTHERS 17.79 mg/dL Jan 01, 2025 11:51 AM [place] [facility] TSH (MA-PB) SERUM Specimen Ty pe: SERUM No comment entered. Ordering Provider: NOE WU Report Released Date/Time: Dec 30, 2024 11:11 AM Reporting Lab: [place] [facility] [address] [place] [address] Performing Lab: [place] [facility] [address] [place] [address] TSH 2.832 u[IU]/mL 0.47-5 Jan 01, 2025 11:51 AM [place] [facility] HGA1C BLOO D Specimen Type: BLOOD No comment entered. Ordering Provider: NOE WU Report Released Date/Time: Dec 30, 2024 11:11 AM Reporting Lab: [place] [facility] [address] [place] [address] Performing Lab: [place] [facility] [address] [place] [address] HGA1C 5.9 4.0-6.0 Jan 01, 2025 11:51 AM [place] [facility] CHOLESTEROL PANEL (PB) PLASMA Specimen Type: P LASMA No comment entered. Ordering Provider: NOE WU Report Released Date/Time: Dec 30, 2024 11:11 AM Reporting Lab: [place] [facility] [address] [place] [address] Performing Lab: [place] [facility] [address] [place] [address] CHOLESTEROL 111 mg/dL 0-200 TRIGLYCERIDE 140 mg/dL 0-150 CALCULATED LDL 52.5 mg/dL HDL(New) 30.5 mg/dL L >40 HDL % OF TOTAL CHOLESTEROL (PB) 27.5 >25 Jan 01, 2025 11:51 AM [facility] COMPREHENSIVE METABOLIC PANEL PLASMA Specimen Type: PLASMA No comment entered. Ordering Provider: NOE WU Report Released Date/Time: Dec 30, 2024 11:11 AM Reporting Lab: [place] [facility] [address] [place] [address] Performing Lab: [place] [facility] [address] [place] [address] CREATININE 1.33 mg/dL H 0.7-1.3 UREA NITROGEN [...] 2020) 55 Jan 01, 2025 11:51 AM [facility] CBC BLOO D Specimen Type: BLOOD No comment entered. Ordering Provider: NOE WU Report Released Date/Time: Dec 30, 2024 11:11 AM Reporting Lab: [place] [facility] [address] [place] [address] Performing Lab: [place] [facility] [address] [place] [address] WBC 7.0 10*3/uL 3.6-11.2 RBC 3.62 10*6/uL [...] 0. 00-0.05 Jan 01, 2025 11:51 AM [facility] MAGNESIUM PLASMA Specimen Typ e: PLASMA No comment entered. Ordering Provider: ITZEL PARNELL Report Released Date/Time: Jan 01, 2025 11:49 AM Reporting Lab: [place] [facility] [address] [place] [address] Performing Lab: [place] [facility] [address] [place] [address] MAGNESIUM 2.14 mg/dL 1.6-2.6 Jan 01, 2025 11:51 AM [facility] B12 SERUM Specimen Type: SERUM No comment entered. Ordering Provider: ITZEL PARNELL Report Released Date/Time: Jan 01, 2025 11:49 AM Reporting Lab: [place] [facility] [address] [place] [address] Performing Lab: [place] [facility] [address] [place] [address] B12 388 pg/mL 213-816 Jan 01, 2025 11:51 AM [facility] VITAMIN D, 25-HYDROXY SERUM Specimen Type: SE RUM No comment entered. Ordering Provider: ITZEL PARNELL Report Released Date/Time: Jan 01, 2025 11:49 AM Reporting Lab: [place] [facility] [address] [place] [address] Performing Lab: [place] [facility] [address] [place] [address] VITAMIN D, 25-HYDROXY 45.1 ng/mL 30-96 Social History: Smoking Status (Most current) and Tobacco Use (All prior to encounter date) This section includes the most current, and the historical, smoking and tobacco- related health factors from the [place] facility where the Encounter took place. Current Smoking Status This section includes the most current smoking, or tobacco-related health factor, from the [place] facility where the Encounter took place. Date/Time Current Smoking Status Comment Facil ity Jan 17, 2008 09:01 AM CURRENT TOBACCO USER [facility] Tobacco Use History This section includes a history of the smoking, or tobacco-related health factors, that were collected on or before the date of the Encounter. The data comes from the [place] facility where the Encounter took place. Date/Time Smoking Status/Tobacco Use Comment F acility Jul 01, 2007 03:56 PM CURRENT TOBACCO USER [facility] Jul 01, 2007 03[facility]56 [facility] Advance Directives: All historical and current Section Date Range: From patient's date of to the date document was created. This section includes ALL of a patient's completed or amended [place] Advance and Rescinded Directives. The entries below indicate that a directive exists for the patient, but an actual copy is not included with this document. The data comes from all [place] facilities. Date Advance Directives Provider Source Jun 22, 2020 ADVANCE DIRECTIVE ARIN ALVARADOMICHELLE SASHA [facility] Encounter Notes: All associated encounter notes This section contains the clinical notes associated to the Encounter. Date/Time Encounter Note(s) Provider Source Jan 06, 2025 09:22 AM LETTERS: LOCAL TITLE: COMMUNITY CARE-REFERRAL PB (AUTO-PRINT) STANDARD TITLE: LETTERS DATE OF NOTE: JAN 06, 2025@09:22:58 ENTRY DATE: JAN 06, 2025@09:22:58 AUTHOR: MELISSA CHÁVEZ COSIGNER: URGENCY: STATUS: COMPLETED Dana Nichols [address] [place], [place] [address] Dear DANA NICHOLS, Your VA provider has referred you to a provider within the community for care. Your medical care for PAIN MANAGEMENT has been authorized with the Community Care Provider listed below. DO NOT REPORT TO THE [facility] Provider info: An appointment has been scheduled for you on: Jan 18, 2025 01:00 PM Office Name: [facility] Address: [address] [facility] Address: [place] [address] Phone Number: [phone] Auth #: [id number] Referral Issue Date: 01/04/2025 Expiration Date: 01/18/2026 If you are unable to keep this appointment or the appointment is no longer needed, please contact the community provider above for notification/rescheduling and then call the Ranjit Mata [place] Community Care Office at [phone] Ext [phone]. If you need additional care/services not mentioned [...] medication. In-network locations can be found at https://www.va.gov/find-locat ions/ Medical Devices: Your community provider may recommend [...] 72hr or ER visit and/or admission by [phone]. Thank you for the opportunity to serve you and for your service to our great nation! Melissa Mata [facility] Care in the Community [address] [place], [place] [address] MELISSA CHÁVEZ [facility]
--- OUTSIDE RECORDS SUMMARY | 2025-01-06 06:52 | XMS_ITS | Encounter Summary ---
Author Name [facility] [place] [facility] [place] [facility] [place] Address [address] [place] [address] Care Team Providers Care Child Welfare Specialist Name Role Phone YOLANDA ABRAHAM Primary Care [...] Name Patient's Relationship to Policy Doshi [facility] (WNR) MEDICARE ADVANTAGE [facility] ([facility]) Mar 11, 2018 [id number] [phone] NICHOLSDANA SANTOS PATIENT [facility] (WNR) MEDICARE ADVANTAGE [facility] (R) Mar 11, 2018 [id number] KLAR[place]ADANA PATIENT [facility] (WNR) MEDICARE ADVANTAGE [facility] (WNR) Mar 11, 2018 [id number] KLARISSADANA [facility] (WNR) MEDICARE ADVANTAGE HUMAN A HEALT H PLAN, Mar 11, 2015 [id number] [place]AR[place]ADA[place] PATIENT [facility] (WNR) MEDICARE ADVANTAGE [facility] Mar 11, 2015 [id number] [phone] DANA NICHOLS PATIENT Selected Encounter This section includes the information on record at [place] for the Encounter. Date/Time Encounter Type Encounter Description Reason Provider Source Jan 06, 2025 11:52 AM PH1 ASSMT&MGMT NQHP 5-10 TELEPHONE PRIMARY CARE ICD-10-CM R79.89 Other specified abnormal findings of blood chemistry BAM RAMIREZ IHLuna Encounter Template Text not used by [place] Assessments - Encounter Diagnoses This section includes the primary and secondary diagnoses documented for the Encounter. Date/Time Primary/Secondary Diagnosis Diagnosis Name Provider Source Jan 06, 2025 11:52 AM PRIMARY Other specified abnormal findings of blood chemistry SANDRA RAMIREZ [facility] Plan of Treatment: Future Appointments (+ 6 months) and Future Tests (+/- 45 days) The Plan of Treatment section includes future care activities for the patient [facility] This section includes future appointments and future orders which are active, pending or scheduled. Future Appointments This section includes appointments that were scheduled to occur 6 months from the date of the Encounter, up to a maximum of 20 appointments. The data comes from all [place] treatment facilities. Appointment Date/Time Appointment Type Appointme nt Facility Name Jan 18, 2025 01:00 PM [facility] Feb 09, 2025 08:00 AM [facility]ATORY - MEDIC[facility] Active, Pending, and Scheduled Orders This section includes a listing of several types of active, pending, and scheduled orders, including clinic medications orders, diagnostic test orders, procedure orders and consult orders; where the start date of the order is 45 days before the date of the Encounter or 45 days after the date of theEncounter. The data comes from all [place] treatment facilities. Test Date/Time Test Type Test Details Facility Name Dec 29, 2024 03:23 PM Consult Order COMMUNITY CARE-ORTHOPEDICS [id number] [facility] Jan 01, 2025 12:45 PM Consult Order COMMUNITY CARE-OPHTH DIS MGMT [id number] Cons [facility] Jan 01, 2025 12:45 PM Consult Order COMMUNITY CARE-OPTOMETRY ROUTINE [id number] [facility] Jan 01, 2025 12:45 PM Consult Order COMMUNITY CARE-PAIN [id number] [facility] Lab Results: +/- 30 days of the encounter This section includes the Chemistry and Hematology Lab Results on record with [facility] for the patient. Radiology Reports and Pathology Reports are provided separately, in subsequent sections. Lab Results This section contains the Chemistry/Hematology Results that were resulted 30 days before or 30 daysafter the date of the Encounter. Date/Time Source Result Type Result - Unit Interpretation Reference Range Specimen Type Comment Jan 01, 2025 11:59 AM [facility] URINE ALBUMIN PROFILE-ih (PB) URINE Specimen Type: URINE No comment entered. Ordering Provider: YOLANDA ABRAHAM Report Released Date/Time: Jan 01, 2025 11:58 AM Reporting Lab: [place] [facility] [address] [place] [address] Performing Lab: [place] [facility] [address] [place] [address] URINE ALBUMIN (PB-STL) 136.36 mg/L uACR (PB-MA) 766.50 mg/g H 0-30 CREATININE URINE/OTHERS 17.79 mg/dL Jan 01, 2025 11:51 AM [place] [facility] TSH (MA-PB) SERUM Specimen Ty pe: SERUM No comment entered. Ordering Provider: NOE WU Report Released Date/Time: Dec 30, 2024 11:11 AM Reporting Lab: [place] [facility] [address] [place] [address] Performing Lab: [place] [facility] [address] [place] [address] TSH 2.832 u[IU]/mL 0.47-5 Jan 01, 2025 11:51 AM [place] [facility] HGA1C BLOO D Specimen Type: BLOOD No comment entered. Ordering Provider: NOE WU Report Released Date/Time: Dec 30, 2024 11:11 AM Reporting Lab: [place] [facility] [address] [place] [address] Performing Lab: [place] [facility] [address] [place] [address] HGA1C 5.9 4.0-6.0 Jan 01, 2025 11:51 AM [place] [facility] CHOLESTEROL PANEL (PB) PLASMA Specimen Type: P LASMA No comment entered. Ordering Provider: NOE WU Report Released Date/Time: Dec 30, 2024 11:11 AM Reporting Lab: [place] [facility] [address] [place] [address] Performing Lab: [place] [facility] [address] [place] [address] CHOLESTEROL 111 mg/dL 0-200 TRIGLYCERIDE 140 mg/dL 0-150 CALCULATED LDL 52.5 mg/dL HDL(New) 30.5 mg/dL L >40 HDL % OF TOTAL CHOLESTEROL (PB) 27.5 >25 Jan 01, 2025 11:51 AM [place] [facility] COMPREHENSIVE METABOLIC PANEL PLASMA Specimen Type: PLASMA No comment entered. Ordering Provider: NOE WU Report Released Date/Time: Dec 30, 2024 11:11 AM Reporting Lab: [place] [facility] [address] [place] [address] Performing Lab: [place] [facility] [address] [place] [address] CREATININE 1.33 mg/dL H 0.7-1.3 UREA NITROGEN [...] 2020) 55 Jan 01, 2025 11:51 AM [place] [facility] CBC BLOO D Specimen Type: BLOOD No comment entered. Ordering Provider: NOE WU Report Released Date/Time: Dec 30, 2024 11:11 AM Reporting Lab: [place] [facility] [address] [place] [address] Performing Lab: [place] [facility] [address] [place] [address] WBC 7.0 10*3/uL 3.6-11.2 RBC 3.62 10*6/uL [...] 0. 00-0.05 Jan 01, 2025 11:51 AM [facility] MAGNESIUM PLASMA Specimen Typ e: PLASMA No comment entered. Ordering Provider: YOLANDA ABRAHAM Report Released Date/Time: Jan 01, 2025 11:49 AM Reporting Lab: [place] [facility] [address] [place] [address] Performing Lab: [place] [facility] [address] [place] [address] MAGNESIUM 2.14 mg/dL 1.6-2.6 Jan 01, 2025 11:51 AM [facility] B12 SERUM Specimen Type: SERUM No comment entered. Ordering Provider: YOLANDA ABRAHAM Report Released Date/Time: Jan 01, 2025 11:49 AM Reporting Lab: [place] [facility] [address] [place] [facility] Performing Lab: [place] [facility] [address] [place] [address] B12 388 pg/mL 213-816 Jan 01, 2025 11:51 AM [facility] [place] [facility] VITAMIN D, 25-HYDROXY SERUM Specimen Type: SE RUM No comment entered. Ordering Provider: YOLANDA ABRAHAM Report Released Date/Time: Jan 01, 2025 11:49 AM Reporting Lab: [place] [facility] [address] [place] [address] Performing Lab: [place] [facility] [address] [place] [address] VITAMIN D, 25-HYDROXY 45.1 ng/mL 30- Social History: Smoking Status (Most current) and Tobacco Use (All prior to encounter date) This section includes the most current, and the historical, smoking and tobacco- related health factors from the [place] facility where the Encounter took place. Current Smoking Status This section includes the most current smoking, or tobacco-related health factor, from the [place] facility where the Encounter took place. Date/Time Current Smoking Status Comment Briana ity Jan 01, 2025 11:30 AM VA-TOBACCO USE FORMER CIGARETTES [facility] Tobacco Use History This section includes a history of the smoking, or tobacco-related health factors, that were collected on or before the date of the Encounter. The data comes from the [place] facility where the Encounter took place. 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 [facility] Jan 01, 2025 11:30 AM VA-TOBACCO USE FOR ALCIDES CIGARETTES [place] [facility] Jan 01, 2025 11:30 AM VA-TOBACCO USE MED NO [facility] [facility] Nov 07, 2023 01:00 PM VA-TOBACCO FORMER USER [facility] Nov 07, 2023 01:00 PM VA-TOBACCO QUIT 15 YRS OR MORE [facility] Nov 13, 2022 01:00 PM VA-TOBACCO FORMER USER [facility] Nov 13, 2022 01:00 PM VA-TOBACCO QUIT 15 YRS OR MORE [facility] Nov 15, 2021 01:00 PM FORMER SMOKER - <1 00 LIFETIME CIGARETTES [facility] Feb 20, 2021 01:00 PM VA-TOBACCO NEVER USED [place] [facility] Feb 23, 2020 01:00 PM VA-TOBACCO FORMER USER [place] [facility] Feb 23, 2020 01:00 PM VA-TOBACCO QUIT 5 TO < 15 YRS [facility] Feb 17, 2018 01:42 PM VA-TOBACCO FORMER USER [place] [facility] Feb 17, 2018 01:42 PM VA-TOBACCO QUIT 1 TO < 5 YRS [facility] Aug 21, 2017 12:34 PM CURRENT TOBACCO USER [place] [facility] Aug 21, 2017 12:34 PM CURRENT TOBACCO US ER (NOT READY TO QUIT) [place] [facility] Aug 21, 2017 12:34 PM SMOKELESS TOBACCO AMOUNT/LENGTH V15 1/2 can q2days, 10 yrs [place] Aug 21, 2017 12:34 PM TOBACCO CESSATION REFERRAL DECLINED [facility] Aug 21, 2017 12:34 PM TOBACCO MEDS OFFER ED BUT DECLINED [place] [facility] Aug 21, 2017 12:34 PM TOBACCO USER OFFERED MEDS [facility] Feb 20, 2017 01:16 PM CURRENT TOBACCO USER [facility] Feb 20, 2017 01:16 PM CURRENT TOBACCO US ER (READY TO QUIT) [facility] Feb 20, 2017 01:16 PM SMOKELESS TOBACCO AMOUNT/LENGTH V15 1can 3 Days 15 yrs [place] [facility] Feb 20, 2017 01:16 PM TOBACCO CESSATION REFERRAL DECLINED [facility] Feb 20, 2017 01:16 PM TOBACCO USER OFFERED MEDS [place] [facility] Feb 08, 2016 01:36 PM CURRENT TOBACCO USER [facility] Feb 08, 2016 01:[address] [facility] Mar 10, 2015 10:22 AM TOBACCO MEDS OFFER ED BUT DECLINED [facility] Mar 10, 2015 10:22 AM TOBACCO OFFERED PT MEDS (PROVIDER) [facility] Mar 10, 2015 10:[address] [facility] [place] [facility] Dec 14, 2014 09:23 AM CURRENT TOBACCO USER [place] [facility] Jun 05, 2013 10:30 AM CURRENT TOBACCO USER [place] [facility] Mar 18, 2012 09:43 AM CURRENT TOBACCO USER [place] [facility] Feb 21, 2011 09:00 AM CURRENT TOBACCO USER [place] [facility] Feb 21, 2011 09:00 AM TOBACCO MEDS OFFER ED BUT DECLINED [facility] Feb 21, 2011 09:00 AM TOBACCO OFFERED PT MEDS (PROVIDER) declined [facility] Feb 21, 2011 09:[address] [facility] declined [place] [facility] Mar 06, 2010 08:36 AM CURRENT TOBACCO USER [place] [facility] Sep 03, 2009 01:36 PM TOBACCO MEDS OFFER ED BUT DECLINED [facility] Sep 03, 2009 01:36 PM TOBACCO OFFERED PT MEDS (PROVIDER) [facility] Sep 03, 2009 01:[address] [facility] Feb 28, 2009 09:49 AM CURRENT TOBACCO USER [place] [facility] Feb 28, 2009 09:[address] [facility] Jan 07, 2008 01:26 PM QUIT TOBACCO >7 YEARS AGO [facility] Jan 07, 2008 01:26 PM TOBACCO MEDS OFFER ED BUT DECLINED [facility] Nov 25, 2007 02:10 PM TOBACCO MEDS OFFER ED BUT DECLINED [facility] Sep 01, 2007 01:28 PM TOBACCO MEDS OFFER ED BUT DECLINED [facility] Apr 29, 2007 09:24 AM QUIT TOBACCO IN TH E LAST 12 MONTHS [facility] Apr 22, 2006 10:22 AM QUIT TOBACCO IN TH E LAST 12 MONTHS [facility] Apr 03, 2005 08:08 AM CURRENT NON-TOBACC O USER-HX OF USE [place] [facility] Oct 11, 2004 09:22 AM CURRENT TOBACCO USER [place] [facility] Apr 10, 2004 01:41 PM CURRENT TOBACCO USER [place] [facility] Jun 14, 2003 10:41 AM CURRENT TOBACCO USER [facility] Advance Directives: All historical and current Section Date Range: From patient's date of to the date document was created. This section includes ALL of a patient's completed or amended [place] Advance and Rescinded Directives. The entries below indicate that a directive exists for the patient, but an actual copy is not included with this document. The data comes from all [place] facilities. Date Advance Directives Provider Source Jun 22, 2020 ADVANCE DIRECTIVE CHRISTIANOARIN DALEY SASHA [place] [facility] Encounter Notes: All associated encounter notes This section contains the clinical notes associated to the Encounter. Date/Time Encounter Note(s) Provider Source Jan 06, 2025 11:52 AM TELEPHONE ENCOUNDENEEN Parry NOTE: LOCAL TITLE: TELEPHONE NOTE STANDARD TITLE: TELEPHONE ENCOUNTER NOTE DATE OF NOTE: JAN 06, 2025@11:52 ENTRY DATE: JAN 06, 2025@11:53:07 AUTHOR: SANDRA RAMIREZ COSIGNER: URGENCY: STATUS: COMPLETED Called the to go over his recent lab results and provider recommendations. The reports that he is still being followed by Nephrology and that he has an appointment coming up soon but is not sure about the exact date. Let him know we were sending him the results in the mail and that he could take them to that provider to review. The voiced understanding to all results and had no further recommendations. Mr. Nichols I got all your labs back [...] well I know that you seen a security engineer in the past I do not know [...] Yolanda Abraham, LUIS ARMANDO, MSN, Ranjit Mata [facility] ------- /alejandra/ Sandra Ramirez RN,BSN [place], [facility] Signed: 01/06/2025 12:06 SANDRA RAMIREZ [facility]
--- OUTSIDE RECORDS SUMMARY | 2025-01-07 01:46 | XMS_ITS | Encounter Summary ---
Author Name [facility] Organization [facility] [place] Address [address] [place] [address] Care Team Providers Care Building Superintendent Name Role Phone ITZEL PARNELL Primary Care [...] Policy Doshi HUMANA MCR (WNR) MEDICARE ADVANTAGE [facility] (WNR) Mar 11, 2018 [id number] [phone] DANA CYR PATIENT HUMANA MCR (WNR) MEDICARE ADVANTAGE [facility] (WNR) Mar 11, 2018 [id number] KLARISSADANA PATIENT HUMANA MCR (WNR) MEDICARE ADVANTAGE [facility] (WNR) Mar 11, 2018 [id number] KLARISSA DANA PATIENT HUMANA MCR (WNR) MEDICARE ADVANTAGE HUMAN A HEALT H PLAN, Mar 11, 2015 [id number] KLARISSA DANA PATIENT HUMANA [facility] (WNR) MEDICARE ADVANTAGE [facility] Mar 11, 2015 [id number] [phone] DANA CYR PATIENT Selected Encounter This section includes the information on record at [place] for the Encounter. Date/Time Encounter Type Encounter Description Reason Pro vider Source Jan 07, 2025 06:46 AM Outpatient Encounter COMMUNITY CARE CONSULT IHE Encounter Template Text not used by [place] Plan of Treatment: Future Appointments (+ 6 months) and Future Tests (+/- 45 days) The Plan of Treatment section includes future care activities for the patient from all [place] treatmentfacilities. This section includes future appointments and future orders which are active, pending or scheduled. Future Appointments This section includes appointments that were scheduled to occur 6 months from the date of the Encounter, up to a maximum of 20 appointments. The data comes from all [place] treatment facilities. Appointment Date/Time Appointment Type Appointme nt Facility Name Jan 18, 2025 01:00 PM AMBULATORY - MEDICINE [facility] Feb 09, 2025 08:00 AM AMBULATORY - MEDICINE [facility] Active, Pending, and Scheduled Orders This section includes a listing of several types of active, pending, and scheduled orders, including clinic medications orders, diagnostic test orders, procedure orders and consult orders; where the start date of the order is 45 days before the date of the Encounter or 45 days after the date of theEncounter. The data comes from all [place] treatment facilities. Test Date/Time Test Type Test Details Facility Name Dec 29, 2024 03:23 PM Consult Order COMMUNITY CARE-ORTHOPEDICS 657A4 [facility] Nurse's Choice [facility] Jan 01, 2025 12:45 PM Consult Order COMMUNITY CARE-OPHTH DIS MGMT 657A4 Cons Ortho Nurse's [facility] Jan 01, 2025 12:45 PM Consult Order COMMUNITY CARE-OPTOMETRY ROUTINE 657A4 Cons Ortho Nurse's [facility] Jan 01, 2025 12:45 PM Consult Order COMMUNITY CARE-PAIN 657A4 Cons Ortho Nurse's [facility] Lab Results: +/- 30 days of the encounter This section includes the Chemistry and Hematology Lab Results on record with [place] for the patient. Radiology Reports and Pathology [...] 11:58 AM Reporting Lab: [place] [facility] [address] [place] [address] Performing Lab: [place] [facility] [address] [place] [address] URINE ALBUMIN (PB-STL) 136.36 mg/L uACR (PB-MA) 766.50 mg/g H 0-30 CREATININE URINE/OTHERS 17.79 mg/dL Jan 01, 2025 11:51 AM [place] [facility] TSH (MA-PB) SERUM Specimen Ty pe: SERUM No comment entered. Ordering Provider: NOE WU Report Released Date/Time: Dec 30, 2024 11:11 AM Reporting Lab: [place] [facility] [address] [place] [address] Performing Lab: [place] [facility] [address] [place] [address] TSH 2.832 u[IU]/mL 0.47-5 Jan 01, 2025 11:51 AM [place] [facility] HGA1C BLOO D Specimen Type: BLOOD No comment entered. Ordering Provider: NOE WU Report Released Date/Time: Dec 30, 2024 11:11 AM Reporting Lab: [place] [facility] [address] [place] [address] Performing Lab: [place] [facility] [address] [place] [address] HGA1C 5.9 4.0-6.0 Jan 01, 2025 11:51 AM [place] [facility] CHOLESTEROL PANEL (PB) PLASMA Specimen Type: P LASMA No comment entered. Ordering Provider: NOE WU Report Released Date/Time: Dec 30, 2024 11:11 AM Reporting Lab: [place] [facility] [address] [place] [address] Performing Lab: [place] [facility] [address] [place] [address] CHOLESTEROL 111 mg/dL 0-200 TRIGLYCERIDE 140 mg/dL 0-150 CALCULATED LDL 52.5 mg/dL HDL(New) 30.5 mg/dL L >40 HDL % OF TOTAL CHOLESTEROL (PB) 27.5 >25 Jan 01, 2025 11:51 AM [facility] COMPREHENSIVE METABOLIC PANEL PLASMA Specimen Type: PLASMA No comment entered. Ordering Provider: NOE WU Report Released Date/Time: Dec 30, 2024 11:11 AM Reporting Lab: [place] [facility] [address] [place] [address] Performing Lab: [place] [facility] [address] [place] [address] CREATININE 1.33 mg/dL H 0.7-1.3 UREA NITROGEN [...] 2020) 55 Jan 01, 2025 11:51 AM [facility] CBC BLOO D Specimen Type: BLOOD No comment entered. Ordering Provider: NEO WU Report Released Date/Time: Dec 30, 2024 11:11 AM Reporting Lab: [place] [facility] [address] [place] [address] Performing Lab: [place] [facility] [address] [place] [address] WBC 7.0 10*3/uL 3.6-11.2 RBC 3.62 10*6/uL [...] 0. 00-0.05 Jan 01, 2025 11:51 AM [facility] MAGNESIUM PLASMA Specimen Typ e: PLASMA No comment entered. Ordering Provider: ITZEL PARNELL Report Released Date/Time: Jan 01, 2025 11:49 AM Reporting Lab: [place] [facility] [address] [place] [address] Performing Lab: [place] [facility] [address] [place] [address] MAGNESIUM 2.14 mg/dL 1.6-2.6 Jan 01, 2025 11:51 AM [facility] B12 SERUM Specimen Type: SERUM No comment entered. Ordering Provider: ITZEL PARNELL Report Released Date/Time: Jan 01, 2025 11:49 AM Reporting Lab: [place] [facility] [address] [place] [address] Performing Lab: [place] [facility] [address] [place] [address] B12 388 pg/mL 213-816 Jan 01, 2025 11:51 AM [facility] VITAMIN D, 25-HYDROXY SERUM Specimen Type: SE RUM No comment entered. Ordering Provider: ITZEL PARNELL Report Released Date/Time: Jan 01, 2025 11:49 AM Reporting Lab: [place] [facility] [address] [place] [address] Performing Lab: [place] [facility] [address] [place] [address] VITAMIN D, 25-HYDROXY 45.1 ng/mL 30- Social History: Smoking Status (Most current) and Tobacco Use (All prior to encounter date) This section includes the most current, and the historical, smoking and tobacco- related health factors from the [place] facility where the Encounter took place. Current Smoking Status This section includes the most current smoking, or tobacco-related health factor, from the [place] facility where the Encounter took place. Date/Time Current Smoking Status Comment Facil ity Jan 17, 2008 09:01 AM CURRENT TOBACCO USER [facility] Tobacco Use History This section includes a history of the smoking, or tobacco-related health factors, that were collected on or before the date of the Encounter. The data comes from the [place] facility where the Encounter took place. Date/Time Smoking Status/Tobacco Use Comment F acility Jul 01, 2007 03:56 PM CURRENT TOBACCO USER [facility] Jul 01, 2007 03:56 [facility] Advance Directives: All historical and current Section Date Range: From patient's date of to the date document was created. This section includes ALL of a patient's completed or amended [place] Advance and Rescinded Directives. The entries below indicate that a directive exists for the patient, but an actual copy is not included with this document. The data comes from all [place] facilities. Date Advance Directives Provider Source Jun 22, 2020 ADVANCE DIRECTIVE ARIN ALVARADOMICHELLE SASHA [facility] Encounter Notes: All associated encounter notes This section contains the clinical notes associated to the Encounter. Date/Time Encounter Note(s) Provider Source Jan 07, 2025 06:46 AM EYE NOTE: LOCAL TITLE: EYEGLASS PRESCRIPTION NOTE PB STANDARD TITLE: EYE NOTE DATE OF NOTE: JAN 07, 2025@06:46 ENTRY DATE: JAN 07, 2025@06:46:57 AUTHOR: JEN HIGH EXP COSIGNER: URGENCY: STATUS: COMPLETED EYEGLASS PRESCRIPTION NOTE PB Has ADDENDA DATE OF LAST EYE EXAM:JAN 05, 2025 OD -1.00 -0.50 x088 Add +2.50 OS +1.00 Add +2.50 LENS MATERIAL: LENS TYPE: Other Add Ons: Additional Comments: community provider: [facility] Rosalba Meeks [address] [place] [address] Npi: [id number] /alejandra/ JEN HIGH RN Signed: 01/07/2025 06:48 Receipt Acknowledged By: 01/07/2025 07:44 /alejandra/ LINDSAY PRINCE 01/07/2025 ADDENDUM STATUS: COMPLETED pt. never ordered here. will call pt today to have him come in for frame selection. will order when he does /alejandra/ LINDSAY PRINCE Signed: 01/07/2025 07:43 JEN HIGH [facility]
[2025-01-09] VITALS (9 sets, daily range): BP systolic 136–159; BP diastolic 71–76; PULSE 59–80; RESP 16–24; TEMP 36.4–36.7; O2SAT 77–96; BMI 36.1
--- OUTSIDE RECORDS SUMMARY | 2025-01-09 08:12 | XMS_ITS | Continuity of Care Document ---
Author Name [facility] Organization [facility] Care Team Providers Care Counter Installer Name Role Phone [facility] Unavailable Unavailable Problems Combined list of problems from Department of Defense and Veterans Affairs facilities. It does not include entries that were removed or entered in error. Problem Status Onset Date Problem Type Date of Resolution Comments Source Diverticulosis Inactive 9 Condition 02/08/2016 [facility] Allergic Rhinitis (SCT 12667440) Active Condition [place] [facility] Anxiety (SNOMED [place] 98788069) Active Condition [place] [facility] Back pain Active Condition [facility] Benign Prostatic Hypertrophy without Outflow Obstruction (SCT 456135620) Active Condition [place] [facility] CAD - Coronary artery disease (SNOMED CT 39115610) Active Condition Oct 18, 2023 Entered By: JENNIFER WU Comment: Stents x 2 [place] [facility] Carotid artery stenosis Active Condition [place] [facility] Chronic obstructive lung disease [facility] Chronic post-traumatic stress disorder following combat Active Condition [place] [facility] Chronic progressive renal failure (SNOMED CT 482412162) [facility] Depression (SNOMED CT 36923869) Active Condition [place] [facility] Diabetes mellitus type 2 (SNOMED CT 54162292) [facility] Diabetic neuropathy Active Condition [place] [facility] Gastroesophageal reflux disease (SNOMED CT 973194512) Active Condition [place] [facility] History of operative procedure on lumbar spinal structure Active Condition [facility] HLD - Hyperlipidemia (SNOMED CT 04185289) Active Condition [place] [facility] HTN - Hypertension (SNOMED CT 87046519) Active Condition [place] [facility] Hypothyroidism (SCT 82879719) Active Condition [place] [facility] Insomnia Active Condition [place] [facility] JAKOB - Obstructive sleep apnea Active Condition [facility] Pain in lower limb Active Condition [facility] Restless legs syndrome Active Condition [place] [facility] AP - Abdominal pain Inactive Condition 02/07/2016 [place] [facility] Chews tobacco (SNOMED CT 00343926) Inactive Condition 08/23/2020 [place] [facility] Chronic Low Back Pain (ICD-9-CM 724.2) Inactive Condition 02/07/2016 [place] [facility] Chronic obstructive lung disease (SNOMED CT 28236039) Inactive Condition 02/08/2016 [facility] Depression NOS * (ICD-9-CM 311./300.4) Inactive Condition 11/23/2015 [place] [facility] DM - Diabetes mellitus Inactive Condition 02/07/2016 [facility] Generalized Anxiety Disorder Inactive Condition 11/23/2015 [place] [facility] Hyperlipidemia Inactive Condition 02/07/2016 [facility] Hypertrophy (Benign) of Prostate without Urinary obstruction Inactive Condition 02/08/2016 [place] [facility] Issue of Repeat Prescriptions (ICD-9-CM V68.1) Inactive Condition 11/23/2015 [facility] Laboratory Examination Ordered as part of a Routine General Medical Examination Inactive Condition 11/23/2015 [place] [facility] Male hypogonadism (SNOMED CT 91863560) Inactive Condition 02/08/2016 [facility] Need for Prophylactic Vaccination and inoculation, other Viral Diseases (ICD-9-C Inactive Condition 11/23/2015 [place] [facility] Pain in calf (SNOMED CT 182426658) Inactive Condition 11/23/2015 [facility] Peripheral Vascular Disease, Unspecified * (ICD-9-CM 443.9) Inactive Condition 02/08/2016 [place] [facility] Postsurgical Percutaneous Transluminal Coronary Angioplasty Status (ICD-9-CM V45 Inactive Condition 02/07/2016 [place] [facility] Routine General Medical Examination at a Health Care Facility * (ICD-9-CM V70.0) Inactive Condition 11/23/2015 [facility] Screening for Diabetes Mellitus Inactive Condition 11/23/2015 [facility] Screening for Malignant Neoplasm of the Prostate Inactive Condition 11/23/2015 [facility] Screening for Thyroid Disorders Inactive Condition 11/23/2015 [facility] Shortness of breath * (ICD-9-CM 786.05) Inactive Condition 11/23/2015 [facility] [facility] Sleep Apnea (ICD-9-CM 780.57/786.09) Inactive Condition 02/07[facility]2016 [facility] Tinnitus * (ICD-9-CM 388.30) Inactive Condition 02/08/2016 [facility] Unspecified disorder of kidney and ureter (ICD-9-CM 593.9) Inactive Condition 11/23/2015 [facility] Urine microalbumin positive (SNOMED CT 420341392) Inactive Condition 11/23/2015 [facility] Diagnosis: ICD-10-CM R79.89 Other specified abnormal findings of blood chemistry Active Diagnosis [facility] Diagnosis: ICD-10-CM Z00.01 Encounter for general adult medical exam w abnormal findings Active Diagnosis [facility] Diagnosis: ICD-10-CM Z13.5 Encounter for screening for eye and ear disorders Active Diagnosis [facility] Diagnosis: ICD-10-CM I25.10 Athscl heart disease of [place] coronary artery w/o ang pctrs Active Diagnosis [facility] Medications Combined list of outpatient medications from Department of Defense and Veterans Affairs facilities.Medications provided include 1) outpatient medications from the last 15 months, and 2) patient-reported medications. Medication Details Route Status Indication(s) Patie nt Instructions Prescription Expires Prescription Number Last Dispense Date Ordering Provider Order Date Order Qty Source ALBUTEROL SO4 90MCG/ACTUA T (CFC-F) INHL,ORAL,8 .5GM INHALE 2 PUFFS ORAL INHALATI ON FOUR TIMES A DAY FOR COPD SHAKE WELL. RINSE MOUTHPIE CE FREQUENT LY TO PREVENT CLOGGING . RESPIR ATORY (INHAL ATION) ACTIVE 01/02/2026 [id number] 5 CALI PARNELL G 2024 1 [facility] ALBUTEROL SO4 90MCG/ACTUA T (CFC-F) INHL,ORAL,8 .5GM INHALE 2 PUFFS ORAL INHALATI ON FOUR TIMES A DAY FOR COPD SHAKE WELL. RINSE MOUTHPIE CE FREQUENT LY TO PREVENT CLOGGING . RESPIR ATORY (INHAL ATION) DISCONT INUED 11/07/2024 [id number] ALBA SOLOMON 2023 1 [place] [facility] ALPRAZOLAM 0.5MG TAB TAKE ONE TABLET BY MOUTH PRN SLEEP ORAL ACTIVE KAELA MARTINS R 2018 [place] [facility] AMLODIPINE BESYLATE 5MG TAB TAKE ONE TABLET BY MOUTH ONCE A DAY FOR HEART/BL OOD PRESSURE ORAL SUSPEND ED 01/02/2026 [id number] 6 PARNELLCALI ISCARLTON G [address] [place] [address] [facility] AMLODIPINE BESYLATE 5MG TAB TAKE ONE TABLET BY MOUTH ONCE A DAY FOR HEART/BL OOD PRESSURE ORAL DISCONT INUED 04/01/2025 [id number] 5 NOE WU [address] [place] [address] [facility] AMLODIPINE BESYLATE 5MG TAB TAKE ONE TABLET BY MOUTH ONCE A DAY FOR HEART/BL OOD PRESSURE ORAL DISCONT INUED 04/15/2024 [id number] 4 NOE WU [address] [place] [address] [facility] ATENOLOL 100MG TAB TAKE ONE TABLET BY MOUTH ONCE A DAY FOR HEART AND FOR BLOOD PRESSURE ORAL DISCONT INUED BY PROVIDE R 08/18/2025 [id number] 5 BRYCENOE MOREJON [address] [place] [address] [facility] ATENOLOL 100MG TAB TAKE ONE TABLET BY MOUTH ONCE A DAY FOR HEART AND FOR BLOOD PRESSURE ORAL DISCONT INUED 08/19/2024 [id number] 5 BRYCECATIE MOREJONMY [address] [place] [address] [facility] ATORVASTATI N CA 80MG TAB TAKE ONE-HALF TABLET BY MOUTH EVERY EVENING TO LOWER CHOLESTE ROL ORAL ACTIVE 08/11/2025 [id number] 5 BRYCE, NOE [address] [place] [address] [facility] ATORVASTATI N CA 80MG TAB TAKE ONE-HALF TABLET BY MOUTH EVERY EVENING TO LOWER CHOLESTE ROL ORAL DISCONT INUED 08/06/2024 [id number] 5 BRYCENOE DONALD 2023 45 [place] [facility] BUDESONIDE/ GLYCOPYRR/F ORMOTEROL (PA-F) INHL,ORAL INHALE BY ORAL INHALATI ON TWICE A DAY DIRECTED RESPIR ATORY (INHAL ATION) ACTIVE CALI PARNELL ISTEL G 2024 [facility] BUPROPION HCL 200MG 12HR TAB,SA TAKE ONE TABLET BY MOUTH TWICE A DAY WITH BREAKFAS T AND LUNCH ORAL ACTIVE 05/12/2025 [id number] 5 KAELA MARTINS LLIAM R 2024 180 [place] [facility] BUPROPION HCL 200MG 12HR TAB,SA TAKE ONE TABLET BY MOUTH TWICE A DAY WITH BREAKFAS T AND LUNCH ORAL DISCONT INUED 08/06/2024 [id number] 5 KAELA MARTINS LLIAM R 2023 180 [facility] DOXAZOSIN MESYLATE 4MG TAB TAKE ONE-HALF TABLET BY MOUTH AT BEDTIME THIS TABLET IS TO BE CUT IN HALF FOR YOUR DOSE ORAL ACTIVE 09/15/2025 [id number] 5 [facility] NOE 2024 45 [facility] DOXAZOSIN MESYLATE 4MG TAB TAKE ONE-HALF TABLET BY MOUTH AT BEDTIME THIS TABLET IS TO BE CUT IN HALF FOR YOUR DOSE ORAL DISCONT INUED 09/16/2024 [id number] 5 BRYCE NOE 2023 45 [facility] FERROUS SO4 325MG TAB TAKE ONE TABLET BY MOUTH ONCE A DAY FOR IRON DEFICIEN CY ANEMIA ORAL ACTIVE 01/02/2026 [id number] CALI PARNELL ISTEL G 2024 100 [place] [facility] FLUTICASONE 250MCG/SALM ETEROL 50MCG INHL,ORAL,D ISKUS,60 INHALE 1 INHALATI ON ORAL INHALATI ON TWICE A DAY FOR COPD (OPEN DISKUS; CLICK ONLY ONCE; MAY INHALE TWICE TO COMPLETE DOSE; CLOSE WHEN FINISHED ) RINSE MOUTH AND SPIT AFTER EACH USE. RESPIR ATORY (INHAL ATION) DISCONT INUED BY PROVIDE R 11/07/2024 [id number] ALBA SOLOMON 2023 3 [place] [facility] FLUTICASONE PROPIONATE 50MCG/SPRAY SOLN,NASAL, 16GM INSTILL 2 SPRAYS IN EACH NOSTRIL ONCE A DAY FOR ALLERGIE S (MUST BE USED DIRECTED FOR MINIMUM OF 21 DAYS TO PROVIDE ADEQUATE BENEFITS ) NASAL ACTIVE 01/02/2026 [id number] 5 CALI PARNELL ISCARLTON G 2024 3 [facility] FLUTICASONE PROPIONATE 50MCG/SPRAY SOLN,NASAL, 16GM INSTILL 2 SPRAYS IN EACH NOSTRIL ONCE A DAY FOR ALLERGIE S (MUST BE USED DIRECTED FOR MINIMUM OF 21 DAYS TO PROVIDE ADEQUATE BENEFITS ) NASAL DISCONT INUED 11/07/2024 [id number] ALBA SOLOMON 2023 3 [facility] FLUTICASONE PROPIONATE 50MCG/SPRAY SOLN,NASAL, 16GM INSTILL 2 SPRAYS IN EACH NOSTRIL ONCE A DAY FOR ALLERGIE S (MUST BE USED DIRECTED FOR MINIMUM OF 21 DAYS TO PROVIDE ADEQUATE BENEFITS ) NASAL DISCONT INUED 11/07/2024 [id number] ALBA SOLOMON 2023 1 [facility] FLUTICASONE PROPIONATE 50MCG/SPRAY SOLN,NASAL, 16GM INSTILL 2 SPRAYS IN EACH NOSTRIL ONCE A DAY FOR ALLERGIE S (MUST BE USED DIRECTED FOR MINIMUM OF 21 DAYS TO PROVIDE ADEQUATE BENEFITS ) NASAL DISCONT INUED 12/12/2023 [id number] 4 KAELA MARTINS R 2022 1 [facility] FUROSEMIDE 20MG TAB TAKE ONE TABLET BY MOUTH EVERY MORNING FOR FLUID RETENTIO N (EDEMA) ORAL ACTIVE 10/21/2025 [id number] 5 ALBA SOLOMON 2024 90 [place] [facility] FUROSEMIDE 20MG TAB TAKE ONE TABLET BY MOUTH EVERY MORNING FOR FLUID RETENTIO N (EDEMA) ORAL DISCONT INUED 11/07/2024 [id number] ALBA SOLOMON 2023 90 [place] [facility] GLIPIZIDE 5MG TAB TAKE ONE-HALF TABLET BY MOUTH TWO TIMES A DAY BEFORE MEALS TO LOWER BLOOD SUGAR ORAL ACTIVE 09/15/2025 [id number] 5 NOE WU 2024 90 [facility] GLIPIZIDE 5MG TAB TAKE ONE-HALF TABLET BY MOUTH TWO TIMES A DAY BEFORE MEALS TO LOWER BLOOD SUGAR ORAL DISCONT INUED 09/16/2024 [id number] 5 NOE WU 2023 90 [facility] LEVOTHYROXI NE NA 50MCG TAB TAKE ONE TABLET BY MOUTH EVERY MORNING BEFORE A MEAL FOR HYPOTHYR OIDISM TAKE 30 MINUTES BEFORE FOOD. TAKE SEPARATE LY FROM ALL OTHER MEDICATI ONS. ORAL ACTIVE 08/26/2025 [id number] 5 ALBA SOLOMON 2024 90 [place] [facility] LEVOTHYROXI NE NA 50MCG TAB TAKE ONE TABLET BY MOUTH EVERY MORNING BEFORE A MEAL FOR HYPOTHYR OIDISM TAKE 30 MINUTES BEFORE FOOD. TAKE SEPARATE LY FROM ALL OTHER MEDICATI ONS. ORAL DISCONT INUED 11/07/2024 [id number] ALBA SOLOMON Jill 2023 90 [place] [facility] LISINOPRIL 20MG TAB TAKE ONE-HALF TABLET BY MOUTH ONCE A DAY FOR HEART OR BLOOD PRESSURE ORAL ACTIVE 01/02/2026 [id number] CALI PARNELL G 2024 45 [facility] LISINOPRIL 5MG TAB TAKE ONE-HALF TABLET BY MOUTH ONCE A DAY FOR HEART OR BLOOD PRESSURE ORAL DISCONT INUED (EDIT) 02/24/2025 [id number] NOE WU 2023 45 [facility] LISINOPRIL 5MG TAB TAKE ONE-HALF TABLET BY MOUTH ONCE A DAY FOR HEART OR BLOOD PRESSURE ORAL DISCONT INUED 02/12/2024 [id number] 4 NOE WU 2022 45 [place] [facility] METHOCARBAM OL 500MG TAB TAKE 1 TABLET BY MOUTH THREE TIMES A DAY NEEDED FOR MUSCLE SPASM ORAL DISCONT INUED BY PROVIDE R 09/15/2025 [id number] ALBA SOLOMON 2024 90 [place] [facility] METHOCARBAM OL 500MG TAB TAKE 1 TABLET BY MOUTH THREE TIMES A DAY NEEDED FOR MUSCLE SPASM ORAL DISCONT INUED 07/07/2025 [id number] 5 ALBA SOLOMON 2024 90 [place] [facility] METHOCARBAM OL 500MG TAB TAKE 1 TABLET BY MOUTH THREE TIMES A DAY NEEDED FOR MUSCLE SPASM ORAL DISCONT INUED 05/05/2025 [id number] 5 ALBA SOLOMON 2024 90 [place] [facility] METHOCARBAM OL 500MG TAB TAKE 1 TABLET BY MOUTH THREE TIMES A DAY NEEDED FOR MUSCLE SPASM ORAL DISCONT INUED 02/24/2025 [id number] 5 ALBA SOLOMON 2023 90 [place] [facility] METHOCARBAM OL 500MG TAB TAKE 1 TABLET BY MOUTH THREE TIMES A DAY NEEDED FOR MUSCLE SPASM ORAL DISCONT INUED 12/17/2024 [id number] 4 ALBA SOLOMON 2023 90 [place] [facility] METHOCARBAM OL 500MG TAB TAKE 1 TABLET BY MOUTH THREE TIMES A DAY NEEDED FOR MUSCLE SPASM ORAL DISCONT INUED 11/07/2024 [id number] ALBA SOLOMON 2023 90 [place] [facility] OLOPATADINE HCL 0.2% SOLN,OPH INSTILL 1 DROP IN BOTH EYES ONCE A DAY FOR ALLERGIC CONJUNCT IVITIS OPHTHA LMIC DISCONT INUED BY PROVIDE R 01/21/2025 [id number] ALBA SOLOMON 2023 2.5 [place] [facility] OLOPATADINE HCL 0.2% SOLN,OPH INSTILL 1 DROP IN BOTH EYES ONCE A DAY FOR ALLERGIC CONJUNCT IVITIS OPHTHA LMIC DISCONT INUED 11/07/2024 [id number] ALBA SOLOMON M 2023 2.5 [place] [facility] PANTOPRAZOL E NA 40MG TAB,EC TAKE ONE TABLET BY MOUTH EVERY MORNING BEFORE A MEAL FOR GASTROES OPHAGEAL REFLUX DISEASE TAKE 30 MINUTES BEFORE MEAL(S) ORAL ACTIVE 04/29/2025 [id number] BRYCE, NOE 2024 90 [place] [facility] PANTOPRAZOL E NA 40MG TAB,EC TAKE ONE TABLET BY MOUTH EVERY MORNING BEFORE A MEAL FOR GASTROES OPHAGEAL REFLUX DISEASE TAKE 30 MINUTES BEFORE MEAL(S) ORAL 11/14/2023 [id number] 4 BRYCE NOE 2022 90 [facility] POLYVINYL ALCOHOL 1.4% SOLN,OPH INSTILL 2 DROPS IN BOTH EYES FOUR TIMES A DAY NEEDED FOR DRY EYE(S) OPHTHA LMIC 11/07/2024 [id number] ALBA SOLOMON M 2023 45 [place] [facility] PRAMIPEXOLE DIHYDROCHLO RIDE 0.25MG TAB TAKE ONE-HALF TABLET BY MOUTH AT BEDTIME FOR RESTLESS LEG SYNDROME ORAL ACTIVE 01/02/2026 [id number] CALI PARNELL ISTEL G 2024 45 [facility] ROPINIROLE HCL 0.5MG TAB TAKE ONE AND ONE-HALF TABLETS BY MOUTH AT BEDTIME FOR RESTLESS LEG SYNDROME ORAL DISCONT INUED BY PROVIDE R 12/24/2025 [id number] ALBA SOLOMON M 2024 135 [place] [facility] ROPINIROLE HCL 0.5MG TAB TAKE ONE AND ONE-HALF TABLETS BY MOUTH AT BEDTIME FOR RESTLESS LEG SYNDROME ORAL DISCONT INUED 11/07/2024 [id number] BRIGHT SOLOMONYL M 2023 135 [place] [facility] TAMSULOSIN HCL 0.4MG CAP TAKE ONE CAPSULE BY MOUTH EVERY EVENING APPROXIM ATELY 30 MINUTES AFTER THE SAME MEAL EACH DAY (FOR PROSTATE ) ORAL ACTIVE 01/02/2026 [id number] 5 CALI PARNELL ISTEL G 2024 90 [facility] TAMSULOSIN HCL 0.4MG CAP TAKE ONE CAPSULE BY MOUTH EVERY EVENING APPROXIM ATELY 30 MINUTES AFTER THE SAME MEAL EACH DAY (FOR PROSTATE ) ORAL DISCONT INUED 01/01/2025 [id number] 5 BRYCE, NOE 2024 90 [facility] TAMSULOSIN HCL 0.4MG CAP TAKE ONE CAPSULE BY MOUTH EVERY EVENING APPROXIM ATELY 30 MINUTES AFTER THE SAME MEAL EACH DAY (FOR PROSTATE ) ORAL DISCONT INUED 04/01/2024 [id number] 4 BRYCE, NOE 2023 90 [facility] TIZANIDINE HCL 4MG TAB TAKE ONE-HALF TABLET BY MOUTH THREE TIMES A DAY FOR SPASTICI TY ORAL ACTIVE 01/02/2026 [id number] PARMJITKR ISTEL G 2024 135 [facility] TRAZODONE HCL 100MG TAB TAKE ONE-HALF TABLET BY MOUTH AT BEDTIME FOR INSOMNIA ORAL ACTIVE 01/02/2026 [id number] PARNELL,KR ISTEL G 2024 45 [facility] Allergies, Adverse Reactions, Alerts Combined list of allergies from Department of Defense and Veterans Affairs facilities. It does not include entries that were removed or entered in error. Substance Category Reaction Severity Reaction type Status Date Reported Comments Source INFLUENZA Propensity to adverse reactions to drug (finding) Eruption active 8 [facility] PRAVASTATIN Propensity to adverse reactions to drug (finding) Muscle pain active 3 [facility] Immunizations Combined list of available immunizations from the Department of Defense and Veterans Affairs facilities. Immunization Series Date Given Administered By Site Reaction Lot Number CVX Code Drug [employer] Top Helper Status Comments Source COVID-19 (MODERNA), MRNA, LNP-S, PF, 10 MCG/0.2 ML (AGES 12+ YEARS) 7 2024 334 complet ed HISTORICA L INFORMATI ON - FROM OTHER REGISTRY, [facility] INFLUENZA, HIGH-DOSE, TRIVALENT, PF 5 2024 135 complet ed HISTORICA L INFORMATI ON - FROM OTHER [facility], [facility] COVID-19 (MODERNA), MRNA, LNP-S, PF, 50 MCG/0.5 ML (AGES 12+ YEARS) 6 2023 312 complet ed HISTORICA L INFORMATI ON - FROM OTHER REGISTRY, [facility] INFLUENZA, HIGH-DOSE, TRIVALENT, PF 4 2023 135 complet ed HISTORICA L INFORMATI ON - FROM OTHER [facility], [facility] INFLUENZA, UNSPECIFIED FORMULATION 2023 88 complet ed HISTORICA L INFORMATI ON - FROM PATIENT'S WRITTEN RECORD, [facility] RSV, RECOMBINANT, PROTEIN SUBUNIT RSVPREF, ADJUVANT RECONSTITUTED , 0.5 ML, PF 1 2022 303 complet ed HISTORICA L INFORMATI ON - FROM OTHER REGISTRY, [facility] COVID-19 (MODERNA), MRNA, LNP-S, PF, 50 MCG/0.5 ML (AGES 12+ YEARS) 5 2022 312 complet ed HISTORICA L INFORMATI ON - FROM OTHER [facility], [facility] INFLUENZA, ADJUVANTED, QUADRIVALENT, PF 3 2022 205 complet ed HISTORICA L INFORMATI ON - FROM OTHER REGISTRY, [facility] INFLUENZA, UNSPECIFIED FORMULATION 2022 88 complet ed HISTORICA L INFORMATI ON - FROM PATIENT'S WRITTEN RECORD, [facility] COVID-19 (PFIZER), MRNA, LNP-S, BIVALENT, PF, 30 MCG/0.3 ML DOSE 4 2021 300 complet ed HISTORICA L INFORMATI ON - FROM OTHER [facility], [facility] INFLUENZA, HIGH-DOSE, QUADRIVALENT 2 2021 197 complet ed HISTORICA L INFORMATI ON - FROM OTHER REGISTRY, [facility] INFLUENZA, UNSPECIFIED FORMULATION 2021 88 complet ed [facility] TDAP 2021 115 complet ed [facility] COVID-19 (PFIZER), MRNA, LNP-S, PF, 30 MCG/0.3 ML DOSE, ARASELI-SUCROSE (AGES 12+ YEARS) 3 2021 217 complet ed HISTORICA L INFORMATI ON - FROM OTHER [facility], [facility] PNEUMOCOCCAL POLYSACCHARID E PPV23 2020 33 complet [facility] INFLUENZA, HIGH-DOSE, QUADRIVALENT 1 2020 197 complet ed HISTORICA L INFORMATI ON - FROM OTHER [facility], [facility] COVID-19 (PFIZER), MRNA, LNP-S, PF, 30 MCG/0.3 ML DOSE 2 2020 208 complet ed HISTORICA L INFORMATI ON - FROM OTHER [facility], [facility] COVID-19 (Seamless), MRNA, LNP-S, PF, 30 MCG/0.3 ML DOSE 1 2020 208 complet ed HISTORICA L INFORMATI ON - FROM OTHER [facility], [facility] PNEUMOCOCCAL CONJUGATE PCV 13 2019 133 complet [facility] ZOSTER RECOMBINANT 2 2019 187 complet [facility] ZOSTER RECOMBINANT 1 2018 187 complet [facility] TDAP 2011 115 complet [facility] INFLUENZA, UNSPECIFIED FORMULATION 2007 88 complet [facility] INFLUENZA, UNSPECIFIED FORMULATION 2006 88 complet [facility] INFLUENZA, UNSPECIFIED FORMULATION 2005 88 complet [facility] INFLUENZA, UNSPECIFIED FORMULATION 2002 88 complet [facility] TD(ADULT) UNSPECIFIED FORMULATION 2002 139 complet ed [facility] Results Combined list of recent chemistry, hematology and other laboratory results from Department of Defense and Veterans Affairs, ranging from 15 months to all on record, depending upon the facility. Order Name Results Value Reference Range Date Interpretation Specimen Comments Source URINE ALBUMIN PROFILE-ih (PB) ALBUMIN [MASS/VOLUM E] IN URINE 136.36 mg/L 01/01 Specimen Type: URINE No comment entered. Ordering Provider: CALI PARNELL Report Released Date/Time : Jan 01, 2025 11:58 AM Reporting Lab: [place] [facility] [address] [place] [address] Performin g Lab: [place] [facility] [address] [place] [address] [facility] URINE ALBUMIN PROFILE-ih (PB) ALBUMIN/CRE ATININE [MASS RATIO] IN URINE 766.50 mg/g 0 - 30 01/01 H Specimen Type: URINE No comment entered. Ordering Provider: CALI PARNELL Report Released Date/Time : Jan 01, 2025 11:58 AM Reporting Lab: [place] [facility] [address] [place] [address] Performin g Lab: [place] [facility] [address] [place] [address] [facility] URINE ALBUMIN PROFILE-ih (PB) CREATININE [MASS/VOLUM E] IN URINE 17.79 mg/dL 01/01 Specimen Type: URINE No comment entered. Ordering Provider: CALI PARNELL Report Released Date/Time : Jan 01, 2025 11:58 AM Reporting Lab: [place] [facility] [address] [place] [address] Performin g Lab: [place] [facility] [address] [place] [address] [facility] CBC LEUKOCYTES [#/VOLUME] IN BLOOD BY AUTOMATED COUNT 7.0 10*3/uL 3.6 - 11.2 01/01 Specimen Type: BLOOD No comment entered. Ordering Provider: NOE WU Report Released Date/Time : Dec 30, 2024 11:11 AM Reporting Lab: [place] [facility] [address] [place] [address] Performin g Lab: [place] [facility] [address] [place] [address] [place] [facility] CBC ERYTHROCYTE S [#/VOLUME] IN BLOOD BY AUTOMATED COUNT 3.62 10*6/uL 4.10 - 5.70 01/01 L Specimen Type: BLOOD No comment entered. Ordering Provider: NOE WU Report Released Date/Time : Dec 30, 2024 11:11 AM Reporting Lab: [place] [facility] [address] [place] [address] Performin g Lab[facility] [place] [facility] [address] [place] [address] [place] [facility] CBC HEMOGLOBIN [MASS/VOLUM E] IN BLOOD 11.0 g/dL 13.1 - 16.8 01/01 L Specimen Type: BLOOD No comment entered. Ordering Provider: NOE WU Report Released Date/Time : Dec 30, 2024 11:11 AM Reporting Lab: [place] [facility] [facility] [address] [place] [address] Performin g Lab: [place] [facility] [address] [place] [address] 8 [place] [facility] CBC HEMATOCRIT [VOLUME FRACTION] OF BLOOD BY CALCULATION 34.0 38.2 - 48.4 01/01 L Specimen Type: BLOOD No comment entered. Ordering Provider: NOE WU Report Released Date/Time : Dec 30, 2024 11:11 AM Reporting Lab: [place] [facility] [address] [place] [address] 8 Performin g Lab: [place] [facility] [address] [place] [address] 8 [place] [facility] CBC MCV [ENTITIC MEAN VOLUME] IN RED BLOOD CELLS BY AUTOMATED COUNT 93.9 fL 80.0 - 100.0 01/01 Specimen Type: BLOOD No comment entered. Ordering Provider: NOE WU Report Released Date/Time : Dec 30, 2024 11:11 AM Reporting Lab: [place] [facility] [address] [place] [address] 8 Performin g Lab: [place] [facility] [address] [place] [address] [place] [facility] CBC MCH [ENTITIC MASS] BY AUTOMATED COUNT 30.4 pg 27.0 - 34.0 01/01 Specimen Type: BLOOD No comment entered. Ordering Provider: NOE WU Report Released Date/Time : Dec 30, 2024 11:11 AM Reporting Lab: [place] [facility] [address] [place] [address] 8 Performin g Lab: [place] [facility] [address] [place] [address] [place] [facility] CBC MCHC [ENTITIC MASS/VOLUME ] IN RED BLOOD CELLS BY AUTOMATED COUNT 32.4 g/dL 33.0 - 36.0 01/01 L Specimen Type: BLOOD No comment entered. Ordering Provider: NOE WU Report Released Date/Time : Dec 30, 2024 11:11 AM Reporting Lab: [place] [facility] [address] [place] [address] 8 Performin g Lab: [place] [facility] [address] [place] [address] [place] [facility] CBC PLATELETS [#/VOLUME] IN BLOOD BY AUTOMATED COUNT 232 10*3/uL 150 - 400 01/01 Specimen Type: BLOOD No comment entered. Ordering Provider: NOE WU Report Released Date/Time : Dec 30, 2024 11:11 AM Reporting Lab: [place] [facility] [address] [place] [address] 8 Performin g Lab: [place] [facility] [address] [place] [address] 8 [place] [facility] CBC PLATELET [ENTITIC MEAN VOLUME] IN BLOOD BY AUTOMATED COUNT 11.1 fL 7.5 - 11.2 01/01 Specimen Type: BLOOD No comment entered. Ordering Provider: NOE WU Report Released Date/Time : Dec 30, 2024 11:11 AM Reporting Lab: [place] [facility] [address] [place] [address] 8 Performin g Lab: [place] [facility] [address] [place] [address] 8 [place] [facility] CBC ERYTHROCYTE [DISTWIDTH] IN RED BLOOD CELLS BY AUTOMATED COUNT 14.2 11.8 - 15.1 01/01 Specimen Type: BLOOD No comment entered. Ordering Provider: NOE WU Report Released Date/Time : Dec 30, 2024 11:11 AM Reporting Lab: [place] [facility] [address] [place] [address] 8 Performin g Lab: [place] [facility] [address] [place] [address] 8 [place] [facility] CBC LYMPHOCYTES /LEUKOCYTES IN BLOOD BY AUTOMATED COUNT 24.3 01/01 Specimen Type: BLOOD No comment entered. Ordering Provider: NOE WU Report Released Date/Time : Dec 30, 2024 11:11 AM Reporting Lab: [place] [facility] [address] [place] [address] 8 Performin g Lab: [place] [facility] [address] [place] [address] 8 [place] [facility] CBC MONOCYTES/L EUKOCYTES IN BLOOD BY AUTOMATED COUNT 10.6 01/01 Specimen Type: BLOOD No comment entered. Ordering Provider: NOE WU Report Released Date/Time : Dec 30, 2024 11:11 AM Reporting Lab: [place] [facility] [address] [place] [address] 8 Performin g Lab: [place] [facility] [address] [place] [address] 8 [place] [facility] CBC NEUTROPHILS /LEUKOCYTES IN BLOOD BY AUTOMATED COUNT 60.6 01/01 Specimen Type: BLOOD No comment entered. Ordering Provider: NOE WU Report Released Date/Time : Dec 30, 2024 11:11 AM Reporting Lab: [place] [facility] [address] [place] [address] 8 Performin g Lab: [place] [facility] [address] [place] [address] 8 [place] [facility] CBC EOSINOPHILS /LEUKOCYTES IN BLOOD BY AUTOMATED COUNT 2.9 01/01 Specimen Type: BLOOD No comment entered. Ordering Provider: NOE WU Report Released Date/Time : Dec 30, 2024 11:11 AM Reporting Lab: [place] [facility] [address] [place] [address] 8 Performin g Lab: [place] [facility] [address] [place] [address] 8 [place] [facility] CBC BASOPHILS/L EUKOCYTES IN BLOOD BY AUTOMATED COUNT 1.3 01/01 Specimen Type: BLOOD No comment entered. Ordering Provider: NOE WU Report Released Date/Time : Dec 30, 2024 11:11 AM Reporting Lab: [place] [facility] [address] [place] [address] 8 Performin g Lab: [place] [facility] [address] [place] [address] [place] [facility] CBC LYMPHOCYTES [#/VOLUME] IN BLOOD BY AUTOMATED COUNT 1.70 10*3/uL 0.77 - 4.50 01/01 Specimen Type: BLOOD No comment entered. Ordering Provider: NOE WU Report Released Date/Time : Dec 30, 2024 11:11 AM Reporting Lab: [place] [facility] [address] [place] [address] 8 Performin g Lab: [place] [facility] [address] [place] [address] 8 [place] [facility] CBC MONOCYTES [#/VOLUME] IN BLOOD BY AUTOMATED COUNT 0.74 10*3/uL 0.19 - 0.8 01/01 Specimen Type: BLOOD No comment entered. Ordering Provider: NOE WU Report Released Date/Time : Dec 30, 2024 11:11 AM Reporting Lab: [place] [facility] [address] [place] [address] 8 Performin g Lab: [place] [facility] [address] [place] [address] 8 [place] [facility] CBC NEUTROPHILS [#/VOLUME] IN BLOOD BY AUTOMATED COUNT 4.25 10*3/uL 2.10 - 8.00 01/01 Specimen Type: BLOOD No comment entered. Ordering Provider: NOE WU Report Released Date/Time : Dec 30, 2024 11:11 AM Reporting Lab: [place] [facility] [address] [place] [address] 8 Performin g Lab: [place] [facility] [address] [place] [address] 8 [place] [facility] CBC EOSINOPHILS [#/VOLUME] IN BLOOD BY AUTOMATED COUNT 0.20 10*3/uL 0.00 - 0.60 01/01 Specimen Type: BLOOD No comment entered. Ordering Provider: NOE WU Report Released Date/Time : Dec 30, 2024 11:11 AM Reporting Lab: [place] [facility] [address] [place] [address] 8 Performin g Lab: [place] [facility] [address] [place] [address] [place] [facility] CBC BASOPHILS [#/VOLUME] IN BLOOD BY AUTOMATED COUNT 0.09 10*3/uL 0.00 - 0.20 01/01 Specimen Type: BLOOD No comment entered. Ordering Provider: NOE WU Report Released Date/Time : Dec 30, 2024 11:11 AM Reporting Lab: [place] [facility] [address] [place] [address] 8 Performin g Lab: [place] [facility] [address] [place] [address] 8 [place] [facility] CBC IMMATURE GRANULOCYTE S/LEUKOCYTE S IN BLOOD BY AUTOMATED COUNT 0.3 01/01 Specimen Type: BLOOD No comment entered. Ordering Provider: NOE WU Report Released Date/Time : Dec 30, 2024 11:11 AM Reporting Lab: [place] [facility] [address] [place] [address] 8 Performin g Lab: [place] [facility] [address] [place] [address] [place] [facility] CBC IMMATURE GRANULOCYTE S [#/VOLUME] IN BLOOD BY AUTOMATED COUNT 0.02 10*3/uL 0.00 - 0.05 01/01 Specimen Type: BLOOD No comment entered. Ordering Provider: NOE WU Report Released Date/Time : Dec 30, 2024 11:11 AM Reporting Lab: [place] [facility] [address] [place] [address] 8 Performin g Lab: [place] [facility] [address] [place] [address] [place] [facility] CHOLESTERO L PANEL (PB) CHOLESTEROL [MASS/VOLUM E] IN SERUM OR PLASMA 111 mg/dL 0 - 200 01/01 Specimen Type: PLASMA No comment entered. Ordering Provider: NOE WU Report Released Date/Time : Dec 30, 2024 11:11 AM Reporting Lab: [place] [facility] [address] [place] [address] 8 Performin g Lab: [place] [facility] [address] [place] [address] [place] [facility] CHOLESTERO L PANEL (PB) TRIGLYCERID E [MASS/VOLUM E] IN SERUM OR PLASMA 140 mg/dL 0 - 150 01/01 Specimen Type: PLASMA No comment entered. Ordering Provider: NOE WU Report Released Date/Time : Dec 30, 2024 11:11 AM Reporting Lab: [place] [facility] [address] [place] [address] 8 Performin g Lab: [place] [facility] [address] [place] [address] [place] [facility] CHOLESTERO L PANEL (PB) CHOLESTEROL IN LDL [MASS/VOLUM E] IN SERUM OR PLASMA BY CALCULATION 52.5 mg/dL 01/01 Specimen Type: PLASMA No comment entered. Ordering Provider: NOE WU Report Released Date/Time : Dec 30, 2024 11:11 AM Reporting Lab: [place] [facility] [address] [place] [address] 8 Performin g Lab: [place] [facility] [address] [place] [address] 8 [place] [facility] CHOLESTERO L PANEL (PB) CHOLESTEROL IN HDL [MASS/VOLUM E] IN SERUM OR PLASMA 30.5 mg/dL 40 01/01 L Specimen Type: PLASMA No comment entered. Ordering Provider: NOE WU Report Released Date/Time : Dec 30, 2024 11:11 AM Reporting Lab: [place] [facility] [address] [place] [address] 8 Performin g Lab: [place] [facility] [address] [place] [address] [place] [facility] CHOLESTERO L PANEL (PB) CHOLESTEROL IN HDL/CHOLEST JOSE.TOTAL [MASS RATIO] IN SERUM OR PLASMA 27.5 25 01/01 Specimen Type: PLASMA No comment entered. Ordering Provider: NOE WU Report Released Date/Time : Dec 30, 2024 11:11 AM Reporting Lab: [place] [facility] [address] [place] [address] 8 Performin g Lab: [place] [facility] [address] [place] [address] 8 [place] [facility] COMPREHENS SEKOU METABOLIC PANEL CREATININE [MASS/VOLUM E] IN SERUM OR PLASMA 1.33 mg/dL 0.7 - 1.3 01/01 H Specimen Type: PLASMA No comment entered. Ordering Provider: NOE WU Report Released Date/Time : Dec 30, 2024 11:11 AM Reporting Lab: [place] [facility] [address] [place] [address] 8 Performin g Lab: [place] [facility] [address] [place] [address] 8 [place] [facility] COMPREHENS SEKOU METABOLIC PANEL UREA NITROGEN [MASS/VOLUM E] IN SERUM OR PLASMA 16 mg/dL 9 - 25 01/01 Specimen Type: PLASMA No comment entered. Ordering Provider: NOE WU Report Released Date/Time : Dec 30, 2024 11:11 AM Reporting Lab: [place] [facility] [address] [place] [address] 8 Performin g Lab: [place] [facility] [address] [place] [address] 8 [place] [facility] COMPREHENS SEKOU METABOLIC PANEL GLUCOSE [MASS/VOLUM E] IN SERUM OR PLASMA 131 mg/dL 72 - 99 01/01 H Specimen Type: PLASMA No comment entered. Ordering Provider: NOE WU Report Released Date/Time : Dec 30, 2024 11:11 AM Reporting Lab: [place] [facility] [address] [place] [address] 8 Performin g Lab: [place] [facility] [address] [place] [address] 8 [place] [facility] COMPREHENS SEKOU METABOLIC PANEL SODIUM [MOLES/VOLU ME] IN SERUM OR PLASMA 144 meq/L 136 - 145 01/01 Specimen Type: PLASMA No comment entered. Ordering Provider: NOE WU Report Released Date/Time : Dec 30, 2024 11:11 AM Reporting Lab: [place] [facility] [address] [place] [address] 8 Performin g Lab: [place] [facility] [address] [place] [address] 8 [place] [facility] COMPREHENS SEKOU METABOLIC PANEL POTASSIUM [MOLES/VOLU ME] IN SERUM OR PLASMA 3.8 meq/L 3.5 - 5 01/01 Specimen Type: PLASMA No comment entered. Ordering Provider: NOE WU Report Released Date/Time : Dec 30, 2024 11:11 AM Reporting Lab: [place] [facility] [address] [place] [address] 8 Performin g Lab: [place] [facility] [address] [place] [address] 8 [place] [facility] COMPREHENS SEKOU METABOLIC PANEL CHLORIDE [MOLES/VOLU ME] IN SERUM OR PLASMA 109 meq/L 98 - 107 01/01 H Specimen Type: PLASMA No comment entered. Ordering Provider: NOE WU Report Released Date/Time : Dec 30, 2024 11:11 AM Reporting Lab: [place] [facility] [address] [place] [address] 8 Performin g Lab: [place] [facility] [address] [place] [address] 8 [place] [facility] COMPREHENS SEKOU METABOLIC PANEL CARBON DIOXIDE, TOTAL [MOLES/VOLU ME] IN SERUM OR PLASMA 26 meq/L 22 - 31 01/01 Specimen Type: PLASMA No comment entered. Ordering Provider: NOE WU Report Released Date/Time : Dec 30, 2024 11:11 AM Reporting Lab: [place] [facility] [address] [place] [address] 8 Performin g Lab: [place] [facility] [address] [place] [address] 8 [place] [facility] COMPREHENS SEKOU METABOLIC PANEL CALCIUM [MASS/VOLUM E] IN SERUM OR PLASMA 8.7 mg/dL 8.4 - 10.4 01/01 Specimen Type: PLASMA No comment entered. Ordering Provider: NOE WU Report Released Date/Time : Dec 30, 2024 11:11 AM Reporting Lab: [place] [facility] [address] [place] [address] 8 Performin g Lab: [place] [facility] [address] [place] [address] 8 [place] [facility] COMPREHENS SEKOU METABOLIC PANEL PROTEIN [MASS/VOLUM E] IN SERUM OR PLASMA 7.3 g/dL 6 - 8.6 01/01 Specimen Type: PLASMA No comment entered. Ordering Provider: NOE WU Report Released Date/Time : Dec 30, 2024 11:11 AM Reporting Lab: [place] [facility] [address] [place] [address] 8 Performin g Lab: [place] [facility] [address] [place] [address] 8 [place] [facility] COMPREHENS SEKOU METABOLIC PANEL ALBUMIN [MASS/VOLUM E] IN SERUM OR PLASMA 4.2 g/dL 3.4 - 5 01/01 Specimen Type: PLASMA No comment entered. Ordering Provider: NOE WU Report Released Date/Time : Dec 30, 2024 11:11 AM Reporting Lab: [place] [facility] [address] [place] [address] 8 Performin g Lab: [place] [facility] [address] [place] [address] 8 [place] [facility] COMPREHENS SEKOU METABOLIC PANEL BILIRUBIN.T OTAL [MASS/VOLUM E] IN SERUM OR PLASMA 0.3 mg/dL 0.2 - 1.2 01/01 Specimen Type: PLASMA No comment entered. Ordering Provider: NOE WU Report Released Date/Time : Dec 30, 2024 11:11 AM Reporting Lab: [place] [facility] [address] [place] [address] 8 Performin g Lab: [place] [facility] [address] [place] [address] 8 [place] [facility] COMPREHENS SEKOU METABOLIC PANEL ALKALINE PHOSPHATASE [ENZYMATIC ACTIVITY/VO LUME] IN SERUM OR PLASMA 80 U/L 40 - 150 01/01 Specimen Type: PLASMA No comment entered. Ordering Provider: NOE WU Report Released Date/Time : Dec 30, 2024 11:11 AM Reporting Lab: [place] [facility] [address] [place] [address] 8 Performin g Lab: [place] [facility] [address] [place] [address] 8 [place] [facility] COMPREHENS SEKOU METABOLIC PANEL ASPARTATE AMINOTRANSF ERASE [ENZYMATIC ACTIVITY/VO LUME] IN SERUM OR PLASMA 26 U/L 5 - 34 01/01 Specimen Type: PLASMA No comment entered. Ordering Provider: NOE WU Report Released Date/Time : Dec 30, 2024 11:11 AM Reporting Lab: [place] [facility] [address] [place] [address] 8 Performin g Lab: [place] [facility] [address] [place] [address] 8 [place] [facility] COMPREHENS SEKOU METABOLIC PANEL ALANINE AMINOTRANSF ERASE [ENZYMATIC ACTIVITY/VO LUME] IN SERUM OR PLASMA 24 U/L 8 - 40 01/01 Specimen Type: PLASMA No comment entered. Ordering Provider: NOE WU Report Released Date/Time : Dec 30, 2024 11:11 AM Reporting Lab: [place] [facility] [address] [place] [address] 8 Performin g Lab: [place] [facility] [address] [place] [address] 8 [place] [facility] COMPREHENS SEKOU METABOLIC PANEL GLOMERULAR FILTRATION RATE [VOLUME RATE/AREA] IN SERUM, PLASMA OR BLOOD BY CREATININE- BASED FORMULA (CKD-EPI 2020)/1.73 SQ M 55 01/01 Specimen Type: PLASMA No comment entered. Ordering Provider: NOE WU Report Released Date/Time : Dec 30, 2024 11:11 AM Reporting Lab: [place] [facility] [address] [place] [address] 8 Performin g Lab: [place] [facility] [address] [place] [address] 8 [place] [facility] HGA1C HEMOGLOBIN A1C/HEMOGLO BIN.TOTAL IN BLOOD 5.9 4.0 - 6.0 01/01 Specimen Type: BLOOD No comment entered. Ordering Provider: NOE WU Report Released Date/Time : Dec 30, 2024 11:11 AM Reporting Lab: [place] [facility] [address] [place] [address] 8 Performin g Lab: [place] [facility] [address] [place] [address] 8 [place] [facility] TSH (MA-PB) THYROTROPIN [UNITS/VOLU ME] IN SERUM OR PLASMA 2.832 u[IU]/mL 0.47 - 5 01/01 Specimen Type: SERUM No comment entered. Ordering Provider: NOE WU Report Released Date/Time : Dec 30, 2024 11:11 AM Reporting Lab: [place] [facility] [address] [place] [address] 8 Performin g Lab: [place] [facility] [address] [place] [address] 8 [place] [facility] B12 COBALAMIN (VITAMIN B12) [MASS/VOLUM E] IN SERUM OR PLASMA 388 pg/mL 213 - 816 01/01 Specimen Type: SERUM No comment entered. Ordering Provider: CALI PARNELL Report Released Date/Time : Jan 01, 2025 11:49 AM Reporting Lab: [place] [facility] [address] [place] [address] 8 Performin g Lab: [place] [facility] [address] [place] [address] [place] [place] [facility] MAGNESIUM MAGNESIUM [MASS/VOLUM E] IN SERUM OR PLASMA 2.14 mg/dL 1.6 - 2.6 01/01 Specimen Type: PLASMA No comment entered. Ordering Provider: CALI PARNELL Report Released Date/Time : Jan 01, 2025 11:49 AM Reporting Lab: [place] [facility] [address] [place] [address] 8 Performin g Lab: [place] [facility] [address] [place] [address] [facility] VITAMIN D, 25-HYDROXY 25-HYDROXYV ITAMIN D3 [MASS/VOLUM E] IN SERUM OR PLASMA 45.1 ng/mL 30 - 96 01/01 Specimen Type: SERUM No comment entered. Ordering Provider: CALI PARNELL Report Released Date/Time : Jan 01, 2025 11:49 AM Reporting Lab: [place] [facility] [address] [place] [address] 8 Performin g Lab: [place] [facility] [address] [place] [address] [facility] POC UA (STL-PB-MA ) PROTEIN [MASS/VOLUM E] IN URINE BY TEST STRIP Tracemg/d L 11/06 Specimen Type: URINE No comment entered. Ordering Provider: KAYLEIGH MACIEL Report Released Date/Time : Nov 07, 2023 02:04 PM Reporting Lab: [facility] [address] [facility] [phone] Performin g Lab: [place] [facility] [address] [facility] [phone] [facility] POC UA (STL-PB-MA ) HEMOGLOBIN [MASS/VOLUM E] IN URINE BY TEST STRIP Trace-int act 11/06 Specimen Type: URINE No comment entered. Ordering Provider: KAYLEIGH MACIEL Report Released Date/Time : Nov 07, 2023 02:04 PM Reporting Lab: [place] [facility] [address] [facility] [phone] Performin g Lab: [place] [facility] [address] [facility] [phone] [place] [facility] POC UA (STL-PB-MA ) LEUKOCYTES [PRESENCE] IN URINE Negative 11/06 Specimen Type: URINE No comment entered. Ordering Provider: KAYLEIGH MACIEL Report Released Date/Time : Nov 07, 2023 02:04 PM Reporting Lab: [place] [facility] [address] [facility] [phone] Performin g Lab[facility] [place] [facility] [address] [facility] [address] [facility] [address] [facility] POC UA (STL-PB-MA ) COLOR OF URINE Yellow 11/06 Specimen Type: URINE No comment entered. Ordering Provider: KAYLEIGH MACIEL Report Released Date/Time : Nov 07, 2023 02:04 PM Reporting Lab: [facility] [address] [facility] [address] [facility] [phone] Performin g Lab: [facility] [address] [facility] [address] [facility] POC UA (STL-PB-MA ) SPECIFIC GRAVITY OF URINE 1.015 1.005 - 1.030 11/06 Specimen Type: URINE No comment entered. Ordering Provider: KAYLEIGH MACIEL Report Released Date/Time : Nov 07, 2023 02:04 PM Reporting Lab: [facility] [address] [facility] [address] [facility] [address] Performin g Lab: [facility] [address] [facility] [address] [facility] POC UA (STL-PB-MA ) UROBILINOGE N [UNITS/VOLU ME] IN URINE 0.2 {Junior' U}/dL 0.1 - 1.0 11/06 Specimen Type: URINE No comment entered. Ordering Provider: KAYLEIGH MACIEL Report Released Date/Time : Nov 07, 2023 02:04 PM Reporting Lab: [place] [facility] [address] [facility] [phone] Performin g Lab: [facility] [address] [facility] [address] [facility] [facility] POC UA (STL-PB-MA ) BILIRUBIN.T OTAL [PRESENCE] IN URINE Negative 11/06 Specimen Type: URINE No comment entered. Ordering Provider: KAYLEIGH MACIEL Report Released Date/Time : Nov 07, 2023 02:04 PM Reporting Lab: [facility] [place] [facility] [address] [facility] [address] Performin g Lab: [place] [facility] [address] [facility] [address] [facility] POC UA (STL-PB-MA ) KETONES [MASS/VOLUM E] IN URINE BY TEST STRIP Negativem g/dL 11/06 Specimen Type: URINE No comment entered. Ordering Provider: KAYLEIGH MACIEL Report Released Date/Time : Nov 07, 2023 02:04 PM Reporting Lab: [facility] [address] [facility] [address] Performin g Lab: [place] [facility] [address] [facility] [address] [facility] POC UA (STL-PB-MA ) GLUCOSE [MASS/VOLUM E] IN URINE BY TEST STRIP Negativem g/dL 11/06 Specimen Type: URINE No comment entered. Ordering Provider: KAYLEIGH MACIEL Report Released Date/Time : Nov 07, 2023 02:04 PM Reporting Lab: [facility] [address] [facility] [address] Performin g Lab: [place] [facility] [address] [facility] [address] [facility] [place] [facility] POC UA (STL-PB-MA ) PH OF URINE 6.5 5.0 - 8.0 11/06 Specimen Type: URINE No comment entered. Ordering Provider: KAYLEIGH MCAIEL Report Released Date/Time : Nov 07, 2023 02:04 PM Reporting Lab: [place] [place] [facility] [address] [facility] [address] Performin g Lab: [place] [facility] [address] [facility] [address] [facility] NITRITE [PRESENCE] IN URINE BY TEST STRIP Negative 11/06 Specimen Type: URINE No comment entered. Ordering Provider: KAYLEIGH MACIEL Report Released Date/Time : Nov 07, 2023 02:04 PM Reporting Lab: [facility] [address] [facility] [address] Performin g Lab: [facility] [address] [address] [facility] [address] [facility] POC UA (STL-PB-MA ) CLARITY OF URINE Clear 11/06 Specimen Type: URINE No comment entered. Ordering Provider: KAYLEIGH MACIEL Report Released Date/Time : Nov 07, 2023 02:04 PM Reporting Lab: [facility] [address] [facility] [address] Performin g Lab: [facility] [address] [address] [facility] [address] [facility] Vital Signs Combined list of inpatient and outpatient Vital Signs from Department of Defense and Veterans Affairs, ranging from 12 months to all on record, depending upon the facility. Vital Sign Value Date Comments Source SYSTOLIC BLOOD PRESSURE 150 01/01/2025 11:02:00 [facility] DIASTOLIC BLOOD PRESSURE 72 01/01/2025 11:02:00 [facility] PULSE OXIMETRY 94 % 01/01/2025 11:02:00 [facility] WEIGHT 249.2 01/01/2025 11:02:00 [facility] BMI 36 kg/m2 01/01/2025 11:02:00 [facility] PULSE 57 01/01/2025 11:02:00 [facility] Encounters Combined list of: 1) Encounters from Department of Veterans Affairs facilities going backup to the last 18 months, not all [place] inpatient encounters are included; 2) Encounters from the Department of Defense facilities going backup to 280 months. Location Location Details Encounter Type Encounter Number Reason For Visit Attending Provider ADM Date DC Date Status Disposition Source [facility] Outpatient Encounter [id number] 07/28 [facility] [place] [facility] Outpatient Encounter [id number] 08/28 [place] 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 Outpatient Encounter [id number] BERNA MACIEL 11/06 [facility] Outpatient Encounter [id number] 12/01 [facility] Outpatient Encounter [id number] 12/12 [facility] Outpatient Encounter [id number] 12/17 [facility] Outpatient Encounter [id number] 01/06 [facility] En[facility] [id number] 02/27 [facility] Outpatient Encounter [id number] 02/28 [facility]counter [id number] ALYCE BERG 03/23 [facility] Encounter [id number] 03/23 [facility] Encounter [id number] 03/24 [facility] Outpatient Encounter [id number] 03/31 [facility] Encounter [id number] 04/06 [facility] Out[facility] Encounter [id number] 04/13 [facility] Outpatient Encounter [id number] 04/28 [facility] Encounter [id number] 07/01 [facility] Outpatient Encounter [id number] 07/02 [facility] Outpatient Encounter [id number] 07/02 [facility] Encounter [id number] BEVERLY THOMPSON A 07/07 [facility] Out[facility] Encounter [id number] 07/08 [facility] Out[facility] Encounter [id number] 07/09 [facility] Out[facility] Encounter [id number] 09/02 [facility] Outpatient Encounter [id number] 09/09 [facility] Encounter [id number] 09/09 [facility] Outpatient Encounter [id number] 09/22 [facility] Encounter [id number] 10/01 [facility] Outpatient Encounter [id number] 10/15 [facility] [place] [facility] Outpatient Encounter [id number] SCOUT PARNELL G 10/15 [place] [facility] Outpatient Encounter [id number] 10/20 [facility] Out[facility] Encounter [id number] 11/12 [facility] Outpatient Encounter [id number] 11/13 [facility] Outpatient Encounter [id number] 11/13 [facility] Outpatient Encounter [id number] 11/27 [facility] Outpatient Encounter [id number] 12/23 [facility] Outpatient Encounter [id number] 12/24 [facility] Outpatient Encounter [id number] 12/24 [facility] Out[facility] Encounter [id number] 12/29 [facility] Outpatient Encounter [id number] 12/29 [facility] Outpatient Encounter [id number] 12/30 [facility] Outpatient Encounter [id number] 01/01 [facility] OFFICE O/P EST MOD 30 MIN [id number] Diagnos is: ICD-10- CM Z00.01 Encount er for general adult medical exam w abnorma l finding s SCOUT PARNELL G 01/01 [facility] Outpatient Encounter [id number] 01/04 [facility] Outpatient Encounter [id number] 01/05 [facility] Outpatient Encounter [id number] 01/06 [facility] PH1 ASSMT&MGMT NQHP 5-10 [id number] Diagnos is: ICD-10- CM R79.89 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 Social History Type Response Date Comment Sourc e Tobacco smoking status NHIS VA-TOBACCO USE FORMER CIGARETTES 01/01/2025 [facility] History of tobacco use VA-TOBACCO SCREEN FOLLOW-UP 01/01/2025 [facility] History of tobacco use VA-TOBACCO FORMER USER 11/07/2023 [facility] History of tobacco use VA-TOBACCO FORMER USER 11/13/2022 [facility] History of tobacco use FORMER SMOKER - <100 LIFETIME CIGARETTES 11/15/2021 [place] [facility] History of tobacco use VA-TOBACCO NEVER USED 02/20/2021 [facility] History of tobacco use VA-TOBACCO QUIT 5 TO < 15 YRS 02/23/2020 [facility] History of tobacco use VA-TOBACCO FORMER USER 02/17/2018 [facility] History of tobacco use TOBACCO USER OFFERED MEDS 08/21/2017 [facility] History of tobacco use TOBACCO USER OFFERED MEDS 02/20/2017 [facility] History of tobacco use TOBACCO OFFERED STOP SMOKING CLINIC 02/08/2016 [facility] History of tobacco use TOBACCO OFFERED PT MEDS (PROVIDER) 03/10/2015 [facility] History of tobacco use CURRENT TOBACCO USER 12/14/2014 [facility] History of tobacco use CURRENT TOBACCO USER 06/05/2013 [facility] History of tobacco use CURRENT TOBACCO USER 03/18/2012 [facility] History of tobacco use TOBACCO OFFERED PT MEDS (PROVIDER) 02/21/2011 declined [facility] History of tobacco use CURRENT TOBACCO USER 03/06/2010 [facility] History of tobacco use TOBACCO OFFERED PT MEDS (PROVIDER) 09/03/2009 [facility] History of tobacco use TOBACCO OFFERED STOP SMOKING CLINIC 02/28/2009 [facility] History of tobacco use CURRENT TOBACCO USER 01/17/2008 [facility] History of tobacco use QUIT TOBACCO >7 YEARS AGO 01/07/2008 [facility] History of tobacco use TOBACCO MEDS OFFERED BUT DECLINED 11/25/2007 [facility] History of tobacco use TOBACCO MEDS OFFERED BUT DECLINED 09/01/2007 [facility] History of tobacco use TOBACCO OFFERRED STOP SMOKING CLINIC 07/01/2007 [facility] History of tobacco use QUIT TOBACCO IN THE LAST 12 MONTHS 04/29/2007 [facility] History of tobacco use QUIT TOBACCO IN THE LAST 12 MONTHS 04/22/2006 [facility] History of tobacco use CURRENT NON-TOBACCO USER-HX OF USE 04/03/2005 [facility] History of tobacco use CURRENT TOBACCO USER 10/11/2004 [facility] History of tobacco use CURRENT TOBACCO USER 04/10/2004 [facility] History of tobacco use CURRENT TOBACCO USER 06/14/2003 [facility] Plan of Care List of future care activities from [facility] facilities. Additional future care activities may be listed in the Assessment and Plan section. Date/Time Care Activity Care Activity Detail Facili ty 01/18/2025 AMBULATORY - MEDICINE AMBULATORY - MEDICI CATRACHITA MONGE [facility] Advance Directives List of completed, amended, or rescinded Advance Directives on record at [facility] facilities. An actual copy of the Directive is not included. Date Advance Directive Provider Source 06/22/2020 ADVANCE DIRECTIVE ARIN ALVARADO FF [facility]
--- NOTE | 2025-01-09 14:31 | ECG_ITS ---
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
--- OUTSIDE RECORDS SUMMARY | 2025-01-09 14:32 | XMS_ITS | Clinical Summary ---
Author Organization [facility] Facility Address [address] [place] [address] Care Team Providers Care Silver Holloware Assembler Name Role Phone Meliza Cantor DO Primary Care Provider [phone] Allergies Active Allergy Reactions Criticality Noted Date [...] Proteinuria 05/13/2018 Lumbosacral spondylosis without myelopathy 11/04 Post-traumatic stress disorder 10/13/2014 Hypertensive retinopathy 04/21/2014 Obstructive sleep apnea syndrome 04/18/2013 Chronic obstructive pulmonary disease 04/08/2013 Coronary atherosclerosis 04/08/2013 Mixed hyperlipidemia 04/08/2013 Encounters Date Type Department Care Team Description 10/12/2024 Refill [facility] [address] [facility] [address] [place] [id number] Daisy Menendez MD from Last 3 Months [...] Comments Blood Pressure 138/80 03/18/2024 9:56 AM [employer]GE ROUNDER Pulse 61 03/18/2024 9:56 AM [employer]ER Temperature 36.6 C (97.8 F) 11/24/2019 11:31 AM CDT Respiratory Rate - - Oxygen Saturation 96% 03/18/2024 9:56 AM [employer]ER Inhaled Oxygen Concentration - - Weight 113 kg (249 lb 3.2 oz) 03/18/2024 9:56 AM [employer]GE ROUNDER Height 180.3 cm (5' 11 ) 03/18/2024 9:56 AM [employer]OUNDER Body Mass Index 34.76 03/18/2024 9:56 AM [employer]GE ROUNDER Plan of Treatment Upcoming Encounters Date Type Department Care Team (Late st Contact Info) Description 03/23/2025 1:00 PM [employer] Office Visit [facility] [address] [place] [address] Oanh Abrams NP [address] [place] [address] Health Maintenance Due Date Last [...] Comments HEMOGLOBIN A1C Routine 02/14/2018 12:00 AM W[employer] EDGE ROUNDER from Last 3 Months or Most Recently Relevant to Health Maintenance Results * Hemoglobin A1c (02/14/2018 12:00 AM [employer]OUNDER) Hemoglobin A1C 5.3 4.0 - 6.0 % SNA Comment courtesy lab ms SNA 02/14/2018 us Sna Conversion LAB BLOOD ORDERABLES Final Resul t SNA from Last 3 Months or Most Recently Relevant to Health Maintenance Insurance [facility] Medicare Care Teams Silver [employer] Assembler Relationship Specialty Start Date End Date Meliza Cantor DO [address] [place] [phone] PCP - General Family Medicine 05/15/18
--- OUTSIDE RECORDS SUMMARY | 2025-01-09 14:36 | XMS_ITS | Encounter Summary ---
Author Organization [facility] Address [address] [place] [address] Care Team Providers Care Lead Case Manager Name Role Phone Meliza Cantor DO Primary Care Provider [phone] Encounter Details Date Type Department Care Team (Latest Contact Info) Description 01/10/2006 Outpatient Historical [facility] Cardiology- [place] [address] [place] [address] Basilio Walton MD [address] [facility] [address] [place] [address] Coronary Atherosclerosis of [place] Coronary Artery (Primary Dx); Other Malaise and Fatigue Social History Tobacco Use Types Packs/Day Years Used Date Smoking Tobacco: Never Assessed Sex and Gender Information Value Date Recorded Sex Assigned at Not on file Legal 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
--- OUTSIDE RECORDS SUMMARY | 2025-01-09 14:36 | XMS_ITS | Continuity of Care Document ---
Author Organization [facility] [place], [place], [facility] ([facility]) Address [address] [place] [address] Care Team Providers Care Tube Station Attendant Name Role Phone BRITTNY GROVER Primary Care Provider Assessment No assessment recorded. Plan of Treatment Reminders Order Date Submit Date Provider Last Modified By Organization Details Last Modified Time Details Appointments ACUTE VISIT 025 01:20PM WALK-IN Not available Not available Not available Lab None recorde d. Referral None recorde d. Procedures None recorde d. Surgeries None recorde d. Imaging None recorde d. Medication Orders None recorde d. Patient TargetsNo targets recorded. Patient Instructions Encounter Date Encounter Id Patient Instructions Last Modified By Organization Details Last Modified Time 01/09/2025 [id number] I am sending to ER. Sats dropped to 83% with activity. I feel like he has a possible pneumonia but has gained at least 10 pounds recently. No edema to lower extremity that i can see. [email or web address] Not available 01/09/2025 15:30:32 Reason for Referral None Reported. Procedures Surgical History Date Name Laterality Status Provider Name and Address Organization Details Recorded Time Hernia Repair completed Farner Maggy [facility] [place] 01/25/2024 12:18:13 Stent completed [facility] [place] 01/25/2024 12:18:18 Imaging Results None recorded. Procedure Notes None recorded. Medical Equipment None Reported. Allergies No known drug allergies Medications Name Sig Start Date Stop Date Status Note LastModified by Organization Details LastModified Time atorvasta tin 40 mg tablet daily active 0; Recorded 10/05/19 21 11:03AM by Beatriz Douglas LPN, Office Visit; Not Available Not Available Not Available Augmentin 875 mg-125 mg tablet Take 1 tablet every 12 hours by oral route for 10 days. 01/24 completed Not Available Not Available Not Available Flonase 50 mcg/DOSE nasal inhaler daily active 0; Recorded 10/05/19 21 11:10AM by Beatriz Douglas LPN, Office Visit; Not Available Not Available Not Available prednison e 20 mg tablet Take 2 tablets every day by oral route in the morning for 5 days. 01/24 completed Not Available Not Available Not Available aspirin 81 mg tablet,de layed release daily active 0; Recorded 10/05/19 21 11:05AM by Beatriz Douglas LPN, Office Visit; Not Available Not Available Not Available alprazola m 0.5 mg tablet TAKE 1 TABLET BY MOUTH DAILY NEEDED FOR ANXIETY active Not Available Not Available No t Available tamsulosi n 0.4 mg capsule daily active 0; Recorded 10/05/19 21 11:08AM by Beatriz Douglas LPN, Office Visit; Not Available Not Available Not Available ropinirol e 0.25 mg tablet 04/17 completed Not Available Not Available Not Available cephalexi n 500 mg capsule three times daily 04/17 completed VO AT/MA; Recorded 03/15/19 23 11:17AM by Luz Marina Villatoro al Summary; Refill Quantity : 0; Not Available Not Available Not Available pantopraz ole 40 mg tablet,de layed release active Not Available Not Available Not Available mupirocin 2 % topical ointment APPLY A SMALL AMOUNT TO THE AFFECTED AREA BY TOPICAL ROUTE 2 TIMES PER DAY 04/17 completed Not Available Not Available Not Available zolpidem 10 mg tablet at bedtime active 0; Recorded 10/05/19 21 11:04AM by Beatriz Douglas LPN, Office Visit; Not Available Not Available Not Available doxycycli ne hyclate 100 mg tablet Take 1 tablet twice a day by oral route for 7 days. 01/09 completed Not Available Not Available Not Available doxazosin daily active 0; Recorded 10/05/19 11:07AM by Beatriz Douglas LPN, Office Visit; Not Available Not Available Not Available alprazola m as needed 04/17 completed 0; Recorded 10/05/19 11:03AM by Beatriz Douglas LPN, Office Visit; Not Available Not Available Not Available lisinopri l daily active 0; Recorded 10/05/19 11:08AM by Beatriz Douglas LPN, Office Visit; Not Available Not Available Not Available atenolol daily active 0; Recorded 10/05/19 11:05AM by Beatriz Douglas LPN, Office Visit; Not Available Not Available Not Available glipizide daily active 0; Recorded 10/05/19 11:05AM by Beatriz Douglas LPN, Office Visit; Not Available Not Available Not Available Multivita mins daily active 0; Recorded 10/05/19 11:09AM by Beatriz Douglas LPN, Office Visit; Not Available Not Available Not Available bupropion HCl daily active 0; Recorded 10/05/19 11:04AM by Beatriz Douglas LPN, Office Visit; Not Available Not Available Not Available [facility] Levothyro xine Sodium daily active 0; Recorded 10/05/19 11:03AM by Beatriz Douglas LPN, Office Visit; Not Available Not Available Not Available aripipraz ole daily active 0; Recorded 10/05/19 11:09AM by Beatriz Douglas LPN, Office Visit; Not Available Not Available Not Available ropinirol e 0.25 mg (2)-0.5 mg(5)-1 mg(7) tablets in a dose pack daily 2023 active 0; Recorded 10/05/19 11:07AM by Beatriz Douglas LPN, Office Visit; Not Available Not Available Not Available Fish Oil 300 mg-1,000 mg capsule daily active 0; Recorded 10/05/19 11:09AM by Beatriz Douglas LPN, Office Visit; Not Available Not Available Not Available amlodipin e besylate (bulk) daily active 0; Recorded 10/05/19 21 11:07AM by Beatriz Douglas LPN, Office Visit; Not Available Not Available Not Available Vitals Date Recorded Body height Body mass index (BMI) Body weight Oxygen saturation Oxygen saturation in Arterial blood by Pulse oximetry Heart rate Body temperature Respiratory rate Oxygen saturation Oxygen saturation in Arterial blood by Pulse oximetry Systolic And Diastolic Provider Name and Address Organization Details Last Updated DateTime 5 177.8 cm 36.2 kg/m2 368341. 28 g 89 % 89 % 70 /min 98.2 [degF] 18 /min 83 % 83 % 142/80 mm[Hg] VINICIO RAMIREZ [facility] 5 14:48:21 Social History None recorded. Functional Status None recorded. Mental Status None recorded. Family History Nothing Reported. Medical History No medical history recorded. Immunizations Vaccine Type Date Status Note Provider Nam e and Address Organization Details Recorded Time Influenza, high-dose, quadrivalent, PF 2 [facility] 13:34:19 Influenza, high-dose, quadrivalent, PF 1 [facility]/17[facility]2023 13:34:19 Influenza, adjuvanted, quadrivalent, PF 3 [facility] 04/17/2023 13:34:19 COVID-19, mRNA, LNP-S, PF, 30 mcg/0.3 mL dose 1 [facility] 04/17/2023 13:34:19 COVID-19, mRNA, LNP-S, PF, 30 mcg/0.3 mL dose 1 completed REEMA castro [facility] 04/17/2023 13:34:19 COVID-19, mRNA, LNP-S, PF, 30 mcg/0.3 mL dose, beto-sucrose 2 completed REEMA castro, [facility] 04/17/2023 13:34:19 COVID-19, mRNA, LNP-S, bivalent, PF, 30 mcg/0.3 mL dose 2 completed REEMA castro, [facility] 04/17/2023 13:34:19 RSV, recombinant, protein subunit RSVpreF, adjuvant reconstituted, 0.5 mL, PF 3 completed REEMA castro, [facility] 04/17/2023 13:34:19 COVID-19, mRNA, LNP-S, PF, 50 mcg/0.5 mL 3 completed REEMA castro, [facility] 04/17/2023 13:34:19 [facility]dap 2 [facility] 04/17/2023 13:34:20 Td(adult) unspecified formulation 3 completed Not Available [facility] 01/09/2025 14:11:52 zoster recombinant 9 completed Not Available [facility] 01/09/2025 14:11:52 zoster recombinant 0 completed Not Available [facility] 01/09/2025 14:11:52 Pneumococcal conjugate PCV 13 0 completed Not Available [facility] 01/09/2025 14:11:52 pneumococcal polysaccharide PPV23 1 completed Not Available [facility] 01/09/2025 14:11:52 Influenza, high-dose, trivalent, PF 4 completed Not Available [facility] 01/09/2025 14:11:52 COVID-19, mRNA, LNP-S, PF, 50 mcg/0.5 mL 4 completed Not Available [facility] 01/09/2025 14:11:52 Influenza, high-dose, trivalent, PF 5 completed Not Available [facility] 01/09/2025 14:11:52 COVID-19, mRNA, LNP-S, PF, 10 mcg/0.2 mL 5 completed Not Available [facility] 01/09/2025 14:11:52 Past Encounters Encounter ID Performer Location Encounter Start Date Encounter Closed Date Diagnosis/Indication Diagnosis SNOMED-CT Code Diagnosis ICD10 Code Diagnosis IMO Codes Diagnosis Note [id number] CHAU SORIANO APRN [facility] ([facility]) [address] [place] [address] 01/09/2025 14:10:14 01/09/2025 15:30:43 Oxygen saturation below reference range 322746214 R79.81 [id number] Acute exac erbation of chronic obstructive pulmonary disease 964982756 J44.1 [id number] Health Concerns Section Related Observation LastModified by Organization Detai ls LastModified Time None Recorded Concern Status LastModified by Organization Details LastModified Time None Recorded Payers Encounter Date Sequence Insurance Name Policy Number Policy Doshi Covered Member ID Doshi Member ID Guarantor Name 01/09/2025 1 [employer] (MEDICARE REPLACEMENT/ ADVANTAGE - PPO) Gary Nichols [id number] Gary Nichols Notes Date Note Type Note Provider Name and Address Organization Details Recorded Time 01/09/2025 text/html ROS as noted in the HPI walk-in Patient c/o low 02 and shortness of breath. He states it's been going on for a few days but last night got worse. O2 was running 88 last night. He states with deep breathing he can get it up to 90 but not any above. CHAU SORIANO APRN [address] [place], [address], Joint venture between [facility] and [facility], [place] 01/09/2025 15:30:42
--- OUTSIDE RECORDS SUMMARY | 2025-01-09 14:36 | XMS_ITS | Encounter Summary ---
Author Organization [facility] Address [address] [place] [address] Care Team Providers Care Evp Marketing Name Role Phone Meliza Cantor DO Primary Care Provider [phone]- [phone] Encounter Details Date Type Department Care Team (Latest Contact Info) Description 09/18/2000 Outpatient Historical [facility] Cardiology- [place] [address] [place] [address] Basilio Walton MD [address] [facility] [address] [place] [address] Old myocardial infarct (Primary Dx); Other specified forms of chronic ischemic heart disease; Coronary atherosclerosis of [place] coronary artery; Pure hypercholesterolem Social History Tobacco Use Types Packs/Day Years Used Date Smoking Tobacco: Never Assessed Sex and Gender Information Value Date Recorded Sex Assigned at Not on file Legal Sex Male 6:11 AM SAL[employer] Gender Identity Not on file Sexual Orientation Not on file documented as of this encounter Plan of Treatment Not on file documented as of this encounter Visit Diagnoses Diagnosis Old myocardial infarct- Primary Old myocardial infarction Other specified forms of chronic ischemic heart disease Coronary atherosclerosis of [place] coronary artery Pure hypercholesterolem Pure hypercholesterolemia documented in this encounter Care Teams Evp Marketing Relationship Specialty Start Date End Date Meliza Cantor DO [address] [place] [address] PCP - General Family Practice 04/09/13 documented as of this encounter
--- OUTSIDE RECORDS SUMMARY | 2025-01-09 14:36 | XMS_ITS | Encounter Summary ---
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 (Primary Dx); Old myocardial infarct; MIXED HYPERLIPIDEMIA; CHRONIC AIRWAY OBSTRUCTION NEC (CMS/HCC) Social History Tobacco Use Types Packs/Day Years Used Date Smoking Tobacco: Never Assessed Sex and Gender Information Value Date Recorded Sex Assigned at Not on file 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
--- OUTSIDE RECORDS SUMMARY | 2025-01-09 14:36 | XMS_ITS | Encounter Summary ---
Author Organization [facility] Address [address] [place] [address] Care Team Providers Care Material Movers Name Role Phone Meliza Cantor Primary Care Provider [phone]- [phone] Reason for Referral * Outpatient Services (Routine) - Closed Specialty Diagnoses / Procedures Referred By Contac t Referred To Contact Radiology Diagnoses Proteinuria Hematuria, unspecified Acute kidney failure, unspecified Procedures US BIOPSY ABDOMEN Sharita Stanley DO [address] [employer] [address] [address] Phone: tel: fax: [facility] Ultrasound [address] [place] [address] Phone: tel: fax: Referral ID Status Reason Start Date Expiration Date Visits Re quested Visits Authorized [id number] Closed 01/12/2014 02/12/2015 1 1 CARDIOVASCULAR ICU Encounter Details Date Type Department Care Team (Late st Contact Info) Description 01/12/2014 Ancillary Orders [facility] Ultrasound [address] [place] [address] Sharita Stanley DO [address] [address] Proteinuria (Primary Dx); Hematuria, unspecified; [...] file Legal Sex Male 6:11 AM RN CARDIOVASCULAR ICU Gender Identity Not on file Sexual Orientation Not on file Occupation Industry Job Start Date Job End Date Not on file Not on file Not on file Not on file documented as of this encounter Plan of Treatment Not on file documented as of this encounter Results * US BIOPSY ABDOMEN (01/15/2014 10:41 AM RN CARDIOVASCULAR ICU) Anatomical Region Laterality Modality Abdomen Ultrasound 01/15/2014 9:46 AM RN CARDIOVASCULAR ICU Impressions 01/15/2014 4:36 PM RN CARDIOVASCULAR ICU Impression: Left renal biopsy. Sharla - uploaded from [facility] - Narrative 01/15/2014 4:36 PM RN CARDIOVASCULAR ICU Ultrasound guided left renal biopsy for glomeruli [...] Left renal biopsy. Sharla - uploaded from [facility] - Sharita Stanley DO US ORDERABLES Final Result documented in this encounter Visit Diagnoses Diagnosis Proteinuria- Primary Hematuria, unspecified Acute kidney failure, unspecified Proteinuria Hematuria, unspecified Acute kidney failure, unspecified documented in this encounter Care Teams Material Movers Relationship Specialty Start Date End Date Meliza Cantor DO [address] [place] [address] PCP - General Family Practice 04/09/13 documented as of this encounter
--- OUTSIDE RECORDS SUMMARY | 2025-01-09 14:36 | XMS_ITS | Data Portability ---
Author Organization ID Richy Farris [facility] Autumn Hidalgo [facility] Address [address] [place] [phone] Care Team Providers Care Sales Operations Assistant Name Role Phone BRITTNY GROVER Primary Care Provider Assessment Encounter Date Assessment Date Assessment LastModified by Organization Details LastModified Time 08/13/2022 08/13/2022 Abx as prescribed for infection. Complete full course. Keep site clean and dry. Do no soak in standing water. Wash with antibacterial soap and running water. Pat dry and apply mupirocin. APAP PRN. Will go to [facility] for tetanus booster today. F/U PRN with PCP. Prompt f/u with any acute worsening. Patient verbalized understanding and agreement with plan of care. Will call with questions or concerns. [email or web address] Not available 08/13/2022 14:31:15 Plan of Treatment Reminders Order Date Submit Date Provider Last Modified By Organization Details Last Modified Time Details Appointments ACUTE VISIT 2024 01:20P M WALK-IN Not available Not available Not available Lab None recorded. Referral None recorded. Procedures None recorded. Surgeries None recorded. Imaging None recorded. Medication Orders doxycycli ne hyclate 100 mg tablet 2023 025 [id number], [address], [place], [place], [id number], 01/09/2025 14:49:29 Augmentin 875 mg-125 mg tablet 2023 024 [facility], [address], [place], [place], [id number], 01/25/2024 12:15:19 prednison e 20 mg tablet 2023 024 [facility], [address] [facility] [address], [place], [place], [id number], 01/25/2024 12:15:27 Augmentin 875 mg-125 mg tablet 2022 024 [facility], [address], [place], [place], [id number], 01/25/2024 12:15:19 mupirocin 2 % topical ointment 2022 024 [facility], [address], [place], [place], [id number], 04/17/2023 13:41:38 Patient TargetsNo targets recorded. Patient Instructions Encounter Date Encounter Id Patient Instructions Last Modified By Organization Details Last Modified Time 01/25/2024 [id number] May use generic dayquil. Increase fluids. Follow up for worsening Not available 01/25/2024 12:32:59 01/09/2025 [id number] I am sending to ER. Sats dropped to 83% with activity. I feel like he has a possible pneumonia but has gained at least 10 pounds recently. No edema to lower extremity that i can see. Not available 01/09/2025 15:30:32 Reason for Referral None Reported. Procedures Surgical History Date Name Laterality Status Provider Name and Address Organization Details Recorded Time [facility]/25/2024 12:18:13 Stent completed [facility] [place] 01/25/2024 12:18:18 Imaging Results None recorded. Procedure [...] nasal inhaler daily active 0; Recorded 10/05/19 11:10AM by Beatriz Douglas LPN, Office Visit; Not Available Not Available Not Available prednison e 20 mg tablet Take 2 tablets every day by oral route in the morning for 5 days. 01/24 completed Not Available Not Available Not Available aspirin 81 mg tablet,de layed release daily active 0; Recorded 10/05/19 11:05AM by Beatriz Douglas LPN, Office Visit; Not Available Not Available Not Available alprazola m 0.5 mg tablet TAKE 1 TABLET BY MOUTH DAILY NEEDED FOR ANXIETY active Not Available Not Available No t Available tamsulosi n 0.4 mg capsule daily active 0; Recorded 10/05/19 11:08AM by [...] tablet at bedtime active 0; Recorded 10/05/19 11:04AM by Beatriz [...] Visit; Not Available Not Available Not Available [facility] Levothyro xine Sodium daily active 0; Recorded [...] height Body mass index (BMI) Body weight Body temperature Oxygen saturation Oxygen saturation in Arterial blood by Pulse oximetry Heart rate Systolic And Diastolic Provider Name and Address Organization Details Last Updated DateTime 4 177.8 cm 33.7 kg/m2 724305. 21 g 97.7 [degF] 94 % 94 % 74 /min 123/60 mm[Hg] REEMA OSULLIVAN [facility] 4 13:33:27 Date Recorded Body height Body mass index (BMI) Body weight Oxygen saturation Oxygen saturation in Arterial blood by Pulse oximetry Heart rate Respiratory rate Body temperature Provider Name and Address Organization Details Last Updated DateTime 3 177.8 cm 32.6 kg/m2 946535. 17 g 96 % 96 % 61 /min 20 /min 97.3 [degF] ZORA WATERMAN [facility] 3 14:03:35 Date Recorded Body height Body mass index (BMI) Body weight Oxygen saturation Oxygen saturation in Arterial blood by Pulse oximetry Heart rate Body temperature Respiratory rate Oxygen saturation Oxygen saturation in Arterial blood by Pulse oximetry Systolic And Diastolic Provider Name and Address Organization Details Last Updated DateTime 5 177.8 cm 36.2 kg/m2 369337. 28 g 89 % 89 % 70 /min 98.2 [degF] 18 /min 83 % 83 % 142/80 mm[Hg] VINICIO RAMIREZ [facility] 5 14:48:21 Date Recorded Body height Body mass index (BMI) Body weight Oxygen saturation Oxygen saturation in Arterial blood by Pulse oximetry Heart rate Respiratory rate Body temperature Systolic And Diastolic Provider Name and Address Organization Details Last Updated DateTime 4 177.8 cm 35.3 kg/m2 304459. 72 g 96 % 96 % 68 /min 16 /min 98.2 [degF] 122/68 mm[Hg] Rosenda Winter [facility] 4 12:19:39 Social History None recorded. Functional Status None recorded. Mental Status None recorded. Family History Nothing Reported. Medical History No medical history recorded. Immunizations Vaccine Type Date Status Note Provider Nam e and Address Organization Details Recorded Time Influenza, high-dose, quadrivalent, PF 2 completed REEMA OSULLIVAN [facility] 04/17/2023 13:34:19 Influenza, high-dose, quadrivalent, PF 1 completed REEMA ROBERT OSULLIVAN [facility] 04/17/2023 13:34:19 Influenza, adjuvanted, quadrivalent, PF 3 completed REEMA ROBERT OSULLIVAN [facility] 04/17/2023 13:34:19 COVID-19, mRNA, LNP-S, PF, 30 mcg/0.3 mL dose 1 completed REEMA ROBERT OSULLIVAN [facility] 04/17/2023 13:34:19 COVID-19, mRNA, LNP-S, PF, 30 mcg/0.3 mL dose 1 completed REEMA ROBERT OSULLIVAN [facility] 04/17/2023 13:34:19 COVID-19, mRNA, LNP-S, PF, 30 mcg/0.3 mL dose, beto-sucrose 2 completed REEMA ROBERT OSULLIVAN [facility] 04/17/2023 13:34:19 COVID-19, mRNA, LNP-S, bivalent, PF, 30 mcg/0.3 mL dose 2 completed [facility] OSULLIVAN [facility] 04/17/2023 13:34:19 RSV, recombinant, protein subunit RSVpreF, adjuvant reconstituted, 0.5 mL, PF 3 completed REEMA ROBERT OSULLIVAN [facility] 04/17/2023 13:34:19 COVID-19, mRNA, LNP-S, PF, 50 mcg/0.5 mL 3 completed REEMA castro [facility] 04/17/2023 13:34:19 Tdap 2 completed REEMA castro [facility] 04/17/2023 13:34:20 Td(adult) unspecified formulation 3 completed Not Available [facility] 01/09/2025 14:11:52 zoster recombinant 9 completed Not Available [facility] 01/09/2025 14:11:52 zoster recombinant 0 completed Not Available [facility] 01/09/2025 14:11:52 Pneumococcal conjugate PCV 13 0 completed Not Available [facility] 01/09/2025 14:11:52 pneumococcal polysaccharide PPV23 1 completed Not Available [facility] 01/09/2025 14:11:52 Influenza, high-dose, trivalent, PF 4 completed Not Available [facility] 01/09/2025 14:11:52 COVID-19, mRNA, LNP-S, PF, 50 mcg/0.5 mL 4 completed Not Available [facility] 01/09/2025 14:11:52 Influenza, high-dose, trivalent, PF 5 completed Not Available [facility] 01/09/2025 14:11:52 COVID-19, mRNA, LNP-S, PF, 10 mcg/0.2 mL 5 completed Not Available [facility] 01/09/2025 14:11:52 Past Encounters Encounter ID Performer Location Encounter Start Date Encounter Closed Date Diagnosis/Indication Diagnosis SNOMED-CT Code Diagnosis ICD10 Code Diagnosis IMO Codes Diagnosis Note [id number] LUIS ARMANDO MENJIVAR [facility] ([facility]) [address] [place] [address] 08/13/2022 12:23:44 08/13/2022 20:37:53 Dog scratch 931464063 T14.8XXA Laceration of lower leg 231821488 S81.812A [id number] Treva Rankin MD [facility] ([facility]) [address] [place] [address] 04/17/2023 13:26:09 04/17/2023 15:25:49 Acute sinusitis 35478041 J01.90 will treat due to longevity [id number] CHAU SORIANO APRN [facility] ([facility]) [address] [place] [address] 01/25/2024 12:10:24 01/28/2024 09:33:35 Acute maxillary sinusitis 50682494 J01.00 [id number] CHAU SOIRANO APRN [facility] ([facility]) [address] [place] [address] 01/09/2025 14:10:14 01/09/2025 15:30:43 Oxygen saturation below reference range 939941429 R79.81 [id number] Acute exac erbation of chronic obstructive pulmonary disease 914854436 J44.1 [id number] Health Concerns Section Related Observation LastModified by Organization Detai ls LastModified Time None Recorded Concern Status LastModified by Organization Details LastModified Time None Recorded Advance Directives Directive None Recorded Payers Insurance Date Sequence Insurance Name Policy Number Policy Doshi Covered Member ID Doshi Member ID Guarantor Name 01/09/2025 1 [employer] (MEDICARE REPLACEMENT/ ADVANTAGE - PPO) Gary Nichols [id number] Gary Nichols Notes Date Note Type Note Provider Name and Address Organization Details Recorded Time 08/13/2022 text/html General Rash/Ski n LesionReported by PatientHPIFor quality, patient reportspainful,red,mu ltiple (2), andtenderness. For location, patient reportslegs (left lower). For severity, patient reportsworsening. For duration, patient reportshas noted for <1 week. For onset/timing, patient reportsabrupt onset (3 days). For context, patient reportspets in home. For alleviating factors, patient reportsantimicrobials . For associated symptoms, patient reportsno fever,no cold symptoms, andno nausea(denies any drainage from the wounds.).ROS as noted in the HPI PATIENT REPRTS HE WAS SCRATCHED BY A DOG 3 DAYS AGO ON HIS LEFT LOWER LEG. 2 SCRATCHES NOTED. PATIENT BELIEVES THEY ARE BECOMING INFETED. REDNESS INCREASING, TENDERNESS.No antibiotic allergies. LUIS ARMANDO MENJIVAR [address] [place], [address], [facility] 08/13/2022 14:31:54 04/17/2023 text/html Sinusitis/Allerg yRepo rted by PatientHPIFor associated symptoms, patient reportsnasal discharge from __ nostrils,difficulty breathing,headache __,facial pain __,sinus pain diffuse,nasal discharge, andear fullnessbut reportsno fever. For context, patient reportsno recent upper respiratory infection.ROS as noted in the HPI terrible sinus congestiontried all kinds of OTC stuffgoing on for at least a monthfacial pressure Treva Rankin MD [address] [place], [address], [facility] 04/17/2023 16:03:36 01/25/2024 text/html CoughReported by Patient Sinusitis/AllergyRepo rted by PatientROS as noted in the HPI walk in patientpatient is here today for cough, runny nose and fatigue that started yesterday CHAU SORIANO APRN [address] [place], [address], [facility] 01/25/2024 13:31:31 01/09/2025 text/html ROS as noted in the HPI walk-in Patient c/o low 02 and shortness of breath. He states it's been going on for a few days but last night got worse. O2 was running 88 last night. He states with deep breathing he can get it up to 90 but not any above. CHAU SORIANO APRN [address] [place], [address], [facility] 01/09/2025 15:30:42
--- OUTSIDE RECORDS SUMMARY | 2025-01-09 14:36 | XMS_ITS | Encounter Summary ---
Author Organization [facility] [employer] Address [address] [address] Phone Care Team Providers Care Payroll Machine Operator Name Role Phone Meliza Cantor DO Primary Care Provider [phone] Reason for Visit * Reason Comments Med Refill Encounter Details Date Type Department Care Team (Late Contact Info) Description 07/26/2019 Refill [facility] [address] [address] Lane Ariza MD [address] [facility] [address] [address] Social History Tobacco Use Types [...] (Late Contact Info) Description 03/23/2025 1:00 PM [employer] [facility] Office Visit [facility] [address] [place] [address] Oanh Abrams NP [address] [facility] [address] [address] documented as of this encounter Visit Diagnoses Not on filedocumented in this encounter Care Teams Payroll Machine Operator Relationship Specialty Start Date End Date Meliza Cantor DO [address] [place] [phone] PCP - General Family Medicine 05/15/18 documented as of this encounter
--- OUTSIDE RECORDS SUMMARY | 2025-01-09 14:36 | XMS_ITS | Encounter Summary ---
Author Organization [facility] Address [address] [place] [address] Care Team Providers Care Predatory Animal Exterminator Name Role Phone Meliza Cantor DO Primary Care Provider [phone] Encounter Details Date Type Department Care Team (Latest Contact Info) Description 06/16/2003 Outpatient Historical [facility] Cardiology Ancillary Services-[place] [address] [place] [address] Zbigniew Pinedo MD NO ADDRESS ON FILE PRECORDIAL PAIN (Primary Dx) Social History Tobacco Use Types Packs/Day Years Used Date Smoking Tobacco: Never Assessed Sex and Gender Information Value Date Recorded Sex Assigned at Not on file 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
--- OUTSIDE RECORDS SUMMARY | 2025-01-09 14:36 | XMS_ITS | Encounter Summary ---
Author Organization [facility] Address [address] [place] [address] Care Team Providers Care Line Maintenance Name Role Phone Meliza Cantor DO Primary Care Provider [phone] Encounter Details Date Type Department Care Team (Latest Contact Info) Description 09/18/2001 Outpatient Historical [facility] Cardiology- [place] [address] [place] [address] Basilio Walton MD [address] [facility] [address] [place] [address] CHR ISCHEMIC HRT DIS NEC (Primary Dx); CORON ATHEROSCL [place] CORON VESSEL; Pure hypercholesterolem Social History Tobacco Use Types Packs/Day Years Used Date Smoking Tobacco: Never Assessed Sex and Gender Information Value Date Recorded Sex Assigned at Not on file 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
--- OUTSIDE RECORDS SUMMARY | 2025-01-09 14:36 | XMS_ITS | Encounter Summary ---
Author Organization [facility] Address [address] [place] [address] Care Team Providers Care Build Master Name Role Phone Meliza Cantor DO Primary Care Provider Encounter Details Date Type Department Care Team (Latest Contact Info) Description 07/29/2006 Outpatient Historical [facility] Cardiac Roll Tube Setter [address] [place] [address] Basilio Walton MD [address] [facility] [address] [place] [address] Coronary Atherosclerosis of [place] Coronary Artery (Primary Dx) Social History Tobacco Use Types Packs/Day Years Used Date Smoking Tobacco: Never Assessed Sex and Gender Information Value Date Recorded Sex Assigned at Not on file 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 Gender Identity Not on file Sexual Orientation [...] Goal INR 3.0; range 2.5 - 3.5 POST-OK Goal INR 2.5; range 2.0 - 3.0 [...] MD HEMATOLOGY ORDERABLES Edited Performing Organization Address [facility] Phone Number INTERFACE SYSTEM Refer to [...] MD CHEMISTRY ORDERABLES Edited Performing Organization Address [facility] de Phone Number INTERFACE SYSTEM Refer to clinic/hospital department documented in this encounter Visit Diagnoses Diagnosis Coronary atherosclerosis of [place] coronary artery- Primary documented in this encounter Care Teams Build Master Relationship Specialty Start Date End Date Meliza Cantor DO [address] [place] [address] PCP - General Family Practice 04/09/13 documented as of this encounter
--- OUTSIDE RECORDS SUMMARY | 2025-01-09 14:36 | XMS_ITS | Clinical Summary ---
Author Organization [facility] Address [address] [place] [address] Care Team Providers Care Zipper Machine Operator Name Role Phone Meliza Cantor Primary Care Provider Allergies No known active allergies Medications tamsulosin (FLOMAX) 0.4 mg capsule TAKE 1 CAPSULE BY MOUTH AT BEDTIME 90 Capsule 4 08/10/19 20 Active hydroCHLOROthia zide (MICROZIDE) 12.5 mg capsuleIndicati ons:Essential hypertension Take 1 Capsule (12.5 mg) by mouth daily. 90 Capsule 4 08/10/19 20 Active losartan (COZAAR) 50 mg tabletIndicatio ns:Essential hypertension Take 1 Tablet (50 mg) by mouth daily. 90 Tablet 4 08/10/19 20 Active atenoloL (TENORMIN) 100 mg tablet Take 1 Tablet by mouth. 08/10/19 20 Active buPROPion HCL (WELLBUTRIN SR) 200 mg Sustained Release 12 hour tablet 200 mg. 08/09/19 22 Active doxazosin (CARDURA) 4 mg tablet 2 mg. 08/22/19 22 Active fluticasone propionate (FLONASE) 50 mcg/spray [place], Suspension nasal inhaler INSTILL 2 SPRAYS IN EACH NOSTRIL ONCE A DAY FOR ALLERGIES (MUST BE USED DIRECTED FOR MINIMUM OF 21 DAYS TO PROVIDE ADEQUATE BENEFITS) 11/21/19 22 Active glipiZIDE (GLUCOTROL) 5 mg tablet 2.5 mg. 08/22/19 22 Active pantoprazole (PROTONIX) 40 mg Tablet, Delayed Release (E.C.) Take 1 Tablet (40 mg) by mouth daily. 90 Tablet 4 07/18/19 23 Active albuterol sulfate HFA 90 mcg/actuation aerosol inhaler Take 2 Puffs by inhalation every 6 hours as needed for Shortness of Breath. 8.5 Gram 08/24/19 23 Active aspirin (ECOTRIN EC) 81 mg Tablet, Delayed Release (E.C.) Take 81 mg by mouth daily. Active furosemide (LASIX) 20 mg tablet Take 20 mg by mouth daily. 11/14/19 23 Active cetirizine (ZyrTEC) 10 mg tablet Take 1 Tablet (10 mg) by mouth daily. 30 Tablet 2 06/03/19 24 Active levothyroxine 50 mcg tablet TAKE 1 TABLET(50 MCG) BY MOUTH DAILY IN THE MORNING 90 Tablet 4 06/05/19 24 Active atorvastatin (LIPITOR) 80 mg tablet Take 40 mg by mouth daily with supper. 08/06/19 24 Active methocarbamoL (ROBAXIN) 500 mg tablet Take 500 mg by mouth 3 times daily. 12/16/19 24 Active polyvinyl alcohol (LIQUIFILM TEARS) 1.4 % solution Administer 2 Drops in both eyes see administration instructions. 11/07/19 24 Active olopatadine (PATADAY) 0.2 % solution Administer 1 Drop in both eyes daily. 11/07/19 24 Active lactulose (ENULOSE) 10 gram/15 mL oral solutionIndicat ions:Chronic constipation Take 30 mL by mouth 2 times daily as needed for Constipation. 300 mL 6 07/23/19 25 Active Breztri Aerosphere 160 mcg-9mcg-4.8mcg /actuation HFA aerosol inhalerIndicati ons:Mixed simple and mucopurulent chronic bronchitis (CMS/HCC) Take 2 Puffs by inhalation 2 times daily. 1 Each 11 07/23/19 25 Active lisinopriL (PRINIVIL) 10 mg tablet Take 1 Tablet by mouth daily. 07/28/19 25 Active clobetasoL (TEMOVATE) 0.05 % CreamIndication s:Poison thea dermatitis Apply to affected area 2 times daily. 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 200 mL 2 11/07/19 25 Active zolpidem (AMBIEN CR) 12.5 mg Controlled Release tabletIndicatio ns:Primary insomnia TAKE ONE TABLET BY MOUTH nightly needed FOR insomnia 30 Tablet 2 11/10/19 25 Active ALPRAZolam (XANAX) 1 mg tabletIndicatio ns:Generalized anxiety disorder TAKE ONE TABLET BY MOUTH TWICE DAILY NEEDED FOR ANXIETY. 60 Tablet 2 11/11/19 25 Active tiZANidine (ZANAFLEX) 2 mg Tablet TAKE ONE TABLET BY MOUTH EVERY EIGHT hours NEEDED FOR pain 30 Tablet 1 11/11/19 25 Active HYDROcodone-edgard taminophen (NORCO) 5-325 mg tablet Take 1 Tablet by mouth every 4 hours as needed. 11/27/19 25 Active cyanocobalamin (VITAMIN B-12) 1,000 mcg/mL SolutionIndicat ions:Peripheral polyneuropathy, Other vitamin B12 deficiency anemia Inject 1 mL (1,000 mcg) by intramuscular injection every 2 weeks. 2 mL 11 12/24/19 25 Active Syringe with Needle, Disp, 3 mL 23 gauge x 1 1/2 SyringeIndicati ons:Peripheral polyneuropathy, Other vitamin B12 deficiency anemia Use monthly to inject medication. 12 Each 12/24/19 25 Active pramipexole (MIRAPEX) 0.125 mg TabletIndicatio ns:Restless leg syndrome Take 1 Tablet (0.125 mg) by mouth daily at bedtime. 90 Tablet 3 12/24/19 25 Active ferrous sulfate 325 mg (65 mg iron) tabletIndicatio ns:Other iron deficiency anemia Take 1 Tablet (325 mg) by mouth daily. 90 Tablet 1 12/28/19 25 Active pramipexole (MIRAPEX) 0.125 mg TabletIndicatio ns:Restless leg syndrome TAKE ONE TABLET BY MOUTH DAILY AT BEDTIME 90 Tablet 3 05/21/19 25 025 Discontinu ed(Reorder ) covid vaccine 2024- (12 yr up)(PF) (SPIKEVAX) 50 mcg/0.5 mL IM syringeIndicati ons:Need for COVID-19 vaccine Inject 0.5 mL (50 mcg) by intramuscular injection one time only for 1 dose. 0.5 mL 12/24/19 25 025 Active Problems Patient Care Coordination No te Formatting of this note migh t be different from the original. [place] patient --- Patient care coordination note from 04/11/2018 converted from legacy by automated process on 11-18-2020 02:20:09 PM Problem Noted Date Diagnosed Date Localized swelling of lower extremity 12/23/2024 History of lumbar surgery 12/23/2024 Peripheral polyneuropathy 12/23/2024 Absolute anemia 07/29/2024 Status post surgical manipulation of ankle [...] hypertension 04/08/2013 Coronary artery disease invo lving [place] coronary artery of [place] heart without angina pectoris 04/08/2013 Mixed simple and mucopurulent chronic bronchitis 04/08/2013 Chronic kidney disease, stage 3 (moderate) 04/08 Mixed hyperlipidemia 04/08/2013 Resolved Problems Problem Noted Date Diagnosed Date Resolved Date Need for shingles vaccine 04/08/2013 Encounters Date Type Department Care Team Description 12/24/2024 Results Follow-Up [facility] [address] [place] [phone] Sorin Hope FNP CBC WITH DIFFERENTIAL, COMPREHENSIVE METABOLIC PANEL, HEMOGLOBIN A1C, Additional followed-up results: 3 12/23/2024 2:00 PM CDT Office Visit [facility] [address] [place] [address] Sorin Hope, LUIS ARMANDO History of lumbar surgery (Primary Dx); Localized swelling of lower extremity; RLS (restless legs syndrome); Need for immunization against influenza; Need for COVID-19 vaccine; Mixed simple and mucopurulent chronic bronchitis (CMS/HCC); Type 2 diabetes mellitus with stage 3b chronic kidney disease, without long-term current use of insulin; Essential hypertension; Obstructive sleep apnea syndrome; Primary insomnia; Peripheral polyneuropathy; Other vitamin B12 deficiency anemia 12/23/2024 Orders Only [facility] [address] [place] [address] Bozena Dickerson Type 2 diabetes mellitus with stage 3b chronic kidney disease, without long-term current use of insulin 12/23/2024 Telephone [facility] [address] [place] [address] Meliza Cantor, DO Patient Communication 11/10/2024 Refill [facility] [address] [place] [address] Meliza Cantor, DO Generalized anxiety disorder 2024 Refill [facility] [address] [place] [address] Meilza Cantor, DO Primary insomnia 11/06/2024 10:20 AM CDT Office Visit [facility] [address] [place] [address] Sorin Hope FNP 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 (Primary Dx) 10/29/2024 Orders Only [facility] [address] [place] [address] Pace, June, PILATES COORDINATOR Thrush, oral (Primary Dx) 10/29/2024 Telephone [facility] [address] [place] [address] Meliza Cantor DO Medication Assistance 10/25/2024 Refill [facility] [address] [place] [address] Meliza Cantor DO Generalized anxiety disorder 10/22/2024 4:40 PM CDT Office Visit [facility] [address] [place] [address] June, PILATES COORDINATOR Thrush, oral (Primary Dx) 10/22/2024 Telephone [facility] [address] [place] [address] Meliza Cantor DO Clinical Consult Before Scheduling 10/20/2024 External Device Data STL ABSTRACTION Provider, Abstract 10/20/2024 External Device Data [place] ABSTRACTION Provider, Abstract 10/20/2024 External Device Data [place] ABSTRACTION Provider, Abstract 10/16/2024 10:00 AM CDT Office Visit [facility] [address] [place] [address] Sorin Hope Stone, PILATES COORDINATOR Thrush, oral (Primary Dx); Poison thea dermatitis 10/15/2024 Nurse Triage [facility] [address] [place] [address] Meliza Cantor DO 10/14/2024 External Device Data STL ABSTRACTION Provider, Abstract 10/12/2024 Refill [facility] [address] [place] [address] Meliza Cantor DO from Last 3 Months Immunizations Immunization Administration Dates Next Due (ADACEL/BOOSTRIX)(10 YR UP) TDAP VACCINE, 0.5ML, IM 01/10/2012 (COMRINATY)(12YR UP) COVID-1 9 VACCINE, MRNA (PF)30 MCG/0.3 ML, IM SYRINGE 12/24/2023 (PFIZER)(12 YR UP) COVID-19 VACCINE - EMERGENCY USE AUTHORIZATION, MRNA, [id number](PF) 30 MCG/0.3 ML IM SUSP 12/07/2020 (PNEUMOVAX 23)(50 YRS UP) PN EUMOCOCCAL POLYSACCHARIDE (PPV23) 0.5 ML, IM 02/20/2021 (PREVNAR 13)(6 WKS UP) PNEUM OCOCCAL CONJUGATE (PCV13) 0.5 ML, IM 02/23/2020 (Pfizer Bivalent)(12 Yr Up) COVID-19 Vaccine - Emergency Use Authorization, MRNA, Lnp-S(Pf) 30 Mcg/0.3 Ml Susp 12/18/2021 (SHINGRIX)(50 YRS UP) ZOSTER VACCINE RECOMBINANT, 0.5 ML, IM 10/22/2019,02/16/2019 INFLUENZA VACCINE HIGH DOSE TRIVALENT SPLIT VIRUS, (65 YR UP), 0.5ML (PF), IM 12/23/2024 INFLUENZA VACCINE INACTIVATE D ADJUV, (65 YR [...] on file Legal Sex Male 3:58 AM RN CAMP Gender Identity Not on file Sexual Orientation Not on file Last Filed Vital Signs Vital Sign Reading Time Taken Comments Blood Pressure 98/56 12/23/2024 1:58 PM CDT Pulse 67 12/23/2024 1:58 PM CDT Temperature 36.7 C (98 F) 12/23/2024 1:58 PM CDT Respiratory Rate 18 12/23/2024 1:58 PM CDT Oxygen Saturation 96% 12/23/2024 1:58 PM CDT Inhaled Oxygen Concentration - - Weight 112.7 kg (248 lb 6.4 oz) 12/23/2024 1:58 PM CDT Height 177.8 cm (5' 10 ) 12/23/2024 1:58 PM CDT Body Mass Index 35.64 12/23/2024 1:58 PM CDT Plan of Treatment Upcoming Encounters Date Type Department Care Team (Late st Contact Info) Description 01/21/2025 2:40 PM RN CAMP Office Visit [facility] [place] [address] [place] [facility] [facility] [place] [phone] Meliza Cantor, DO [address] [facility] [place] [address] Health Maintenance Due Date Last Done Comments DIABETES ANNUAL FOOT EXAM 06/23/2021 06/23/2020, 09/2017 RSV VACCINE (60+ or ) (1 - 1-dose 75+ series) 11/07/2022 COVID-19 Vaccine (2023-2 5 season) 2024 12/24/2023, 12/13/2023, 01/02/2023, Additional history exists DIABETES HBA1C Q 6 MONTHS 06/23/20252024, 07/22/2024, 01/13/2024, Additional history exists LDL CHOLESTEROL ANNUAL 07/22/2025 , 01/13/2024, 06/03/2023, Additional history exists DIABETES ANNUAL RETINAL EXAM 08/05/2025, 11/07/2023, 09/24/2016, Additional history exists DIABETES MICROALBUMIN ANNUAL SCREEN 12/23/2025 12/23/2024, 01/13/2024, 11/18/2019, Additional history exists DIABETES: A1C (Auto Order) 12/23/202512/23, 07/22/2024, 01/13/2024, Additional history exists DTAP/TDAP/TD VACCINES (3 - T d or Tdap) 11/16/2031 11/15/2021, 01/10/2012, 07/13/2002 COLORECTAL SCREENING Discontinued 06/02/2013, 06/02/2013, 10/20/2008 ZOSTER VACCINE Completed 10/22/2019, 11/2018, 01/09/2014, Additional history exists PNEUMOCOCCAL VACCINE 50+ YEARS Completed 02/20/2021 , 02/23/2020 Medicare Ad[place] ([place]) Preventative Visit/Annual Wellness Visit Completed 07/22/2024, 09/05/2023, 08/23/2022, Additional history exists Colorectal Cancer Screening Discontinued FIT/FOBT Q 1 year Discontinued 07/30/2024 INFLUENZA VACCINE Completed 12/23/2024, , 12/20/2022, Additional history exists KHE eGFR (Auto Order) Completed 12/23/2024 , 07/22/2024, 01/13/2024, Additional history exists KHE uACR (Auto Order) Completed 12/23/2024 , 01/13/2024, 11/18/2019, Additional history exists FIT-DNA Q 3 years Discontinued Flex Sig/CT Colonography Q 5 years Discontinued Medical Devices Implanted Type Area Rn Recruitment Device Identifier Shelf Expiration Date Model / Serial / Lot Lens Io Tecnis 4.5cyl [id number] 25.5 - [id number] Implanted:Qty: 1 on 06/26/2016 by Pj Wakefield MD Eye Left: Eye [employer] 03/14/2019 [id number] 25.5 / [id number] / Lens Io Tecnis 1pc 27.0 [id number] - [id number] Implanted:Qty: 1 on 07/10/2016 by Pj Wakefield MD Eye Right: Eye [employer] 05/19/2020 [id number] / [id number] / N/A Procedures Procedure Name Priority Date/Time Associated Diagnosis Comments MICROALBUMIN/CREATINI NE RATIO, RANDOM UR Routine 12/23/2024 3:54 PM CDT Type 2 diabetes mellitus with stage 3b chronic kidney disease, without long-term current use of insulin IRON, TIBC, AND PERCENT SATURATION Routine 12/23/2024 2:28 PM CDT Chronic anemia VITAMIN B12 AND FOLATE Routine 12/23/2024 2:28 PM CDT Chronic anemia TSH Routine 12/23/2024 2:28 PM CDT Type 2 diabetes mellitus with stage 3b chronic kidney disease, without long-term current use of insulin Essential hypertension HEMOGLOBIN A1C Routine 12/23/2024 2:28 PM CDT Type 2 diabetes mellitus with stage 3b chronic kidney disease, without long-term current use of insulin COMPREHENSIVE METABOLIC PANEL Routine 12/23/2024 2:28 PM CDT Type 2 diabetes mellitus with stage 3b chronic kidney disease, without long-term current use of insulin Essential hypertension CBC WITH DIFFERENTIAL Routine 12/23/2024 2:28 PM CDT Type 2 diabetes mellitus with stage 3b chronic kidney disease, without long-term current use of insulin Essential hypertension HM DIABETES EYE EXAM Routine 08/05/2024 11:13 AM CDT POC OCCULT BLOOD UP TO 3 CARDS Routine 07/30/2024 4:27 PM CDT Anemia of chronic disease LIPID PANEL Routine 07/22/2024 11:42 AM CDT Type 2 diabetes mellitus with stage 3a chronic kidney disease, without long-term current use of insulin ([facility]) Essential hypertension Mixed hyperlipidemia from Last 3 Months or Most Recently Relevant to Health Maintenance Results * (ABNORMAL) MICROALBUMIN/CREATININE RATIO, RANDOM UR (12/23/2024 3:54 PM CDT) CREATININE, URINE 30 20 - 320 mg/dL [email or web address] ALBUMIN, URINE 10.6 See Note: mg/dL [facility] Comment: Reference Range: Reference Range Not established ALB/CREAT RATIO, URINE 353(H) <30 mg/g creat [facility] Comment: The ADA defines abnormalities in albumin excretion as follows: Albuminuria Category Result (mg/g creatinine) Normal to Mildly increased <30 Moderately increased 30-299 Severely increased > OR = 300 The ADA recommends that at least two of three specimens collected within a 3-6 month period be abnormal before considering a patient to be within a diagnostic category. Test Performed at: [facility] [id number] [place] [address] Nata Wright MD Urine URINE SPECIMEN OBTAINED BY CLEAN CATCH PROCEDURE / Unknown 12/23/2024 3:54 PM CDT 12/24/2024 3:44 AM CDT Sorin Hope PILATES COORDINATOR URINE ORDERABLES Final Res ult [facility] [phone] [facility] [address] [place] [address] * VITAMIN B12 AND FOLATE (12/23/2024 2:28 PM CDT) VITAMIN B12 233 200 - 1100 pg/mL [facility] Comment: Please Note: Although the reference range for vitamin B12 is 200-1100 pg/mL, it has been reported that between 5 and 10% of patients with values between 200 and 400 pg/mL may experience neuropsychiatric and hematologic abnormalities due to occult B12 deficiency; less than 1% of patients with values above 400 pg/mL will have symptoms. FOLATE, SERUM 14.8 ng/mL [facility] Comment: Reference Range Low: <3.4 Borderline: 3.4-5.4 Normal: >5.4 Test Performed at: [facility] [address] [facility] Wright MD Blood 12/23/2024 2:28 PM CDT 12/25/2024 10:46 AM CDT [facility] CHEMISTRY ORDERABLES Final Result Performing Organization Address City/[facility]/ZIP Co de Phone Number [facility] [phone] [facility] [address] [place] [address] * (ABNORMAL) IRON, TIBC, AND PERCENT SATURATION (12/23/2024 2:28 PM CDT) Pathologist [facility] IRON 45(L) 50 - 180 mcg/dL [facility] TIBC 273 250 - 425 mcg/dL (calc) [facility] IRON % SATURATION 16(L) 20 - 48 % (calc) [facility] Comment: Test Performed at: [facility] [address] [facility] Campus[facility] Wright MD Blood 12/23/2024 2:28 PM CDT 12/25/2024 10:46 AM CDT [facility] CHEMISTRY ORDERABLES Final Result Performing Organization Address [facility]/ZIP Co de Phone Number [facility] [phone] [facility] [address] [place] [address] * (ABNORMAL) CBC WITH DIFFERENTIAL (12/23/2024 2:28 PM CDT) WBC 6.1 3.8 - 10.8 Thousand/u L [facility] RBC 3.33(L) 4.20 - 5.80 Million/uL [facility] HEMOGLOBIN 10.2(L) 13.2 - 17.1 g/dL [facility] HEMATOCRIT 31.5(L) 38.5 - 50.0 % [facility] MCV 94.6 80.0 - 100.0 fL [facility] MCH 30.6 27.0 - 33.0 pg [facility] MCHC 32.4 32.0 - 36.0 g/dL [facility] Comment: For adults, a slight decrease in the calculated MCHC value (in the range of 30 to 32 g/dL) is most likely not clinically significant; however, it should be interpreted with caution in correlation with other red cell parameters and the patient's clinical condition. RDW 13.2 11.0 - 15.0 % [facility] PLATELETS 190 140 - 400 Thousand/u L [facility] MPV 11.1 7.5 - 12.5 fL [facility] NEUTROPHIL ABSOLUTE 3,447 1,500 - 7,800 cells/uL [facility] LYMPHOCYTE ABSOLUTE 1,787 850 - 3,900 cells/uL [facility] MONOCYTE ABSOLUTE 598 200 - 950 cells/uL [facility] EOSINOPHIL ABSOLUTE 177 15 - 500 cells/uL [facility] BASOPHILS ABSOLUTE 92 0 - 200 cells/uL [facility] NEUTROPHIL 56.5 % [facility] LYMPHOCYTES 29.3 % [facility] MONOCYTE 9.8 % [facility] EOSINOPHILS 2.9 % [facility] BASOPHILS 1.5 % [facility] Comment: FASTING:UNKNOWN FASTING: UNKNOWN Test Performed at: [facility] [address] [place] [address] Nata Wright MD Blood 12/23/2024 2:28 PM CDT 12/23/2024 2:29 PM CDT Sorin Hope PILATES COORDINATOR HEMATOLOGY ORDERABLES Mary l Result [facility] [phone] [address] * TSH (12/23/2024 2:28 PM CDT) [facility] TSH 2.53 0.40 - 4.50 mIU/L [facility] Comment: FASTING:UNKNOWN FASTING: UNKNOWN Test Performed at: [facility] [address] Nata Wright MD Blood 12/23/2024 2:28 PM CDT 12/23/2024 2:29 PM CDT Sorin Hope PILATES COORDINATOR CHEMISTRY ORDERABLES Final Result [facility] [phone] [address] * (ABNORMAL) HEMOGLOBIN A1C (12/23/2024 2:28 PM CDT) [facility] HEMOGLOBIN A1C 5.9(H) <5.7 % [facility] Comment: For [...] diabetes for children. ESTIMATED AVERAGE GLUCOSE (MG/DL) 123 mg/dL [facility] ESTIMATED AVERAGE GLUCOSE (MMOL/L) 6.8 mmol/L [facility] Comment: FASTING:UNKNOWN FASTING: UNKNOWN Test Performed at: [facility] [address] Nata Wright MD Blood 12/23/2024 2:28 PM CDT 12/23/2024 2:29 PM CDT Sorin Hope PILATES COORDINATOR CHEMISTRY ORDERABLES Final Result [facility] [phone] [facility] [address] [address] * (ABNORMAL) COMPREHENSIVE METABOLIC PANEL (12/23/2024 2:28 PM CDT) GLUCOSE 105(H) 65 - 99 mg/dL [facility] Comment: Fasting reference interval For someone without known diabetes, a glucose value between 100 and 125 mg/dL is consistent with prediabetes and should be confirmed with a follow-up test. BUN 17 7 - 25 mg/dL [facility] CREATININE 1.64(H) 0.70 - 1.28 mg/dL [facility] GFR 43(L) > OR = 60 mL/min/1.7 3m2 [facility] BUN/CREAT RATIO 10 6 - 22 (calc) [facility] SODIUM 140 135 - 146 mmol/L [facility] POTASSIUM 4.2 3.5 - 5.3 mmol/L [facility] CHLORIDE 107 98 - 110 mmol/L [facility] CO2 26 20 - 32 mmol/L [facility] CALCIUM 8.4(L) 8.6 - 10.3 mg/dL [facility] TOTAL PROTEIN 6.4 6.1 - 8.1 g/dL [facility] ALBUMIN 3.9 3.6 - 5.1 g/dL [facility] GLOBULIN 2.5 1.9 - 3.7 g/dL (calc) [facility] ALBUMIN/GLOBULIN RATIO 1.6 1.0 - 2.5 (calc) [facility] BILIRUBIN TOTAL 0.4 0.2 - 1.2 mg/dL [facility] ALKALINE PHOSPHATASE 81 35 - 144 U/L [facility] AST 23 10 - 35 U/L [facility] ALT 20 9 - 46 U/L [facility] Comment: FASTING:UNKNOWN FASTING: UNKNOWN Test Performed at: [facility] [address] [place] [address] Nata Wright MD Blood 12/23/2024 2:28 PM CDT 12/23/2024 2:29 PM CDT Sorin Sheldon Hope PILATES COORDINATOR CHEMISTRY ORDERABLES Final Result Performing Organization Address City/[facility]/ZIP Co de Phone Number [facility] [phone] [facility] [address] [place] [address] * HM DIABETES EYE EXAM (08/05/2024 11:13 AM CDT) Abstract Provider HEALTH MAINTENANCE Edited Resu lt - Final * POC OCCULT BLOOD UP TO 3 CARDS (07/30/2024 4:27 PM CDT) OCCULT BLOOD 1 CARD POC Negative Negative [facility] OCCULT BLOOD 2 CARD POC Negative Negative, Indeterminate [facility] OCCULT BLOOD 3 CARD POC Negative Negative, Indeterminate [facility] INTERNAL KIT QC POC Pass Pass [facility] CARD LOT NUMBER POC [id number] [facility] CARD EXPIRATION DATE POC [phone] [facility] DEVELOPER LOT NUMBER POC 50,322 [facility] DEVELOPER EXPIRATION DATE POC [phone] [facility] Stool STOOL SPECIMEN / Unknown 07/30/2024 4:27 PM CDT Sorin Hope PILATES COORDINATOR POINT OF CARE TESTING Mary l Result Performing Organization Address City/[facility]/ZIP Co de Phone Number [facility] CLIA# [id number] [address] [place] [address] * (ABNORMAL) LIPID PANEL (07/22/2024 11:42 AM CDT) CHOLESTEROL 122 <200 mg/dL [facility] HDL 34(L) > OR = 40 mg/dL [facility] TRIGLYCERIDE 184(H) <150 mg/dL [facility] LDL CALCULATED 62 mg/dL (calc) [facility] Comment: Reference range: <100 Desirable range <100 mg/dL for primary prevention; <70 mg/dL for patients with CHD or diabetic patients with > or = 2 CHD risk factors. LDL-C is now calculated using the Merlin-Jeana calculation, which is a validated novel method providing better accuracy than the Friedewald equation in the estimation of LDL-C. Merlin SS et al. NAZ. 2013;310(19): 1868-8859 (http://education.[employer]/faq/YRQ226) CHOL/HDL RATIO 3.6 <5.0 (calc) [facility] NON-HDL CHOLESTEROL 88 <130 mg/dL (calc) [facility] Comment: For patients with diabetes plus 1 major ASCVD risk factor, treating to a non-HDL-C goal of <100 mg/dL (LDL-C of <70 mg/dL) is considered a therapeutic option. Test Performed at: [facility] [id number] [place] [address] Nata Wright MD Blood 07/22/2024 11:4 2 AM CDT 07/22/2024 11:43 AM CDT Sorin Hope PILATES COORDINATOR CHEMISTRY ORDERABLES Final Result [facility] [phone] [employer] [address] [address] [facility] [place] [address] from Last 3 Months or Most Recently Relevant to Health Maintenance Insurance [employer] [facility] [place] [facility] [facility] Care Teams Zipper Machine Operator Relationship Specialty Start Date End Date Meliza Cantor DO [address] [place] [address] PCP - General Family Practice 04/09/13
--- OUTSIDE RECORDS SUMMARY | 2025-01-09 14:36 | XMS_ITS | Encounter Summary ---
Author Organization [facility] Address [address] [place] [address] Care Team Providers Care Lump Room Supervisor Name Role Phone Meliza Cantor DO Primary Care Provider [phone] Encounter Details Date Type Department Care Team (Latest Contact Info) Description 04/27/1998 Outpatient Historical [facility] Medicine [place] [address] [facility] [address] [place] [address] Jose Carlos Farfan DO NO ADDRESS ON FILE Impotence of organic origin (Primary Dx) Social History Tobacco Use Types Packs/Day Years Used Date Smoking Tobacco: Never Assessed Sex and Gender Information Value Date Recorded Sex Assigned at Not on file 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
--- OUTSIDE RECORDS SUMMARY | 2025-01-09 14:36 | XMS_ITS | Encounter Summary ---
Author Organization [facility] [employer], [facility] Address [address] [facility] [address] [place] [address] Phone Care Team Providers Care Human Geography Instructor Name Role Phone Meliza Cantor DO Primary Care Provider [phone] Encounter Details Date Type Department Care Team (Late st Contact Info) Description 11/20/2019 Orders Only [facility] [employer], [address] [address] Chronic kidney disease stage 3 [...] st Contact Info) Description 03/23/2025 1:00 PM RUG SHAMPOOER Office Visit [facility] [employer], [address] [address] Oanh Abrams, MARCK [address] [facility] [address] [place] [address] documented as of this encounter [...] Clear Clear APS M ERCY SNA Specific [place] 1.003 1.003 - 1.035 APS [facility] SNA [...] Specimen Source: Urine, unspecified source Performed at: [place] [address] [place] [address] Steel Placer: Chris Prajapati MD [facility] # [id number] Urine specimen (specimen) 11/18/2019 9:51 AM CDT 11/18/2019 9:[address] Ariza MD LAB URINE ORDERABLES Fi nal Result APS [facility] SNA * PTH, intact (11/18/2019 9:51 AM CDT) PTH 39.9 15.0 - 65.0 pg/mL APS [facility] SNA Comment: Performed at: [place] [address] [place] [address] Steel Placer: Chris Prajapati MD CLIA # [id number] Blood specimen (specimen) 11/18/2019 9:51 AM CDT 11/18/2019 9:[address] Ariza MD LAB BLOOD ORDERABLES Fi nal Result Performing Organization Address City/[facility]/ZIP Co de Phone Number [facility] KWAME HORN * (ABNORMAL) Urine albumin / creatinine ratio (11/18/2019 9:51 AM CDT) Albumin, Urine 59.5 mg/L [facility] KWAME SNA Comment: ADDITIONAL INFORMATION This test has been modified from the veterinary milk specialist's instructions. Its performance characteristics were determined by [facility] in a manner consistent with CLIA requirements. This test has not been cleared or approved by the U.S. Food and Drug Administration. Creatinine, Urine 26 mg/dL APS KW[facility] SNA Alb/Creat Ratio, Ur 229(H) <17 mg/g APS KWAME S NA Comment: Test Performed by: [place] [address] Steel Placer: Zach Keenan M.D. Ph.D.; CLIA# [id number] Specimen Source: Urine, unspecified source Urine specimen (specimen) 11/18/2019 9:51 AM CDT 11/18/2019 9:[address] Ariza MD LAB URINE ORDERABLES Fi nal Result Performing Organization Address City/[facility]/ZIP Co de Phone Number NIKOLAS PUENTE SNA [...] fL APS [facility] SNA Comment: Performed at: [facility] Services[address] [address] Steel Placer: Chris Prajapati MD [facility] # [id number] Blood specimen (specimen) 11/18/2019 9:51 AM CDT [...] SNA Comment: TEST COMMENT: Fasting?->Yes Performed at: [facility] [place] [address] [place] [address] Steel Placer: Chris Prajapati MD CLIA # [id number] Blood specimen (specimen) 11/18/2019 9:51 AM CDT 11/18/2019 9:[address] Ariza MD LAB BLOOD ORDERABLES Fi nal Result APS [employer] SNA documented in this encounter Visit Diagnoses Diagnosis Chronic kidney disease stage 3 (HCC) documented in this encounter Care Teams Human Geography Instructor Relationship Specialty Start Date End Date Meliza Cantor DO [address] [place] [address] PCP - General Family Medicine 05/15/18 documented as of this encounter
--- OUTSIDE RECORDS SUMMARY | 2025-01-09 14:36 | XMS_ITS | Encounter Summary ---
Author Organization [facility] [employer], [facility] Address [address] [address] Phone Care Team Providers Care Braille Typist Name Role Phone Meliza Cantor DO Primary Care Provider [phone] Encounter Details Date Type Department Care Team (Late Contact Info) Description 11/15/2018 Orders Only [facility] [employer], [address] [address] Lane Ariza MD [address] [address] Chronic kidney disease stage 3 [...] st Contact Info) Description 03/23/2025 1:00 PM ROTARY FURNACE OPERATOR Office Visit [place] [employer], [facility] [place] [address] Oanh Abrams NP [address] [address] documented as of this encounter [...] 25 hydroxy (11/12/2018 12:00 PM CDT) Pathologist [facility] Vitamin D, 25-OH, Total 44 ng/mL Blood specimen (specimen) 11/12/2018 12:00 PM CDT Lilly Jaida Naranjo - 11/13/2018 12:21 PM CDT [facility], [place] # [id number] [facility] [place] [address] DIRECTOR: TAMIKA WEATHERS MD [facility] [phone] Lane Ariza MD LAB BLOOD ORDERABLES Ed ited Result - Final * PTH, intact (CKD3a) (11/12/2018 12:00 PM CDT) Pathologist [facility] Parathyroid Hormone, Intact 63.7 pg/mL Blood specimen (specimen) 11/12/2018 12:00 PM CDT Lilly Dannielle Mckeon MA - 11/13/2018 8:03 AM CDT [facility], [place] # [id number] [address] [place], [place] [id number] DIRECTOR: TAMIKA WEATHERS MD [facility] [phone] Laen Ariza MD LAB BLOOD ORDERABLES Fi nal Result * (ABNORMAL) RFP (CKD3a) (11/12/2018 12:00 PM CDT) Pathologist [facility] Albumin 4.0 3.5 - 5.0 g/dL BUN [...] Gonzalez MA - 11/13/2018 8:01 AM CDT [facility]ORATORY SERVICES [facility] # [id number] [address] [place] [address] DIRECTOR: TAMIKA WEATHERS MD [facility] [phone] Lane Ariza MD LAB BLOOD ORDERABLES Fi nal Result documented in this encounter Visit Diagnoses Diagnosis Chronic kidney disease stage 3 (HCC) documented in this encounter Care Teams Braille Typist Relationship Specialty Start Date End Date Meliza Cantor DO [address] [place] [address] PCP - General Family Medicine 05/15/18 documented as of this encounter
--- OUTSIDE RECORDS SUMMARY | 2025-01-09 14:36 | XMS_ITS | Encounter Summary ---
Author Organization [facility] [facility], [facility] Address [address] [facility] [address] [place] [address] Phone Care Team Providers Care Analysis Lead Name Role Phone Meliza Cantor DO Primary Care Provider [phone] Encounter Details Date Type Department Care Team (Late st Contact Info) Description 05/20/2019 Orders Only [facility] [employer], [address] [address] Denzel Schofield NP Chronic kidney [...] st Contact Info) Description 03/23/2025 1:00 PM CROSSING SUPERVISOR Office Visit [facility] [employer], [facility] [place] [address] Oanh Abrams NP [address] [facility] [address] [place] [address] documented as of this encounter Procedures Procedure Name Priority Date/Time Associated Diagnosis Comments RENAL FUNCTION PANEL Routine 05/14/2019 10:50 AM CROSSING SUPERVISOR Chronic kidney disease stage 3 (HCC) CBC Routine 05/14/2019 10:36 AM CROSSING SUPERVISOR Chronic kidney disease stage 3 (HCC) URINE ALBUMIN / CREATININE RATIO Routine 05/13/2019 10:03 AM CROSSING SUPERVISOR Chronic kidney disease stage 3 (HCC) VITAMIN D 25 HYDROXY Routine 05/13/2019 10:03 AM CROSSING SUPERVISOR Chronic kidney disease stage 3 (HCC) PTH, INTACT Routine 05/13/2019 10:03 AM CROSSING SUPERVISOR Chronic kidney disease stage 3 (HCC) documented in this encounter Results * (ABNORMAL) Renal function panel (05/14/2019 10:50 AM CROSSING SUPERVISOR) Albumin 3.9 3.5 - 5.0 g/dL BUN [...] Venous blood / Unknown 05/14/2019 10:50 AM CROSSING SUPERVISOR Narrative Ginger Colin MA - 05/18/2019 1:49 PM CDT bellhop captain [facility] # [id number] [address] [place] [address] DIRECTOR: TAMIKA WEATHERS MD [facility] [phone] Denzel Schofield MANAGER BILINGUAL LAB BLOOD ORDERABLES Final Result * CBC (05/14/2019 10:36 AM CROSSING SUPERVISOR) WBC 5.6 K/uL Red Blood Cell Count 4.64 Hemoglobin 14.4 g/dL Hematocrit 43.9 % MCV 94.6 MCH 31.0 MCHC 32.8 RDW 13.3 Platelet Count 171 MPV 12.6 Absolute Neutrophils 3.21 Absolute Lymphocytes 1.52 Absolute Monocytes 0.52 Absolute Eosinophils 0.18 Absolute Basophils 0.11 Neutrophils 58 K/uL Lymphocytes 27 Monocytes 9 Eosinophils 3 Basophils 2 Blood specimen (specimen) Venous blood / Unknown 05/14/2019 10:36 AM CROSSING SUPERVISOR Lilly Ginger Colin MA - 05/18/2019 1:57 PM CDT bellhop captain lab [facility], [place] # [id number] [address] [place] [address] DIRECTOR: TAMIKA WEATHERS MD [facility] [phone] [facility] VeraChandu NP LAB BLOOD ORDERABLES Final Result * Vit D 25 hydroxy (05/13/2019 10:03 AM CROSSING SUPERVISOR) Vitamin D, 25-OH, Total 44 ng/mL Blood specimen (specimen) Venous blood / Unknown 05/13/2019 10:03 AM CROSSING SUPERVISOR Donna Norris LPN - 05/14/2019 1:19 PM CROSSING SUPERVISOR RESEARCH TEST ENGINE OPERATOR lab [facility], [place] # [id number] [facility] [place] [address] DIRECTOR: TAMIKA WEATHERS MD [facility] [phone] [facility] VeraChandu NP LAB BLOOD ORDERABLES Final Result * PTH, intact (05/13/2019 10:03 AM CROSSING SUPERVISOR) Parathyroid Hormone, Intact 36.3 pg/mL Blood specimen (specimen) Venous blood / Unknown 05/13/2019 10:03 AM CROSSING SUPERVISOR Ginger Stack MA - 05/18/2019 1:59 PM CDT bellhop captain lab [facility], [place] # [id number] [facility] [place] [address] DIRECTOR: TAMIKA WEATHERS MD [facility] [phone] [facility] VeraChandu NP LAB BLOOD ORDERABLES Final Result * Urine albumin / creatinine ratio (05/13/2019 10:03 AM CROSSING SUPERVISOR) Albumin, Urine 103.2 mg/dL Creatinine, Urine Random 43 mg/dL Alb/Creat Ratio, Ur 240.00 mg/g Creat Urine specimen (specimen) Urine specimen obtained by clean catch procedure / Unknown 05/13/2019 10:03 AM CROSSING SUPERVISOR Narrative Donna Hinkle LPN - 05/15/2019 1:43 PM CROSSING SUPERVISOR RESEARCH TEST ENGINE OPERATOR lab [facility] [address] [place], [place] [id number] Denzel Schofield MANAGER BILINGUAL LAB URINE ORDERABLES Final Result documented in this encounter Visit Diagnoses Diagnosis Chronic kidney disease stage 3 (HCC) documented in this encounter Care Teams Analysis Lead Relationship Specialty Start Date End Date Meliza Cnator DO [address] [place] [address] PCP - General Family Medicine 05/15/18 documented as of this encounter
--- OUTSIDE RECORDS SUMMARY | 2025-01-09 14:36 | XMS_ITS | Encounter Summary ---
Author Organization [facility] Address [address] [place] [address] Care Team Providers Care Sports Nutritionist Name Role Phone Meliza Cantor DO Primary Care Provider [phone] Encounter Details Date Type Department Care Team (Latest Contact Info) Description 12/27/2003 Outpatient Historical [facility] Cardiology- [place] [address] [place] [address] Stanislaw Hall, DRIVER'S LICENSE REVIEWING OFFICER [address] [place] [address] CORON ATHEROSCL [place] CORON VESSEL (Primary Dx); MIXED HYPERLIPIDEMIA Social History Tobacco Use Types Packs/Day Years Used Date Smoking Tobacco: Never Assessed Sex and Gender Information Value Date Recorded Sex Assigned at Not on file Legal Sex Male 6: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
--- OUTSIDE RECORDS SUMMARY | 2025-01-09 14:37 | XMS_ITS | Encounter Summary ---
Author Organization [facility] Address [address] 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
--- OUTSIDE RECORDS SUMMARY | 2025-01-09 14:37 | XMS_ITS | Encounter Summary ---
Author Organization [facility] Address [address] [place] [address] Care Team Providers Care Child Support Officer Name Role Phone Meliza Cantor DO Primary Care Provider Encounter Details Date Type Department Care Team (Latest Contact Info) Description 12/20/[address] [facility] Cardiology- [place] [address] [place] [address] Basilio Walton MD [address] [facility] [address] [place] [address] Acute myocardial infarction, subendocardial infarction, subsequent episode of care (Primary Dx); Other specified forms of chronic ischemic heart disease; Coronary atherosclerosis of [place] coronary artery; Mixed hyperlipidemia Social History Tobacco Use Types Packs/Day Years Used Date Smoking Tobacco: Never Assessed Sex and Gender Information Value Date Recorded Sex Assigned at Not on file Legal Sex Male 6:11 AM SEWAGE 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 OFFICER Gender Identity Not on file Sexual Orientation Not on file documented as of this encounter Plan of Treatment Not on file documented as of this encounter Visit Diagnoses Diagnosis Acute myocardial infarction, subendocardial infarction, subsequent episode of care- Primary Other specified forms of chronic ischemic heart disease Coronary atherosclerosis of [place] coronary artery Mixed hyperlipidemia documented in this encounter Care Teams Child Support Officer Relationship Specialty Start Date End Date Meliza Cantor DO [address] [place] [address] PCP - General Family Practice 04/09/13 documented as of this encounter
--- OUTSIDE RECORDS SUMMARY | 2025-01-09 14:37 | XMS_ITS | Clinical Summary ---
Author Organization [facility] Address [address] [place] [address] Care Team Providers Care Jewelry Racker Name Role Phone Meliza Cantor Primary Care [...] 40 mg by mouth daily. [facility] Active zolpidem (AMBIEN) 10 mg tabletIndications: Primary [...] (moderate) 04/08 Coronary artery disease invo lving [place] coronary artery of [place] heart without angina pectoris 04/08/2013 Essential hypertension [...] on file Legal Sex Male 6:11 AM INTERNAL CONSULTANT Gender Identity Not on file Sexual Orientation [...] - 1-dose 75+ series) 11/07/2022 Medicare Advantage ([place]) Preventative Visit/Annual Wellness Visit 03/11/2024 06/23/2020, 06/25/2017, 09/08/2013 INFLUENZA VACCINE (#1) 2024 DIABETES ANNUAL RETINAL EXAM 08/05/2025, 09/24/2016, 09/24/2016, Additional history exists COLORECTAL SCREENING Discontinued 06/02/2013, 06/02/2013, 10/20/2008 Colorectal Cancer Screening Discontinued FIT-DNA Q 3 years Discontinued FIT/FOBT Q 1 year Discontinued Flex Sig/CT Colonography Q 5 years Discontinued Medical Devices Implanted Type Area Ham Stripper Device Identifier Shelf Expiration Date Model / Serial / Lot Lens Io Tecnis 4.5cyl [id number] 25.5 - [id number] Implanted:Qty: 1 on 06/26/2016 by Pj Wakefield MD at [facility] Left: Eye [employer] 03/14/2019 [id number] 25.5 / [id number] / Lens Io Tecnis 1pc 27.0 [id number] - [id number] Implanted:Qty: 1 on 07/10/2016 by Pj Wakefield MD at [facility] Right: Eye [employer] 05/19/2020 [id number] / [id number] / N/A Procedures Procedure Name Priority Date/Time Associated Diagnosis Comments LIPID PANEL Routine 06/23/2020 1:01 PM CDT Type 2 diabetes mellitus with stage 3a chronic kidney disease, without long-term current use of insulin ([facility]) HEMOGLOBIN A1C Routine 06/23/2020 1:01 PM CDT Type 2 diabetes mellitus with stage 3a chronic kidney disease, without long-term current use of insulin ([facility]) MICROALBUMIN/CREATIN INE RATIO, RANDOM UR Routine 11/18/2019 [...] See Comment % 06/23/2020 8:42 PM CDT [facility] EST. AVG GLUCOSE, A1C 117 mg/dL 06/23/2020 8:42 PM CDT [facility] Blood Venipuncture / Unknown 06/23/2020 1:01 PM CDT 06/23/2020 8:16 PM CDT [facility]AT[facility] - 06/23/2020 8:42 PM CDT HGB A1C INTERPRETATION NORMAL: <5.7% PRE-DIABETES: 5.7 - 6.4% DIABETES: 6.5% OR GREATER Falsely low A1C measurements can occur when: 1. Anemia and/or hemolytic anemia is present. 2. Hemoglobin variants present. 3. Renal failure. 4. Transfusion of blood product in the last 120 days. We recommend ordering a fructosamine test(FRC8509) to more accurately assess glycemic status if any of the above conditions are present. us Meliza Cantor DO CHEMISTRY ORDERABLES Final Result [facility] CLIA# [id number] [address] [place] [address] * (ABNORMAL) LIPID PANEL (06/23/2020 1:01 PM CDT) Pathologist [facility] CHOLESTEROL 101 <200 mg/dL 06/23/2020 9:13 PM CDT [facility] TRIGLYCERIDE 80 <150 mg/dL 06/23/2020 9:13 PM CDT [facility] HDL 36(L) 40 - 59 mg/dL 06/23/2020 9:13 PM CDT [facility] LDL CALCULATED 49 <100 mg/dL 06/23/2020 9:13 PM CDT [facility] NON-HDL CHOLESTEROL 65 <130 mg/dL 06/23/2020 9:13 PM CDT [facility] Blood Venipuncture / Unknown 06/23/2020 1:01 PM CDT 06/23/2020 8:14 PM CDT Narrative [facility] - 06/23/2020 9:13 PM CDT TOTAL [...] Meliza Cantor DO CHEMISTRY ORDERABLES Final Result [facility] CLIA# [id number] [address] [place] [address] * (ABNORMAL) MICROALBUMIN/CREATININE RATIO, RANDOM UR (11/18/2019 9:51 AM CDT) ALBUMIN, URINE 59.5 mg/L 11/20/2019 4:47 PM CDT [facility] Comment: ADDITIONAL INFORMATION This test has been modified from the tanner rotary drum continuous process's instructions. Its performance characteristics were determined by [facility] in a manner consistent with CLIA requirements. This test has not been cleared or approved by the U.S. Food and Drug Administration. CREATININE, URINE 26 mg/dL 020 4:47 PM CDT [facility] ALBUMIN/CREATININE RATIO 229(H) <17 mg/g 11/20/2019 4:47 PM CDT [facility] Comment: Test Performed by: [place] [address] Indirect Sales Exec: Zach Keenan M.D. Ph.D.; CLIA# [id number] Urine URINE SPECIMEN / Unknown Collection / Unknown 11/18/2019 9:51 AM CDT 11/18/2019 7:[address] Ariza MD URINE ORDERABLES Final Resul t [facility] * DIABETES EYE EXAM (11/05/2012) us Abstract Spg Provider HEALTH MAINTENANCE Final R esult * ENDOSCOPY, COLON, SCREENING (10/20/2008) us Abstract Spg Provider GI PROCEDURE ORDERABLES Fi nal Result from Last 3 Months or Most Recently Relevant to Health Maintenance Insurance [address] [place] [address] [employer] [id number] HMO Advance Directives For more information, please contact: [phone] * Full Code (Latest Code Status on [...] 1:51 PM 06/02/2013 6:12 PM Care Teams Jewelry Racker Relationship Specialty Start Date End Date Meliza Cantor DO [address] [place] [address] PCP - General Family Practice 04/09/13
--- OUTSIDE RECORDS SUMMARY | 2025-01-09 14:37 | XMS_ITS | Encounter Summary ---
Author Organization [facility] Address [address] [place] [address] Care Team Providers Care Spray Gun Sizer Name Role Phone Meliza Cantor DO Primary Care Provider [phone] Encounter Details Date Type Department Care Team (Latest Contact Info) Description 03/19/2000 Outpatient Historical [facility] Cardiology- [place] [address] [place] [address] Basilio Walton MD [address] [facility] [address] [place] [address] Old myocardial infarct (Primary Dx); Other specified forms of chronic ischemic heart disease; Coronary atherosclerosis of [place] coronary artery; Mixed hyperlipidemia Social History Tobacco Use Types Packs/Day Years Used Date Smoking Tobacco: Never Assessed Sex and Gender Information Value Date Recorded Sex Assigned at Not on file Legal Sex Male 6:11 AM OPENER Gender Identity Not on file Sexual Orientation Not on file documented as of this encounter Plan of Treatment Not on file documented as of this encounter Visit Diagnoses Diagnosis Old myocardial infarct- Primary Old myocardial infarction Other specified forms of chronic ischemic heart disease Coronary atherosclerosis of [place] coronary artery Mixed hyperlipidemia documented in this encounter Care Teams Spray Gun Sizer Relationship Specialty Start Date End Date Meliza Cantor DO [address] [place] [address] PCP - General Family Practice 04/09/13 documented as of this encounter
--- OUTSIDE RECORDS SUMMARY | 2025-01-09 14:37 | XMS_ITS | Encounter Summary ---
Author Organization [facility] Address [address] [place] [address] Care Team Providers Care Roll Winder Name Role Phone Meliza Cantor DO Primary Care Provider Reason for Visit * Reason Comments Medication Refill Encounter Details Date Type Department Care Team (Late st Contact Info) Description 04/29/2019 Refill [facility] [place] [id number] [facility] [address] [place] [address] Meliza Cantor DO [address] [place] [address] Social History Tobacco Use Types Packs/Day Years Used Date Smoking Tobacco: Former Cigarettes 2 40 0 03/11/1968 - 03/11/2008 Smokeless Tobacco: Former Chew Alcohol Use Standard Drinks/Week Comments No 0 (1 standard drink = 0.6 oz pur e alcohol) Sex and Gender Information Value Date Recorded Sex Assigned at Not on file 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
--- NOTE | 2025-01-09 15:10 | XRR_ITS ---
PROCEDURE INFORMATION: Exam: XR Chest Exam date and time: 01/09/2025 3:30 PM Age: 79 years old Clinical indication: Cough; Additional info: Dyspnea; Cough TECHNIQUE: Imaging protocol: Radiologic exam of the chest. Views: 1 view. COMPARISON: CR XR chest 1V portable [id number] 06/06/2022 4:58 PM FINDINGS: Lungs: There is a mild increase in interstitial markings in the lower lungs bilaterally. Ill-defined focus of increased density in the left retrocardiac region. Pleural spaces: Mild bilateral pleural effusions. No pneumothorax. Heart/Mediastinum: Cardiomegaly. Normal mediastinal size. Vasculature: Mild central vascular enlargement Bones/joints: Unremarkable. XR/XR chest 1V portable [id number] IMPRESSION: 1. Cardiomegaly, central vascular enlargement and mild interstitial thickening at the lung bases suggesting congestive heart failure. 2. Small amount of pleural fluid bilaterally. 3. Ill-defined focus of increased density in the left retrocardiac region. The appearance could relate to edema and pleural fluid, but concurrent pneumonia is possible.
--- NOTE | 2025-01-09 15:33 | W.ED.SOB ---
HPI - SOB/Dyspnea General: Chief Complaint: Shortness of Breath/Dyspnea Stated Complaint: CP SOB Time Seen by Provider: 01/09/25 15:10 History of Present Illness: HPI Narrative: 79-year-old male with history of coronary artery disease COPD, chronic kidney disease, congestive heart failure, hypertension obstructive sleep apnea presents emergency room complaining of progressively worsening shortness of breath and increasing cough. Patient is not normally on oxygen presents to the emergency room with complaint of worsening orthopnea and exertional dyspnea over the last couple of days. Denies productive cough no fever sweats or chills he does takes Lasix regularly. He has noticed mild chest discomfort but it is only associated with his coughing episodes. Associated symptoms: Reports chest congestion; Deny abdominal pain, chest pain or fever(s) Related Data Home Medications ?Medication ?Instructions ?Recorded ?Confirmed glipizide 5 mg tablet 2.5 mg PO BID 08/10/19 12/24/24 ropinirole 0.25 mg tablet 0.25 mg PO DAILY 08/10/19 12/24/24 tamsulosin 0.4 mg capsule (Flomax) 0.4 mg PO DAILY 08/10/19 12/24/24 zolpidem 5 mg tablet 5 mg PO .HS 08/10/19 12/24/24 lisinopril 2.5 mg tablet 2.5 mg PO ONCE 07/31/21 12/24/24 multivitamin 1 tab PO DAILY 07/31/21 12/24/24 omega-3 fatty acids [Fish Oil] 1 cap PO DAILY 07/31/21 12/24/24 levothyroxine 50 mcg capsule 50 mcg PO DAILY 08/29/23 12/24/24 budesonide 160 mcg-glycopyr 9 2 inh inhalation BID 09/09/24 01/09/25 mcg-formot 4.8 mcg/actuation HFA inhaler (Breztri Aerosphere) amlodipine 5 mg tablet 5 mg PO DAILY 09/28/24 01/09/25 aspirin 81 mg tablet,delayed 81 mg PO DAILY 01/09/25 01/09/25 release Previous Rx's ?Medication ?Instructions ?Recorded furosemide 20 mg tablet (Lasix) 20 mg PO BID #180 tabs 10/03/22 Bed Side Urinal #1 ea 03/23/24 Wheelchair #1 ea 03/23/24 ASO to left #1 ea 06/02/24 Bone Growth Stimulator #1 ea 10/07/24 hydrocodone 5 mg-acetaminophen 325 1 - 2 tab PO .Q4-6H PRN pain 7 11/26/24 mg tablet days #42 tabs Bone Growth Stimulator #1 ea 12/01/24 Allergies Allergy/AdvReac Type Severity Reaction Status Date / Time No Known Allergies Allergy Verified 12/24/24 07:56 Review of Systems Const: Denies: fever(s) or chills Card: Denies: chest pain Resp: Reports: dyspnea, non-productive cough and chest congestion GI: Denies: abdominal pain : Denies: dysuria, urinary frequency or urinary urgency Musc: Denies: neck pain or back pain Skin/Breast: Denies: rash PFSH ED PFSH: Medical History Hypertension CKD (chronic kidney disease) JAKOB (obstructive sleep apnea) ASHD (arteriosclerotic heart disease) Myocardial infarction COPD (chronic obstructive pulmonary disease) Carotid stenosis, bilateral Dyslipidemia Surgical History S/P PTCA (percutaneous transluminal coronary angioplasty) Family History Mother , AGE 51 CAD (coronary artery disease) Myocardial infarction Social History Smoking and tobacco/nicotine status: never used tobacco/nicotine Quit status (tobacco/nicotine): has quit using Alcohol intake: never Substance/Drug Use: never Physical Exam Const: GENERAL APPEARANCE: cooperative ORIENTATION/CONSCIOUSNESS: Yes awake, Yes oriented to person, Yes oriented to place and Yes oriented to time HENMT: COMMON NORMALS: normocephalic, atraumatic and hearing grossly normal bilaterally HEAD & SCALP: normocephalic and atraumatic Resp: COMMON NORMALS: normal respiratory effort, No retractions and No use of accessory muscles AUSCULTATION: crackles Cardio: COMMON NORMALS: regular rate, regular rhythm and No murmurs present (Cardio) RATE: regular rate RHYTHM: regular rhythm GI: COMMON NORMALS: Soft to palpation and No hepatosplenomegaly present AUSCULTATION: Yes normoactive bowel sounds PALPATION: Yes Soft to palpation, No Tenderness to palpation present (GI), No Guarding due to palpation present (GI) and Yes No hepatosplenomegaly present Extremity: COMMON NORMALS: normal to inspection, capillary refill normal, no clubbing, cyanosis or edema, no calf tenderness and no pedal edema Neuro: SENSORIUM/ORIENTATION: Yes oriented to person, Yes oriented to place and Yes oriented to time Skin: COMMON NORMALS: no rashes or lesions noted GENERAL SKIN EXAM: no rashes or lesions noted Course Vital Signs: Vital signs: Vital Signs Temperature 98.1 F 01/09/25 14:32 Pulse Rate 59 L 01/09/25 16:07 Respiratory Rate 16 01/09/25 16:07 Blood Pressure 144/75 01/09/25 15:43 Pulse Oximetry 93 01/09/25 16:07 Oxygen Delivery Me thod Nasal Cannula 01/09/25 16:07 Oxygen Flow Rate 2 01/09/25 16:07 MDM - SOB/Dyspnea Lab Data 01/09/25 15:23 01/09/25 15:23 Labs/Radiology: Radiology Impressions Chest X-Ray 01/09/25 15:10 IMPRESSION: 1. Cardiomegaly, central vascular enlargement and mild interstitial thickening at the lung bases suggesting congestive heart failure. 2. Small amount of pleural fluid bilaterally. 3. Ill-defined focus of increased density in the left retrocardiac region. The appearance could relate to edema and pleural fluid, but concurrent pneumonia is possible. Laboratory Results WBC 6.10 10^3/uL (3.29-11.43) 01/09/25 15:23 RBC 3.50 10^6/uL (3.85-5.65) L 01/09/25 15:23 Hgb 10.20 g/dL (11.27-16.99) L 01/09/25 15:23 Hct 33.2 % (37-53) L 01/09/25 15:23 MCV 94.9 fl (82-101) 01/09/25 15:23 MCH 29.1 pg (27-33) 01/09/25 15:23 MCHC 30.7 g/dL (30-55) 01/09/25 15:23 RDW 14.6 % (12.1-15.1) 01/09/25 15:23 Plt Count 182 10^3/cmm (157-399) 01/09/25 15:23 MPV 10.3 fL (7.4-10.4) 01/09/25 15:23 Neut % (Auto) 55.0 % 01/09/25 15:23 Lymph % (Auto) 28.0 % 01/09/25 15:23 [place] % (Auto) 11.5 % 01/09/25 15:23 Eos % (Auto) 3.8 % 01/09/25 15:23 Baso % (Auto) 1.5 % 01/09/25 15:23 Neut # (Auto) 3.36 10^3/uL (1.8-7.7) 01/09/25 15:23 Lymph # (Auto) 1.7 10^3/uL (0.8-4.8) 01/09/25 15:23 [place] # (Auto) 0.7 10^3/uL (0.2-0.9) 01/09/25 15:23 Eos # (Auto) 0.2 10^3/uL (0.0-0.8) 01/09/25 15:23 Baso # (Auto) 0.1 10^3/uL (0.0-0.1) 01/09/25 15:23 Nucleated RBC % (auto) 0 % 01/09/25 15: Nucleated RBCs # 0.0 /100WBC 01/09/25 15:23 Specimen Type Arterial 01/09/25 15:39 Sample Site Radial, left 01/09/25 15:39 ABG pH 7.40 (7.35-7.45) 01/09/25 15:39 ABG pCO2 44.8 mmHg (35-45) 01/09/25 15:39 ABG pO2 60.4 mmHg (80.0-100.0) L 01/09/25 15:39 ABG HCO3 27.4 mmol/L (22-26) H 01/09/25 15:39 ABG O2 Saturation 91.2 01/09/25 15:39 ABG Base Excess 2.1 mmol/L (-2.0-2.0) H 01/09/25 15:39 Lisandro Test Pos 01/09/25 15:39 A-a O2 Gradient 4.5 mmHg (5-10) L 01/09/25 15:39 Hematocrit 33.9 % (42-52) L 01/09/25 15:39 Hgb O2 Saturation 89.1 % (95-100) L 01/09/25 15:39 Carboxyhemoglobin 1.5 %THgb (0.4-20.1) 01/09/25 15:39 Methemoglobin 0.7 % (0.4-1.5) 01/09/25 15:39 Total Hemoglobin 11.1 g/dL (14-18) L 01/09/25 15:39 Sodium 146.0 mmol/L (131-143) H 01/09/25 15:39 Potassium 3.8 mmol/L (3.5-5.0) 01/09/25 15:39 Glucose 81.0 mg/dL (70-115) 01/09/25 15:39 Ionized Calcium 1.2 mmol/L (1.1-1.4) 01/09/25 15:39 O2 Delivery Device Nc 01/09/25 15:39 O2 Liters/Min 2.0 % 01/09/25 15:39 Rn Postpartum ID [place] 01/09/25 15:39 Sodium 145 mmol/L (136-145) 01/09/25 15:23 Potassium 4.3 mmol/L (3.5-5.1) 01/09/25 15:23 Chloride 108 mmol/L (98-107) H 01/09/25 15:23 Carbon Dioxide 28 mmol/L (22-29) 01/09/25 15:23 Anion Gap 13.3 (5-19) 01/09/25 15:23 BUN 15 mg/dL (8-23) 01/09/25 15:23 Creatinine 1.6 mg/dL (0.7-1.2) H 01/09/25 15:23 GFR Calculation Not Reportable 01/09/25 15:23 Glucose 75 mg/dL (65-115) 01/09/25 15:23 Calculated Osmolality 300 mOsm/kg (285-295) H 01/09/25 15:23 Calcium 8.5 mg/dL (8.5-10.5) 01/09/25 15:23 Total Bilirubin 0.4 mg/dL (0.15-1.2) 01/09/25 15:23 AST 22 U/L (0-40) 01/09/25 15:23 ALT 21 U/L (0-41) 01/09/25 15:23 Alkaline Phosphatase 91 U/L (40-130) 01/09/25 15:23 NT-Pro-B Natriuret Pep 967 pg/mL (0-450) H 01/09/25 15:23 Total Protein 6.6 g/dL (6.6-8.7) 01/09/25 15:23 Albumin 3.9 g/dL (3.5-5.2) 01/09/25 15:23 Globulin 2.7 g/dL (1.3-4.6) 01/09/25 15:23 Discharge Plan Discharge Condition: Stable Prescriptions: No Action tamsulosin [Flomax] 0.4 mg capsule 0.4 mg PO DAILY zolpidem 5 mg tablet 5 mg PO .HS ropinirole 0.25 mg tablet 0.25 mg PO DAILY glipizide 5 mg tablet 2.5 mg PO BID lisinopril 2.5 mg tablet 2.5 mg PO ONCE multivitamin Tablet 1 tab PO DAILY omega-3 fatty acids [Fish Oil] 1 cap PO DAILY hydrocodone-acetaminophen 5-325 mg tablet 1 - 2 tab PO .Q4-6H PRN (Reason: pain) 7 Days Qty: 42 0RF levothyroxine 50 mcg capsule 50 mcg PO DAILY Breztri Aerosphere 160-9-4.8 mcg/actuation HFA aerosol inhaler 2 inh inhalation BID (DME) Wheelchair See Rx Instructions .Route .MEDSUPPLY Qty: 1 0RF Rx Instructions: As directed (DME) Bed Side Urinal See Rx Instructions .Route .MEDSUPPLY Qty: 1 0RF Rx Instructions: As directed (DME) ASO to left See Rx Instructions .Route .MEDSUPPLY Qty: 1 0RF Rx Instructions: As directed furosemide [Lasix] 20 mg tablet 20 mg PO BID Qty: 180 3RF amlodipine 5 mg tablet 5 mg PO DAILY (DME) Bone Growth Stimulator See Rx Instructions .Route .MEDSUPPLY Qty: 1 0RF Rx Instructions: As directed (DME) Bone Growth Stimulator See Rx Instructions .Route .MEDSUPPLY Qty: 1 0RF Rx Instructions: As directed aspirin [Aspir-81] 81 mg Tablet,Delayed Release (Dr/Ec) 81 mg PO DAILY Referrals: Meliza Cantor DO [Primary Care Provider, Family Practice] Print Language: Malay Coding Level of Care Code ED Entertainment Centre Manager for [facility]
[2025-01-09 15:37] LABS: Hematocrit 33.2 % (37-53); Hemoglobin 10.20 g/dL (11.27-16.99); Mean Corpuscular HGB Conc 30.7 g/dL (30-55); Mean Corpuscular Hemoglobin 29.1 pg (27-33); Mean Corpuscular Volume 94.9 fl (82-101); Nucleated Red Blood Cells % 0 %; Platelet Count 182 10^3/cmm (157-399); Red Blood Count 3.50 10^6/uL (3.85-5.65); White Blood Count 6.10 10^3/uL (3.29-11.43)
[2025-01-09 15:50] LABS: ABG PCO2 44.8 mmHg (35-45); ABG PH Result 7.40 (7.35-7.45); Alveolar-Arterial Oxygen Gradi 4.5 mmHg (5-10); Arterial Blood Gas Hematocrit 33.9 % (42-52); Blood Gas Allen Test Pos; Blood Gas LPM 2.0 %; Blood Gas Operator Identificat WALCI; Blood Gas Sample Site Radial, left; Blood Gas Sample Type Arterial; Carboxyhemoglobin 1.5 %THgb (0.4-20.1); Glucose Level-ABG 81.0 mg/dL (70-115); HCO3 ABG 27.4 mmol/L (22-26); Ionized Calcium Level - ABG 1.2 mmol/L (1.1-1.4); Methemoglobin 0.7 % (0.4-1.5); Oxygen Saturation ABG 91.2; PO2 ABG 60.4 mmHg (80.0-100.0); Potassium Level - ABG 3.8 mmol/L (3.5-5.0); Sodium Level - ABG 146.0 mmol/L (131-143)
[2025-01-09 16:10] LABS: Alanine Aminotransferase 21 U/L (0-41); Albumin Level 3.9 g/dL (3.5-5.2); Alkaline Phosphatase 91 U/L (40-130); Anion Gap 13.3 (5-19); Aspartate Amino Transferase 22 U/L (0-40); Blood Urea Nitrogen 15 mg/dL (8-23); Calcium 8.5 mg/dL (8.5-10.5); Carbon Dioxide 28 mmol/L (22-29); Chloride 108 mmol/L (98-107); Creatinine Clr Calc Pharmacy 48.9573; Globulin 2.7 g/dL (1.3-4.6); Glucose 75 mg/dL (65-115); NT Pro B Type Natriuretic Pept 967 pg/mL (0-450); Osmolality Calculated 300 mOsm/kg (285-295); Potassium 4.3 mmol/L (3.5-5.1); Sodium 145 mmol/L (136-145); Total Protein 6.6 g/dL (6.6-8.7)
[2025-01-09 16:30] LABS: Respiratory Syncytial Virus Ce NEGATIVE (Negative); SARS-CoV-2 PCR NEGATIVE (Negative)
[2025-01-09] MEDS: FUROsemide 10 mg/mL SDV 4mL 40 MG IVP (16:38)
[2025-01-09] MEDS: methylPREDNISolone sod succ 125 mg/2 mL INJ IVP (16:38)
--- NOTE | 2025-01-09 16:43 | PC.PHAR ---
[facility] Pt states he went over medications when he had back surgery in November. Old medications are as follows: Abilify 5mg daily-08/10/2019 Atenolol 100mg daily-08/10/2019 Atorvastatin 40mg daily-08/09/20 Bupropion Hcl 100mg tid-08/10/2019 Doxazosin 4mg 2mg daily-07/31/21 Flonase 50mcg 1 spray each nostril daily-07/31/21 Furosemide 20mg bid-10/03/2022 Glipizide 5mg 2.5mg bid-08/10/2019 Levothryoxine 50mcg daily-08/29/23 Ropinerole 0.25mg daily-08/10/2019 I did question the thyroid medication and [facility] is now closed and I can't use them for verification.
--- NOTE | 2025-01-09 17:58 | PM.HP ---
Providers/Chief Complaint Admitting Physician: Herbert Hope MD Primary Care Provider: Meliza Cantor DO Chief Complaint: CP SOB History of Present Illness Gary Nichols is a 79 year old male with coronary disease status post 2 st[address] Garcia, COPD, CKD, obstructive sleep apnea x 20 years, hypertension, CHF on furosemide comes in with 2 months of increasing shortness of breath. He states that last 2 to 3 days he has had dyspnea on exertion orthopnea and cough with minimal clear production. He has had weight gain of 20 pounds in 3 to 5 months. He wears BEN hose and also uses a [employer] 11 APAP machine and last night his pressure was 9.5. Patient was admitted through the emergency department with bilateral pleural effusions and pulmonary vascular congestion newly requiring oxygen now 91% on nasal cannula O2. EKG was okay but cardiac enzymes not done. Patient tells me he has 3-4/10 chest pressure and pain but also has 5 or 6/10 back pain from recent back surgery with Dr. Iraheta on 11/11/2024. Review of Systems Narrative: General No fevers chills positive for 20 pound weight gain Cardiovascular positive for chest pain or pressure dyspnea on exertion orthopnea Respiratory positive for cough minimal clear phlegm brought up no pain with cough GI no nausea vomiting has a bowel movement daily or every other day no dysuria hematuria or dribbling Hematologic no blood clots in legs or lungs Neuro no seizures strokes limb weakness Malignancy history negative Musculoskeletal he has some back pain Medications/Allergies Home Medications ?Medication ?Instructions ?Recorded ?Confirmed ?Last Taken ?Type tamsulosin 0.4 mg capsule (Flomax) 0.4 mg PO DAILY 08/10/19 01/09/25 01/09/25 History multivitamin 1 tab PO DAILY 07/31/21 01/09/25 01/09/25 History Bed Side Urinal #1 ea 03/23/24 01/09/25 Unknown Rx Wheelchair #1 ea 03/23/24 01/09/25 Unknown Rx ASO to left #1 ea 06/02/24 01/09/25 Unknown Rx budesonide 160 mcg-glycopyr 9 2 inh inhalation BID 09/09/24 01/09/25 01/09/25 History mcg-formot 4.8 mcg/actuation HFA inhaler (Breztri Aerosphere) amlodipine 5 mg tablet 5 mg PO DAILY 09/28/24 01/09/25 01/09/25 History Bone Growth Stimulator #1 ea 10/07/24 01/09/25 Unknown Rx hydrocodone 5 mg-acetaminophen 325 1 - 2 tab PO .Q4-6H PRN pain 7 11/26/24 01/09/25 Unknown Rx mg tablet days #42 tabs Bone Growth Stimulator #1 ea 12/01/24 01/09/25 Unknown Rx alprazolam 1 mg tablet 1 mg PO BID PRN Anxiety 01/09/25 01/09/25 Unknown History aspirin 81 mg tablet,delayed 81 mg PO DAILY 01/09/25 01/09/25 01/09/25 History release cyanocobalamin (vitamin B-12) 1,000 mcg IM .[id number] 01/09/25 01/09/25 Unknown History 1,000 mcg/mL injection solution ferrous sulfate 325 mg (65 mg 325 mg PO DAILY 01/09/25 01/09/25 01/09/25 History iron) tablet (FeroSul) lisinopril 10 mg tablet 10 mg PO DAILY 01/09/25 01/09/25 01/09/25 History omega 9-aju-rhu-fish oil 1,000 mg 1 cap PO DAILY 01/09/25 01/09/25 01/09/25 History (120 mg-180 mg) capsule (Fish Oil) pramipexole 0.125 mg tablet 0.125 mg PO BEDTIME 01/09/25 01/09/25 01/08/25 History tizanidine 2 mg tablet 2 mg PO Q8H PRN Pain 01/09/25 01/09/25 Unknown History zolpidem 12.5 mg tablet,extended 12.5 mg PO BEDTIME PRN Insomnia 01/09/25 01/09/25 Unknown History release,multiphase Allergies Allergy/AdvReac Type Severity Reaction Status Date / Time No Known Allergies Allergy Verified 12/24/24 07:56 PFSH Acute PFSH: Medical History (Updated 01/09/25 @ 18:11 by Herbert Hope MD) Hypertension CKD (chronic kidney disease) JAKOB (obstructive sleep apnea) ASHD (arteriosclerotic heart disease) Myocardial infarction COPD (chronic obstructive pulmonary disease) Carotid stenosis, bilateral Dyslipidemia Surgical History S/P PTCA (percutaneous transluminal coronary angioplasty) Family History Mother , AGE 51 CAD (coronary artery disease) Myocardial infarction Social History (Updated 01/09/25 @ 18:04 by Herbert Hope MD) Smoking and tobacco/nicotine status: never used tobacco/nicotine Quit status (tobacco/nicotine): has quit using Year quit tobacco: Around 1993 Former quit date comment: Smoked 3 to 4 packs/day prior to quitting Alcohol intake: former Year of sobriety/quit date alcohol: 1983 Former alcohol use details: 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 drink everything he could Substance/Drug Use: never Additional social history: 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 as discussed with Herbert Hope MD on 01/09/2025 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 Vitals/I&O/Wt Last Vital Signs Temp 98.1 F 01/09/25 14:32 Pulse 69 01/09/25 16:43 Resp 18 01/09/25 16:43 BP 159/73 01/09/25 16:43 Pulse Ox 91 01/09/25 16:43 O2 Del Method Nasal Cannula 01/09/25 17:10 O2 Flow Rate 2 01/09/25 16:07 Weight last 48 hrs Weight 114.759 kg Weight 114.305 kg Physical Exam Narrative: General well-developed well-nourished male in no acute cardiopulmonary stress CV regular rate and rhythm Lungs diminished breath sounds in the bases with bibasilar crackles good air movement in upper lung main no wheezing Abdomen positive bowel tones soft mild tender liver with with positive hepatojugular reflux Calves 2+ bilateral pretibial edema and BEN hose are in place Neck mild to moderately elevated JVD with positive hepatojugular reflux Data 01/09/25 15:23 01/09/25 15:23 A&P Assessment and plan 1. Acute diastolic (congestive) heart failure: Patient is placed on MedSurg with telemetry and observation and will give 40 mg IV furosemide twice daily. Monitor urine output. Replace potassium 20 mill colons twice daily. Start BiPAP for diuresis as he has sleep apnea 2. JAKOB (obstructive sleep apnea): Patient did not bring in his home machine. He he lives in [place]. Will start with BiPAP here 24/10 with 25% FiO2 3. COPD (chronic obstructive pulmonary disease): As above he is not in COPD exacerbation at the moment 4. CKD (chronic kidney disease): Monitor renal function in the morning PDMP PDMP Reviewed: Not Reviewed Attestations Medical Necessity Statement*: Patient is placed a hospital in observation for diuresis and anticipate 1-2 midnights Coding Level of Care Code 48337 Diagnoses Acute diastolic (congestive) heart failure I50.31 JAKOB (obstructive sleep apnea) G47.33 COPD (chronic obstructive pulmonary disease) J44.9 CKD (chronic kidney disease) N18.9 Time Spent (min) 70
[2025-01-09 18:31] LABS: Troponin T (5th) Once 17 ng/L (0-15)
[2025-01-10] VITALS (12 sets, daily range): BP systolic 137–166; BP diastolic 66–85; PULSE 61–89; RESP 16–25; TEMP 36.5–36.9; O2SAT 90–98
[2025-01-10 05:33] LABS: Anion Gap 12.0 (5-19); Blood Urea Nitrogen 19 mg/dL (8-23); Calcium 8.6 mg/dL (8.5-10.5); Carbon Dioxide 28 mmol/L (22-29); Chloride 105 mmol/L (98-107); Creatinine Clr Calc Pharmacy 49.0567; Glucose 222 mg/dL (65-115); Magnesium 2.2 mg/dL (1.7-2.3); Osmolality Calculated 301 mOsm/kg (285-295); Potassium 4.0 mmol/L (3.5-5.1); Sodium 141 mmol/L (136-145)
[2025-01-10] MEDS: ferrous sulfate EC 325 mg Tablet PO (05:39)
[2025-01-10] MEDS: FUROsemide 10 mg/mL SDV 4mL 40 MG IVP ×3 (05:40→16:43)
[2025-01-10] MEDS: guaiFENesin-dextromethorphan UDC 10 mL PO (16:54)
--- NOTE | 2025-01-10 17:19 | PM.PN ---
Subjective Subjective: 79-year-old male obese with sleep apnea states he uses a [employer] machine at home after his previous [employer] machine was recalled. Patient states he feels good and has diuresed markedly. He was considering going home but I talked him about labs follow-up chest x-ray and switching to oral diuretic following overnight diuresis with IV diuretics and he was agreeable to staying overnight so that those parameters could be better evaluated. Earlier in the day he had voided 1800 but I gave him additional 40 mg IV furosemide plus metolazone 5 mg and he thinks he has filled the urinal twice since that. Vitals/I&O/Wt Last Vital Signs Temp 98.1 F 01/10/25 16:26 Pulse 80 01/10/25 16:26 Resp 17 01/10/25 16:26 BP 147/73 01/10/25 16:26 Pulse Ox 90 01/10/25 16:26 O2 Del Method Room Air 01/10/25 07:51 O2 Flow Rate 2 01/09/25 18:02 FiO2 35 01/10/25 02:51 01/10/25 01/10/25 01/10/25 05:59 14:59 22:59 Intake Total 1080 / 1080 Output Total 450 / 450 1400 / 1400 Balance -450 / -450 -320 / -320 Weight last 48 hrs Weight 110.404 kg Weight 114.759 kg Weight 114.305 kg Physical Exam Narrative: General well-developed well-nourished male in no acute cardiopulmonary stress CV regular rate and rhythm Lungs no wheezes but air movement is poor standing he has diminished breath sounds in the bases Abdomen positive bowel tones soft minimally tender liver Calves 1+ bilateral pretibial edema and BEN hose are in place Data 01/09/25 15:23 01/10/25 04:19 A&P Assessment and plan 1. Acute diastolic (congestive) heart failure: Patient is placed on MedSurg with telemetry and observation and treated with 40 mg of furosemide twice a day plus today at extra dose of furosemide plus Zaroxolyn and additional of 20 mill colons potassium when he was pushing for discharge His last echo in September 2022 showed only mild diastolic dysfunction Follow-up portable chest x-ray. Anticipate the patient will want to be discharged tomorrow. Will need to transition to oral medications 2. JAKOB (obstructive sleep apnea): Patient did not bring in his home machine. He he lives in [place]. Will start with BiPAP here 24/10 with 25% FiO2 3. COPD (chronic obstructive pulmonary disease): As above he is not in COPD exacerbation at the moment 4. CKD (chronic kidney disease): Monitor renal function in the morning PDMP PDMP Reviewed: Not Reviewed Attestations Medical Necessity Statement*: Patient will require additional midnight in the hospital for diuresis Coding Level of Care Code 88810 Diagnoses Acute diastolic (congestive) heart failure I50.31 JAKOB (obstructive sleep apnea) G47.33 COPD (chronic obstructive pulmonary disease) J44.9 CKD (chronic kidney disease) N18.9 Time Spent (min) 35
[2025-01-11] VITALS (10 sets, daily range): BP systolic 113–157; BP diastolic 65–75; PULSE 56–78; RESP 15–22; TEMP 36.6–36.8; O2SAT 90–99; BMI 34.2
[2025-01-11] MEDS: FUROsemide 10 mg/mL SDV 4mL 40 MG IVP (04:57)
[2025-01-11] MEDS: ferrous sulfate EC 325 mg Tablet PO (04:58)
[2025-01-11 05:39] LABS: Anion Gap 15.1 (5-19); Blood Urea Nitrogen 33 mg/dL (8-23); Calcium 8.7 mg/dL (8.5-10.5); Carbon Dioxide 29 mmol/L (22-29); Chloride 102 mmol/L (98-107); Creatinine Clr Calc Pharmacy 47.6376; Glucose 117 mg/dL (65-115); Osmolality Calculated 302 mOsm/kg (285-295); Potassium 4.1 mmol/L (3.5-5.1); Sodium 142 mmol/L (136-145)
[2025-01-11 05:41] LABS: Magnesium 2.4 mg/dL (1.7-2.3)
--- NOTE | 2025-01-11 08:00 | XR_ITS ---
WS: [id number] Portable AP upright chest, 01/11/2025 Clinical Data: Follow-up pulmonary edema and bilateral effusion Comparison: Portable chest, 01/09/2025 Findings: The patchy opacity overlying the left diaphragm and in the retrocardiac region has diminished. There may be small bilateral pleural effusions. No nodules or masses are seen. The heart is normal. The pulmonary vascularity is not increased. No pneumonia or pneumothorax is seen. Monitor leads are on the chest wall. XR/XR chest 1V portable [id number] Impression: 1. Almost total clearing of patchy left lower lobe and retrocardiac opacity. 2. Minimal bilateral pleural effusions.
--- NOTE | 2025-01-11 09:21 | PC.CHAP ---
Pastoral Care Encounter/Spiritual Assessment Type of Contact [] Declined atm mechanic visit [] Patient/Family/Request visit [] Outpatient visit [] Follow-up visit [] Physician referral [] Code/Alert [x] Routine visit [] Staff referral [] Actively dying [] Patient sleeping [] Family support [] [] Out of room [] Palliative care [] [] Receiving care in room [] Pre-surgical visit [] Trauma [] Long length of stay [] ICU visit [] Other: Relational/Emotional Strength [] Patient feels connected with others/family/visitors/staff [] Distress [] Loneliness/isolation [] Abandonment Spirituality of Patient [x] Person of Suzanne [] Attends Cheondoism of their Suzanne [x] Believes in Prayer [] Reads Bible or Restoration materials [] There are Spiritual issues to be addressed Electrotype Molder Interventions [x] Prayer [x] Active listening [] Non-anxious presence [] Spiritual/emotional support [] Crisis/trauma care [] Spiritual counseling [] Bereavement support [] Provided bereavement packet [x] Provided Bible/devotional materials [] Provided toy/stuffed animal, coloring book to patient or family member [] Provided Communion [] Anointing/Revloc [] Salvation [x] Completed spiritual assessment [] Other: Impact on Illness or Injury [] Angry [] Fearful [] Anxious [] Often cries [] Exhaustion [] Unable to work [] Unable to attend congregation [] Unable to walk/stand [] Unable to read [] Unable to drive [] Unable to eat/drink [] Unable to sleep [] Unable to be with family [] Patient intubated [] Other: Summary Time spent with patient 10 min
[2025-01-11 11:13] LABS: Estmated Average Glucose 120; Hemoglobin A1C 5.8 % (4.0-6.0)
[2025-01-11 11:44] LABS: Cholesterol 137 mg/dL (0-200); HDL Cholesterol 32 mg/dL (60-100); Iron 44 ug/dL (59-158); Thyroid Stimulating Hormone 1.07 uIU/mL (0.27-4.20); Total Iron Binding Capacity 300 mcg/dl; Triglycerides 136 mg/dL (0-150); Unsaturated Iron Binding 256 ug/dL (112-347); VLDL Cholestrol Calculation 27 mg/dL (0-30); Vitamin B12 593 pg/mL (232-1245)
--- NOTE | 2025-01-11 13:44 | P.PN_ITS ---
Subjective 2 Subjective: Hospital course, labs appreciated. On examination patient ambulating in the room without difficulty in breathing or chest pain. Denies any nausea, vomiting, headache. States she has been having occasional chest heaviness at home for last 3 months especially on exertion. Vitals/I&O/Wt Last Vital Signs Temp 98.2 F 01/11/25 11:08 Pulse 64 01/11/25 11:08 Resp 18 01/11/25 11:08 BP 148/70 01/11/25 11:08 Pulse Ox 92 01/11/25 11:08 O2 Del Method Room Air 01/11/25 11:08 O2 Flow Rate 2 01/09/25 18:02 FiO2 30 01/11/25 04:13 01/10/25 01/11/25 01/11/25 22:59 06:59 14:59 Intake Total 360 / 1440 600 / 600 Output Total 1800 / 3200 2000 / 5200 1350 / 1350 Balance -1440 / -1760 -2000 / -3760 -750 / -750 Weight last 48 hrs Weight 108.272 kg Weight 110.404 kg Weight 114.759 kg Physical Exam 2 Narrative: General well-developed well-nourished male in no acute cardiopulmonary stress CV regular rate and rhythm Lungs no wheezes but air movement is poor standing he has diminished breath sounds in the bases Abdomen positive bowel tones soft minimally tender liver Calves 1+ bilateral pretibial edema and BEN hose are in place Data 01/09/25 15:23 01/11/25 04:27 A&P Assessment and plan 1. Acute diastolic (congestive) heart failure: Patient is placed on MedSur with telemetry and observation and treated with 40 mg of furosemide twice a day plus today at extra dose of furosemide plus Zaroxolyn and additional of 20 mill colons potassium when he was pushing for discharge His last echo in September 2022 showed only mild diastolic dysfunction Follow-up portable chest x-ray. Anticipate the patient will want to be discharged tomorrow. Will need to transition to oral medications 2. JAKOB (obstructive sleep apnea): Patient did not bring in his home machine. He he lives in [place]. Will start with BiPAP here 24/10 with 25% FiO2 3. COPD (chronic obstructive pulmonary disease): As above he is not in COPD exacerbation at the moment 4. CKD (chronic kidney disease): Monitor renal function in the morning Plan: Plan for the day: Follow-up echocardiogram. Monitor for regional wall motion abnormality or low EF. Further cardiac workup depending on results of echocardiogram. Patient seems euvolemic for now.For now hold off on diuretics. Currently he is on Lasix 40 mg twice daily. Overall around 5 L negative. DC Aguirre catheter. Goal blood pressure less than 140/90 mmHg. Blood pressure slightly elevated. For now continue with home dose of amlodipine, lisinopril. Will uptitrate depending on EF. Hold off on metolazone. Check A1c, lipid panel, iron panel. PDMP PDMP Reviewed: Not Reviewed Attestations 2 Medical Necessity Statement*: Requires further hospitalization for management of difficulty in breathing and concern of congestive heart failure while patient requires further cardiac workup Diagnoses Acute diastolic (congestive) heart failure I50.31 JAKOB (obstructive sleep apnea) G47.33 COPD (chronic obstructive pulmonary disease) J44.9 CKD (chronic kidney disease) N18.9
--- NOTE | 2025-01-11 17:24 | USCV_ITS ---
NicholsGary Age: 79 Gender: M : 1945 Exam Date: 01/11/2025 14:50 Ordering Phys: Herbert Hope MD Technologist: KYRIE [place] [facility] [place]: Acute CHF w/ volume overload BP: 148 / 70 HR: 67 Rhythm: Sinus Technical Quality: Adequate MEASUREMENTS (Male / Female) Normal Values 2D ECHO LV Diastolic Diameter PLAX 7.0 cm 4.2 - 5.9 / 3.9 - 5.3 cm IVS Diastolic Thickness 0.9 cm 0.6 - 1.0 / 0.6 - 0.9 cm IVS Systolic Thickness 0.9 cm LVPW Diastolic Thickness 1.1 cm 0.6 - 1.0 / 0.6 - 0.9 cm LVPW Systolic Thickness 1.0 cm LVOT Diameter 2.0 cm LV Ejection Fraction 2D Teich 18.1 % LV Ejection Fraction MOD 4C 61.9 % LV Ejection Fraction MOD 2C 62.7 % LV Ejection Fraction 2C AL 64.0 % LA Diameter 3.6 cm RA Systolic Volume 4C AL 53.3 ml RA Systolic Volume 4C MOD 51.9 ml Aorta at Sinotubular Diameter 3.1 cm IVC Diameter 1.8 cm M-MODE LA Ao Ratio MM 1.5 AV Cusp Separation MM 1.6 cm DOPPLER AV Peak Velocity 152.0 cm/s LVOT Peak Velocity 105.0 cm/s AV Area Cont Eq vti 2.3 cm squared AV Area Cont Eq pk 2.2 cm squared MV Peak Velocity 100.0 cm/s MV Area PHT 5.6 cm squared Mitral E to A Ratio 1.0 TV Peak Velocity 189.0 cm/s TR Peak Velocity 287.0 cm/s TR Peak Gradient 32.9 mmHg TV Peak E Velocity 66.0 cm/s PV Peak Velocity 95.0 cm/s FINDINGS Left Ventricle Normal left ventricular size and systolic function, EF 63%. No regional wall motion abnormalities. Right Ventricle Normal right ventricular size and systolic function. Right Atrium Normal right atrial size. Left Atrium Normal left atrial size. IA Septum Appears to be intact Mitral Valve Mild mitral valve regurgitation. Aortic Valve Thickened aortic valve. Tricuspid Valve No gross abnormalities noted Pulmonic Valve No gross abnormalities noted Pericardium No pericardial effusion. Aorta Normal aortic annulus size. IVC Normal IVC dimension with <50% respiratory change of the inferior vena cava. CONCLUSIONS Normal left ventricular size and systolic function, EF 63%. No regional wall motion abnormalities. Mild mitral valve regurgitation. Thickened aortic valve. There is no pericardial effusion. There are no intracardiac masses. No similar previous studies are available for comparison Dr Boyd Loaiza MD [facility] (Electronically Signed) Final Date: 11 January 2025 17:03 S
[2025-01-12] VITALS: PULSE 58; RESP 17; O2SAT 98
[2025-01-12 03:53] VITALS: BP 136/70; PULSE 64; RESP 17; TEMP 36.7; O2SAT 91
[2025-01-12 05:22] LABS: Hematocrit 39.9 % (37-53); Hemoglobin 12.70 g/dL (11.27-16.99); Mean Corpuscular HGB Conc 31.8 g/dL (30-55); Mean Corpuscular Hemoglobin 29.7 pg (27-33); Mean Corpuscular Volume 93.2 fl (82-101); Nucleated Red Blood Cells % 0 %; Platelet Count 264 10^3/cmm (157-399); Red Blood Count 4.28 10^6/uL (3.85-5.65); White Blood Count 9.47 10^3/uL (3.29-11.43)
[2025-01-12] MEDS: ferrous sulfate EC 325 mg Tablet PO (05:42)
[2025-01-12 05:45] LABS: Alanine Aminotransferase 27 U/L (0-41); Albumin Level 4.3 g/dL (3.5-5.2); Alkaline Phosphatase 102 U/L (40-130); Anion Gap 16.0 (5-19); Aspartate Amino Transferase 56 U/L (0-40); Blood Urea Nitrogen 35 mg/dL (8-23); Calcium 9.1 mg/dL (8.5-10.5); Carbon Dioxide 30 mmol/L (22-29); Chloride 99 mmol/L (98-107); Creatinine Clr Calc Pharmacy 44.1165; Globulin 3.8 g/dL (1.3-4.6); Glucose 101 mg/dL (65-115); Osmolality Calculated 300 mOsm/kg (285-295); Potassium 4.0 mmol/L (3.5-5.1); Sodium 141 mmol/L (136-145); Total Protein 8.1 g/dL (6.6-8.7)
[2025-01-12 05:46] LABS: Magnesium 2.5 mg/dL (1.7-2.3)
[2025-01-12 07:34] VITALS: BP 163/57; PULSE 65; RESP 17; TEMP 36.7; O2SAT 90
--- NOTE | 2025-01-12 08:40 | P.DS_ITS ---
Discharge Providers Date of Admission: 01/09/25 16:32 Date of Discharge: January 12, 2025 Attending Provider at Admission: Herbert Hope MD Attending Provider at Discharge: Micah Orozco MD Primary Care Provider: Meliza Cantor DO Diagnoses at Discharge Discharge Diagnosis 1. Acute diastolic (congestive) heart failure: 2. JAKOB (obstructive sleep apnea): 3. COPD (chronic obstructive pulmonary disease): 4. CKD (chronic kidney disease): Reason for Visit Reason for Visit: CP SOB Brief History: Gary Nichols is a 79 year old male with coronary disease status post 2 stents [address] Garcia, COPD, CKD, obstructive sleep apnea x 20 years, hypertension, CHF on furosemide comes in with 2 months of increasing shortness of breath. He states that last 2 to 3 days he has had dyspnea on exertion orthopnea and cough with minimal clear production. He has had weight gain of 20 pounds in 3 to 5 months. He wears BEN hose and also uses a ResMed 11 APAP machine and last night his pressure was 9.5. Patient was admitted through the emergency department with bilateral pleural effusions and pulmonary vascular congestion newly requiring oxygen now 91% on nasal cannula O2. EKG was okay but cardiac enzymes not done. Patient tells me he has 3-4/10 chest pressure and pain but also has 5 or 6/10 back pain from recent back surgery with Dr. Iraheta on 11/11/2024. Hospital Course Hospital Course Patient was admitted to the hospital further evaluation and management of shortness of breath in setting of fluid overload and congestive heart failure. He was started on aggressive IV diuresis. Overall he is on 5.5 to 6 L negative. His symptoms have resolved. Echocardiogram showed normal EF with concerns for diastolic dysfunction. He is discharged in medically stable condition with advised for lifestyle modification with congestive heart failure. Physical Exam Narrative: General well-developed well-nourished male in no acute cardiopulmonary stress CV regular rate and rhythm Lungs no wheezes but air movement is poor standing he has diminished breath sounds in the bases Abdomen positive bowel tones soft minimally tender liver Calves 1+ bilateral pretibial edema and BEN hose are in place Discharge Data Studies Completed and Pending Completed Studies During Hospitalization Category Date Time Status XR chest 1V portable [id number] Routine Exams 01/11/25 08:00 Completed XR chest 1V portable [id number] Stat Exams 01/09/25 15:10 Completed CV. echo complete* [id number] Routine Ultrasound 01/11/25 17:24 Completed Pending at discharge Category Date Time Status MAG [Magnesium] AM LABS Lab 01/13/25 04:00 Ordered MAG [Magnesium] AM LABS Lab 01/14/25 04:00 Ordered Radiology Impressions Chest X-Ray 01/11/25 08:00 Impression: 1. Almost total clearing of patchy left lower lobe and retrocardiac opacity. 2. Minimal bilateral pleural effusions. Echocardiogram: CONCLUSIONS Normal left ventricular size and systolic function, EF 63%. No regional wall motion abnormalities. Mild mitral valve regurgitation. Thickened aortic valve. There is no pericardial effusion. There are no intracardiac masses. No similar previous studies are available for comparison Dr Boyd Loaiza MD [facility] (Electronically Signed) Final Date: 11 January 2025 Laboratory Results WBC 9.47 10^3/uL (3.29-11.43) 01/12/25 04:17 RBC 4.28 10^6/uL (3.85-5.65) 01/12/25 04:17 Hgb 12.70 g/dL (11.27-16.99) 01/12/25 04:17 Hct 39.9 % (37-53) 01/12/25 04:17 MCV 93.2 fl (82-101) 01/12/25 04:17 MCH 29.7 pg (27-33) 01/12/25 04:17 MCHC 31.8 g/dL (30-55) 01/12/25 04:17 RDW 14.7 % (12.1-15.1) 01/12/25 04:17 Plt Count 264 10^3/cmm (157-399) 01/12/25 04:17 MPV 10.6 fL (7.4-10.4) H 01/12/25 04:17 Neut % (Auto) 58.2 % 01/12/25 04:17 Lymph % (Auto) 27.8 % 01/12/25 04:17 [place] % (Auto) 11.1 % 01/12/25 04:17 Eos % (Auto) 1.4 % 01/12/25 04:17 Baso % (Auto) 1.3 % 01/12/25 04:17 Neut # (Auto) 5.52 10^3/uL (1.8-7.7) 01/12/25 04:17 Lymph # (Auto) 2.6 10^3/uL (0.8-4.8) 01/12/25 04:17 [place] # (Auto) 1.1 10^3/uL (0.2-0.9) H 01/12/25 04:17 Eos # (Auto) 0.1 10^3/uL (0.0-0.8) 01/12/25 04:17 Baso # (Auto) 0.1 10^3/uL (0.0-0.1) 01/12/25 04:17 Nucleated RBC % (auto) 0 % 01/12/25 04:17 Nucleated RBCs # 0.0 /100WBC 01/12/25 04:17 Specimen Type Arterial 01/09/25 15:39 Sample Site Radial, left 01/09/25 15:39 ABG pH 7.40 (7.35-7.45) 01/09/25 15:39 ABG pCO2 44.8 mmHg (35-45) 01/09/25 15:39 ABG pO2 60.4 mmHg (80.0-100.0) L 01/09/25 15:39 ABG HCO3 27.4 mmol/L (22-26) H 01/09/25 15:39 ABG O2 Saturation 91.2 01/09/25 15:39 ABG Base Excess 2.1 mmol/L (-2.0-2.0) H 01/09/25 15:39 Lisandro Test Pos 01/09/25 15:39 A-a O2 Gradient 4.5 mmHg (5-10) L 01/09/25 15:39 Hematocrit 33.9 % (42-52) L 01/09/25 15:39 Hgb O2 Saturation 89.1 % (95-100) L 01/09/25 15:39 Carboxyhemoglobin 1.5 %THgb (0.4-20.1) 01/09/25 15:39 Methemoglobin 0.7 % (0.4-1.5) 01/09/25 15:39 Total Hemoglobin 11.1 g/dL (14-18) L 01/09/25 15:39 Sodium 146.0 mmol/L (131-143) H 01/09/25 15:39 Potassium 3.8 mmol/L (3.5-5.0) 01/09/25 15:39 Glucose 81.0 mg/dL (70-115) 01/09/25 15:39 Ionized Calcium 1.2 mmol/L (1.1-1.4) 01/09/25 15:39 O2 Delivery Device Nc 01/09/25 15:39 O2 Liters/Min 2.0 % 01/09/25 15:39 Applied Statistician ID Walci 01/09/25 15:39 Sodium 141 mmol/L (136-145) 01/12/25 04:17 Potassium 4.0 mmol/L (3.5-5.1) 01/12/25 04:17 Chloride 99 mmol/L (98-107) 01/12/25 04:17 Carbon Dioxide 30 mmol/L (22-29) H 01/12/25 04:17 Anion Gap 16.0 (5-19) 01/12/25 04:17 BUN 35 mg/dL (8-23) H 01/12/25 04:17 Creatinine 1.7 mg/dL (0.7-1.2) H 01/12/25 04:17 GFR Calculation Not Reportable 01/12/25 04:17 Glucose 101 mg/dL (65-115) 01/12/25 04:17 POC Glucose 111 mg/dL (70-110) H 01/12/25 06:21 Estimat Average Glucose 120 01/11/25 10:28 Hemoglobin A1c 5.8 % (4.0-6.0) 01/11/25 10:28 Calculated Osmolality 300 mOsm/kg (285-295) H 01/12/25 04:17 Calcium 9.1 mg/dL (8.5-10.5) 01/12/25 04:17 Phosphorus 3.1 mg/dL (2.5-4.5) 01/11/25 04:27 Magnesium 2.5 mg/dL (1.7-2.3) H 01/12/25 04:17 Iron 44 ug/dL (59-158) L 01/11/25 04:27 TIBC 300 mcg/dl 01/11/25 04:27 % Saturation 14.6 % (20-50) L 01/11/25 04:27 Unsat Iron Binding 256 ug/dL (112-347) 11/03/25 04:27 Total Bilirubin 0.5 mg/dL (0.15-1.2) 01/12/25 04:17 AST 56 U/L (0-40) H 01/12/25 04:17 ALT 27 U/L (0-41) 01/12/25 04:17 Alkaline Phosphatase 102 U/L (40-130) 01/12/25 04:17 Troponin T 5th Gen ng/L 17 ng/L (0-15) H 01/09/25 17:57 NT-Pro-B Natriuret Pep 967 pg/mL (0-450) H 01/09/25 15:23 Total Protein 8.1 g/dL (6.6-8.7) 01/12/25 04:17 Albumin 4.3 g/dL (3.5-5.2) 01/12/25 04:17 Globulin 3.8 g/dL (1.3-4.6) 01/12/25 04:17 Triglycerides 136 mg/dL (0-150) 01/11/25 04:27 Cholesterol 137 mg/dL (0-200) 01/11/25 04:27 LDL Cholesterol, Calc 78 mg/dL (50-129) 01/11/25 04:27 Total VLDL Cholesterol 27 mg/dL (0-30) 01/11/25 04:27 HDL Cholesterol 32 mg/dL (60-100) L 01/11/25 04:27 Cholesterol/HDL Ratio 4.28 mg/dL (1.0-5.00) 01/11/25 04:27 Vitamin B12 593 pg/mL (232-1245) 01/11/25 04:27 Folate > 20.0 ng/mL (4.5-32.2) 01/12/25 04:17 TSH 1.07 uIU/mL (0.27-4.20) 01/11/25 04:27 Influenza A (PCR) Negative (Negative) 01/09/25 13:45 Influenza Type B (PCR) Negative (Negative) 01/09/25 13:45 RSV (PCR) Negative (Negative) 01/09/25 13:45 SARS-CoV-2 (PCR) Negative (Negative) 01/09/25 13:45 Vitals Last Vital Signs Temp 98.0 F 01/12/25 07:34 Pulse 65 01/12/25 07:34 Resp 17 01/12/25 07:34 BP 163/57 01/12/25 07:34 Pulse Ox 90 01/12/25 07:34 O2 Del Method Room Air 01/12/25 07:34 O2 Flow Rate 2 01/09/25 18:02 FiO2 30 01/12/25 00:00 Discharge Plan Discharge Patient Disposition: Home Condition: Stable Prescriptions: New furosemide [Lasix] 40 mg tablet 40 mg PO DAILY PRN (Reason: weight gain) Qty: 20 0RF Rx Instructions: Take if weight increases by 3 pounds Continued tamsulosin [Flomax] 0.4 mg capsule 0.4 mg PO DAILY multivitamin Tablet 1 tab PO DAILY hydrocodone-acetaminophen 5-325 mg tablet 1 - 2 tab PO .Q4-6H PRN (Reason: pain) 7 Days Qty: 42 0RF Breztri Aerosphere 160-9-4.8 mcg/actuation HFA aerosol inhaler 2 inh inhalation BID (DME) Wheelchair See Rx Instructions .Route .MEDSUPPLY Qty: 1 0RF Rx Instructions: As directed (DME) Bed Side Urinal See Rx Instructions .Route .MEDSUPPLY Qty: 1 0RF Rx Instructions: As directed ([facility] [place]) ASO to left See Rx Instructions .Route .MEDSUPPLY Qty: 1 0RF Rx Instructions: As directed amlodipine 5 mg tablet 5 mg PO DAILY (DME) Bone Growth Stimulator See Rx Instructions .Route .MEDSUPPLY Qty: 1 0RF Rx Instructions: As directed ([facility] [place]) Bone Growth Stimulator See Rx Instructions .Route .MEDSUPPLY Qty: 1 0RF Rx Instructions: As directed aspirin 81 mg Tablet,Delayed Release (Dr/Ec) 81 mg PO DAILY tizanidine 2 mg tablet 2 mg PO Q8H PRN (Reason: Pain) alprazolam 1 mg tablet 1 mg PO BID PRN (Reason: Anxiety) cyanocobalamin (vitamin B-12) 1,000 mcg/mL solution 1,000 mcg IM .[id number] ferrous sulfate [FeroSul] 325 mg (65 mg iron) tablet 325 mg PO DAILY pramipexole 0.125 mg tablet 0.125 mg PO BEDTIME zolpidem 12.5 mg tablet,ext release multiphase 12.5 mg PO BEDTIME PRN (Reason: Insomnia) omega 4-nke-faq-fish oil [Fish Oil] 1,000 (120-180) mg Capsule 1 cap PO DAILY Changed lisinopril 10 mg tablet 20 mg PO DAILY Qty: 30 0RF Discharge Order = DC NOW: Discharge Order (Routine); Ordered 01/12/25 Ordered By: Micah Orozco Referrals: Meliza Cantor DO [Primary Care Provider, [facility]] - 2 weeks Referral Note: We have notified your physician's clinic of the need for a follow-up appointment to be scheduled. If you have not heard from them within the next 2 business days, please call them directly. FAXED FOR APPOINTMENT Discharge Diet: Cardiac Discharge Activity: Resume usual activity and Increase activity as tolerated Patient Instructions: Furosemide (By mouth), CHF Stoplight, Opioid Safety, Patient Portal & Yazmin Instructions Activity Restrictions/Additional Instructions: Restrict fluid intake to less than 1500 cc, salt intake to less than 2 g daily. Advised to check his weight daily at home. Is advised that weight today would be the dry weight and if body weight increases by around 5 pounds, patient is to take an extra dose of Lasix daily till body weight comes down to weight today. If not able to come down to dry body weight in 1 week, then is to call cardiology office for further recommendations. Patient was counseled in detail to take medications regularly as prescribed. Check your blood pressure daily at home maintain blood pressure diary. Goal blood pressures less than 140/90 mmHg. Follow-up with your primary care provider within next 2 weeks for further adjustment of antihypertensive if needed. For now dose of lisinopril has been increased to 20 mg daily. Discharge Attestations Time Spent in Discharge Care*: greater than 30 min Specific Discharge Activities: educating patient, educating and/or supporting family/caregiver, discussing with pcp/other providers, discussing with employment evaluator/case manager/social workers/dc planners, documenting/other paperwork and evaluating patient/reviewing data Status at Discharge: Cognitive status at discharge: cognitively intact , Behavioral status at discharge: cooperative , Functional status at discharge: independent ambulation , Overall status at discharge: patient is back to baseline Quality Metrics Clinical Quality Measures [ No reported AMI, CVA or VTE this stay] Coding Level of Care Code 91456 Total time (in minutes) for Discharge: 65 Diagnoses Acute diastolic (congestive) heart failure I50.31 JAKOB (obstructive sleep apnea) G47.33 COPD (chronic obstructive pulmonary disease) J44.9 CKD (chronic kidney disease) N18.9
[2025-01-12 09:03] VITALS: PULSE 65; RESP 18; O2SAT 93
[2025-01-12 10:39] VITALS: BP 163/57; PULSE 65; RESP 18; TEMP 36.7; O2SAT 93
[2025-01-12 10:40] LABS: C.Diff PCR (Lab) NEGATIVE (Negative)
--- NOTE | 2025-01-12 12:02 | PC.NURSE ---
Discussed discharge with patient. Went over medications, CHF stoplight, weighing self and taking lasix. Patient verbalized understanding.
== END 2025-01-12 10:55 | disposition home or self-care (01) ==
LOC: ER 15:33 → MEDSURG 16:41
PROVIDERS: Admitting Provider Internal Medicine; Emergency Provider Family Medicine; PCP Family Medicine; Visit Provider Student in an Organized Health Care Education/Training Program
DX: I13.0 Hypertensive heart and chronic kidney disease with heart failure and stage 1 through stage 4 chronic kidney disease, or unspecified chronic kidney disease (principal); N18.9 Chronic kidney disease, unspecified; I50.31 Acute diastolic (congestive) heart failure; G47.33 Obstructive sleep apnea (adult) (pediatric); Z99.89 Dependence on other enabling machines and devices; J44.9 Chronic obstructive pulmonary disease, unspecified; Z79.82 Long term (current) use of aspirin; Z79.891 Long term (current) use of opiate analgesic; I25.10 Atherosclerotic heart disease of native coronary artery without angina pectoris; Z95.5 Presence of coronary angioplasty implant and graft; I25.2 Old myocardial infarction; E78.5 Hyperlipidemia, unspecified; Z87.891 Personal history of nicotine dependence
CPT/HCPCS: 36415; 36416; 36600; 71045; 80048; 80051; 80053; 80061; 82330; 82607; 82746; 82805; 82962; 83036; 83540; 83550; 83735; 83880; 84100; 84443; 84484; 85025; 87493; 87637; 93005; 93306; 94640; 94660; 94664; 96372; 96374; 96375; 96376; 99285; G0378; J1650; J1938; J2919; J9999

== ENCOUNTER → 2025-01-18 12:19 | Outpatient (BNVA) | payer OTHER, SELFPAY | PROVIDERS: PCP Family Medicine; Referring Provider Nurse Practitioner Family; Visit Provider Anesthesiology Pain Medicine | DX: M79.18 Myalgia, other site (principal); M54.2 Cervicalgia; Z98.1 Arthrodesis status | CPT/HCPCS: 20553; 99205; J1010; J3490 ==

== ENCOUNTER → 2025-02-09 12:48 | Outpatient (BNVA) | payer OTHER, SELFPAY | PROVIDERS: PCP Family Medicine; Visit Provider Orthopaedic Surgery | DX: Z98.890 Other specified postprocedural states (principal); Z98.1 Arthrodesis status | CPT/HCPCS: 72100; 99024 ==

== ENCOUNTER 2025-02-19 12:35 | Outpatient (CLI) | payer OTHER, SELFPAY ==
--- NOTE | 2025-02-19 13:00 | MR_ITS ---
WS: [id number] MRI LUMBAR SPINE NONCONTRAST TECHNIQUE: Sagittal T1, T2 and STIR imaging. Axial T1 and T2 imaging. CLINICAL INFORMATION: back pain COMPARISON: MRI 08/13/24 FINDINGS: Mild lumbar curve. Pedicle screw fixation L4-5 with interbody fusion. Anterior wedging L1 with mild compression of the superior endplate and edema. Loss of approximately 40% vertebral body height slightly increased compared to 08/13/2024. Fracture cleft in the superior endplate. L1-L2: Mild annular bulging. Narrowing of the LEFT greater than RIGHT subarticular recess. Mild central canal stenosis. Mild LEFT foraminal narrowing. Mild facet arthropathy. L2-L3: Mild annular bulging. Mild central canal stenosis. Narrowing of the LEFT greater than RIGHT subarticular recess. Moderate facet arthropathy. Foramen are patent. L3-L4: Mild annular bulging. Narrowing of the subarticular recess bilaterally. Moderate facet arthropathy. Foramen are patent. L4-L5: Pedicle screw fixation. Narrowing of the subarticular recess bilaterally RIGHT greater than LEFT. Spinal canal has been decompressed. Mild RIGHT foraminal narrowing. L5-S1: Mild annular bulging. Spinal canal and foramen are patent. Moderate facet arthropathy. Visualized pelvic bony structures: Normal. Paravertebral soft tissues: Normal. MR/MR lumbar spine wo con* [id number] IMPRESSION: 1. Additional interval compression of the superior endplate L1 anteriorly with approximately 40% loss of vertebral body height. Fracture cleft in the superio r endplate with edema. 2. Pedicle screw fixation L4-5 with interbody fusion is new with laminectomy d efects. Mild residual central canal stenosis with narrowing of the RIGHT greate r than LEFT subarticular recess. Mild RIGHT L4-5 foraminal narrowing. 3. Mild central canal stenosis L1-2 is stable with narrowing of the LEFT subar ticular recess 4. Mild central canal stenosis L2-3 is stable with narrowing of the LEFT great er than RIGHT subarticular recess. 5. Mild annular bulging L3-4 with slight narrowing of the subarticular recess bilaterally is stable.
== END 2025-02-19 12:36 | disposition home or self-care (01) ==
LOC: RAD 12:35
PROVIDERS: PCP Family Medicine; Visit Provider Orthopaedic Surgery
DX: M51.360 Other intervertebral disc degeneration, lumbar region with discogenic back pain only (principal); M51.370 Other intervertebral disc degeneration, lumbosacral region with discogenic back pain only; M48.061 Spinal stenosis, lumbar region without neurogenic claudication; M47.816 Spondylosis without myelopathy or radiculopathy, lumbar region; Z98.1 Arthrodesis status
CPT/HCPCS: 72148

== ENCOUNTER → 2025-02-22 12:11 | Outpatient (BNVA) | payer OTHER, SELFPAY | PROVIDERS: PCP Family Medicine; Visit Provider Anesthesiology Pain Medicine | DX: M54.2 Cervicalgia (principal); Z98.1 Arthrodesis status | CPT/HCPCS: 99214 ==

== ENCOUNTER → 2025-02-25 13:25 | Outpatient (BNVA) | payer OTHER, SELFPAY | PROVIDERS: PCP Family Medicine; Visit Provider Orthopaedic Surgery | DX: Z01.818 Encounter for other preprocedural examination (principal); Z51.89 Encounter for other specified aftercare; M48.062 Spinal stenosis, lumbar region with neurogenic claudication; M43.16 Spondylolisthesis, lumbar region | CPT/HCPCS: 36415; 80053; 81001; 85025; 99214 ==